=== PATIENT | female | born 1985 | race Caucasian/White ===

== ENCOUNTER 2020-05-16 12:15 | Inpatient (IN) | payer SELFPAY ==
[2020-05-16] MEDS ORDERED: KETOROLAC TROMETHAMINE INJ/PF 30 MG/1 ML SDV IV ONE (13:07)
[2020-05-16] MEDS ORDERED: ONDANSETRON HCL INJ/PF 4 MG/2 ML SDV IV ONE (13:07)
--- NOTE | 2020-05-16 13:09 | ER Document Report ---
ED Medical Screen (RME) - General Stated Complaint: FLANK PAIN Time Seen by Provider: 05/16/20 13:04 Notes: HPI: 34-year-old female with history of polycystic kidney disease presenting for bilateral flank pain with vomiting. Patient states that she began having dysuri a and frequency of urination with small amounts 2 weeks ago and has progressively worsened now with bilateral flank pain worse on the left. States she has had several episodes of nausea vomiting but does not know if she has had a fever PHYSICAL EXAMINATION: Cachectic appearing. Moderate tenderness to the left lower quadrant left abdomen and bilateral CVA tenderness on exam I have greeted and performed a rapid initial assessment of this patient. A comprehensive ED assessment and evaluation of the patient, analysis of test results and completion of medical decision making process will be conducted by an additional ED providers. TRAVEL OUTSIDE OF THE [place] IN LAST 30 DAYS: No - Related Data Allergies/Adverse Reactions: No Known Allergies Allergy (Verified 05/16/20 13:01) Past Medical History - Past Medical History Cardiac Medical History: Reports: Hx Hypertension Musculoskeltal Medical History: Reports Hx Fibromyalgia Psychiatric Medical History: Reports: Hx Anxiety Physical Exam - Vital signs Vitals: Temp Pulse Resp BP Pulse Ox 97.4 F 100 16 121/81 100 05/16/20 12:24 05/16/20 12:24 05/16/20 12:24 05/16/20 12:24 05/16/20 12:24 Course - Vital Signs Vital signs: Temp Pulse Resp BP Pulse Ox 97.4 F 100 16 121/81 100 05/16/20 12:24 05/16/20 12:24 05/16/20 12:24 05/16/20 12:24 05/16/20 12:24
[2020-05-16 13:57] LABS: APPEARANCE,URINE CLOUDY; BILIRUBIN,URINE NEGATIVE (NEGATIVE); COLOR,URINE YELLOW; GLUCOSE, URINE NEGATIVE (NEGATIVE); KETONES,URINE NEGATIVE (NEGATIVE); LEUKOCYTE ESTERASE,URINE LARGE (NEGATIVE); NITRITE,URINE NEGATIVE (NEGATIVE); PROTEIN,URINE 100 mg/dL (NEGATIVE); URINE SPECIFIC GRAVITY 1.012; UROBILINOGEN,URINE NEGATIVE mg/dL (<2.0)
[2020-05-16 14:46] LABS: ALBUMIN 2.9 g/dL (3.5-5.0); ALKALINE PHOSPHATASE 139 U/L (38-126); ANION GAP 13 (5-19); ASPARTATE AMINO TRANSFERASE 19 U/L (14-36); BILIRUBIN,DIRECT 0.2 mg/dL (0.0-0.4); BILIRUBIN,TOTAL 0.3 mg/dL (0.2-1.3); BLOOD UREA NITROGEN 80 mg/dL (7-20); CALCIUM 8.4 mg/dL (8.4-10.2); CHLORIDE 114 mmol/L (98-107); GLUCOSE 97 mg/dL (75-110); POTASSIUM 4.4 mmol/L (3.6-5.0); TOTAL PROTEIN 7.6 g/dL (6.3-8.2)
[2020-05-16 14:59] LABS: CARBON DIOXIDE 9 mmol/L (22-30)
[2020-05-16 15:18] LABS: HEMATOCRIT 15.5 % (36.0-47.0); MEAN CORPUSCULAR HEMOGLOBIN 24.9 pg (27.0-33.4); MEAN CORPUSCULAR HGB CONC 29.5 g/dL (32.0-36.0); MEAN CORPUSCULAR VOLUME 84 fl (80-97); PLATELET COUNT 667 10^3/uL (150-450); RED BLOOD COUNT 1.83 10^6/uL (3.72-5.28); WHITE BLOOD COUNT 28.6 10^3/uL (4.0-10.5)
[2020-05-16 15:22] LABS: HEMOGLOBIN 4.6 g/dL (12.0-15.5)
[2020-05-16 15:35] LABS: ABSOLUTE LYMPHOCYTES# (MANUAL) 3.4 10^3/uL (0.5-4.7); ABSOLUTE MONOCYTES # (MANUAL) 1.1 10^3/uL (0.1-1.4); BASOPHILS % (MANUAL) 0 % (0-2); EOSINOPHILS % (MANUAL) 0 % (0-6); LYMPHOCYTES % (MANUAL) 12 % (13-45); MONOCYTES % (MANUAL) 4 % (3-13); SEGMENTED NEUTROPHILS % (MAN) 84 % (42-78); TOTAL CELLS COUNTED 100
[2020-05-16 15:37] LABS: ANISOCYTOSIS 2+; HYPOCHROMASIA SLIGHT; PLATELET COMMENT ADEQUATE; TEAR DROP CELLS SLIGHT; TOXIC GRANULATION 1+
[2020-05-16] MEDS ORDERED: NORMAL SALINE IV PRN (16:01)
[2020-05-16] MEDS ORDERED: NORMAL SALINE 250 ML IV PRN ×2 (16:04)
[2020-05-16] MEDS ORDERED: PIPERACILLIN/TAZOBACTAM 3.375 GM VIAL IV ONE (16:04)
--- NOTE | 2020-05-16 16:10 | ER Document Report ---
ED GI/ - General Chief Complaint: Flank Pain Stated Complaint: FLANK PAIN Time Seen by Provider: 05/16/20 13:04 Notes: This 34-year-old woman presents to the emergency department with a two-week history of bilateral flank pain and dysuria with frequency. She also describes urgency of urination and small quantities when she goes to urinate. She has a history of polycystic kidney disease and her symptoms have been progressive over the past 2 weeks now with weakness and fatigue as well as vomiting episodes. She denies known fever however, over the past 2 days she has felt sicker. She also notes a past medical history of anemia. TRAVEL OUTSIDE OF THE [place] IN LAST 30 DAYS: No - Related Data Allergies/Adverse Reactions: No Known Allergies Allergy (Verified 05/16/20 13:01) Past Medical History - Social History Smoking Status: Former Smoker Chew tobacco use (# tins/day): No Frequency of alcohol use: None Drug Abuse: None Family History: Reviewed & Not Pertinent. denies: CAD Patient has homicidal ideation: No - Past Medical History Cardiac Medical History: Reports: Hx Hypertension Musculoskeletal Medical History: Reports Hx Fibromyalgia Psychiatric Medical History: Reports: Hx Anxiety Review of Systems - Review of Systems Notes: Constitutional: Generalized weakness and fatigue HENT: Negative for sore throat. Eyes: Negative for visual changes. Cardiovascular: Negative for chest pain. Respiratory: Negative for shortness of breath. Gastrointestinal: + Nausea and vomiting. Genitourinary: + Dysuria + urgency, + frequency, + flank pain. Musculoskeletal: Negative for back pain. Skin: Negative for rash. Neurological: Negative for headaches, weakness or numbness. 10 point ROS negative except as marked above and in HPI. Physical Exam - Vital signs Vitals: Temp Pulse Resp BP Pulse Ox 97.4 F 100 16 121/81 100 05/16/20 12:24 05/16/20 12:24 05/16/20 12:24 05/16/20 12:24 05/16/20 12:24 - Notes Notes: PHYSICAL EXAMINATION: Physical Exam: General: Chronically ill-appearing 34-year-old female in mild distress secondary to flank pain HEENT: NC/AT, pupils equal round and reactive to light, MM moist,nares clear, oropharynx clear, airway patent Neck: supple, no adenopathy, no masses. Good range of motion Lungs: clear, no wheezing, no rales no rhonchi CVS: Regular rate and rhythm no murmur gallop or rub Abdomen: Soft, slightly distended, active, nontender, no masses, no hepatosplenomegaly Ext: Bilateral upper and lower extremity muscle wasting Back: Bilateral CVA tenderness Neuro: Alert and responsive, moving all 4 extremities on command, cranial nerves intact, no focal findings Skin: Intact no open lesions, no rash PSYCH: Normal mood, normal affect. Course - Re-evaluation Re-evalutation: 05/16/20 17:32 I have discussed the findings of the CT scan and lab work with the patient. I explained that she is significantly anemic and has an infection in the urinary tract. She is requiring a transfusion. The patient states that she was transfused in December 2019, apparently had a hemoglobin of 4 at that time. She states that the blood was being lost in her urine, not GI related. 05/16/20 17:36 I have contacted the hospitalist, Dr. Trejo, he will admit the patient to the IMCU for further evaluation and treatment. 05/16/20 17:41 And a sepsis evaluation was also performed because of a marked leukocytosis and urinary tract infection. Blood cultures x2, lactic acid, 30 mL/kg fluid bolus and Zosyn 3.375 g IV. Patient was also noted to have acute kidney injury with a creatinine of greater than 4, potassium is normal, suggestive of a acute rather than chronic renal dysfunction. We will treat as prerenal and monitor closely. - Vital Signs Vital signs: Temp Pulse Resp BP Pulse Ox 98.6 F 86 14 115/84 100 05/16/20 17:15 05/16/20 17:15 05/16/20 17:15 05/16/20 17:15 05/16/20 17:15 - Laboratory Result Diagrams: 05/16/20 14:55 05/16/20 14:00 Laboratory results interpreted by me: 05/16/20 05/16/20 05/16/20 13:20 14:00 14:00 WBC RBC Hgb Hct MCH MCHC RDW Plt Count Seg Neuts % (Manual) Lymphocytes % (Manual) Abs Neuts (Manual) PT 16.4 H APTT 43.7 H Sodium 136.3 L Chloride 114 H Carbon Dioxide 9 L* BUN 80 H Creatinine 4.98 H Est GFR ( Amer) 12 L Est GFR (MDRD) Non-Af 10 L Lactic Acid Alkaline Phosphatase 139 H Albumin 2.9 L Lipase 459.9 H Urine Protein 100 H Urine Blood MODERATE H Ur Leukocyte Esterase LARGE H Crossmatch 05/16/20 05/16/20 05/16/20 14:55 15:30 16:25 WBC 28.6 H RBC 1.83 L Hgb 4.6 L* Hct 15.5 L MCH 24.9 L MCHC 29.5 L RDW 20.0 H Plt Count 667 H Seg Neuts % (Manual) 84 H Lymphocytes % (Manual) 12 L Abs Neuts (Manual) 24.0 H PT APTT Sodium Chloride Carbon Dioxide BUN Creatinine Est GFR ( Amer) Est GFR (MDRD) Non-Af Lactic Acid < 0.5 L Alkaline Phosphatase Albumin Lipase Urine Protein Urine Blood Ur Leukocyte Esterase Crossmatch See Detail - Diagnostic Test Radiology reviewed: Image reviewed, Reports reviewed Radiology results interpreted by me: 05/16/20 17:36 Chest x-ray: No acute cardiopulmonary findings CT abdomen and pelvis with IV contrast: Polycystic kidney and polycystic liver with ascites. Critical Care Note - Critical Care Note Total time excluding time spent on procedures (mins): 60 - Critical care time spent obtaining history from patient or surrogate, discussions with consultants, development of treatment plan with patient or surrogate, evaluation of patient's response to treatment, examination of patient, ordering and performing treatments and interventions, ordering and review of laboratory studies, re- evaluation of patient's condition, ordering and review of radiographic studies and review of old charts Discharge - Discharge Clinical Impression: Severe anemia, SURESH (acute kidney injury), Polycystic kidney, Polycystic liver disease, Generalized weakness Urinary tract infection Qualifiers: Urinary tract infection type: site unspecified Hematuria presence: with hematuria Qualified Code(s): N39.0 - Urinary tract infection, site not specified; R31.9 - Hematuria, unspecified Ascites Qualifiers: Ascites type: other type Qualified Code(s): R18.8 - Other ascites Leukocytosis (leucocytosis) Qualifiers: Leukocytosis type: unspecified Qualified Code(s): D72.829 - Elevated white blood cell count, unspecified Condition: Good Disposition: ADMITTED INPATIENT Admitting Provider: Maya (Hospitalist) Unit Admitted: [facility]
--- NOTE | 2020-05-16 16:33 | RADIOLOGY REPORT (SQ) ---
EXAM DESCRIPTION: CT ABD/PELVIS NO ORAL OR IV IMAGES COMPLETED DATE/TIME: 05/16/2020 3:59 pm REASON FOR STUDY: flank pain COMPARISON: None. TECHNIQUE: CT scan of the abdomen and pelvis performed without intravenous or oral contrast. Images reviewed with lung, soft tissue, and bone windows. Reconstructed coronal and sagittal MPR images revi ewed. All images stored on PACS. All CT scanners at this facility use dose modulation, iterative reconstruction, and/or weight based d osing when appropriate to reduce radiation dose to as low as reasonably achievable (ALARA). [facility]: Dose Right [facility]: CareDose [facility]: Dose Right [facility]: Teradose 4D [facility]: Smart [employer] RADIATION DOSE: CT Rad equipment meets quality standard of care and radiation dose reduction techniq ues were employed. CTDIvol: 4.8 mGy. DLP: 268 mGy-cm.mGy. LIMITATIONS: Noncontrast technique and minimal intra-abdominal fat limits evaluation of anatomy. FINDINGS: LOWER CHEST: No significant findings. No nodules or infiltrates. NON-CONTRASTED LIVER, SPLEEN, ADRENALS: Evaluation limited by lack of IV contrast. Hepatomegaly with numerous parenchymal cystic changes, largest measuring 6.3 cm. PANCREAS: Difficult to visualize. GALLBLADDER: Not visualized. RIGHT KIDNEY AND URETER: Significantly enlarged measuring 20 cm in length Numerous cysts identified. Few small calcified stones. . LEFT KIDNEY AND URETER: Enlarged measuring 16 cm length. Numerous cysts identified. Few small calci fied stones. . AORTA AND RETROPERITONEUM: No aneurysm. Scattered adenopathy. BOWEL AND PERITONEAL CAVITY: No obvious obstruction. APPENDIX: Not visualized. PELVIS, BLADDER, AND ABDOMINAL WALL:Moderate free fluid. Unremarkable bladder. BONES: No acute findings. OTHER: No other significant finding. IMPRESSION: Moderate ascites. Enlarged Polycystic kidneys and liver. Noncontrast technique and minimal intra-abdominal fat limits evaluation of anatomy. TECHNICAL DOCUMENTATION: JOB ID: [id number] [place]-72 Quality ID # [id number]: Final reports with documentation of one or more dose reduction techniques (e.g., Au tomated exposure control, adjustment of the mA and/or kV according to patient size, use of iterative reconstruction technique) 2010 [employer]- All Rights Reserved Reading location - IP/workstation name: [email or web address]
--- NOTE | 2020-05-16 16:42 | RADIOLOGY REPORT (SQ) ---
EXAM DESCRIPTION: CHEST SINGLE VIEW IMAGES COMPLETED DATE/TIME: 05/16/2020 4:22 pm REASON FOR STUDY: possible sepsis COMPARISON: 10/16/2014 TECHNIQUE: Single frontal radiographic view of the chest acquired. NUMBER OF VIEWS: One view. LIMITATIONS: None. FINDINGS: LUNGS AND PLEURA: No pneumothorax. No consolidation or pleural effusion. MEDIASTINUM AND HILAR STRUCTURES: Stable. HEART AND VASCULAR STRUCTURES: Stable. BONES: No acute findings. HARDWARE: None in the chest. OTHER: No other significant finding. IMPRESSION: NO ACUTE FINDINGS. TECHNICAL DOCUMENTATION: JOB ID: [id number] [place]-72 2010 [employer]- All Rights Reserved Reading location - IP/workstation name: [email or web address]
[2020-05-16] MEDS ORDERED: HYDROMORPHONE HCL INJ/PF 2 MG/ML AMPULE IV ONE (17:17)
[2020-05-16] MEDS ORDERED: ONDANSETRON HCL INJ/PF 4 MG/2 ML SDV IV PRN (17:30)
[2020-05-16] MEDS ORDERED: NORMAL SALINE 1000 ML 1,000 ML IV PRN (17:30)
[2020-05-16] MEDS ORDERED: ACETAMINOPHEN 325 MG TABLET PO PRN (17:30)
[2020-05-16 17:40] LABS: PROTHROMBIN TIME 16.4 SEC (11.4-15.4)
[2020-05-16 17:41] LABS: PARTIAL THROMBOPLASTIN TIME 43.7 SEC (23.5-35.8)
[2020-05-16] MEDS ORDERED: PIPERACILLIN/TAZOBACTAM 3.375 GM VIAL IV SCH (17:45)
[2020-05-16] MEDS ORDERED: PANTOPRAZOLE SODIUM 40 MG VIAL IV PRN (17:47)
[2020-05-16] MEDS: CITRIC ACID/SODIUM CITRATE ORAL SOLN 15 ML UDCUP PO SCH ×2 (18:10→23:51)
--- NOTE | 2020-05-16 18:45 | PDOC H&P ---
History of Present Illness Admission Date/PCP: 05/16/20 17:55 Patient complains of: Complaints of bilateral flank pain History of Present Illness: BILLIE HUTCHINS is a 34 year old female with history of polycystic kidney disease, recent history of dialysis in [place], treated for severe anemia [place] moved to [place] again 3 weeks ago and came to the emergency room with complaints of severe bilateral flank pain. Work-up done in the ER shows hemoglobin of 4.6, CT scan shows bilateral enlarged kidneys with polycystic lesions and liver lesions, bicarb in the chemistry is 9 with a creatinine of 5.0. 3 units of blood transfusion initiated in the ER started on IV fluids. Briefly discussed the case with Dr. Bolanos she is going to see the patient deysi rausch. Patient does not have a dialysis catheter at this time. As per the patient her mom at the age of 49 with renal failure. Past Medical History Cardiac Medical History: Reports: Hypertension Renal/ Medical History: Reports: Chronic Kidney Disease, End Stage Renal Disease Malignancy Medical History: Reports: None GI Medical History: Reports: Hiatal Hernia Musculoskeltal Medical History: Reports: Fibromyalgia Psychiatric Medical History: Reports: None Traumatic Medical History: Reports: None Hematology: Reports: None Infectious Medical History: Reports: None Past Surgical History Past Surgical History: Reports: Herniorrhaphy, Other Social History Smoking Status: Former Smoker Electronic Cigarette use?: No Hx Recreational Drug Use: No Hx Prescription Drug Abuse: No Family History Family History: Reviewed & Not Pertinent. denies: CAD Parental Family History Reviewed: Yes - Family history of renal failure Children Family History Reviewed: Yes Sibling(s) Family History Reviewed.: Yes Medication/Allergy Home Medications: No Home Medications 05/16/20 Allergies/Adverse Reactions: No Known Allergies Allergy (Verified 05/16/20 13:01) Review of Systems Constitutional: ABSENT: fever(s) Ears: ABSENT: hearing changes Nose, Mouth, and Throat: ABSENT: mouth pain, sore throat Respiratory: ABSENT: cough, hemoptysis Gastrointestinal: PRESENT: abdominal pain, other - Complaining of bilateral flank pain Genitourinary: ABSENT: dysuria, hematuria Integumentary: ABSENT: rash, wounds Neurological: ABSENT: abnormal gait, abnormal speech, confusion, dizziness, focal weakness, syncope Psychiatric: ABSENT: anxiety, depression, homidical ideation, suicidal ideation Physical Exam Vital Signs: Temp Pulse Resp BP Pulse Ox 98.6 F 86 14 115/84 100 05/16/20 17:15 05/16/20 17:15 05/16/20 17:15 05/16/20 17:15 05/16/20 17:15 Intake & Output 05/15/20 05/16/20 05/17/20 06:59 06:59 06:59 Intake Total 0 Balance 0 Weight 47.1 kg General appearance: PRESENT: no acute distress, disheveled Head exam: PRESENT: atraumatic Eye exam: PRESENT: PERRLA. ABSENT: conjunctiva pale Mouth exam: PRESENT: moist, tongue midline Teeth exam: PRESENT: poor dentation Neck exam: ABSENT: carotid bruit, JVD, lymphadenopathy, thyromegaly Respiratory exam: PRESENT: decreased breath sounds Cardiovascular exam: PRESENT: tachycardia GI/Abdominal exam: PRESENT: ascites, other - Fullness of the costovertebral angle Rectal exam: PRESENT: deferred Extremities exam: PRESENT: full ROM. ABSENT: calf tenderness, clubbing, pedal edema Neurological exam: PRESENT: alert, awake, oriented to person, oriented to place, oriented to time, oriented to situation, CN II-XII grossly intact. ABSENT: motor sensory deficit Psychiatric exam: PRESENT: appropriate affect, normal mood. ABSENT: homicidal ideation, suicidal ideation Results Laboratory Results: 05/16/20 14:55 05/16/20 14:00 05/16/20 05/16/20 05/16/20 13:20 14:00 14:00 WBC Cancelled RBC Cancelled Hgb Cancelled Hct Cancelled MCV Cancelled MCH Cancelled MCHC Cancelled RDW Cancelled Plt Count Cancelled Seg Neutrophils % Cancelled Sodium 136.3 L Potassium 4.4 Chloride 114 H Carbon Dioxide 9 L* Anion Gap 13 BUN 80 H Creatinine 4.98 H Est GFR ( Amer) 12 L Glucose 97 Lactic Acid Calcium 8.4 Total Bilirubin 0.3 AST 19 Alkaline Phosphatase 139 H Total Protein 7.6 Albumin 2.9 L Lipase 459.9 H Serum HCG, Qual Urine Color YELLOW Urine Appearance CLOUDY Urine pH 6.0 Ur Specific [place] 1.012 Urine Protein 100 H Urine Glucose (UA) NEGATIVE Urine Ketones NEGATIVE Urine Blood MODERATE H Urine Nitrite NEGATIVE Ur Leukocyte Esterase LARGE H Urine WBC (Auto) >182 Urine RBC (Auto) 13 Blood Type Antibody Screen 05/16/20 05/16/20 05/16/20 14:00 14:55 15:30 WBC 28.6 H RBC 1.83 L Hgb 4.6 L* Hct 15.5 L MCV 84 MCH 24.9 L MCHC 29.5 L RDW 20.0 H Plt Count 667 H Seg Neutrophils % Not Reportable Sodium Potassium Chloride Carbon Dioxide Anion Gap BUN Creatinine Est GFR ( Amer) Glucose Lactic Acid Calcium Total Bilirubin AST Alkaline Phosphatase Total Protein Albumin Lipase Serum HCG, Qual NEGATIVE Urine Color Urine Appearance Urine pH Ur Specific [place] Urine Protein Urine Glucose (UA) Urine Ketones Urine Blood Urine Nitrite Ur Leukocyte Esterase Urine WBC (Auto) Urine RBC (Auto) Blood Type O POSITIVE Antibody Screen NEGATIVE 05/16/20 16:25 WBC RBC Hgb Hct MCV MCH MCHC RDW Plt Count Seg Neutrophils % Sodium Potassium Chloride Carbon Dioxide Anion Gap BUN Creatinine Est GFR ( Amer) Glucose Lactic Acid < 0.5 L Calcium Total Bilirubin AST Alkaline Phosphatase Total Protein Albumin Lipase Serum HCG, Qual Urine Color Urine Appearance Urine pH Ur Specific [place] Urine Protein Urine Glucose (UA) Urine Ketones Urine Blood Urine Nitrite Ur Leukocyte Esterase Urine WBC (Auto) Urine RBC (Auto) Blood Type Antibody Screen Impressions: Abdomen/Pelvis CT 05/16/20 13:07 IMPRESSION: Moderate ascites. Enlarged Polycystic kidneys and liver. Noncontrast technique and minimal intra-abdominal fat limits evaluation of anatomy. Chest X-Ray 05/16/20 16:02 IMPRESSION: NO ACUTE FINDINGS. Assessment and Plan - Diagnosis (1) SURESH (acute kidney injury) Is this a current diagnosis for this admission?: Yes Plan: 05/16/2020-patient is going to be admitted to [facility] as an inpatient. Patient baseline creatinine is 0.9 in 2014 today it is 5. Bicarb is 9. As per the patient she has a temporary dialysis in [place] in December. Started on IV fluids 100 cc/h. Nephrology consult was requested. Muhammad's catheter was requested renal ultrasound was requested. (2) Polycystic kidney Is this a current diagnosis for this admission?: No Plan: 05/16/2020-patient has history of polycystic kidney disease confirmed by the CT scan of the abdomen. It may be the cause for the end-stage renal disease. Nephrology consult is requested. (3) Leukocytosis (leucocytosis) Qualifiers: Leukocytosis type: unspecified Qualified Code(s): D72.829 - Elevated white blood cell count, unspecified Is this a current diagnosis for this admission?: Yes Plan: 05/16/2020-WBC count is 28,000. Urinalysis abnormal. Started on IV Zosyn. Plan is to continue IV Zosyn blood cultures urine cultures are pending. (4) Severe anemia Is this a current diagnosis for this admission?: Yes Plan: 05/16/2020-patient's hemoglobin is 4.6 to transfuse 3 units of blood transfusion. Protonix drip is initiated. Stool guaiac was requested. Patient is going to receive 3 units of blood transfusion LDH was requested iron studies were requested. Consolidation with Dr. Bolanos is requested. (5) Urinary tract infection Qualifiers: Urinary tract infection type: site unspecified Hematuria presence: with hematuria Qualified Code(s): N39.0 - Urinary tract infection, site not s pecified; R31.9 - Hematuria, unspecified Is this a current diagnosis for this admission?: Yes Plan: 05/16/2020-patient came in with abdominal urine started on IV Zosyn. Blood cultures urine cultures are pending. (6) Polycystic liver disease Is this a current diagnosis for this admission?: No Plan: 05/16/2020-patient has history of polycystic kidney disease with liver involve ment. Consultation with nephrology on consultation with oncology is requested. (7) Metabolic acidosis Is this a current diagnosis for this admission?: Yes Plan: 05/16/2020-serum bicarb is 9 most likely secondary to end-stage renal disease. Started on Bicitra 15 mL 4 times a day. (8) Protein-energy malnutrition Is this a current diagnosis for this admission?: Yes Plan: 05/16/2020-patient's BMI is less than 19. Sting of the temporal muscles, deltoid muscle, quadriceps muscle seen. Dietary consult will be requested. - Time Anticipated Discharge Disposition: Home, Self Care Anticipated Discharge Timeframe: within 72 hours
[2020-05-16 19:58] LABS: ABSOLUTE RETICS # 0.049 10^6/uL (0.028-0.122); RETICULOCYTE COUNT (AUTO) 2.65 % (0.66-2.85)
--- NOTE | 2020-05-16 20:55 | RADIOLOGY REPORT (SQ) ---
US RETROPERITONEUM HISTORY: Acute renal failure. COMPARISON: CT scan from earlier the same day. TECHNIQUE: Grayscale and color Doppler ultrasound images of the kidneys were obtained. FINDINGS: The right kidney measures 22.1 cm in length. The cortex has normal thickness and echogenicity. There is no right-sided kidney stone, mass or hydronephrosis. There are numerous cystic structures throughout the right kidney. The left kidney measures 16.3 cm in length. The cortex has normal thickness and echogenicity. There is no left-sided kidney stone, mass or hydronephrosis. There are numerous cystic structures throughout the left kidney. There is a Muhammad catheter in the urinary bladder. IMPRESSION: 1. Bilateral polycystic kidney disease. 2. No hydronephrosis or urinary stones are seen.
[2020-05-16 21:43] LABS: HEMATOCRIT 20.8 % (36.0-47.0); MEAN CORPUSCULAR HEMOGLOBIN 25.2 pg (27.0-33.4); MEAN CORPUSCULAR HGB CONC 29.8 g/dL (32.0-36.0); MEAN CORPUSCULAR VOLUME 84 fl (80-97); PLATELET COUNT 709 10^3/uL (150-450); RED BLOOD COUNT 2.46 10^6/uL (3.72-5.28); RED CELL DISTRIBUTION WIDTH 19.5 % (11.5-14.0); WHITE BLOOD COUNT 29.8 10^3/uL (4.0-10.5)
[2020-05-16 21:50] LABS: IRON(TIBC) < 10.1 ug/dL (37-170)
[2020-05-16] MEDS ORDERED: PIPERACILLIN/TAZOBACTAM 2.25 GM VIAL IV PRN (21:53)
[2020-05-16] MEDS ORDERED: PIPERACILLIN SODIUM/TAZOBACTAM 2.25 GM in NORMAL SALINE 50 ML IV SCH (22:00)
[2020-05-16 22:03] LABS: HEMOGLOBIN 6.2 g/dL (12.0-15.5)
[2020-05-16 22:06] LABS: ABSOLUTE LYMPHOCYTES# (MANUAL) 4.2 10^3/uL (0.5-4.7); BASOPHILS % (MANUAL) 0 % (0-2); LYMPHOCYTES % (MANUAL) 14 % (13-45)
[2020-05-16 22:07] LABS: ABSOLUTE MONOCYTES # (MANUAL) 0.6 10^3/uL (0.1-1.4); EOSINOPHILS % (MANUAL) 1 % (0-6); METAMYELOCYTES % (MANUAL) 1 % (0-1); MONOCYTES % (MANUAL) 2 % (3-13); SEGMENTED NEUTROPHILS % (MAN) 82 % (42-78); TOTAL CELLS COUNTED 100
[2020-05-16 22:08] LABS: ANISOCYTOSIS 1+; OVALOCYTES 1+; PLATELET COMMENT ADEQUATE; POIKILOCYTOSIS 1+; SCHISTOCYTES SLIGHT; TEAR DROP CELLS SLIGHT; TOXIC GRANULATION 1+
[2020-05-16] MEDS ORDERED: CITRIC ACID/SODIUM CITRATE ORAL SOLN 15 ML UDCUP ONE (22:44)
[2020-05-16] MEDS ORDERED: PIPERACILLIN/TAZOBACTAM 2.25 GM VIAL IV ONE (22:44)
[2020-05-17] MEDS: MORPHINE SULFATE 10 MG/ML INJ IV PRN ×5 (02:34→23:58)
[2020-05-17 04:07] LABS: ALBUMIN 2.7 g/dL (3.5-5.0); ALKALINE PHOSPHATASE 119 U/L (38-126); ANION GAP 14 (5-19); ASPARTATE AMINO TRANSFERASE 21 U/L (14-36); BILIRUBIN,DIRECT 0.1 mg/dL (0.0-0.4); BILIRUBIN,TOTAL 0.2 mg/dL (0.2-1.3); BLOOD UREA NITROGEN 81 mg/dL (7-20); CALCIUM 7.7 mg/dL (8.4-10.2); CHLORIDE 113 mmol/L (98-107); GLUCOSE 81 mg/dL (75-110); POTASSIUM 4.5 mmol/L (3.6-5.0); TOTAL PROTEIN 7.1 g/dL (6.3-8.2)
[2020-05-17 04:21] LABS: CARBON DIOXIDE 8 mmol/L (22-30)
[2020-05-17 04:43] LABS: HEMATOCRIT 27.9 % (36.0-47.0); MEAN CORPUSCULAR VOLUME 85 fl (80-97); WHITE BLOOD COUNT 28.9 10^3/uL (4.0-10.5)
[2020-05-17 04:44] LABS: MEAN CORPUSCULAR HEMOGLOBIN 26.7 pg (27.0-33.4); MEAN CORPUSCULAR HGB CONC 31.5 g/dL (32.0-36.0); PLATELET COUNT 667 10^3/uL (150-450); RED CELL DISTRIBUTION WIDTH 17.8 % (11.5-14.0)
[2020-05-17 04:45] LABS: HEMOGLOBIN 8.8 g/dL (12.0-15.5)
[2020-05-17 04:46] LABS: ABSOLUTE LYMPHOCYTES# (MANUAL) 4.3 10^3/uL (0.5-4.7); ABSOLUTE MONOCYTES # (MANUAL) 0.6 10^3/uL (0.1-1.4); BASOPHILS % (MANUAL) 0 % (0-2); EOSINOPHILS % (MANUAL) 1 % (0-6); LYMPHOCYTES % (MANUAL) 15 % (13-45); MONOCYTES % (MANUAL) 2 % (3-13); SEGMENTED NEUTROPHILS % (MAN) 82 % (42-78); TOTAL CELLS COUNTED 100
[2020-05-17 04:47] LABS: ANISOCYTOSIS 1+; BURR CELLS SLIGHT; OVALOCYTES 1+; PLATELET COMMENT ADEQUATE; POIKILOCYTOSIS 1+; TEAR DROP CELLS SLIGHT; TOXIC GRANULATION 1+
[2020-05-17 05:14] LABS: ARTERIAL BLOOD BASE EXCESS -18.6 mmol/L; ARTERIAL BLOOD H2CO3 0.66 mmol/L (1.05-1.35); ARTERIAL BLOOD O2 SATURATION 97.6 % (94-98); ARTERIAL BLOOD PCO2 21.9 mmHg (35-45); ARTERIAL BLOOD PO2 120.3 mmHg (80-100); ARTERIAL BLOOD TOTAL CO2 8.7 mmol/L (21-25)
[2020-05-17 05:21] LABS: ARTERIAL BLOOD FIO2 ROOM AIR
[2020-05-17 05:23] LABS: ARTERIAL BLOOD PH 7.18 (7.35-7.45)
--- NOTE | 2020-05-17 08:30 | PDOC CONSULTATION ---
Consultation Consult Date: 05/17/20 Provider Consulted: EDITH PRINGLE Consult reason:: Hematology/Oncology consultation was requested for patient with acute anemia as well as chronic kidney disease. History of Present Illness Admission Date/PCP: 05/16/20 17:55 History of Present Illness: BILLIE HUTCHINS is a 34 year old female who states that she had a few days of abdominal pain without nausea or constipation. She presented to the ED and was found to have Cr of >4 and HGB 4.6. She was on dialysis briefly a few months ago. She states that she has frequent kidney infections and also required blood transfusion during her last admission with UTI and dialysis. She has chronic polycytsic kidney disease, but otherwise, does not know why she is currently sick. She had blood through her urine in the past and was told this was the reason for her anemia. She denies having been on EPO injections in the past. Today, she is asking to eat and is very hungry. However, she is NPO for possible dialysis catheter placement. 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 Family History Family History: denies: CAD Parental Family History Reviewed: Yes - Father with kidney disease. Children Family History Reviewed: No Sibling(s) Family History Reviewed.: Yes Medication/Allergy Home Medications: No Home Medications 05/16/20 Allergies/Adverse Reactions: No Known Allergies Allergy (Verified 05/16/20 13:01) Review of Systems Constitutional: ABSENT: fever(s), headache(s) Eyes: ABSENT: visual disturbances Ears: ABSENT: hearing changes Nose, Mouth, and Throat: ABSENT: sore throat Cardiovascular: ABSENT: chest pain Respiratory: ABSENT: dyspnea Gastrointestinal: PRESENT: abdominal pain. ABSENT: constipation, nausea Genitourinary: ABSENT: dysuria Musculoskeletal: ABSENT: back pain Integumentary: ABSENT: rash Neurological: ABSENT: confusion, weakness Hematologic/Lymphatic: ABSENT: easy bleeding Physical Exam Vital Signs: Temp Pulse Resp BP Pulse Ox 97.5 F 93 18 102/75 98 05/17/20 03:49 05/17/20 07:00 05/17/20 03:49 05/17/20 03:49 05/17/20 03:49 Intake & Output 05/16/20 05/17/20 05/18/20 06:59 06:59 06:59 Intake Total 600 Output Total 200 Balance 400 Weight 47.7 kg General appearance: PRESENT: thin Head exam: PRESENT: normocephalic, other - scar over forehead. Eye exam: PRESENT: EOMI Mouth exam: PRESENT: moist, tongue midline Neck exam: ABSENT: lymphadenopathy, tenderness Respiratory exam: PRESENT: clear to auscultation lan, unlabored Cardiovascular exam: PRESENT: RRR GI/Abdominal exam: PRESENT: normal bowel sounds, soft. ABSENT: tenderness Extremities exam: ABSENT: pedal edema Musculoskeletal exam: PRESENT: normal inspection Neurological exam: PRESENT: alert, awake Psychiatric exam: PRESENT: appropriate affect Skin exam: PRESENT: normal color Results Laboratory Results: 05/17/20 03:34 05/17/20 03:34 05/16/20 05/16/20 05/16/20 13:20 14:00 14:00 WBC Cancelled RBC Cancelled Hgb Cancelled Hct Cancelled MCV Cancelled MCH Cancelled MCHC Cancelled RDW Cancelled Plt Count Cancelled Seg Neutrophils % Cancelled Retic Count (auto) Carbonic Acid HCO3/H2CO3 Ratio ABG pH ABG pCO2 ABG pO2 ABG HCO3 ABG O2 Saturation ABG Base Excess FiO2 Sodium 136.3 L Potassium 4.4 Chloride 114 H Carbon Dioxide 9 L* Anion Gap 13 BUN 80 H Creatinine 4.98 H Est GFR ( Amer) 12 L Glucose 97 Lactic Acid Calcium 8.4 Magnesium Iron TIBC Ferritin Total Bilirubin 0.3 AST 19 Alkaline Phosphatase 139 H Ammonia Total Protein 7.6 Albumin 2.9 L Lipase 459.9 H Vitamin B12 Folate TSH Serum HCG, Qual PTH Intact Urine Color YELLOW Urine Appearance CLOUDY Urine pH 6.0 Ur Specific [place] 1.012 Urine Protein 100 H Urine Glucose (UA) NEGATIVE Urine Ketones NEGATIVE Urine Blood MODERATE H Urine Nitrite NEGATIVE Ur Leukocyte Esterase LARGE H Urine WBC (Auto) >182 Urine RBC (Auto) 13 Blood Type Antibody Screen 05/16/20 05/16/20 05/16/20 14:00 14:00 14:00 WBC RBC Hgb Hct MCV MCH MCHC RDW Plt Count Seg Neutrophils % Retic Count (auto) 2.65 Carbonic Acid HCO3/H2CO3 Ratio ABG pH ABG pCO2 ABG pO2 ABG HCO3 ABG O2 Saturation ABG Base Excess FiO2 Sodium Potassium Chloride Carbon Dioxide Anion Gap BUN Creatinine Est GFR ( Amer) Glucose Lactic Acid Calcium Magnesium Iron < 10.1 L TIBC 211 L Ferritin 326.00 H Total Bilirubin AST Alkaline Phosphatase Ammonia Total Protein Albumin Lipase Vitamin B12 958.0 H Folate 10.20 TSH Serum HCG, Qual NEGATIVE PTH Intact Urine Color Urine Appearance Urine pH Ur Specific [place] Urine Protein Urine Glucose (UA) Urine Ketones Urine Blood Urine Nitrite Ur Leukocyte Esterase Urine WBC (Auto) Urine RBC (Auto) Blood Type Antibody Screen 05/16/20 05/16/20 05/16/20 14:55 15:30 16:25 WBC 28.6 H RBC 1.83 L Hgb 4.6 L* Hct 15.5 L MCV 84 MCH 24.9 L MCHC 29.5 L RDW 20.0 H Plt Count 667 H Seg Neutrophils % Not Reportable Retic Count (auto) Carbonic Acid HCO3/H2CO3 Ratio ABG pH ABG pCO2 ABG pO2 ABG HCO3 ABG O2 Saturation ABG Base Excess FiO2 Sodium Potassium Chloride Carbon Dioxide Anion Gap BUN Creatinine Est GFR ( Amer) Glucose Lactic Acid < 0.5 L Calcium Magnesium Iron TIBC Ferritin Total Bilirubin AST Alkaline Phosphatase Ammonia Total Protein Albumin Lipase Vitamin B12 Folate TSH Serum HCG, Qual PTH Intact Urine Color Urine Appearance Urine pH Ur Specific [place] Urine Protein Urine Glucose (UA) Urine Ketones Urine Blood Urine Nitrite Ur Leukocyte Esterase Urine WBC (Auto) Urine RBC (Auto) Blood Type O POSITIVE Antibody Screen NEGATIVE 05/16/20 05/16/20 05/16/20 19:05 21:20 21:20 WBC RBC Hgb Hct MCV MCH MCHC RDW Plt Count Seg Neutrophils % Retic Count (auto) Carbonic Acid Cancelled HCO3/H2CO3 Ratio Cancelled ABG pH Cancelled ABG pCO2 Cancelled ABG pO2 Cancelled ABG HCO3 Cancelled ABG O2 Saturation Cancelled ABG Base Excess Cancelled FiO2 Cancelled Sodium Potassium Chloride Carbon Dioxide Anion Gap BUN Creatinine Est GFR ( Amer) Glucose Lactic Acid 0.7 Calcium Magnesium Iron TIBC Ferritin Total Bilirubin AST Alkaline Phosphatase Ammonia Total Protein Albumin Lipase Vitamin B12 Folate TSH Serum HCG, Qual PTH Intact 61.8 Urine Color Urine Appearance Urine pH Ur Specific [place] Urine Protein Urine Glucose (UA) Urine Ketones Urine Blood Urine Nitrite Ur Leukocyte Esterase Urine WBC (Auto) Urine RBC (Auto) Blood Type Antibody Screen 05/16/20 05/17/20 05/17/20 21:20 01:38 03:34 WBC 29.8 H RBC 2.46 L Hgb 6.2 L Hct 20.8 L MCV 84 MCH 25.2 L MCHC 29.8 L RDW 19.5 H Plt Count 709 H Seg Neutrophils % Not Reportable Retic Count (auto) Carbonic Acid HCO3/H2CO3 Ratio ABG pH ABG pCO2 ABG pO2 ABG HCO3 ABG O2 Saturation ABG Base Excess FiO2 Sodium 135.2 L Potassium 4.5 Chloride 113 H Carbon Dioxide 8 L* Anion Gap 14 BUN 81 H Creatinine 4.79 H Est GFR ( Amer) 12 L Glucose 81 Lactic Acid 0.8 Calcium 7.7 L Magnesium 1.8 Iron TIBC Ferritin Total Bilirubin 0.2 AST 21 Alkaline Phosphatase 119 Ammonia Total Protein 7.1 Albumin 2.7 L Lipase Vitamin B12 Folate TSH Serum HCG, Qual PTH Intact Urine Color Urine Appearance Urine pH Ur Specific [place] Urine Protein Urine Glucose (UA) Urine Ketones Urine Blood Urine Nitrite Ur Leukocyte Esterase Urine WBC (Auto) Urine RBC (Auto) Blood Type Antibody Screen 05/17/20 05/17/20 05/17/20 03:34 03:34 04:48 WBC 28.9 H RBC 3.30 L Hgb 8.8 L D Hct 27.9 L MCV 85 MCH 26.7 L MCHC 31.5 L RDW 17.8 H Plt Count 667 H Seg Neutrophils % Not Reportable Retic Count (auto) Carbonic Acid 0.66 L HCO3/H2CO3 Ratio 12:1 ABG pH 7.18 L* ABG pCO2 21.9 L ABG pO2 120.3 H ABG HCO3 8.0 L ABG O2 Saturation 97.6 ABG Base Excess -18.6 FiO2 ROOM AIR Sodium Potassium Chloride Carbon Dioxide Anion Gap BUN Creatinine Est GFR ( Amer) Glucose Lactic Acid Calcium Magnesium Iron TIBC Ferritin Total Bilirubin AST Alkaline Phosphatase Ammonia Total Protein Albumin Lipase Vitamin B12 Folate TSH 3.55 Serum HCG, Qual PTH Intact Urine Color Urine Appearance Urine pH Ur Specific [place] Urine Protein Urine Glucose (UA) Urine Ketones Urine Blood Urine Nitrite Ur Leukocyte Esterase Urine WBC (Auto) Urine RBC (Auto) Blood Type Antibody Screen 05/17/20 05:38 WBC RBC Hgb Hct MCV MCH MCHC RDW Plt Count Seg Neutrophils % Retic Count (auto) Carbonic Acid HCO3/H2CO3 Ratio ABG pH ABG pCO2 ABG pO2 ABG HCO3 ABG O2 Saturation ABG Base Excess FiO2 Sodium Potassium Chloride Carbon Dioxide Anion Gap BUN Creatinine Est GFR ( Amer) Glucose Lactic Acid Calcium Magnesium Iron TIBC Ferritin Total Bilirubin AST Alkaline Phosphatase Ammonia < 8.7 L Total Protein Albumin Lipase Vitamin B12 Folate TSH Serum HCG, Qual PTH Intact Urine Color Urine Appearance Urine pH Ur Specific [place] Urine Protein Urine Glucose (UA) Urine Ketones Urine Blood Urine Nitrite Ur Leukocyte Esterase Urine WBC (Auto) Urine RBC (Auto) Blood Type Antibody Screen Impressions: Renal Ultrasound 05/16/20 00:00 IMPRESSION: 1. Bilateral polycystic kidney disease. 2. No hydronephrosis or urinary stones are seen. Abdomen/Pelvis CT 05/16/20 13:07 IMPRESSION: Moderate ascites. Enlarged Polycystic kidneys and liver. Noncontrast technique and minimal intra-abdominal fat limits evaluation of anatomy. Chest X-Ray 05/16/20 16:02 IMPRESSION: NO ACUTE FINDINGS. Assessment & Plan - Diagnosis (1) Polycystic kidney Is this a current diagnosis for this admission?: No (2) Severe anemia Is this a current diagnosis for this admission?: Yes Plan: LDH is normal, as is retic count. This appears to be anemia of chronic renal disease. Her ferritin is normal, but her serum iron and sat are very low. She may benefit from some iron as well as EPO. This should be followed as outpatient. She has responded well to blood transfusions. (3) Urinary tract infection Qualifiers: Urinary tract infection type: site unspecified Hematuria presence: with hematuria Qualified Code(s): N39.0 - Urinary tract infection, site not specified; R31.9 - Hematuria, unspecified Is this a current diagnosis for this admission?: Yes Plan: On appropriate antibiotics. Renal has been consulted for possible dialysis. - Plan Summary Plan Summary: Thank you for this consultation. I will be happy to follow her with you. Please call with any concerns.
[2020-05-17] MEDS ORDERED: EPOETIN ALFA-EPBX 20,000 UNIT in SYRINGE, DISPOSABLE, 1 EACH IV PRN (09:16)
[2020-05-17] MEDS ORDERED: TUBERCULIN,PURIF.PROT.DERIV. 5 TU/0.1 ML TEST 1 ML VIAL ID ONE ×2 (09:16→11:00)
[2020-05-17] MEDS ORDERED: HEPARIN SOD (PORCINE) 1,000 UNIT/ML 10 ML VIAL IV PRN (09:16)
[2020-05-17] MEDS ORDERED: IRON SUCROSE COMPLEX INJ/PF 100 MG/5 ML SDV IV PRN (09:16)
[2020-05-17] MEDS ORDERED: NORMAL SALINE 1000 ML 1,000 ML IV PRN (09:16)
--- NOTE | 2020-05-17 09:27 | Operative Report ---
Operative Report DATE OF SURGERY: 05/17/20 PREOPERATIVE DIAGNOSIS: 1. Sepsis. 2. End-stage renal failure. 3. Anticoag ulated POSTOPERATIVE DIAGNOSIS: Same OPERATION: Ultrasound directed insertion of tri-lumen dialysis access catheter in the right groin SURGEON: TARA WARREN ANESTHESIA: Local TISSUE REMOVED OR ALTERED: None COMPLICATIONS: None ESTIMATED BLOOD LOSS: 20 cc INTRAOPERATIVE FINDINGS: See below PROCEDURE: The patient was evaluated for for [facility]. Right groin was exposed, hair clipped. The right groin was prepped and draped sterile fashion with chlorhexidine Surgical plan and surgical timeout were conducted. Using ultrasound real-time as a guide, the right common femoral vein was visualized, found be suitable for cannulation based on compression in diameter. The skin was anesthetized with 1% plain lidocaine. 18-gauge needle and conventional 0.030 inch guidewire threaded into the right common femoral vein. The tract was dilated up with a small and medium sized dilators. The tri-Alysis catheter was then threaded over the wire the wire removed. There was excellent aspiration and flow through all 3 lm. Lumens were flushed with saline then heparinized saline. Catheter secured to the skin at 2 sites with 3-0 Ethilon suture. Biopatch and sterile dressing applied. Patient tolerated procedure well. There was no evidence of hematoma. Plan: 1. Patient's care will be turned over to the medicine service, and drug enforcement administration agent for further intervention. 2. Surgery will sign off at this point; please reconsult if clinically indicated.
[2020-05-17] MEDS: DEXTROSE 5%-WATER 1000 ML 1,000 ML with SODIUM BICARBONATE 150 MEQ IV PRN ×4 (09:54→23:57)
[2020-05-17] MEDS: CITRIC ACID/SODIUM CITRATE ORAL SOLN 15 ML UDCUP PO SCH ×4 (11:52→21:24)
--- NOTE | 2020-05-17 11:52 | CDI QUERY ---
CDI Query CDI Review: Dear Provider, Please further specify level of malnutrition noted in progress notes: SEVERE MALNUTRITION MODERATE MILD Clinical data: muscle wasting / dietary consult / labs / BMI 19 Thanks, Randa Leach [phone]
--- NOTE | 2020-05-17 12:08 | PDOC PROGRESS REPORT ---
Subjective Progress Note for:: 05/15/20 Subjective:: 34 year old female with history of polycystic kidney disease, recent history of dialysis in [place], treated for severe anemia [place] moved to [place] again 3 weeks ago and came to the emergency room with complaints of severe bilateral flank pain. Work-up done in the ER shows hemoglobin of 4.6, CT scan shows bilateral enlarged kidneys with polycystic lesions and liver lesions, bicarb in the chemistry is 9 with a creatinine of 5.0. 3 units of blood trans fusion initiated in the ER started on IV fluids. Briefly discussed the case with Dr. Bolanos she is going to see the patient tomorrow. Patient does not have a dialysis catheter at this time. As per the patient her mom at the age of 49 with renal failure. 05/17/2020-patient is in the dialysis unit at the time of examination. Received a temporary dialysis catheter. Hemoglobin came up to 8.6 with treatments of blood transfusion. Creatinine improved to 4.1. Consultation with nephrology, onc ology was done. WBC count is still elevated receiving IV antibiotic therapy. Reason For Visit: SURESH,SEVERE ANEMIA Physical Exam Vital Signs: Temp Pulse Resp BP Pulse Ox 97.5 F 93 18 102/75 98 05/17/20 03:49 05/17/20 07:00 05/17/20 03:49 05/17/20 03:49 05/17/20 03:49 Intake & Output 05/16/20 05/17/20 05/18/20 06:59 06:59 06:59 Intake Total 600 Output Total 200 Balance 400 Weight 47.7 kg General appearance: PRESENT: no acute distress, cooperative, disheveled, thin Head exam: PRESENT: atraumatic Eye exam: PRESENT: PERRLA Mouth exam: PRESENT: moist, tongue midline Teeth exam: PRESENT: poor dentation Neck exam: ABSENT: carotid bruit, JVD, lymphadenopathy, thyromegaly Respiratory exam: PRESENT: decreased breath sounds Cardiovascular exam: PRESENT: RRR. ABSENT: diastolic murmur, rubs, systolic murmur GI/Abdominal exam: PRESENT: ascites, normal bowel sounds, other - Fullness of the costovertebral angles present. Rectal exam: PRESENT: deferred Extremities exam: PRESENT: full ROM. ABSENT: calf tenderness, clubbing, pedal edema Neurological exam: PRESENT: alert, awake, oriented to person, oriented to place, oriented to time, oriented to situation, CN II-XII grossly intact. ABSENT: motor sensory deficit Psychiatric exam: PRESENT: appropriate affect, normal mood. ABSENT: homicidal ideation, suicidal ideation Results Laboratory Results: 05/17/20 03:34 05/17/20 03:34 05/16/20 05/16/20 05/16/20 13:20 14:00 14:00 WBC Cancelled RBC Cancelled Hgb Cancelled Hct Cancelled MCV Cancelled MCH Cancelled MCHC Cancelled RDW Cancelled Plt Count Cancelled Seg Neutrophils % Cancelled Retic Count (auto) Carbonic Acid HCO3/H2CO3 Ratio ABG pH ABG pCO2 ABG pO2 ABG HCO3 ABG O2 Saturation ABG Base Excess FiO2 Sodium 136.3 L Potassium 4.4 Chloride 114 H Carbon Dioxide 9 L* Anion Gap 13 BUN 80 H Creatinine 4.98 H Est GFR ( Amer) 12 L Glucose 97 Lactic Acid Calcium 8.4 Magnesium Iron TIBC Ferritin Total Bilirubin 0.3 AST 19 Alkaline Phosphatase 139 H Ammonia Total Protein 7.6 Albumin 2.9 L Lipase 459.9 H Vitamin B12 Folate TSH Serum HCG, Qual PTH Intact Urine Color YELLOW Urine Appearance CLOUDY Urine pH 6.0 Ur Specific [place] 1.012 Urine Protein 100 H Urine Glucose (UA) NEGATIVE Urine Ketones NEGATIVE Urine Blood MODERATE H Urine Nitrite NEGATIVE Ur Leukocyte Esterase LARGE H Urine WBC (Auto) >182 Urine RBC (Auto) 13 Blood Type Antibody Screen 05/16/20 05/16/20 05/16/20 14:00 14:00 14:00 WBC RBC Hgb Hct MCV MCH MCHC RDW Plt Count Seg Neutrophils % Retic Count (auto) 2.65 Carbonic Acid HCO3/H2CO3 Ratio ABG pH ABG pCO2 ABG pO2 ABG HCO3 ABG O2 Saturation ABG Base Excess FiO2 Sodium Potassium Chloride Carbon Dioxide Anion Gap BUN Creatinine Est GFR ( Amer) Glucose Lactic Acid Calcium Magnesium Iron < 10.1 L TIBC 211 L Ferritin 326.00 H Total Bilirubin AST Alkaline Phosphatase Ammonia Total Protein Albumin Lipase Vitamin B12 958.0 H Folate 10.20 TSH Serum HCG, Qual NEGATIVE PTH Intact Urine Color Urine Appearance Urine pH Ur Specific [place] Urine Protein Urine Glucose (UA) Urine Ketones Urine Blood Urine Nitrite Ur Leukocyte Esterase Urine WBC (Auto) Urine RBC (Auto) Blood Type Antibody Screen 05/16/20 05/16/20 05/16/20 14:55 15:30 16:25 WBC 28.6 H RBC 1.83 L Hgb 4.6 L* Hct 15.5 L MCV 84 MCH 24.9 L MCHC 29.5 L RDW 20.0 H Plt Count 667 H Seg Neutrophils % Not Reportable Retic Count (auto) Carbonic Acid HCO3/H2CO3 Ratio ABG pH ABG pCO2 ABG pO2 ABG HCO3 ABG O2 Saturation ABG Base Excess FiO2 Sodium Potassium Chloride Carbon Dioxide Anion Gap BUN Creatinine Est GFR ( Amer) Glucose Lactic Acid < 0.5 L Calcium Magnesium Iron TIBC Ferritin Total Bilirubin AST Alkaline Phosphatase Ammonia Total Protein Albumin Lipase Vitamin B12 Folate TSH Serum HCG, Qual PTH Intact Urine Color Urine Appearance Urine pH Ur Specific [place] Urine Protein Urine Glucose (UA) Urine Ketones Urine Blood Urine Nitrite Ur Leukocyte Esterase Urine WBC (Auto) Urine RBC (Auto) Blood Type O POSITIVE Antibody Screen NEGATIVE 05/16/20 05/16/20 05/16/20 19:05 21:20 21:20 WBC RBC Hgb Hct MCV MCH MCHC RDW Plt Count Seg Neutrophils % Retic Count (auto) Carbonic Acid Cancelled HCO3/H2CO3 Ratio Cancelled ABG pH Cancelled ABG pCO2 Cancelled ABG pO2 Cancelled ABG HCO3 Cancelled ABG O2 Saturation Cancelled ABG Base Excess Cancelled FiO2 Cancelled Sodium Potassium Chloride Carbon Dioxide Anion Gap BUN Creatinine Est GFR ( Amer) Glucose Lactic Acid 0.7 Calcium Magnesium Iron TIBC Ferritin Total Bilirubin AST Alkaline Phosphatase Ammonia Total Protein Albumin Lipase Vitamin B12 Folate TSH Serum HCG, Qual PTH Intact 61.8 Urine Color Urine Appearance Urine pH Ur Specific [place] Urine Protein Urine Glucose (UA) Urine Ketones Urine Blood Urine Nitrite Ur Leukocyte Esterase Urine WBC (Auto) Urine RBC (Auto) Blood Type Antibody Screen 05/16/20 05/17/20 05/17/20 21:20 01:38 03:34 WBC 29.8 H RBC 2.46 L Hgb 6.2 L Hct 20.8 L MCV 84 MCH 25.2 L MCHC 29.8 L RDW 19.5 H Plt Count 709 H Seg Neutrophils % Not Reportable Retic Count (auto) Carbonic Acid HCO3/H2CO3 Ratio ABG pH ABG pCO2 ABG pO2 ABG HCO3 ABG O2 Saturation ABG Base Excess FiO2 Sodium 135.2 L Potassium 4.5 Chloride 113 H Carbon Dioxide 8 L* Anion Gap 14 BUN 81 H Creatinine 4.79 H Est GFR ( Amer) 12 L Glucose 81 Lactic Acid 0.8 Calcium 7.7 L Magnesium 1.8 Iron TIBC Ferritin Total Bilirubin 0.2 AST 21 Alkaline Phosphatase 119 Ammonia Total Protein 7.1 Albumin 2.7 L Lipase Vitamin B12 Folate TSH Serum HCG, Qual PTH Intact Urine Color Urine Appearance Urine pH Ur Specific [place] Urine Protein Urine Glucose (UA) Urine Ketones Urine Blood Urine Nitrite Ur Leukocyte Esterase Urine WBC (Auto) Urine RBC (Auto) Blood Type Antibody Screen 05/17/20 05/17/20 05/17/20 03:34 03:34 04:48 WBC 28.9 H RBC 3.30 L Hgb 8.8 L D Hct 27.9 L MCV 85 MCH 26.7 L MCHC 31.5 L RDW 17.8 H Plt Count 667 H Seg Neutrophils % Not Reportable Retic Count (auto) Carbonic Acid 0.66 L HCO3/H2CO3 Ratio 12:1 ABG pH 7.18 L* ABG pCO2 21.9 L ABG pO2 120.3 H ABG HCO3 8.0 L ABG O2 Saturation 97.6 ABG Base Excess -18.6 FiO2 ROOM AIR Sodium Potassium Chloride Carbon Dioxide Anion Gap BUN Creatinine Est GFR ( Amer) Glucose Lactic Acid Calcium Magnesium Iron TIBC Ferritin Total Bilirubin AST Alkaline Phosphatase Ammonia Total Protein Albumin Lipase Vitamin B12 Folate TSH 3.55 Serum HCG, Qual PTH Intact Urine Color Urine Appearance Urine pH Ur Specific [place] Urine Protein Urine Glucose (UA) Urine Ketones Urine Blood Urine Nitrite Ur Leukocyte Esterase Urine WBC (Auto) Urine RBC (Auto) Blood Type Antibody Screen 05/17/20 05:38 WBC RBC Hgb Hct MCV MCH MCHC RDW Plt Count Seg Neutrophils % Retic Count (auto) Carbonic Acid HCO3/H2CO3 Ratio ABG pH ABG pCO2 ABG pO2 ABG HCO3 ABG O2 Saturation ABG Base Excess FiO2 Sodium Potassium Chloride Carbon Dioxide Anion Gap BUN Creatinine Est GFR ( Amer) Glucose Lactic Acid Calcium Magnesium Iron TIBC Ferritin Total Bilirubin AST Alkaline Phosphatase Ammonia < 8.7 L Total Protein Albumin Lipase Vitamin B12 Folate TSH Serum HCG, Qual PTH Intact Urine Color Urine Appearance Urine pH Ur Specific [place] Urine Protein Urine Glucose (UA) Urine Ketones Urine Blood Urine Nitrite Ur Leukocyte Esterase Urine WBC (Auto) Urine RBC (Auto) Blood Type Antibody Screen 05/16/20 16:25 Blood Blood Culture (PCR) - Final Escherichia Coli Impressions: Renal Ultrasound 05/16/20 00:00 IMPRESSION: 1. Bilateral polycystic kidney disease. 2. No hydronephrosis or urinary stones are seen. Abdomen/Pelvis CT 05/16/20 13:07 IMPRESSION: Moderate ascites. Enlarged Polycystic kidneys and liver. Noncontrast technique and minimal intra-abdominal fat limits evaluation of anatomy. Chest X-Ray 05/16/20 16:02 IMPRESSION: NO ACUTE FINDINGS. Assessment and Plan - Diagnosis (1) SURESH (acute kidney injury) Is this a current diagnosis for this admission?: Yes Plan: 05/16/2020-patient is going to be admitted to [facility] as an inpatient. Patient baseline creatinine is 0.9 in 2014 today it is 5. Bicarb is 9. As per the patient she has a temporary dialysis in [place] in December. Started on IV fluids 100 cc/h. Nephrology consult was requested. Muhammad's catheter was requested renal ultrasound was requested. 05/17/2020-patient has end-stage renal disease on dialysis at this time. Nephrology consult was requested. (2) Polycystic kidney Is this a current diagnosis for this admission?: No Plan: 05/16/2020-patient has history of polycystic kidney disease confirmed by the CT scan of the abdomen. It may be the cause for the end-stage renal disease. Nephrology consult is requested. (3) Leukocytosis (leucocytosis) Qualifiers: Qualified Code(s): D72.829 - Elevated white blood cell count, unspecified Is this a current diagnosis for this admission?: Yes Plan: 05/16/2020-WBC count is 28,000. Urinalysis abnormal. Started on IV Zosyn. Plan is to continue IV Zosyn blood cultures urine cultures are pending. 05/17/2020-WBC count is 28,900. May be secondary to UTI. Patient is receiving IV Zosyn at this time. pLan is to repeat the labs tomorrow. (4) Severe anemia Is this a current diagnosis for this admission?: Yes Plan: 05/16/2020-patient's hemoglobin is 4.6 to transfuse 3 units of blood transfusion. Protonix drip is initiated. Stool guaiac was requested. Patient is going to receive 3 units of blood transfusion LDH was requested iron studies were requested. Consolidation with Dr. Bolanos is requested. 05/17/2020-looks like patient has anemia of chronic disease with 3 units of blood transfusion hemoglobin is 8.6. Anemia of chronic disease most likely secondary to end-stage renal disease. Patient may need EPO as an outpatient. (5) Urinary tract infection Qualifiers: Qualified Code(s): N39.0 - Urinary tract infection, site not specified; R31.9 - Hematuria, unspecified Is this a current diagnosis for this admission?: Yes Plan: 05/16/2020-patient came in with abdominal urine started on IV Zosyn. Blood cul tures urine cultures are pending. 05/17/2020-patient came in with abdominal urine and elevated WBC count presently on IV Zosyn. Afebrile. Blood cultures are positive for E. coli urine culture's are positive for gram-negative rods. (6) Polycystic liver disease Is this a current diagnosis for this admission?: No Plan: 05/16/2020-patient has history of polycystic kidney disease with liver involvement. Consultation with nephrology on consultation with oncology is requested. (7) Metabolic acidosis Is this a current diagnosis for this admission?: Yes Plan: 05/16/2020-serum bicarb is 9 most likely secondary to end-stage renal disease. Started on Bicitra 15 mL 4 times a day. 05/17/2020-bicarb dropped to 8 today patient was started on a bicarb drip this morning. Metabolic acidosis most likely secondary to end-stage renal disease. (8) Protein-energy malnutrition Is this a current diagnosis for this admission?: Yes Plan: 05/16/2020-patient's BMI is less than 19. Sting of the temporal muscles, deltoid muscle, quadriceps muscle seen. Dietary consult will be requested. 05/17/2020-in my opinion patient has a moderate protein energy malnutrition. On examination wasting of the temporal muscles, biceps muscles, quadriceps muscles seen. - Time Anticipated Discharge Disposition: Home, Self Care Anticipated Discharge Timeframe: within 72 hours
--- NOTE | 2020-05-17 12:13 | PDOC CONSULTATION ---
Consultation Consult Date: 05/17/20 Provider Consulted: JORGE A BRODY Consult reason:: SURESH, Severe acidosis History of Present Illness Admission Date/PCP: 05/16/20 17:55 History of Present Illness: BILLIE HUTCHINS is a 34 year old female with history of chronic kidney disease, hypertension, polycystic kidneys, fibromyalgia and osteoarthritis who presented to the emergency room yesterday because of bilateral flank pains. Patient is not a very good historian. Patient just moved here from [facility] about 3 weeks ago to stay with her father. She presented with complaint of bilateral severe flank pain. Initial work-up in the emergency room showed hemoglobin low at 4.6, BUN of 80, creatinine of 4.98, and bicarbonate of 9. CT scan of the abdomen showed bilateral enlarged kidneys with polycystic kidney and liver lesions. She was transfused 3 units of packed RBC and IV fluids was given. Hematology consult was called in and Dr. Smith saw the patient this morning with assessment that her anemia is most likely secondary to chronic disease. Patient also has elevated white count of 28.6 and a urinalysis consistent with UTI. Patient was started on bicarbonate drip and IV Zosyn. Patient states that in December she was hospitalized in [facility] in [place] after sustaining a head injury after a fall. In her own words she says she cracked her head but unsure what the nature of that injury was and she could not tell me either. She said she spent about 2 months in the hospital and was discharged to rehabitation. She also stated that she had what it looks like an acute kidney injury requiring dialysis about 3-4 times and then she was told that her kidneys were recovered. Patient is not aware of what her kidney function was before hospitalization and even upon discharge. He said she has not seen a music cataloguer except in the hospital. Prior to hospitalization she was following up with her primary care provider who told her that there is some problems with her kidneys and she knows that she has cysts in her kidneys. She said she has had UTIs in the past but other than that she could not tell me anything more. She does know that her mother at age 49 and has history of end-stage renal disease and was on peritoneal dialysis. Lately she knows that her mother also has cysts in her kidneys. Patient states that she is eating good but she has lost 40 pounds since her hospitalization in December. Patient admits having some nocturia, and worsening fatigue. She said she vomited twice last week. She states that she does drink fluids. She otherwise denies any other problems with urination including gross hematuria, dysuria and she also denies leg swelling, chest pains, shortness of breath, nausea nor confusion episodes. She states that she always has been anemic in the past. Due to acute kidney injury presumably with unknown baseline kidney function and severe acidosis I was called in consultation by Maya Lloyd. Patient needs an urgent hemodialysis so we asked our surgeon to place a dialysis catheter which she was done successfully. I did arrange for her first hemodialysis treatment here. 10:59 AM. I am not seeing the patient in dialysis for her first treatment during this admission. So far she is tolerating procedure and sleeping through it. She is being monitored toward continuously throughout dialysis treatment. Dialysis prescription discussed with our dialysis nurse. Past Medical History Cardiac Medical History: Reports: Hypertension-primary Renal/ Medical History: Reports: Chronic Kidney Disease Stage V GI Medical History: Reports: Hiatal Hernia Musculoskeltal Medical History: Reports: Arthritis, Fibromyalgia Hematology Medical History: Reports Anemia of Chronic Kidney Disease Past Surgical History Past Surgical History: Reports: Section, Herniorrhaphy - For umbilical hernia Social History Information Source: Patient Lives with: Family Smoking Status: Former Smoker Electronic Cigarette use?: No Cigars Per Day: 10 Number of Years Smokin Last Time Smoked: 1 month ago Frequency of Alcohol Use: None Hx Recreational Drug Use: No Hx Prescription Drug Abuse: No Family History Family History: End Stage Renal Disease - Mother was on peritoneal dialysis and also has polycystic kidneys Parental Family History Reviewed: Yes Children Family History Reviewed: Yes Sibling(s) Family History Reviewed.: Yes Medication/Allergy Home Medications: No Home Medications 05/16/20 Allergies/Adverse Reactions: No Known Allergies Allergy (Verified 05/16/20 13:01) Review of Systems All systems: reviewed and no additional remarkable complaints except as stated Review of Systems: Constitutional: ABSENT: chills, fever(s), headache(s), weight gain; admits weight loss and fatigue Eyes: ABSENT: visual disturbances Ears: ABSENT: hearing changes Cardiovascular: ABSENT: chest pain, dyspnea on exertion, edema, orthropnea, palpitations Respiratory: ABSENT: cough, dyspnea, hemoptysis Gastrointestinal: ABSENT: abdominal pain, constipation, diarrhea, hematemesis, hematochezia, nausea; admits vomiting Genitourinary: ABSENT: dysuria, hematuria; admits nocturia and bilateral flank pains Musculoskeletal: ABSENT: joint swelling Integumentary: ABSENT: rash, wounds Neurological: ABSENT: abnormal gait, abnormal speech, confusion, dizziness, focal weakness, numbness, syncope Psychiatric: ABSENT: anxiety, depression Endocrine: ABSENT: cold intolerance, heat intolerance, polydipsia, polyuria Hematologic/Lymphatic: ABSENT: easy bleeding, easy bruising, lymphadenopathy Physical Exam Vital Signs: Temp Pulse Resp BP Pulse Ox 97.5 F 93 18 102/75 98 05/17/20 03:49 05/17/20 07:00 05/17/20 03:49 05/17/20 03:49 05/17/20 03:49 Intake & Output 05/16/20 05/17/20 05/18/20 06:59 06:59 06:59 Intake Total 600 Output Total 200 Balance 400 Weight 47.7 kg Vitals during dialysis: Blood pressure 114/74, heart rate of 94, blood flow rate of 250 mL/min and dialysate flow rate of 600 mL/min. Urine in her Muhammad catheter bag was cloudy. Exam: General appearance: No acute distress, cooperative, appears to be under nourished Head exam: PRESENT: atraumatic, normocephalic Eye exam: PRESENT: Conjunctiva pale, EOMI, PERRLA. ABSENT: conjunctival injection, scleral icterus Mouth exam: PRESENT: moist, neck supple, tongue midline Neck exam: PRESENT: full ROM. ABSENT: carotid bruit, JVD, lymphadenopathy, thyromegaly Respiratory exam: PRESENT: clear to auscultation bilaterally. ABSENT: rales, rhonchi, stridor, wheezes Cardiovascular exam: PRESENT: RRR, +S1, +S2. ABSENT: systolic murmur Pulses: PRESENT: normal radial pulses, normal dorsalis pedis pulses GI/Abdominal exam: PRESENT: normal bowel sounds, soft. Abdomen distended and firm to touch with some tenderness on the left side of the abdomen and the right flank ABSENT: guarding, mass, tenderness Rectal exam: Deferred Extremities exam: PRESENT: full ROM. ABSENT: calf tenderness, pedal edema Musculoskeletal: PRESENT: full ROM. ABSENT: deformity Neurological exam: PRESENT: alert, Awake, Oriented to person, Oriented to place, Oriented to time, reflexes normal, CN II-XII grossly intact. ABSENT: motor sens ory deficit Psychiatric exam: PRESENT: appropriate affect, normal mood. ABSENT: homicidal ideation, suicidal ideation Skin exam: PRESENT: intact, dry, warm. Pallor ABSENT: rash Results Laboratory Results: 05/17/20 03:34 05/17/20 03:34 05/16/20 05/16/20 05/16/20 13:20 14:00 14:00 WBC Cancelled RBC Cancelled Hgb Cancelled Hct Cancelled MCV Cancelled MCH Cancelled MCHC Cancelled RDW Cancelled Plt Count Cancelled Seg Neutrophils % Cancelled Retic Count (auto) Carbonic Acid HCO3/H2CO3 Ratio ABG pH ABG pCO2 ABG pO2 ABG HCO3 ABG O2 Saturation ABG Base Excess FiO2 Sodium 136.3 L Potassium 4.4 Chloride 114 H Carbon Dioxide 9 L* Anion Gap 13 BUN 80 H Creatinine 4.98 H Est GFR ( Amer) 12 L Glucose 97 Lactic Acid Calcium 8.4 Magnesium Iron TIBC Ferritin Total Bilirubin 0.3 AST 19 Alkaline Phosphatase 139 H Ammonia Total Protein 7.6 Albumin 2.9 L Lipase 459.9 H Vitamin B12 Folate TSH Serum HCG, Qual PTH Intact Urine Color YELLOW Urine Appearance CLOUDY Urine pH 6.0 Ur Specific [place] 1.012 Urine Protein 100 H Urine Glucose (UA) NEGATIVE Urine Ketones NEGATIVE Urine Blood MODERATE H Urine Nitrite NEGATIVE Ur Leukocyte Esterase LARGE H Urine WBC (Auto) >182 Urine RBC (Auto) 13 Blood Type Antibody Screen 05/16/20 05/16/20 05/16/20 14:00 14:00 14:00 WBC RBC Hgb Hct MCV MCH MCHC RDW Plt Count Seg Neutrophils % Retic Count (auto) 2.65 Carbonic Acid HCO3/H2CO3 Ratio ABG pH ABG pCO2 ABG pO2 ABG HCO3 ABG O2 Saturation ABG Base Excess FiO2 Sodium Potassium Chloride Carbon Dioxide Anion Gap BUN Creatinine Est GFR ( Amer) Glucose Lactic Acid Calcium Magnesium Iron < 10.1 L TIBC 211 L Ferritin 326.00 H Total Bilirubin AST Alkaline Phosphatase Ammonia Total Protein Albumin Lipase Vitamin B12 958.0 H Folate 10.20 TSH Serum HCG, Qual NEGATIVE PTH Intact Urine Color Urine Appearance Urine pH Ur Specific [place] Urine Protein Urine Glucose (UA) Urine Ketones Urine Blood Urine Nitrite Ur Leukocyte Esterase Urine WBC (Auto) Urine RBC (Auto) Blood Type Antibody Screen 05/16/20 05/16/20 05/16/20 14:55 15:30 16:25 WBC 28.6 H RBC 1.83 L Hgb 4.6 L* Hct 15.5 L MCV 84 MCH 24.9 L MCHC 29.5 L RDW 20.0 H Plt Count 667 H Seg Neutrophils % Not Reportable Retic Count (auto) Carbonic Acid HCO3/H2CO3 Ratio ABG pH ABG pCO2 ABG pO2 ABG HCO3 ABG O2 Saturation ABG Base Excess FiO2 Sodium Potassium Chloride Carbon Dioxide Anion Gap BUN Creatinine Est GFR ( Amer) Glucose Lactic Acid < 0.5 L Calcium Magnesium Iron TIBC Ferritin Total Bilirubin AST Alkaline Phosphatase Ammonia Total Protein Albumin Lipase Vitamin B12 Folate TSH Serum HCG, Qual PTH Intact Urine Color Urine Appearance Urine pH Ur Specific [place] Urine Protein Urine Glucose (UA) Urine Ketones Urine Blood Urine Nitrite Ur Leukocyte Esterase Urine WBC (Auto) Urine RBC (Auto) Blood Type O POSITIVE Antibody Screen NEGATIVE 05/16/20 05/16/20 05/16/20 19:05 21:20 21:20 WBC RBC Hgb Hct MCV MCH MCHC RDW Plt Count Seg Neutrophils % Retic Count (auto) Carbonic Acid Cancelled HCO3/H2CO3 Ratio Cancelled ABG pH Cancelled ABG pCO2 Cancelled ABG pO2 Cancelled ABG HCO3 Cancelled ABG O2 Saturation Cancelled ABG Base Excess Cancelled FiO2 Cancelled Sodium Potassium Chloride Carbon Dioxide Anion Gap BUN Creatinine Est GFR ( Amer) Glucose Lactic Acid 0.7 Calcium Magnesium Iron TIBC Ferritin Total Bilirubin AST Alkaline Phosphatase Ammonia Total Protein Albumin Lipase Vitamin B12 Folate TSH Serum HCG, Qual PTH Intact 61.8 Urine Color Urine Appearance Urine pH Ur Specific [place] Urine Protein Urine Glucose (UA) Urine Ketones Urine Blood Urine Nitrite Ur Leukocyte Esterase Urine WBC (Auto) Urine RBC (Auto) Blood Type Antibody Screen 05/16/20 05/17/20 05/17/20 21:20 01:38 03:34 WBC 29.8 H RBC 2.46 L Hgb 6.2 L Hct 20.8 L MCV 84 MCH 25.2 L MCHC 29.8 L RDW 19.5 H Plt Count 709 H Seg Neutrophils % Not Reportable Retic Count (auto) Carbonic Acid HCO3/H2CO3 Ratio ABG pH ABG pCO2 ABG pO2 ABG HCO3 ABG O2 Saturation ABG Base Excess FiO2 Sodium 135.2 L Potassium 4.5 Chloride 113 H Carbon Dioxide 8 L* Anion Gap 14 BUN 81 H Creatinine 4.79 H Est GFR ( Amer) 12 L Glucose 81 Lactic Acid 0.8 Calcium 7.7 L Magnesium 1.8 Iron TIBC Ferritin Total Bilirubin 0.2 AST 21 Alkaline Phosphatase 119 Ammonia Total Protein 7.1 Albumin 2.7 L Lipase Vitamin B12 Folate TSH Serum HCG, Qual PTH Intact Urine Color Urine Appearance Urine pH Ur Specific [place] Urine Protein Urine Glucose (UA) Urine Ketones Urine Blood Urine Nitrite Ur Leukocyte Esterase Urine WBC (Auto) Urine RBC (Auto) Blood Type Antibody Screen 05/17/20 05/17/20 05/17/20 03:34 03:34 04:48 WBC 28.9 H RBC 3.30 L Hgb 8.8 L D Hct 27.9 L MCV 85 MCH 26.7 L MCHC 31.5 L RDW 17.8 H Plt Count 667 H Seg Neutrophils % Not Reportable Retic Count (auto) Carbonic Acid 0.66 L HCO3/H2CO3 Ratio 12:1 ABG pH 7.18 L* ABG pCO2 21.9 L ABG pO2 120.3 H ABG HCO3 8.0 L ABG O2 Saturation 97.6 ABG Base Excess -18.6 FiO2 ROOM AIR Sodium Potassium Chloride Carbon Dioxide Anion Gap BUN Creatinine Est GFR ( Amer) Glucose Lactic Acid Calcium Magnesium Iron TIBC Ferritin Total Bilirubin AST Alkaline Phosphatase Ammonia Total Protein Albumin Lipase Vitamin B12 Folate TSH 3.55 Serum HCG, Qual PTH Intact Urine Color Urine Appearance Urine pH Ur Specific [place] Urine Protein Urine Glucose (UA) Urine Ketones Urine Blood Urine Nitrite Ur Leukocyte Esterase Urine WBC (Auto) Urine RBC (Auto) Blood Type Antibody Screen 05/17/20 05:38 WBC RBC Hgb Hct MCV MCH MCHC RDW Plt Count Seg Neutrophils % Retic Count (auto) Carbonic Acid HCO3/H2CO3 Ratio ABG pH ABG pCO2 ABG pO2 ABG HCO3 ABG O2 Saturation ABG Base Excess FiO2 Sodium Potassium Chloride Carbon Dioxide Anion Gap BUN Creatinine Est GFR ( Amer) Glucose Lactic Acid Calcium Magnesium Iron TIBC Ferritin Total Bilirubin AST Alkaline Phosphatase Ammonia < 8.7 L Total Protein Albumin Lipase Vitamin B12 Folate TSH Serum HCG, Qual PTH Intact Urine Color Urine Appearance Urine pH Ur Specific [place] Urine Protein Urine Glucose (UA) Urine Ketones Urine Blood Urine Nitrite Ur Leukocyte Esterase Urine WBC (Auto) Urine RBC (Auto) Blood Type Antibody Screen 05/16/20 16:25 Blood Blood Culture (PCR) - Final Escherichia Coli Impressions: Renal Ultrasound 05/16/20 00:00 IMPRESSION: 1. Bilateral polycystic kidney disease. 2. No hydronephrosis or urinary stones are seen. Abdomen/Pelvis CT 05/16/20 13:07 IMPRESSION: Moderate ascites. Enlarged Polycystic kidneys and liver. Noncontrast technique and minimal intra-abdominal fat limits evaluation of anatomy. Chest X-Ray 05/16/20 16:02 IMPRESSION: NO ACUTE FINDINGS. Assessment & Plan - Diagnosis (1) SURESH (acute kidney injury) Is this a current diagnosis for this admission?: Yes Plan: Patient's kidney function requires acute urgent hemodialysis treatment. Her baseline is unknown so this is either an acute on chronic kidney disease or just a mere worsening of her underlying chronic kidney disease and has now reached end-stage renal disease. Will monitor kidney function in determining the next few days where she is at in terms of her kidney function. However considering everything, the patient does look to have a very advanced chronic kidney disease and I am not going to be surprised if she is now ESRD. Monitor kidney function, electrolytes and urine output while here in the hospital. Check phosphorus. Avoid nephrotoxic medications and adjust medications according to kidney function. I will get records from [place] if possible. I went ahead and discussed with the patient the need for dialysis treatment and how the procedure is done. Patient is familiar with it since she had already in [place]. Discussed benefits and risk including infection, bleeding, arrhythm ia, hemodynamic instability and during dialysis treatment. Patient consented to proceed. We will do dialysis today for [2.5] hours, using the patient's temporary trialysis catheter, with 2 potassium bath, blood flow rate of 250 mL per minute, dialysate flow rate of 600 mL per minute, ultrafiltration 1 L only as tolerated, no heparin and Procrit with 20,000 units during dialysis intravenous ly. I will also give IV Venofer 100 mg IV during dialysis. Patient will be monitored throughout dialysis treatment. If the patient is deemed to be ESRD then regular have to arrange a more permanent vascular access in the next few days. (2) Polycystic kidney Is this a current diagnosis for this admission?: Yes Plan: Patient has enlarged kidney on both CT scan and kidney ultrasound measuring the right kidney at 22.11 cm x 11.41 cm and the left kidney at 16.29 cm x 8.47 cm. She has multiple bilateral cysts in the kidneys and liver. Her mother has history of polycystic kidney disease, was on peritoneal dialysis and at age 49 consistent with an autosomal dominant polycystic kidney disease. This is causing the patient's underlying chronic kidney disease. (3) Polycystic liver disease Is this a current diagnosis for this admission?: Yes Plan: Associated with polycystic kidney disease. (4) Metabolic acidosis Is this a current diagnosis for this admission?: Yes Plan: Secondary to SURESH and advanced chronic kidney disease. Bicarb drip was initiated initially. We will do dialysis. (5) E coli bacteremia Is this a current diagnosis for this admission?: Yes Plan: Due to UTI. On IV Zosyn. (6) Leukocytosis (leucocytosis) Qualifiers: Leukocytosis type: unspecified Qualified Code(s): D72.829 - Elevated white blood cell count, unspecified Is this a current diagnosis for this admission?: Yes Plan: Due to E. coli bacteremia from urinary tract infection. (7) Severe anemia Is this a current diagnosis for this admission?: Yes Plan: Agree with Dr. Smith that this is most likely secondary to anemia of chronic kidney disease with iron deficiency. LDH and reticulocyte count are normal. Check stool for occult blood. I will give the patient Retacrit and IV Venofer on dialysis today. (8) Urinary tract infection Qualifiers: Urinary tract infection type: site unspecified Hematuria presence: with hematuria Qualified Code(s): N39.0 - Urinary tract infection, site not specified; R31.9 - Hematuria, unspecified Is this a current diagnosis for this admission?: Yes Plan: Blood culture is positive for E. coli and urine culture positive for gram- negative rods. Started on IV Zosyn. (9) Protein-energy malnutrition Is this a current diagnosis for this admission?: Yes Plan: Encourage increase nutritional intake. - Notes Notes: Thank you very much for this consultation. Discussed with Maya Lloyd. - Time Time Spent: Greater than 70 Minutes
[2020-05-17] MEDS: PIPERACILLIN SODIUM/TAZOBACTAM 2.25 GM in NORMAL SALINE 50 ML IV SCH ×2 (13:29→17:28)
[2020-05-17 13:55] LABS: PATH REVIEW PATHOLOGIST REVIEWED
[2020-05-17] MEDS ORDERED: METOPROLOL TARTRATE PF/INJ 5 MG/5 ML SDV IV PRN (15:28)
[2020-05-17 16:19] LABS: ALBUMIN 2.6 g/dL (3.5-5.0); ALKALINE PHOSPHATASE 150 U/L (38-126); ANION GAP 14 (5-19); ASPARTATE AMINO TRANSFERASE 23 U/L (14-36); BILIRUBIN,TOTAL 0.3 mg/dL (0.2-1.3); CALCIUM 7.5 mg/dL (8.4-10.2); CHLORIDE 104 mmol/L (98-107); GLUCOSE 139 mg/dL (75-110); TOTAL PROTEIN 6.7 g/dL (6.3-8.2)
[2020-05-17 16:41] LABS: BLOOD UREA NITROGEN 46 mg/dL (7-20); CARBON DIOXIDE 18 mmol/L (22-30); POTASSIUM 3.2 mmol/L (3.6-5.0)
--- NOTE | 2020-05-17 17:15 | EKG REPORT ---
SEVERITY:- OTHERWISE NORMAL ECG - SINUS TACHYCARDIA MINIMAL ST DEPRESSION, LATERAL LEADS : Confirmed by: Rusty Camargo MD 17-May-2020 17:14:27
[2020-05-17] MEDS: NORMAL SALINE 100 ML with PANTOPRAZOLE SODIUM 80 MG IV PRN ×2 (21:26)
[2020-05-18] MEDS: PIPERACILLIN SODIUM/TAZOBACTAM 2.25 GM in NORMAL SALINE 50 ML IV SCH ×3 (02:10→18:00)
[2020-05-18] MEDS: MORPHINE SULFATE 10 MG/ML INJ IV PRN ×5 (05:03→22:12)
[2020-05-18 05:09] LABS: ALBUMIN 2.9 g/dL (3.5-5.0); ALKALINE PHOSPHATASE 151 U/L (38-126); ANION GAP 10 (5-19); ASPARTATE AMINO TRANSFERASE 19 U/L (14-36); BILIRUBIN,DIRECT 0.2 mg/dL (0.0-0.4); BILIRUBIN,TOTAL 0.3 mg/dL (0.2-1.3); BLOOD UREA NITROGEN 49 mg/dL (7-20); CARBON DIOXIDE 25 mmol/L (22-30); CHLORIDE 99 mmol/L (98-107); GLUCOSE 104 mg/dL (75-110); POTASSIUM 3.6 mmol/L (3.6-5.0); TOTAL PROTEIN 7.2 g/dL (6.3-8.2)
[2020-05-18 05:22] LABS: CALCIUM 6.9 mg/dL (8.4-10.2)
[2020-05-18] MEDS: NORMAL SALINE 100 ML with PANTOPRAZOLE SODIUM 80 MG IV PRN ×4 (07:59→17:58)
[2020-05-18 08:42] LABS: HEMATOCRIT 17.1 % (36.0-47.0); MEAN CORPUSCULAR HEMOGLOBIN 26.2 pg (27.0-33.4); MEAN CORPUSCULAR HGB CONC 32.7 g/dL (32.0-36.0); PLATELET COUNT 457 10^3/uL (150-450); RED BLOOD COUNT 2.14 10^6/uL (3.72-5.28); RED CELL DISTRIBUTION WIDTH 17.7 % (11.5-14.0); WHITE BLOOD COUNT 21.3 10^3/uL (4.0-10.5)
[2020-05-18] MEDS: CITRIC ACID/SODIUM CITRATE ORAL SOLN 15 ML UDCUP PO SCH ×4 (09:14→21:04)
[2020-05-18 09:32] LABS: ABSOLUTE LYMPHOCYTES# (MANUAL) 1.3 10^3/uL (0.5-4.7); ABSOLUTE MONOCYTES # (MANUAL) 0.4 10^3/uL (0.1-1.4); BAND NEUTROPHILS % (MANUAL) 2 % (3-5); BASOPHILS % (MANUAL) 0 % (0-2); EOSINOPHILS % (MANUAL) 0 % (0-6); LYMPHOCYTES % (MANUAL) 5 % (13-45); MONOCYTES % (MANUAL) 2 % (3-13); SEGMENTED NEUTROPHILS % (MAN) 90 % (42-78); TOTAL CELLS COUNTED 100
[2020-05-18 09:36] LABS: ANISOCYTOSIS 1+; PLATELET COMMENT INCREASED; POIKILOCYTOSIS 2+; POLYCHROMASIA 1+; SPHEROCYTES 2+; TEAR DROP CELLS 2+
[2020-05-18 09:40] LABS: HEMOGLOBIN 5.6 g/dL (12.0-15.5)
[2020-05-18] MEDS ORDERED: BISACODYL 10 MG SUPP.RECT PR PRN (09:50)
[2020-05-18] MEDS ORDERED: NORMAL SALINE 250 ML IV PRN ×2 (09:53)
[2020-05-18 10:02] LABS: MEAN CORPUSCULAR VOLUME 80 fl (80-97)
[2020-05-18] MEDS ORDERED: DIPHENHYDRAMINE HCL 25 MG CAPSULE ONE (11:44)
[2020-05-18] MEDS: DEXTROSE 5%-WATER 1000 ML 1,000 ML with SODIUM BICARBONATE 150 MEQ IV PRN ×2 (12:57)
--- NOTE | 2020-05-18 13:05 | PDOC PROGRESS REPORT ---
Subjective Progress Note for:: 05/18/20 Subjective:: Patient said she is feeling okay. She states that she is eating good. She denies any nausea, vomiting or diarrhea. She has not had a bowel movement and does not know if she has any blood in the stool. Surprisingly her hemoglobin has gone down to 5.6 and she is a scheduled to receive 2 units of packed RBC today. She tolerated dialysis yesterday and it was uneventful. Ultrafiltration was about 500 mL. She did pass a urine output of 675 mL. Reason For Visit: SURESH,SEVERE ANEMIA Physical Exam Vital Signs: Temp Pulse Resp BP Pulse Ox 98.9 F 117 H 16 103/63 96 05/18/20 07:40 05/18/20 07:40 05/18/20 07:40 05/18/20 07:40 05/18/20 07:40 Intake & Output 05/17/20 05/18/20 05/19/20 06:59 06:59 06:59 Intake Total 600 2670 100 Output Total 200 1175 Balance 400 1495 100 Weight 47.7 kg 54.5 kg Exam: General appearance: PRESENT: no acute distress, cooperative, well-developed, well-nourished Head exam: PRESENT: atraumatic, normocephalic Eye exam: PRESENT: conjunctiva pale, PERRLA. ABSENT: scleral icterus Neck exam: ABSENT: JVD Respiratory exam: PRESENT: Normal breath sounds. ABSENT: crackles, rales, rhonchi, unlabored, wheezes Cardiovascular exam: PRESENT: Regular rate rhythm -+S1, +S2. ABSENT: diastolic murmur, systolic murmur GI/Abdominal exam: PRESENT: normal bowel sounds, soft. Distended abdomen and firm to touch with diffuse mild anterior tenderness to touch ABSENT: guarding, mass Extremities exam: ABSENT: No edema Neurological exam: PRESENT: alert, awake, oriented to person, place and time. Skin exam: PRESENT: dry, warm, Results Laboratory Results: 05/18/20 07:48 05/18/20 04:38 05/16/20 05/16/20 05/17/20 14:55 15:30 03:34 WBC RBC Hgb 4.6 L* Hct 15.5 L MCV MCH MCHC RDW Plt Count Seg Neutrophils % Sodium Potassium Chloride Carbon Dioxide Anion Gap BUN Creatinine Est GFR ( Amer) Glucose Calcium Phosphorus 8.2 H Total Bilirubin AST Alkaline Phosphatase Total Protein Albumin Blood Type O POSITIVE Antibody Screen NEGATIVE 05/17/20 05/18/20 05/18/20 15:45 04:38 04:38 WBC Cancelled RBC Cancelled Hgb Cancelled Hct Cancelled MCV Cancelled MCH Cancelled MCHC Cancelled RDW Cancelled Plt Count Cancelled Seg Neutrophils % Cancelled Sodium 135.5 L 134.3 L Potassium 3.2 L D 3.6 Chloride 104 99 Carbon Dioxide 18 L D 25 Anion Gap 14 10 BUN 46 H D 49 H Creatinine 2.88 H 3.65 H Est GFR ( Amer) 22 L 17 L Glucose 139 H 104 Calcium 7.5 L 6.9 L* Phosphorus Total Bilirubin 0.3 0.3 AST 23 19 Alkaline Phosphatase 150 H 151 H Total Protein 6.7 7.2 Albumin 2.6 L 2.9 L Blood Type Antibody Screen 05/18/20 07:48 WBC 21.3 H RBC 2.14 L Hgb 5.6 L D Hct 17.1 L MCV 80 D MCH 26.2 L MCHC 32.7 RDW 17.7 H Plt Count 457 H Seg Neutrophils % Not Reportable Sodium Potassium Chloride Carbon Dioxide Anion Gap BUN Creatinine Est GFR ( Amer) Glucose Calcium Phosphorus Total Bilirubin AST Alkaline Phosphatase Total Protein Albumin Blood Type Antibody Screen 05/16/20 16:25 Blood Blood Culture (PCR) - Final Escherichia Coli Impressions: Renal Ultrasound 05/16/20 00:00 IMPRESSION: 1. Bilateral polycystic kidney disease. 2. No hydronephrosis or urinary stones are seen. Abdomen/Pelvis CT 05/16/20 13:07 IMPRESSION: Moderate ascites. Enlarged Polycystic kidneys and liver. Noncontrast technique and minimal intra-abdominal fat limits evaluation of anatomy. Chest X-Ray 05/16/20 16:02 IMPRESSION: NO ACUTE FINDINGS. Assessment & Plan - Diagnosis (1) SURESH (acute kidney injury) Is this a current diagnosis for this admission?: Yes Plan: Baseline kidney function unknown. This is possibly acute on chronic kidney disease versus advanced progressive kidney disease that has reach ESRD. Patient still making some urine less than 1 L in 24 hours. We will continue to monitor kidney function. Anticipate need for dialysis treatment tomorrow. (2) Polycystic kidney Is this a current diagnosis for this admission?: Yes Plan: This is the underlying cause of the patient's chronic kidney disease with bilateral enlarged kidneys indicating progressive advanced kidney disease. Family history in her mother who had polycystic kidney disease, was on peritoneal dialysis who at age 49. (3) Polycystic liver disease Is this a current diagnosis for this admission?: Yes (4) Metabolic acidosis Is this a current diagnosis for this admission?: Yes Plan: Resolved with dialysis. (5) E coli bacteremia Is this a current diagnosis for this admission?: Yes Plan: On IV Zosyn. (6) Leukocytosis (leucocytosis) Qualifiers: Leukocytosis type: unspecified Qualified Code(s): D72.829 - Elevated white blood cell count, unspecified Is this a current diagnosis for this admission?: Yes (7) Severe anemia Is this a current diagnosis for this admission?: Yes Plan: Check for occult blood. Blood transfusion with 2 units packed RBC ordered. We will continue to give Retacrit and Venofer on dialysis. (8) Urinary tract infection Qualifiers: Urinary tract infection type: site unspecified Hematuria presence: with hematuria Qualified Code(s): N39.0 - Urinary tract infection, site not specified; R31.9 - Hematuria, unspecified Is this a current diagnosis for this admission?: Yes Plan: Due to E. coli. IV Zosyn. (9) Protein-energy malnutrition Is this a current diagnosis for this admission?: Yes - Time Time with patient: 15-25 minutes
--- NOTE | 2020-05-18 14:07 | PDOC PROGRESS REPORT ---
Subjective Progress Note for:: 05/18/20 Subjective:: Patient without complaints today. Receiving pRBC transfusion. States that she does not know how she is loosing blood. Reason For Visit: SURESH,SEVERE ANEMIA Physical Exam Vital Signs: Temp Pulse Resp BP Pulse Ox 97.3 F 92 20 96/59 L 100 05/18/20 12:45 05/18/20 12:45 05/18/20 12:45 05/18/20 12:45 05/18/20 12:45 Intake & Output 05/17/20 05/18/20 05/19/20 06:59 06:59 06:59 Intake Total 600 2670 1300 Output Total 200 1175 Balance 400 1495 1300 Weight 47.7 kg 54.5 kg General appearance: PRESENT: no acute distress, thin Head exam: PRESENT: normocephalic Eye exam: PRESENT: EOMI Respiratory exam: PRESENT: unlabored GI/Abdominal exam: PRESENT: distended Musculoskeletal exam: PRESENT: normal inspection Neurological exam: PRESENT: alert, awake Psychiatric exam: PRESENT: appropriate affect Skin exam: PRESENT: normal color Results Laboratory Results: 05/18/20 07:48 05/18/20 04:38 05/16/20 05/17/20 05/18/20 15:30 15:45 04:38 WBC Cancelled RBC Cancelled Hgb Cancelled Hct Cancelled MCV Cancelled MCH Cancelled MCHC Cancelled RDW Cancelled Plt Count Cancelled Seg Neutrophils % Cancelled Sodium 135.5 L Potassium 3.2 L D Chloride 104 Carbon Dioxide 18 L D Anion Gap 14 BUN 46 H D Creatinine 2.88 H Est GFR ( Amer) 22 L Glucose 139 H Calcium 7.5 L Total Bilirubin 0.3 AST 23 Alkaline Phosphatase 150 H Total Protein 6.7 Albumin 2.6 L Blood Type O POSITIVE Antibody Screen NEGATIVE 05/18/20 05/18/20 04:38 07:48 WBC 21.3 H RBC 2.14 L Hgb 5.6 L D Hct 17.1 L MCV 80 D MCH 26.2 L MCHC 32.7 RDW 17.7 H Plt Count 457 H Seg Neutrophils % Not Reportable Sodium 134.3 L Potassium 3.6 Chloride 99 Carbon Dioxide 25 Anion Gap 10 BUN 49 H Creatinine 3.65 H Est GFR ( Amer) 17 L Glucose 104 Calcium 6.9 L* Total Bilirubin 0.3 AST 19 Alkaline Phosphatase 151 H Total Protein 7.2 Albumin 2.9 L Blood Type Antibody Screen 05/16/20 16:25 Blood Blood Culture (PCR) - Final Escherichia Coli Impressions: Renal Ultrasound 05/16/20 00:00 IMPRESSION: 1. Bilateral polycystic kidney disease. 2. No hydronephrosis or urinary stones are seen. Abdomen/Pelvis CT 05/16/20 13:07 IMPRESSION: Moderate ascites. Enlarged Polycystic kidneys and liver. Noncontrast technique and minimal intra-abdominal fat limits evaluation of anatomy. Chest X-Ray 05/16/20 16:02 IMPRESSION: NO ACUTE FINDINGS. Assessment & Plan - Diagnosis (1) Polycystic kidney Is this a current diagnosis for this admission?: Yes (2) Severe anemia Is this a current diagnosis for this admission?: Yes Plan: Blood transfusions and EPO have been given. No evidence of hemolysis. Iron, B12, Folate all normal. No clinical evidence of myeloma. I believe once EPO levels increase, her anemia should improve. (3) Urinary tract infection Qualifiers: Urinary tract infection type: site unspecified Hematuria presence: with hematuria Qualified Code(s): N39.0 - Urinary tract infection, site not specified; R31.9 - Hematuria, unspecified Is this a current diagnosis for this admission?: Yes Plan: Now receiving dialysis as well for chronic renal failure. - Time Time Spent with patient: 15-24 minutes
[2020-05-18] MEDS: CALCIUM ACETATE 667 MG CAPSULE PO SCH (17:59)
[2020-05-18] MEDS: BISACODYL 5 MG TABEC PO PRN (17:59)
--- NOTE | 2020-05-18 18:12 | PDOC PROGRESS REPORT ---
Subjective Progress Note for:: 05/18/20 Subjective:: 34 year old female with history of polycystic kidney disease, recent history of dialysis in [place], treated for severe anemia [place] moved to [place] again 3 weeks ago and came to the emergency room with complaints of severe bilateral flank pain. Work-up done in the ER shows hemoglobin of 4.6, CT scan shows bilateral enlarged kidneys with polycystic lesions and liver lesions, bicarb in the chemistry is 9 with a creatinine of 5.0. 3 units of blood trans fusion initiated in the ER started on IV fluids. Briefly discussed the case with Dr. Bolanos she is going to see the patient tomorrow. Patient does not have a dialysis catheter at this time. As per the patient her mom at the age of 49 with renal failure. 05/17/2020-patient is in the dialysis unit at the time of examination. Received a temporary dialysis catheter. Hemoglobin came up to 8.6 with treatments of blood transfusion. Creatinine improved to 4.1. Consultation with nephrology, onc ology was done. WBC count is still elevated receiving IV antibiotic therapy. 05/18/2020 Patient making over 500 cc of urine but still notably less than 1 L. Creatinine remains elevated. Nephrology following and planning to dialyze patient tomorrow. Patient may need to be evaluated for kidney transplant in the near future. I discussed this with her and she will discuss it with nephrology. WBC lower, hemoglobin down to 5.6 and I have ordered another unit of blood to be transfused. Calcium low we will need to replete this. Hepatitis panel is pending. Oncology following and has ordered EPO given iron/folate/B12 levels are normal. Patient has some abdominal distention with nausea and vomiting otherwise she has no new complaints today. Antiemetics have been ordered. Ordered Benadryl for itching likely due to bilirubin. Reason For Visit: SURESH,SEVERE ANEMIA Physical Exam Vital Signs: Temp Pulse Resp BP Pulse Ox 97.8 F 97 17 101/66 96 05/18/20 16:26 05/18/20 16:26 05/18/20 16:26 05/18/20 16:26 05/18/20 16:26 Intake & Output 05/17/20 05/18/20 05/19/20 06:59 06:59 06:59 Intake Total 600 2670 1740 Output Total 200 1175 200 Balance 400 1495 1540 Weight 47.7 kg 54.5 kg General appearance: PRESENT: no acute distress, well-developed, well-nourished Head exam: PRESENT: atraumatic, normocephalic Eye exam: PRESENT: conjunctiva pink Mouth exam: PRESENT: moist Respiratory exam: PRESENT: clear to auscultation lan. ABSENT: rales, rhonchi, wheezes Cardiovascular exam: PRESENT: RRR. ABSENT: diastolic murmur, rubs, systolic murmur GI/Abdominal exam: PRESENT: distended, normal bowel sounds, soft. ABSENT: guarding, mass, organolmegaly, rebound, tenderness Rectal exam: PRESENT: deferred Neurological exam: PRESENT: alert, awake, oriented to person, oriented to place, oriented to time, oriented to situation Psychiatric exam: PRESENT: appropriate affect, normal mood Skin exam: PRESENT: dry, intact, warm Results Laboratory Results: 05/18/20 07:48 05/18/20 04:38 05/16/20 05/18/20 05/18/20 15:30 04:38 04:38 WBC Cancelled RBC Cancelled Hgb Cancelled Hct Cancelled MCV Cancelled MCH Cancelled MCHC Cancelled RDW Cancelled Plt Count Cancelled Seg Neutrophils % Cancelled Sodium 134.3 L Potassium 3.6 Chloride 99 Carbon Dioxide 25 Anion Gap 10 BUN 49 H Creatinine 3.65 H Est GFR ( Amer) 17 L Glucose 104 Calcium 6.9 L* Total Bilirubin 0.3 AST 19 Alkaline Phosphatase 151 H Total Protein 7.2 Albumin 2.9 L Blood Type O POSITIVE Antibody Screen NEGATIVE 05/18/20 07:48 WBC 21.3 H RBC 2.14 L Hgb 5.6 L D Hct 17.1 L MCV 80 D MCH 26.2 L MCHC 32.7 RDW 17.7 H Plt Count 457 H Seg Neutrophils % Not Reportable Sodium Potassium Chloride Carbon Dioxide Anion Gap BUN Creatinine Est GFR ( Amer) Glucose Calcium Total Bilirubin AST Alkaline Phosphatase Total Protein Albumin Blood Type Antibody Screen 05/16/20 16:25 Blood Blood Culture (PCR) - Final Escherichia Coli Impressions: Renal Ultrasound 05/16/20 00:00 IMPRESSION: 1. Bilateral polycystic kidney disease. 2. No hydronephrosis or urinary stones are seen. Abdomen/Pelvis CT 05/16/20 13:07 IMPRESSION: Moderate ascites. Enlarged Polycystic kidneys and liver. Noncontrast technique and minimal intra-abdominal fat limits evaluation of anatomy. Chest X-Ray 05/16/20 16:02 IMPRESSION: NO ACUTE FINDINGS. Assessment and Plan - Diagnosis (1) SURESH (acute kidney injury) Is this a current diagnosis for this admission?: Yes Plan: 05/16/2020-patient is going to be admitted to [facility] as an inpatient. Patient baseline creatinine is 0.9 in 2015 today it is 5. Bicarb is 9. As per the stella nj she has a temporary dialysis in [place] in December. Started on IV fluids 100 cc/h. Nephrology consult was requested. Muhammad's catheter was requested renal ultrasound was requested. 05/17/2020-patient has end-stage renal disease on dialysis at this time. Nephrology consult was requested. 05/18/2020 ESRD on dialysis due to progression of PCKD, nephrology following Next dialysis to be 05/19 May need evaluation for renal transplant in the near future (2) Polycystic kidney Is this a current diagnosis for this admission?: Yes Plan: 05/16/2020-patient has history of polycystic kidney disease confirmed by the CT scan of the abdomen. It may be the cause for the end-stage renal disease. Nephrology consult is requested. 05/18/2020 Nephrology following Consider renal transplant in the near future (3) E coli bacteremia Is this a current diagnosis for this admission?: Yes (4) Ascites Qualifiers: Ascites type: other type Qualified Code(s): R18.8 - Other ascites Is this a current diagnosis for this admission?: Yes Plan: May need paracentesis (5) Generalized weakness Is this a current diagnosis for this admission?: Yes (6) Leukocytosis (leucocytosis) Qualifiers: Leukocytosis type: unspecified Qualified Code(s): D72.829 - Elevated white blood cell count, unspecified Is this a current diagnosis for this admission?: Yes Plan: 05/16/2020-WBC count is 28,000. Urinalysis abnormal. Started on IV Zosyn. Plan is to continue IV Zosyn blood cultures urine cultures are pending. 05/17/2020-WBC count is 28,900. May be secondary to UTI. Patient is receiving IV Zosyn at this time. pLan is to repeat the labs tomorrow. 05/18/2020 WBC downtrending IV Zosyn continues Urine culture growing E. coli Blood culture growing E. coli (7) Metabolic acidosis Is this a current diagnosis for this admission?: Yes (8) Polycystic liver disease Is this a current diagnosis for this admission?: Yes (9) Protein-energy malnutrition Is this a current diagnosis for this admission?: Yes (10) Severe anemia Is this a current diagnosis for this admission?: Yes (11) Urinary tract infection Qualifiers: Urinary tract infection type: site unspecified Hematuria presence: with hematuria Qualified Code(s): N39.0 - Urinary tract infection, site not specified; R31.9 - Hematuria, unspecified Is this a current diagnosis for this admission?: Yes (12) Sepsis Is this a current diagnosis for this admission?: Yes Plan: Source is UTI Urine culture and blood culture both growing E. coli IV Zosyn - Time Time Spent with patient: 15-24 minutes Anticipated Discharge Disposition: Home, Self Care Anticipated Discharge Timeframe: within 72 hours - Inpatient Certification Based on my medical assessment, after consideration of the patient's comorbidities, presenting symptoms, or acuity I expect that the services needed warrant INPATIENT care.: Yes I certify that my determination is in accordance with my understanding of Medicare's requirements for reasonable and necessary INPATIENT services [42 CFR 412.3e].: Yes Medical Necessity: Significant Comorbidiites Make Outpatient Treatment Too Risky, Need Close Monitoring Due to Risk of Patient Decompensation, Risk of Complication if Not Cared For in Hospital, Risk of Diagnosis Which Will Require Inpatient Eval/Care/Monitoring
[2020-05-18 19:59] LABS: HEMATOCRIT 21.2 % (36.0-47.0); MEAN CORPUSCULAR HEMOGLOBIN 28.3 pg (27.0-33.4); MEAN CORPUSCULAR HGB CONC 34.6 g/dL (32.0-36.0); MEAN CORPUSCULAR VOLUME 82 fl (80-97); PLATELET COUNT 421 10^3/uL (150-450); RED BLOOD COUNT 2.58 10^6/uL (3.72-5.28); RED CELL DISTRIBUTION WIDTH 16.8 % (11.5-14.0); WHITE BLOOD COUNT 22.8 10^3/uL (4.0-10.5)
[2020-05-18 20:14] LABS: ABSOLUTE LYMPHOCYTES# (MANUAL) 4.3 10^3/uL (0.5-4.7); ABSOLUTE MONOCYTES # (MANUAL) 1.1 10^3/uL (0.1-1.4); BASOPHILS % (MANUAL) 0 % (0-2); EOSINOPHILS % (MANUAL) 0 % (0-6); LYMPHOCYTES % (MANUAL) 19 % (13-45); MONOCYTES % (MANUAL) 5 % (3-13); SEGMENTED NEUTROPHILS % (MAN) 76 % (42-78); TOTAL CELLS COUNTED 100
[2020-05-18 20:15] LABS: ANISOCYTOSIS 1+; PLATELET COMMENT ADEQUATE; POIKILOCYTOSIS SLIGHT
[2020-05-18 20:17] LABS: OVALOCYTES SLIGHT
[2020-05-18 20:18] LABS: HEMOGLOBIN 7.3 g/dL (12.0-15.5)
[2020-05-19] MEDS: PIPERACILLIN SODIUM/TAZOBACTAM 2.25 GM in NORMAL SALINE 50 ML IV SCH ×3 (02:23→17:25)
[2020-05-19] MEDS: MORPHINE SULFATE 10 MG/ML INJ IV PRN ×5 (02:24→22:01)
[2020-05-19] MEDS ORDERED: IRON SUCROSE COMPLEX INJ/PF 100 MG/5 ML SDV IV PRN (05:00)
[2020-05-19] MEDS ORDERED: EPOETIN ALFA-EPBX 30,000 UNIT in SYRINGE, DISPOSABLE, 1 EACH IV PRN (05:00)
[2020-05-19] MEDS ORDERED: HEPARIN SOD (PORCINE) 1,000 UNIT/ML 10 ML VIAL IV PRN (05:00)
[2020-05-19] MEDS ORDERED: NORMAL SALINE 1000 ML 1,000 ML IV PRN (05:00)
[2020-05-19] MEDS: DEXTROSE 5%-WATER 1000 ML 1,000 ML with SODIUM BICARBONATE 150 MEQ IV PRN ×2 (05:12)
[2020-05-19] MEDS: NORMAL SALINE 100 ML with PANTOPRAZOLE SODIUM 80 MG IV PRN ×4 (05:13→18:32)
[2020-05-19] MEDS: DIPHENHYDRAMINE HCL 25 MG CAPSULE PO PRN ×2 (05:20→23:56)
[2020-05-19 05:38] LABS: HEPATITS B SURFACE ANTIGEN Negative (Negative)
[2020-05-19 06:04] LABS: HEMATOCRIT 20.8 % (36.0-47.0); MEAN CORPUSCULAR HGB CONC 32.9 g/dL (32.0-36.0); MEAN CORPUSCULAR VOLUME 82 fl (80-97); PLATELET COUNT 405 10^3/uL (150-450); RED BLOOD COUNT 2.53 10^6/uL (3.72-5.28); WHITE BLOOD COUNT 23.5 10^3/uL (4.0-10.5)
[2020-05-19 06:37] LABS: HEPATITS B SURFACE ANTIGEN Negative (Negative)
[2020-05-19 06:48] LABS: ANION GAP 13 (5-19); BLOOD UREA NITROGEN 54 mg/dL (7-20); CARBON DIOXIDE 25 mmol/L (22-30); CHLORIDE 94 mmol/L (98-107); GLUCOSE 112 mg/dL (75-110); PHOSPHORUS 4.7 mg/dL (2.5-4.5)
[2020-05-19 06:56] LABS: ABSOLUTE LYMPHOCYTES# (MANUAL) 2.1 10^3/uL (0.5-4.7); ABSOLUTE MONOCYTES # (MANUAL) 0.2 10^3/uL (0.1-1.4); BASOPHILS % (MANUAL) 0 % (0-2); EOSINOPHILS % (MANUAL) 1 % (0-6); LYMPHOCYTES % (MANUAL) 9 % (13-45); MONOCYTES % (MANUAL) 1 % (3-13); SEGMENTED NEUTROPHILS % (MAN) 89 % (42-78); TOTAL CELLS COUNTED 100
[2020-05-19 06:58] LABS: ANISOCYTOSIS 1+; HYPOCHROMASIA SLIGHT; PLATELET COMMENT ADEQUATE; POLYCHROMASIA SLIGHT; SCHISTOCYTES SLIGHT; TEAR DROP CELLS SLIGHT; TOXIC GRANULATION SLIGHT
[2020-05-19 06:59] LABS: CALCIUM 6.6 mg/dL (8.4-10.2); HEMOGLOBIN 6.8 g/dL (12.0-15.5)
[2020-05-19 07:07] LABS: HEPATITIS C VIRUS ANTIBODY >11.0 s/co ratio (0.0-0.9)
[2020-05-19 07:08] LABS: HEPATITIS B CORE AB TOT Negative (Negative)
[2020-05-19 08:21] LABS: ARTERIAL BLOOD BASE EXCESS 3.1 mmol/L; ARTERIAL BLOOD H2CO3 1.55 mmol/L (1.05-1.35); ARTERIAL BLOOD HCO3 28.8 mmol/L (20-24); ARTERIAL BLOOD O2 SATURATION 95.4 % (94-98); ARTERIAL BLOOD PCO2 51.5 mmHg (35-45); ARTERIAL BLOOD PH 7.37 (7.35-7.45); ARTERIAL BLOOD TOTAL CO2 30.4 mmol/L (21-25)
[2020-05-19 08:24] LABS: ARTERIAL BLOOD FIO2 15L
--- NOTE | 2020-05-19 09:15 | PDOC PROGRESS REPORT ---
Subjective Progress Note for:: 05/19/20 Subjective:: Patient getting dialyzed this morning, no acute events overnight Reason For Visit: SURESH,SEVERE ANEMIA Physical Exam Vital Signs: Temp Pulse Resp BP Pulse Ox 99.0 F 97 16 103/61 91 L 05/19/20 03:23 05/19/20 07:00 05/19/20 03:23 05/19/20 08:22 05/19/20 03:23 Intake & Output 05/18/20 05/19/20 05/20/20 06:59 06:59 06:59 Intake Total 2670 4040 0 Output Total 1175 1050 Balance 1495 2990 0 Weight 54.5 kg 51.3 kg General appearance: PRESENT: no acute distress, well-developed, well-nourished Head exam: PRESENT: atraumatic, normocephalic Eye exam: PRESENT: conjunctiva pink, EOMI, PERRLA. ABSENT: scleral icterus Ear exam: PRESENT: normal external ear exam Mouth exam: PRESENT: moist, tongue midline Neck exam: ABSENT: carotid bruit, JVD, lymphadenopathy, thyromegaly Respiratory exam: PRESENT: clear to auscultation lan. ABSENT: rales, rhonchi, wheezes Cardiovascular exam: PRESENT: RRR. ABSENT: diastolic murmur, rubs, systolic m urmur Pulses: PRESENT: normal dorsalis pedis pul Vascular exam: PRESENT: normal capillary refill GI/Abdominal exam: PRESENT: normal bowel sounds, soft. ABSENT: distended, guarding, mass, organolmegaly, rebound, tenderness Rectal exam: PRESENT: deferred Extremities exam: PRESENT: full ROM. ABSENT: calf tenderness, clubbing, pedal edema Neurological exam: PRESENT: alert, awake, oriented to person, oriented to place, oriented to time, oriented to situation, CN II-XII grossly intact. ABSENT: motor sensory deficit Psychiatric exam: PRESENT: appropriate affect, normal mood. ABSENT: homicidal ideation, suicidal ideation Skin exam: PRESENT: dry, intact, warm. ABSENT: cyanosis, rash Results Laboratory Results: 05/19/20 05:10 05/19/20 05:10 05/16/20 05/18/20 05/18/20 15:30 07:48 19:22 WBC 21.3 H 22.8 H RBC 2.14 L 2.58 L Hgb 5.6 L D 7.3 L Hct 17.1 L 21.2 L MCV 80 D 82 MCH 26.2 L 28.3 MCHC 32.7 34.6 RDW 17.7 H 16.8 H Plt Count 457 H 421 Seg Neutrophils % Not Reportable Not Reportable Carbonic Acid HCO3/H2CO3 Ratio ABG pH ABG pCO2 ABG pO2 ABG HCO3 ABG O2 Saturation ABG Base Excess FiO2 Sodium Potassium Chloride Carbon Dioxide Anion Gap BUN Creatinine Est GFR ( Amer) Glucose Calcium Phosphorus Magnesium Stool Occult Blood Blood Type O POSITIVE Antibody Screen NEGATIVE 05/19/20 05/19/20 05/19/20 05:10 05:10 06:25 WBC 23.5 H RBC 2.53 L Hgb 6.8 L Hct 20.8 L MCV 82 MCH 27.0 MCHC 32.9 RDW 17.0 H Plt Count 405 Seg Neutrophils % Not Reportable Carbonic Acid HCO3/H2CO3 Ratio ABG pH ABG pCO2 ABG pO2 ABG HCO3 ABG O2 Saturation ABG Base Excess FiO2 Sodium 132.0 L Potassium 4.0 Chloride 94 L Carbon Dioxide 25 Anion Gap 13 BUN 54 H Creatinine 3.61 H Est GFR ( Amer) 17 L Glucose 112 H Calcium 6.6 L* Phosphorus 4.7 H Magnesium 1.5 L Stool Occult Blood NEGATIVE Blood Type Antibody Screen 05/19/20 08:00 WBC RBC Hgb Hct MCV MCH MCHC RDW Plt Count Seg Neutrophils % Carbonic Acid 1.55 H HCO3/H2CO3 Ratio 18:1 ABG pH 7.37 ABG pCO2 51.5 H ABG pO2 81.0 ABG HCO3 28.8 H ABG O2 Saturation 95.4 ABG Base Excess 3.1 FiO2 15L Sodium Potassium Chloride Carbon Dioxide Anion Gap BUN Creatinine Est GFR ( Amer) Glucose Calcium Phosphorus Magnesium Stool Occult Blood Blood Type Antibody Screen 05/16/20 16:25 Blood Blood Culture (PCR) - Final Escherichia Coli Impressions: Renal Ultrasound 05/16/20 00:00 IMPRESSION: 1. Bilateral polycystic kidney disease. 2. No hydronephrosis or urinary stones are seen. Abdomen/Pelvis CT 05/16/20 13:07 IMPRESSION: Moderate ascites. Enlarged Polycystic kidneys and liver. Noncontrast technique and minimal intra-abdominal fat limits evaluation of anatomy. Assessment & Plan - Diagnosis (1) Severe anemia Is this a current diagnosis for this admission?: Yes Plan: Anemia of chronic kidney disease, patient is now dialysis dependent so she will get iron or Procrit/MELVINA as needed through dialysis. If her hemoglobin drops to a level that she is very weak, she can consider transfusion further. From hemat ologic standpoint, no further follow-up in hematology really needed as nephrology can give necessary treatments for the anemia. We will sign off, thank you for the opportunity to assist in this patient's care. - Time Time Spent with patient: 35 or more minutes
--- NOTE | 2020-05-19 09:39 | RADIOLOGY REPORT (SQ) ---
EXAM DESCRIPTION: CHEST SINGLE VIEW IMAGES COMPLETED DATE/TIME: 05/19/2020 9:27 am REASON FOR STUDY: respiratory distress COMPARISON: 05/16/2020 EXAM PARAMETERS: NUMBER OF VIEWS: One view. TECHNIQUE: Single frontal radiographic view of the chest acquired. RADIATION DOSE: NA LIMITATIONS: None. FINDINGS: LUNGS AND PLEURA: Low lung volumes without focal consolidation, pleural effusion, or pneum othorax. MEDIASTINUM AND HILAR STRUCTURES: No masses. Contour normal. HEART AND VASCULAR STRUCTURES: Heart normal in size. Normal vasculature. BONES: No acute findings. HARDWARE: None in the chest. OTHER: No other significant finding. IMPRESSION: NO ACUTE RADIOGRAPHIC FINDING IN THE CHEST. TECHNICAL DOCUMENTATION: JOB ID: [id number] 2010 [employer]- All Rights Reserved Reading location - IP/workstation name: [email or web address]
[2020-05-19] MEDS ORDERED: MAGNESIUM SULFATE INJ 8 MEQ/2 ML IV ONE (09:46)
[2020-05-19] MEDS ORDERED: MAGNESIUM SULFATE/D5W 1 GM/100 ML RTUPB IV ONE (10:00)
[2020-05-19] MEDS: CALCIUM ACETATE 667 MG CAPSULE PO SCH ×3 (10:51→17:26)
[2020-05-19] MEDS: CITRIC ACID/SODIUM CITRATE ORAL SOLN 15 ML UDCUP PO SCH ×4 (10:51→22:01)
[2020-05-19 12:44] LABS: HEMATOCRIT 23.4 % (36.0-47.0); MEAN CORPUSCULAR HEMOGLOBIN 27.4 pg (27.0-33.4); MEAN CORPUSCULAR HGB CONC 32.9 g/dL (32.0-36.0); MEAN CORPUSCULAR VOLUME 84 fl (80-97); RED BLOOD COUNT 2.81 10^6/uL (3.72-5.28); WHITE BLOOD COUNT 23.4 10^3/uL (4.0-10.5)
--- NOTE | 2020-05-19 13:42 | PDOC PROGRESS REPORT ---
Subjective Progress Note for:: 05/19/20 Subjective:: I am seeing the patient during dialysis this morning. Earlier the patient had an acute onset of shortness of breath requiring non-rebreather mass when she was observed to be short of breath, and respiratory distress and cyanotic. Currently she is feeling okay and she is even had the nonrebreather mask off for face and sleeping comfortably. She states that she feels all right now. She has received 1 unit of packed RBC yesterday and and is currently receiving a nother unit. She is being monitored closely. She has no other complaints. Reason For Visit: SURESH,SEVERE ANEMIA Physical Exam Vital Signs: Temp Pulse Resp BP Pulse Ox 99.0 F 97 16 103/61 91 L 05/19/20 03:23 05/19/20 07:00 05/19/20 03:23 05/19/20 08:22 05/19/20 03:23 Intake & Output 05/18/20 05/19/20 05/20/20 06:59 06:59 06:59 Intake Total 2670 4040 0 Output Total 1175 1050 Balance 1495 2990 0 Weight 54.5 kg 51.3 kg Vitals during dialysis: Blood pressure 119/70 heart rate of 83, blood flow of 250 mL/min and dialysate flow of 600 mL/min using her trialysis catheter. Exam: General appearance: PRESENT: no acute distress, cooperative, well-developed, well-nourished Head exam: PRESENT: atraumatic, normocephalic Eye exam: PRESENT: conjunctiva pale, PERRLA. ABSENT: scleral icterus Neck exam: ABSENT: JVD Respiratory exam: PRESENT: Diminished breath sounds. ABSENT: crackles, rales, rhonchi, unlabored, wheezes Cardiovascular exam: PRESENT: Regular rate rhythm -+S1, +S2. ABSENT: diastolic murmur, systolic murmur GI/Abdominal exam: PRESENT: normal bowel sounds, soft. Distended with diffuse mild tenderness ABSENT: guarding, mass, tenderness Extremities exam: ABSENT: No edema Neurological exam: PRESENT: alert, awake, oriented to person, place and time. Skin exam: PRESENT: dry, warm, Results Laboratory Results: 05/19/20 05:10 05/19/20 05:10 05/16/20 05/18/20 05/18/20 15:30 07:48 19:22 WBC 21.3 H 22.8 H RBC 2.14 L 2.58 L Hgb 5.6 L D 7.3 L Hct 17.1 L 21.2 L MCV 80 D 82 MCH 26.2 L 28.3 MCHC 32.7 34.6 RDW 17.7 H 16.8 H Plt Count 457 H 421 Seg Neutrophils % Not Reportable Not Reportable Carbonic Acid HCO3/H2CO3 Ratio ABG pH ABG pCO2 ABG pO2 ABG HCO3 ABG O2 Saturation ABG Base Excess FiO2 Sodium Potassium Chloride Carbon Dioxide Anion Gap BUN Creatinine Est GFR ( Amer) Glucose Calcium Phosphorus Magnesium Stool Occult Blood Blood Type O POSITIVE Antibody Screen NEGATIVE 05/19/20 05/19/20 05/19/20 05:10 05:10 06:25 WBC 23.5 H RBC 2.53 L Hgb 6.8 L Hct 20.8 L MCV 82 MCH 27.0 MCHC 32.9 RDW 17.0 H Plt Count 405 Seg Neutrophils % Not Reportable Carbonic Acid HCO3/H2CO3 Ratio ABG pH ABG pCO2 ABG pO2 ABG HCO3 ABG O2 Saturation ABG Base Excess FiO2 Sodium 132.0 L Potassium 4.0 Chloride 94 L Carbon Dioxide 25 Anion Gap 13 BUN 54 H Creatinine 3.61 H Est GFR ( Amer) 17 L Glucose 112 H Calcium 6.6 L* Phosphorus 4.7 H Magnesium 1.5 L Stool Occult Blood NEGATIVE Blood Type Antibody Screen 05/19/20 08:00 WBC RBC Hgb Hct MCV MCH MCHC RDW Plt Count Seg Neutrophils % Carbonic Acid 1.55 H HCO3/H2CO3 Ratio 18:1 ABG pH 7.37 ABG pCO2 51.5 H ABG pO2 81.0 ABG HCO3 28.8 H ABG O2 Saturation 95.4 ABG Base Excess 3.1 FiO2 15L Sodium Potassium Chloride Carbon Dioxide Anion Gap BUN Creatinine Est GFR ( Amer) Glucose Calcium Phosphorus Magnesium Stool Occult Blood Blood Type Antibody Screen 05/16/20 16:25 Blood Blood Culture (PCR) - Final Escherichia Coli Impressions: Renal Ultrasound 05/16/20 00:00 IMPRESSION: 1. Bilateral polycystic kidney disease. 2. No hydronephrosis or urinary stones are seen. Abdomen/Pelvis CT 05/16/20 13:07 IMPRESSION: Moderate ascites. Enlarged Polycystic kidneys and liver. Noncontrast technique and minimal intra-abdominal fat limits evaluation of anatomy. Assessment & Plan - Diagnosis (1) SURESH (acute kidney injury) Is this a current diagnosis for this admission?: Yes Plan: Baseline kidney function unknown. This is possibly acute on chronic kidney disease versus advanced progressive kidney disease that has reached ESRD. Urine output for the past 24 hours was 1050 mL. However her BUN and creatinine remains to be elevated. There is no sign of renal function recovery, we will arrange chronic outpatient dialysis. We will do dialysis today for 2.5 hours, using the patient's trialysis catheter, with 3 potassium with 3 calcium bath, blood flow rate of 250 mL per minute, dialysate flow rate of 600 mL per minute, ultrafiltration 300 to 500 mL only as tolerated, no heparin and Procrit with 30,000 units during dialysis intra venously. Monitor closely during dialysis especially with her breathing. (2) Polycystic kidney Is this a current diagnosis for this admission?: Yes Plan: This is the underlying cause of the patient's chronic kidney disease with bi lateral enlarged kidneys indicating progressive advanced kidney disease. Family history in her mother who had polycystic kidney disease, was on peritoneal dialysis who at age 49. (3) Polycystic liver disease Is this a current diagnosis for this admission?: Yes (4) Metabolic acidosis Is this a current diagnosis for this admission?: Yes Plan: Resolved with dialysis. (5) E coli bacteremia Is this a current diagnosis for this admission?: Yes Plan: On IV Zosyn. (6) Leukocytosis (leucocytosis) Qualifiers: Leukocytosis type: unspecified Qualified Code(s): D72.829 - Elevated white blood cell count, unspecified Is this a current diagnosis for this admission?: Yes Plan: WBC coming down. (7) Severe anemia Is this a current diagnosis for this admission?: Yes Plan: Negative occult blood. Blood transfusion of 1 unit given yesterday and is currently receiving another unit. We will continue to give Retacrit and Venofer on dialysis. No further work-up per hematology. (8) Urinary tract infection Qualifiers: Urinary tract infection type: site unspecified Hematuria presence: with hematuria Qualified Code(s): N39.0 - Urinary tract infection, site not specified; R31.9 - Hematuria, unspecified Is this a current diagnosis for this admission?: Yes Plan: Due to E. coli. IV Zosyn. (9) Shortness of breath Is this a current diagnosis for this admission?: Yes Plan: Chest x-ray is negative. Agree with with ruling out acute PE. Severe anemia can also cause shortness of breath. (10) Protein-energy malnutrition Is this a current diagnosis for this admission?: Yes - Time Time with patient: 15-25 minutes
[2020-05-19 13:47] LABS: HEMOGLOBIN 7.7 g/dL (12.0-15.5)
[2020-05-19 13:50] LABS: PLATELET COUNT 408 10^3/uL (150-450)
[2020-05-19 13:54] LABS: ABSOLUTE MONOCYTES # (MANUAL) 1.2 10^3/uL (0.1-1.4); BASOPHILS % (MANUAL) 0 % (0-2); EOSINOPHILS % (MANUAL) 2 % (0-6); LYMPHOCYTES % (MANUAL) 17 % (13-45); MONOCYTES % (MANUAL) 5 % (3-13); SEGMENTED NEUTROPHILS % (MAN) 76 % (42-78); TOTAL CELLS COUNTED 100
[2020-05-19 13:55] LABS: ANISOCYTOSIS 1+; POLYCHROMASIA SLIGHT; TOXIC GRANULATION 1+
[2020-05-19 13:56] LABS: PLATELET CLUMPS PRESENT; PLATELET COMMENT ADEQUATE; TARGET CELLS SLIGHT; TEAR DROP CELLS SLIGHT
[2020-05-19 14:02] LABS: PATH REVIEW PATHOLOGIST REVIEWED
--- NOTE | 2020-05-19 15:26 | PDOC PROGRESS REPORT ---
Subjective Progress Note for:: 05/19/20 Subjective:: 34 year old female with history of polycystic kidney disease, recent history of dialysis in [place], treated for severe anemia [place] moved to [place] again 3 weeks ago and came to the emergency room with complaints of severe bilateral flank pain. Work-up done in the ER shows hemoglobin of 4.6, CT scan shows bilateral enlarged kidneys with polycystic lesions and liver lesions, bicarb in the chemistry is 9 with a creatinine of 5.0. 3 units of blood trans fusion initiated in the ER started on IV fluids. Briefly discussed the case with Dr. Bolanos she is going to see the patient tomorrow. Patient does not have a dialysis catheter at this time. As per the patient her mom at the age of 49 with renal failure. 05/17/2020-patient is in the dialysis unit at the time of examination. Received a temporary dialysis catheter. Hemoglobin came up to 8.6 with treatments of blood transfusion. Creatinine improved to 4.1. Consultation with nephrology, onc ology was done. WBC count is still elevated receiving IV antibiotic therapy. 05/18/2020 Patient making over 500 cc of urine but still notably less than 1 L. Creatinine remains elevated. Nephrology following and planning to dialyze patient tomorrow. Patient may need to be evaluated for kidney transplant in the near future. I discussed this with her and she will discuss it with nephrology. WBC lower, hemoglobin down to 5.6 and I have ordered another unit of blood to be transfused. Calcium low we will need to replete this. Hepatitis panel is pending. Oncology following and has ordered EPO given iron/folate/B12 levels are normal. Patient has some abdominal distention with nausea and vomiting otherwise she has no new complaints today. Antiemetics have been ordered. Ordered Benadryl for itching likely due to bilirubin. 05/19/2020 Patient having increasing oxygen requirements and intermittent shortness of breath. Her abdomen does seem to be smaller today since getting dialysis. She was given 1 unit PRBC this morning during dialysis as well. Her labs also showed hypocalcemia and this was repleted during dialysis. Upon more detailed questioning with patient today, she revealed that she was positive for COVID 2 months ago in [place] prior to moving here. She was hospitalized and eventually discharged, later getting a negative test result from an ER in [place] prior to moving. I checked her d-dimer today and it is markedly elevated. It is unclear if her inflammatory markers are simply still elevated due to prior cytokine storm from COVID or if she could have been infected a second time which is possible given she is immune compromised may not be able to generate effective immunity to COVID. Rapid COVID testing is pending. Patient may need to be transferred to the COVID unit if this is positive. She does seem to already be improving since having fluid removed during dialysis though it is worth ruling out COVID infection given her travel history. Otherwise, her only complaints are shortness of breath and generalized fatigue and weakness. Reason For Visit: SURESH,SEVERE ANEMIA Physical Exam Vital Signs: Temp Pulse Resp BP Pulse Ox 97.7 F 93 18 100/60 97 05/19/20 09:29 05/19/20 09:29 05/19/20 09:29 05/19/20 09:29 05/19/20 09:29 Intake & Output 05/18/20 05/19/20 05/20/20 06:59 06:59 06:59 Intake Total 2670 4040 2450 Output Total 1175 1050 Balance 1495 2990 2450 Weight 54.5 kg 51.3 kg General appearance: PRESENT: no acute distress, thin Head exam: PRESENT: atraumatic, normocephalic Eye exam: PRESENT: conjunctiva pink Respiratory exam: PRESENT: clear to auscultation lan. ABSENT: rales, rhonchi, wheezes GI/Abdominal exam: PRESENT: distended - Very minimally distended, much improved, normal bowel sounds, soft. ABSENT: guarding, mass, organolmegaly, rebound, tenderness Neurological exam: PRESENT: alert, awake, oriented to person, oriented to place, oriented to time, oriented to situation Psychiatric exam: PRESENT: appropriate affect, normal mood Skin exam: PRESENT: dry, intact, warm Results Laboratory Results: 05/19/20 12:08 05/19/20 05:10 05/16/20 05/18/20 05/19/20 15:30 19:22 05:10 WBC 22.8 H 23.5 H RBC 2.58 L 2.53 L Hgb 7.3 L 6.8 L Hct 21.2 L 20.8 L MCV 82 82 MCH 28.3 27.0 MCHC 34.6 32.9 RDW 16.8 H 17.0 H Plt Count 421 405 Seg Neutrophils % Not Reportable Not Reportable Carbonic Acid HCO3/H2CO3 Ratio ABG pH ABG pCO2 ABG pO2 ABG HCO3 ABG O2 Saturation ABG Base Excess FiO2 Sodium Potassium Chloride Carbon Dioxide Anion Gap BUN Creatinine Est GFR ( Amer) Glucose Calcium Phosphorus Magnesium Stool Occult Blood Blood Type O POSITIVE Antibody Screen NEGATIVE 05/19/20 05/19/20 05/19/20 05:10 06:25 08:00 WBC RBC Hgb Hct MCV MCH MCHC RDW Plt Count Seg Neutrophils % Carbonic Acid 1.55 H HCO3/H2CO3 Ratio 18:1 ABG pH 7.37 ABG pCO2 51.5 H ABG pO2 81.0 ABG HCO3 28.8 H ABG O2 Saturation 95.4 ABG Base Excess 3.1 FiO2 15L Sodium 132.0 L Potassium 4.0 Chloride 94 L Carbon Dioxide 25 Anion Gap 13 BUN 54 H Creatinine 3.61 H Est GFR ( Amer) 17 L Glucose 112 H Calcium 6.6 L* Phosphorus 4.7 H Magnesium 1.5 L Stool Occult Blood NEGATIVE Blood Type Antibody Screen 05/19/20 12:08 WBC 23.4 H RBC 2.81 L Hgb 7.7 L Hct 23.4 L MCV 84 MCH 27.4 MCHC 32.9 RDW 16.0 H Plt Count 408 Seg Neutrophils % Not Reportable Carbonic Acid HCO3/H2CO3 Ratio ABG pH ABG pCO2 ABG pO2 ABG HCO3 ABG O2 Saturation ABG Base Excess FiO2 Sodium Potassium Chloride Carbon Dioxide Anion Gap BUN Creatinine Est GFR ( Amer) Glucose Calcium Phosphorus Magnesium Stool Occult Blood Blood Type Antibody Screen Impressions: Renal Ultrasound 05/16/20 00:00 IMPRESSION: 1. Bilateral polycystic kidney disease. 2. No hydronephrosis or urinary stones are seen. Abdomen/Pelvis CT 05/16/20 13:07 IMPRESSION: Moderate ascites. Enlarged Polycystic kidneys and liver. Noncontrast technique and minimal intra-abdominal fat limits evaluation of anatomy. Chest X-Ray 05/19/20 00:00 IMPRESSION: NO ACUTE RADIOGRAPHIC FINDING IN THE CHEST. Assessment and Plan - Diagnosis (1) SURESH (acute kidney injury) Is this a current diagnosis for this admission?: Yes Plan: 05/16/2020-patient is going to be admitted to [facility] as an inpatient. Patient baseline creatinine is 0.9 in 2015 today it is 5. Bicarb is 9. As per the patient she has a temporary dialysis in [place] in December. Started on IV fluids 100 cc/h. Nephrology consult was requested. Muhammad's catheter was requested renal ultrasound was requested. 05/17/2020-patient has end-stage renal disease on dialysis at this time. Nephrology consult was requested. 05/18/2020 ESRD on dialysis due to progression of PCKD, nephrology following Next dialysis to be 05/19 May need evaluation for renal transplant in the near future 05/19/2020 Dialysis continues per nephrology Getting Epogen with dialysis as ordered by nephrology Trending BMP, monitoring urine output (2) Polycystic kidney Is this a current diagnosis for this admission?: Yes (3) E coli bacteremia Is this a current diagnosis for this admission?: Yes (4) Ascites Qualifiers: Ascites type: other type Qualified Code(s): R18.8 - Other ascites Is this a current diagnosis for this admission?: Yes (5) Generalized weakness Is this a current diagnosis for this admission?: Yes (6) Leukocytosis (leucocytosis) Qualifiers: Leukocytosis type: unspecified Qualified Code(s): D72.829 - Elevated white blood cell count, unspecified Is this a current diagnosis for this admission?: Yes (7) Metabolic acidosis Is this a current diagnosis for this admission?: Yes (8) Polycystic liver disease Is this a current diagnosis for this admission?: Yes (9) Protein-energy malnutrition Is this a current diagnosis for this admission?: Yes (10) Severe anemia Is this a current diagnosis for this admission?: Yes Plan: 05/16/2020-patient's hemoglobin is 4.6 to transfuse 3 units of blood transfusion. Protonix drip is initiated. Stool guaiac was requested. Patient is going to receive 3 units of blood transfusion LDH was requested iron studies were requested. Consolidation with Dr. Bolanos is requested. 05/17/2020-looks like patient has anemia of chronic disease with 3 units of blood transfusion hemoglobin is 8.6. Anemia of chronic disease most likely secondary to end-stage renal disease. Patient may need EPO as an outpatient. 05/19/2020 Due to ESRD Epogen Transfuse another unit PRBC during dialysis (11) Urinary tract infection Qualifiers: Urinary tract infection type: site unspecified Hematuria presence: with hematuria Qualified Code(s): N39.0 - Urinary tract infection, site not specified; R31.9 - Hematuria, unspecified Is this a current diagnosis for this admission?: Yes (12) Sepsis Is this a current diagnosis for this admission?: Yes - Time Time Spent with patient: 25-34 minutes Medications reviewed and adjusted accordingly: Yes Anticipated Discharge Disposition: Home, Self Care Anticipated Discharge Timeframe: within 72 hours - Inpatient Certification Based on my medical assessment, after consideration of the patient's comorbidities, presenting symptoms, or acuity I expect that the services needed warrant INPATIENT care.: Yes I certify that my determination is in accordance with my understanding of Medicare's requirements for reasonable and necessary INPATIENT services [42 CFR 412.3e].: Yes Medical Necessity: Significant Comorbidiites Make Outpatient Treatment Too Risky, Need Close Monitoring Due to Risk of Patient Decompensation, Risk of Complication if Not Cared For in Hospital, Risk of Diagnosis Which Will Require Inpatient Eval/Care/Monitoring
[2020-05-19] MEDS: BISACODYL 5 MG TABEC PO PRN (17:28)
[2020-05-19 22:36] LABS: HEPATITIS C QUANTITATION HCV Not Detected IU/mL (.)
[2020-05-20] MEDS: PIPERACILLIN SODIUM/TAZOBACTAM 2.25 GM in NORMAL SALINE 50 ML IV SCH ×2 (02:17→10:55)
[2020-05-20] MEDS: MORPHINE SULFATE 10 MG/ML INJ IV PRN ×4 (03:07→20:06)
[2020-05-20] MEDS: NORMAL SALINE 100 ML with PANTOPRAZOLE SODIUM 80 MG IV PRN ×4 (04:46→16:47)
[2020-05-20] MEDS ORDERED: METOPROLOL TARTRATE PF/INJ 5 MG/5 ML SDV IV PRN (07:30)
[2020-05-20] MEDS ORDERED: ONDANSETRON HCL INJ/PF 4 MG/2 ML SDV IV PRN (08:00)
[2020-05-20] MEDS: CALCIUM ACETATE 667 MG CAPSULE PO SCH ×3 (08:22→16:47)
[2020-05-20] MEDS ORDERED: ENOXAPARIN SODIUM INJ 60 MG/0.6 ML DISP.SYRIN SUBCUT SCH ×2 (10:00)
[2020-05-20] MEDS: ZINC SULFATE 220 MG CAPSULE PO SCH ×2 (10:54→18:07)
[2020-05-20] MEDS: CHOLECALCIFEROL (D3) 1,000 UNIT (25 MCG) TABLET PO SCH ×2 (10:54→18:08)
[2020-05-20] MEDS: CITRIC ACID/SODIUM CITRATE ORAL SOLN 15 ML UDCUP PO SCH ×4 (10:54→23:15)
[2020-05-20] MEDS: ASCORBIC ACID 500 MG TABLET PO SCH ×2 (10:54→18:06)
[2020-05-20] MEDS: DEXAMETHASONE 4 MG TABLET PO SCH ×3 (10:56→23:15)
[2020-05-20 11:26] LABS: ANION GAP 9 (5-19); BLOOD UREA NITROGEN 37 mg/dL (7-20); CALCIUM 7.5 mg/dL (8.4-10.2); CARBON DIOXIDE 29 mmol/L (22-30); CHLORIDE 95 mmol/L (98-107); GLUCOSE 88 mg/dL (75-110); POTASSIUM 4.2 mmol/L (3.6-5.0)
[2020-05-20 11:43] LABS: C-REACTIVE PROTEIN 161.1 mg/L (<10.0)
[2020-05-20] MEDS ORDERED: VANCOMYCIN HCL INJ 1000 MG VIAL IV SCH (12:00)
--- NOTE | 2020-05-20 15:40 | PDOC PROGRESS REPORT ---
Subjective Progress Note for:: 05/20/20 Subjective:: 34 year old female with history of polycystic kidney disease, recent history of dialysis in [place], treated for severe anemia [place] moved to [place] again 3 weeks ago and came to the emergency room with complaints of severe bilateral flank pain. Work-up done in the ER shows hemoglobin of 4.6, CT scan shows bilateral enlarged kidneys with polycystic lesions and liver lesions, bicarb in the chemistry is 9 with a creatinine of 5.0. 3 units of blood trans fusion initiated in the ER started on IV fluids. Briefly discussed the case with Dr. Bolanos she is going to see the patient tomorrow. Patient does not have a dialysis catheter at this time. As per the patient her mom at the age of 49 with renal failure. 05/17/2020-patient is in the dialysis unit at the time of examination. Received a temporary dialysis catheter. Hemoglobin came up to 8.6 with treatments of blood transfusion. Creatinine improved to 4.1. Consultation with nephrology, onc ology was done. WBC count is still elevated receiving IV antibiotic therapy. 05/18/2020 Patient making over 500 cc of urine but still notably less than 1 L. Creatinine remains elevated. Nephrology following and planning to dialyze patient tomorrow. Patient may need to be evaluated for kidney transplant in the near future. I discussed this with her and she will discuss it with nephrology. WBC lower, hemoglobin down to 5.6 and I have ordered another unit of blood to be transfused. Calcium low we will need to replete this. Hepatitis panel is pending. Oncology following and has ordered EPO given iron/folate/B12 levels are normal. Patient has some abdominal distention with nausea and vomiting otherwise she has no new complaints today. Antiemetics have been ordered. Ordered Benadryl for itching likely due to bilirubin. 05/19/2020 Patient having increasing oxygen requirements and intermittent shortness of breath. Her abdomen does seem to be smaller today since getting dialysis. She was given 1 unit PRBC this morning during dialysis as well. Her labs also showed hypocalcemia and this was repleted during dialysis. Upon more detailed questioning with patient today, she revealed that she was positive for COVID 2 months ago in [place] prior to moving here. She was hospitalized and eventually discharged, later getting a negative test result from an ER in [place] prior to moving. I checked her d-dimer today and it is markedly elevated. It is unclear if her inflammatory markers are simply still elevated due to prior cytokine storm from COVID or if she could have been infected a second time which is possible given she is immune compromised may not be able to generate effective immunity to COVID. Rapid COVID testing is pending. Patient may need to be transferred to the COVID unit if this is positive. She does seem to already be improving since having fluid removed during dialysis though it is worth ruling out COVID infection given her travel history. Otherwise, her only complaints are shortness of breath and generalized fatigue and weakness. 05/20/2020 Patient now resides in the coronavirus unit. I spoke at great length with the senior instructor today and was informed that the patient very well may have passed this infection along to 3 or more dialysis nurses who are now symptomatic and being quarantined. Have consulted infectious disease given the patient is now positive and blood cultures for MRSA and ESBL E. coli. I have started IV vancomycin renally dosed. Per ID, we will switch Zosyn to ertapenem. I discussed all of this with the patient and she is in agreement with the plan. She states she is not short of breath today and her only complaint other than generalized fatigue and weakness is some mild abdominal distention. I have started the patient on treatment dose Lovenox, appropriate vitamins, Decadron. Will check d-dimer and ferritin every 2 days and obtain CRP. We will consider ordering from does appear and or convalescent plasma if the patient develops moderate to severe respiratory failure. Currently she is breathing comfortably on room air with saturation of 94%. Due to patient being COVID-19 Suspected/Positive, encounter was conducted using telephone and/or videochat and does not include a detailed in-person physical exam in order to preserve PPE and limit staff exposure to a dangerous pathogen. Reason For Visit: SURESH,SEVERE ANEMIA Physical Exam Vital Signs: Temp Pulse Resp BP Pulse Ox 98.5 F 100 20 104/63 91 L 05/20/20 11:39 05/20/20 14:00 05/20/20 11:39 05/20/20 11:39 05/20/20 08:00 Intake & Output 05/19/20 05/20/20 05/21/20 06:59 06:59 06:59 Intake Total 4040 2800 50 Output Total 1050 500 Balance 2990 2300 50 Weight 51.3 kg 51.3 kg 51.3 kg General appearance: PRESENT: no acute distress, thin, other - Due to patient being COVID-19 Suspected/Positive, encounter was conducted using telephone and/or videochat and does not include a detailed in-person physical exam in order to preserve PPE and limit staff exposure to a dangerous pathogen. Head exam: PRESENT: atraumatic, normocephalic Respiratory exam: ABSENT: accessory muscle use Neurological exam: PRESENT: alert, awake Psychiatric exam: PRESENT: appropriate affect, normal mood Skin exam: PRESENT: dry, intact, warm Results Laboratory Results: 05/19/20 12:08 05/20/20 10:40 05/20/20 05/20/20 10:40 10:40 Sodium 132.9 L Potassium 4.2 Chloride 95 L Carbon Dioxide 29 Anion Gap 9 BUN 37 H Creatinine 3.12 H Est GFR ( Amer) 20 L Glucose 88 Calcium 7.5 L Ferritin 506.00 H C-Reactive Protein 161.1 H 05/16/20 16:25 Blood Blood Culture (PCR) - Final Escherichia Coli 05/16/20 16:25 Blood Blood Culture - Final Escherichia Coli Esbl Mrsa (Meth Resis Staph Aureus) 05/16/20 13:20 Clean Catch Midstream Urine Culture - Final Escherichia Coli Impressions: Renal Ultrasound 05/16/20 00:00 IMPRESSION: 1. Bilateral polycystic kidney disease. 2. No hydronephrosis or urinary stones are seen. Abdomen/Pelvis CT 05/16/20 13:07 IMPRESSION: Moderate ascites. Enlarged Polycystic kidneys and liver. Noncontrast technique and minimal intra-abdominal fat limits evaluation of anatomy. Chest X-Ray 05/19/20 00:00 IMPRESSION: NO ACUTE RADIOGRAPHIC FINDING IN THE CHEST. Assessment and Plan - Diagnosis (1) Sepsis Qualifiers: Sepsis type: methicillin resistant Staphylococcus aureus Sepsis acute organ dysfunction status: with acute organ dysfunction Severe sepsis acute organ dysfunction type: acute renal failure Acute renal failure type: unspecified Severe sepsis shock status: without septic shock Qualified Code(s): A41.02 - Sepsis due to Methicillin resistant Staphylococcus aureus; R65.20 - Severe sepsis without septic shock; N17.9 - Acute kidney failure, unspecified Is this a current diagnosis for this admission?: Yes Plan: Source is UTI Urine culture and blood culture both growing E. coli IV Zosyn 05/20/2020 Blood cultures are growing MRSA and ESBL E. coli Urine culture growing non-ESBL E. coli Antibiotics changed to vancomycin and ertapenem per ID recommendations Infectious disease consulted (2) SURESH (acute kidney injury) Is this a current diagnosis for this admission?: Yes Plan: 05/16/2020-patient is going to be admitted to [facility] as an inpatient. Patient baseline creatinine is 0.9 in 2015 today it is 5. Bicarb is 9. As per the patient she has a temporary dialysis in [place] in December. Started on IV fluids 100 cc/h. Nephrology consult was requested. Muhammad's catheter was requested renal ultrasound was requested. 05/17/2020-patient has end-stage renal disease on dialysis at this time. Nephrology consult was requested. 05/18/2020 ESRD on dialysis due to progression of PCKD, nephrology following Next dialysis to be 05/19 May need evaluation for renal transplant in the near future 05/19/2020 Dialysis continues per nephrology Getting Epogen with dialysis as ordered by nephrology Trending [facility], monitoring urine output 05/20/2020 Dialysis continues Sunday Nephrology following (3) Lab test positive for detection of COVID-19 virus Is this a current diagnosis for this admission?: Yes Plan: Rapid COVID test positive on 05/19, moved to coronavirus isolation unit Ferritin high, CRP high, d-dimer extremely high Trend labs every 2 days (4) Polycystic kidney Is this a current diagnosis for this admission?: Yes (5) E coli bacteremia Is this a current diagnosis for this admission?: Yes (6) Ascites Qualifiers: Ascites type: other type Qualified Code(s): R18.8 - Other ascites Is this a current diagnosis for this admission?: Yes (7) Generalized weakness Is this a current diagnosis for this admission?: Yes (8) Leukocytosis (leucocytosis) Qualifiers: Leukocytosis type: unspecified Qualified Code(s): D72.829 - Elevated white blood cell count, unspecified Is this a current diagnosis for this admission?: Yes (9) Metabolic acidosis Is this a current diagnosis for this admission?: Yes (10) Polycystic liver disease Is this a current diagnosis for this admission?: Yes (11) Protein-energy malnutrition Is this a current diagnosis for this admission?: Yes (12) Severe anemia Is this a current diagnosis for this admission?: Yes (13) Urinary tract infection Qualifiers: Urinary tract infection type: site unspecified Hematuria presence: with hematuria Qualified Code(s): N39.0 - Urinary tract infection, site not specified; R31.9 - Hematuria, unspecified Is this a current diagnosis for this admission?: Yes - Time Time Spent with patient: 15-24 minutes Medications reviewed and adjusted accordingly: Yes Anticipated Discharge Disposition: Nursing Home Facility Anticipated Discharge Timeframe: When patient improves - Inpatient Certification Based on my medical assessment, after consideration of the patient's comorbidities, presenting symptoms, or acuity I expect that the services needed warrant INPATIENT care.: Yes I certify that my determination is in accordance with my understanding of Medicare's requirements for reasonable and necessary INPATIENT services [42 CFR 412.3e].: Yes Medical Necessity: Significant Comorbidiites Make Outpatient Treatment Too Risky, Need Close Monitoring Due to Risk of Patient Decompensation, Need for IV Antibiotics, Risk of Complication if Not Cared For in Hospital, Risk of Diagnosis Which Will Require Inpatient Eval/Care/Monitoring
[2020-05-20] MEDS ORDERED: VANCOMYCIN HCL 1,000 MG in DEXTROSE 5%-WATER 250 ML IV ONE (16:00)
[2020-05-20] MEDS ORDERED: ERTAPENEM SODIUM 0.5 GM in NORMAL SALINE 50 ML IV ONE (18:00)
[2020-05-20] MEDS: HEPARIN SOD (PORCINE) 5,000 UNIT/ML 1 ML VIAL SUBCUT SCH (23:19)
[2020-05-21] MEDS: MORPHINE SULFATE 10 MG/ML INJ IV PRN ×5 (04:51→23:35)
[2020-05-21] MEDS ORDERED: HEPARIN SOD (PORCINE) 1,000 UNIT/ML 10 ML VIAL IV PRN (05:00)
[2020-05-21] MEDS ORDERED: NORMAL SALINE 1000 ML 1,000 ML IV PRN (05:00)
[2020-05-21] MEDS ORDERED: IRON SUCROSE COMPLEX INJ/PF 100 MG/5 ML SDV IV PRN (05:00)
[2020-05-21] MEDS ORDERED: EPOETIN ALFA-EPBX 30,000 UNIT in SYRINGE, DISPOSABLE, 1 EACH IV PRN (05:00)
[2020-05-21 05:17] LABS: HEMATOCRIT 32.3 % (36.0-47.0); MEAN CORPUSCULAR HEMOGLOBIN 26.9 pg (27.0-33.4); MEAN CORPUSCULAR HGB CONC 31.8 g/dL (32.0-36.0); MEAN CORPUSCULAR VOLUME 85 fl (80-97); PLATELET COUNT 426 10^3/uL (150-450); RED BLOOD COUNT 3.81 10^6/uL (3.72-5.28); RED CELL DISTRIBUTION WIDTH 16.6 % (11.5-14.0); WHITE BLOOD COUNT 25.8 10^3/uL (4.0-10.5)
[2020-05-21 05:18] LABS: HEMOGLOBIN 10.3 g/dL (12.0-15.5)
[2020-05-21 05:28] LABS: ANION GAP 11 (5-19); BLOOD UREA NITROGEN 45 mg/dL (7-20); CALCIUM 8.1 mg/dL (8.4-10.2); CARBON DIOXIDE 28 mmol/L (22-30); CHLORIDE 93 mmol/L (98-107); GLUCOSE 141 mg/dL (75-110); PHOSPHORUS 5.4 mg/dL (2.5-4.5); POTASSIUM 4.5 mmol/L (3.6-5.0)
[2020-05-21] MEDS: DEXAMETHASONE 4 MG TABLET PO SCH ×3 (06:04→21:31)
--- NOTE | 2020-05-21 08:18 | Progress Note ---
Provider Note Provider Note: [facility] Telephone Advice Consultation Chart reviewed. This is a 34-year-old woman with PCKD who recently moved from [place] (3 weeks ago). In December 2019, while living in [place], she has COVID and had SURESH requiring intermitted hemodialysis. After being discharged from the hospital, she has not had any follow up with nephrology. She was admitted on 05/16 due to bilateral flank pain, dysuria and hematuria (denied on some notes). She was admitted and was found with WBC 28k, metabolic acidosis, creatinine close to 5. She was evaluated by nephrology. Surgery placed a femoral HD catheter. She was started on zosyn awaiting for blood and urine cultures. She has anemia and was evaluated by hematology/oncology as well. Blood cultures positive for E coli ESBL and MRSA in 1/2 sets. Urine culture was positive for E coli but surprisingly, a morphotype with different resistance pattern. Her WBC has not significantly changed. She complained of worsening shortness of breath and was tested for COVID which PCR was positive even though CXR remains clear. She was exposed to HCV as antibody is positive, but she cleared the infection as viral load was undetectable. She continues HD, ID consulted for MRSA and E coli ESBL bacteremia. PMH: PCKD CKD Anemia Allergies: No Known Allergies Allergy (Verified 05/16/20 13:01) Medications: No Home Medications 05/16/20 Vital Signs: Temp Pulse Resp BP Pulse Ox 97.4 F 66 16 103/66 94 05/21/20 04:21 05/21/20 07:00 05/21/20 04:21 05/21/20 04:21 05/21/20 04:21 Intake & Output 05/20/20 05/21/20 05/22/20 06:59 06:59 06:59 Intake Total 2800 686 Output Total 500 765 Balance 2300 -79 Weight 51.3 kg 57.7 kg Weight/Height Weight 57.7 kg Height 5 ft 2 in Laboratories: 05/21/20 04:41 05/21/20 04:41 MCV 85 fl (80-97) 05/21/20 04:41 MCH 26.9 pg (27.0-33.4) L 05/21/20 04:41 MCHC 31.8 g/dL (32.0-36.0) L 05/21/20 04:41 RDW 16.6 % (11.5-14.0) H 05/21/20 04:41 Seg Neutrophils % Not Reportable 05/19/20 12:08 Retic Count (auto) 2.65 % (0.66-2.85) 05/16/20 14:00 Carbonic Acid 1.55 mmol/L (1.05-1.35) H 05/19/20 08:00 HCO3/H2CO3 Ratio 18:1 05/19/20 08:00 ABG pH 7.37 (7.35-7.45) 05/19/20 08:00 ABG pCO2 51.5 mmHg (35-45) H 05/19/20 08:00 ABG pO2 81.0 mmHg (80-100) 05/19/20 08:00 ABG HCO3 28.8 mmol/L (20-24) H 05/19/20 08:00 ABG O2 Saturation 95.4 % (94-98) 05/19/20 08:00 ABG Base Excess 3.1 mmol/L 05/19/20 08:00 FiO2 15L 05/19/20 08:00 Chloride 93 mmol/L (98-107) L 05/21/20 04:41 Carbon Dioxide 28 mmol/L (22-30) 05/21/20 04:41 Anion Gap 11 (5-19) 05/21/20 04:41 Est GFR ( Amer) 18 (>60) L 05/21/20 04:41 Glucose 141 mg/dL (75-110) H 05/21/20 04:41 Lactic Acid 1.5 mmol/L (0.7-2.1) 05/21/20 04:41 Calcium 8.1 mg/dL (8.4-10.2) L 05/21/20 04:41 Phosphorus 5.4 mg/dL (2.5-4.5) H 05/21/20 04:41 Magnesium 2.0 mg/dL (1.6-2.3) 05/21/20 04:41 Iron < 10.1 ug/dL (37-170) L 05/16/20 14:00 TIBC 211 ug/dL (250-450) L 05/16/20 14:00 Ferritin 506.00 ng/mL (6.2-137.0) H 05/20/20 10:40 Total Bilirubin 0.3 mg/dL (0.2-1.3) 05/18/20 04:38 AST 19 U/L (14-36) 05/18/20 04:38 Alkaline Phosphatase 151 U/L (38-126) H 05/18/20 04:38 Ammonia < 8.7 umol/L (9-33) L 05/17/20 05:38 C-Reactive Protein 161.1 mg/L (<10.0) H 05/20/20 10:40 Total Protein 7.2 g/dL (6.3-8.2) 05/18/20 04:38 Albumin 2.9 g/dL (3.5-5.0) L 05/18/20 04:38 Lipase 459.9 U/L (23-300) H 05/16/20 14:00 Vitamin B12 958.0 pg/mL (239-931) H 05/16/20 14:00 Folate 10.20 ng/mL (>2.76) 05/16/20 14:00 TSH 3.55 uIU/mL (0.47-4.68) 05/17/20 03:34 Serum HCG, Qual NEGATIVE (NEGATIVE) 05/16/20 14:00 PTH Intact 61.8 pg/mL (10.0-65.0) 05/16/20 21:20 Urine Color YELLOW 05/16/20 13:20 Urine Appearance CLOUDY 05/16/20 13:20 Urine pH 6.0 (5.0-9.0) 05/16/20 13:20 Ur Specific [place] 1.012 05/16/20 13:20 Urine Protein 100 mg/dL (NEGATIVE) H 05/16/20 13:20 Urine Glucose (UA) NEGATIVE mg/dL (NEGATIVE) 05/16/20 13:20 Urine Ketones NEGATIVE mg/dL (NEGATIVE) 05/16/20 13:20 Urine Blood MODERATE (NEGATIVE) H 05/16/20 13:20 Urine Nitrite NEGATIVE (NEGATIVE) 05/16/20 13:20 Ur Leukocyte Esterase LARGE (NEGATIVE) H 05/16/20 13:20 Urine WBC (Auto) >182 /HPF 05/16/20 13:20 Urine RBC (Auto) 13 /HPF 05/16/20 13:20 Stool Occult Blood NEGATIVE (NEGATIVE) 05/19/20 06:25 Blood Type O POSITIVE 05/16/20 15:30 Antibody Screen NEGATIVE 05/16/20 15:30 05/16/20 16:25 Blood Blood Culture (PCR) - Final Escherichia Coli 05/16/20 16:25 Blood Blood Culture - Final Escherichia Coli Esbl Mrsa (Meth Resis Staph Aureus) 05/16/20 13:20 Clean Catch Midstream Urine Culture - Final Escherichia Coli Radiology: Renal Ultrasound 05/16/20 00:00 IMPRESSION: 1. Bilateral polycystic kidney disease. 2. No hydronephrosis or urinary stones are seen. Abdomen/Pelvis CT 05/16/20 13:07 IMPRESSION: Moderate ascites. Enlarged Polycystic kidneys and liver. Noncontrast technique and minimal intra-abdominal fat limits evaluation of anatomy. Chest X-Ray 05/19/20 00:00 IMPRESSION: NO ACUTE RADIOGRAPHIC FINDING IN THE CHEST. Assessment and Recommendations: Patient evaluated for MRSA and E coli ESBL bacteremia and E coli UTI although the E coli morphotype from the urine is different from the E coli in the blood. She has been started on HD, there is a possibility that she was still bacteremic when the HD catheter was placed, this is something to consider if she doesn't clear the bacteremia. A TTE is recommended to rule out endocarditis, although low suspicion. Also look for any sites of metastatic infection as discitis, VOM, epidural abscess, psoas abscess, septic arthritis, osteomyelitis, etc that could explain the persistent leukocytosis. Can repeat blood cultures now that she has been on antibiotics to document clearance of bacteremia. Continue vancomycin with HD for MRSA and ertapenem 500 mg AD for E coli ESBL. Source still unclear as she didn't have a HD catheter and urine morphotype was different, unless there was heterogeneous/mixed infection. Duration of therapy for MRSA likely 4 weeks from negative cultures if TTE negative. For E coli ESBL bacteremia, 2 weeks from negative cultures. Please call if questions. Juliet Doe MD [facility] [phone]
[2020-05-21] MEDS: CITRIC ACID/SODIUM CITRATE ORAL SOLN 15 ML UDCUP PO SCH ×5 (09:11→21:31)
[2020-05-21] MEDS: HEPARIN SOD (PORCINE) 5,000 UNIT/ML 1 ML VIAL SUBCUT SCH ×2 (09:11→21:31)
[2020-05-21] MEDS: CALCIUM ACETATE 667 MG CAPSULE PO SCH ×4 (09:12→19:03)
[2020-05-21] MEDS: CHOLECALCIFEROL (D3) 1,000 UNIT (25 MCG) TABLET PO SCH ×3 (09:12→19:04)
[2020-05-21] MEDS: ASCORBIC ACID 500 MG TABLET PO SCH ×2 (09:12→19:04)
[2020-05-21] MEDS: ZINC SULFATE 220 MG CAPSULE PO SCH ×2 (09:12→17:43)
[2020-05-21] MEDS: NORMAL SALINE 100 ML with PANTOPRAZOLE SODIUM 80 MG IV PRN ×4 (09:21→21:35)
[2020-05-21 10:34] LABS: APPEARANCE,URINE TURBID; BILIRUBIN,URINE NEGATIVE (NEGATIVE); COLOR,URINE AMBER; GLUCOSE, URINE NEGATIVE (NEGATIVE); KETONES,URINE NEGATIVE (NEGATIVE); LEUKOCYTE ESTERASE,URINE LARGE (NEGATIVE); NITRITE,URINE NEGATIVE (NEGATIVE); PROTEIN,URINE 100 mg/dL (NEGATIVE); URINE SPECIFIC GRAVITY 1.013; UROBILINOGEN,URINE NEGATIVE mg/dL (<2.0)
--- NOTE | 2020-05-21 11:17 | RADIOLOGY REPORT (SQ) ---
EXAM DESCRIPTION: CT CHEST WITH IMAGES COMPLETED DATE/TIME: 05/21/2020 10:30 am REASON FOR STUDY: sepsis unknown source COMPARISON: CT abdomen pelvis dated 05/16/2020 CONTRAST TYPE AND DOSE: 66 mL Omnipaque 350 RENAL FUNCTION: None required. The patient is less than 50 years old. TECHNIQUE: CT scan of the chest performed using helical scanning technique with dynamic intravenous contrast injection. Images reviewed with lung, soft tissue and bone windows. Reconstructed coronal a nd sagittal MPR images reviewed. All images stored on PACS. CT scan of the abdomen and pelvis performed with intravenous and without oral contrastusing helical s viviana technique with dynamic intravenous contrast injection. Images reviewed with lung, soft tissu e and bone windows. Reconstructed coronal and sagittal MPR images reviewed. Delayed images for eval uation of the urinary system also acquired and evaluated. All images stored on PACS. All CT scanners at this facility use dose modulation, iterative reconstruction, and/or weight based d osing when appropriate to reduce radiation dose to as low as reasonably achievable (ALARA). [facility]: Dose Right [facility]: CareDose [facility]: Dose Right [facility]: Teradose 4D [facility]: [employer] Technologies RADIATION DOSE: . LIMITATIONS: None. FINDINGS: CHEST: LUNGS AND PLEURA: There are new small bilateral pleural effusions. There is basilar opacification ei ther atelectasis or pneumonia. Right greater than left. HILAR AND MEDIASTINAL STRUCTURES: No identified masses or abnormal nodes. HEART AND VASCULAR STRUCTURES: No aneurysm or dissection. No central pulmonary emboli. No pericardi al effusion. HARDWARE: None. THYROID AND OTHER SOFT TISSUES: No masses. No adenopathy. BONES: No significant finding. OTHER: No other significant finding. ABDOMEN AND PELVIS: LIVER: Numerous hepatic cysts. hepatomegaly. The liver measures 24 cm in cranial caudal dimensions. SPLEEN: Mild splenic enlargement. No focal lesions. PANCREAS: No masses. No significant calcifications. No adjacent inflammation or peripancreatic fluid collections. Pancreatic duct not dilated. GALLBLADDER: No identified stones by CT criteria. No inflammatory changes to suggest cholecystitis. ADRENAL GLANDS: No significant masses or asymmetry. KIDNEYS: Polycystic kidneys. No hydronephrosis. AORTA AND VESSELS: No aneurysm. No dissection. Renal arteries, SMA, celiac without stenosis. RETROPERITONEUM: No retroperitoneal adenopathy, hemorrhage or masses. BOWEL AND PERITONEAL CAVITY: Moderate volume ascites. APPENDIX: Not visualized. ABDOMINAL WALL: No masses. No hernias. PELVIS: The bladder is decompressed by Muhammad catheter. There is free fluid in the pelvis. BONES: No significant or acute findings. OTHER: No other significant finding. IMPRESSION: 1. Bilateral pleural effusions and basilar airspace disease either atelectasis or pneumo adilson right greater than left. 2. Polycystic kidneys and liver. 3. Moderate volume ascites. TECHNICAL DOCUMENTATION: JOB ID: [id number] Quality ID # [id number]: Final reports with documentation of one or more dose reduction techniques (e.g., Au tomated exposure control, adjustment of the mA and/or kV according to patient size, use of iterative reconstruction technique) 2010 [employer]- All Rights Reserved Reading location - IP/workstation name: [email or web address]
--- NOTE | 2020-05-21 11:17 | RADIOLOGY REPORT (SQ) ---
EXAM DESCRIPTION: CT ABD/PELVIS WITH IV ONLY COMPLETE DATE/TIME: 05/21/2020 10:30 am REASON FOR STUDY: sepsis unknown source FINDINGS: Please see combined report for performance of procedure and radiologic supervision and int erpretation. IMPRESSION: Please see combined report for performance of procedure and radiologic supervision and i nterpretation. Reading location - IP/workstation name: [email or web address]
--- NOTE | 2020-05-21 15:23 | PDOC PROGRESS REPORT ---
Subjective Progress Note for:: 05/21/20 Subjective:: 34 year old female with history of polycystic kidney disease, recent history of dialysis in [place], treated for severe anemia [place] moved to [place] again 3 weeks ago and came to the emergency room with complaints of severe bilateral flank pain. Work-up done in the ER shows hemoglobin of 4.6, CT scan shows bilateral enlarged kidneys with polycystic lesions and liver lesions, bicarb in the chemistry is 9 with a creatinine of 5.0. 3 units of blood trans fusion initiated in the ER started on IV fluids. Briefly discussed the case with Dr. Bolanos she is going to see the patient tomorrow. Patient does not have a dialysis catheter at this time. As per the patient her mom at the age of 49 with renal failure. 05/17/2020-patient is in the dialysis unit at the time of examination. Received a temporary dialysis catheter. Hemoglobin came up to 8.6 with treatments of blood transfusion. Creatinine improved to 4.1. Consultation with nephrology, onc ology was done. WBC count is still elevated receiving IV antibiotic therapy. 05/18/2020 Patient making over 500 cc of urine but still notably less than 1 L. Creatinine remains elevated. Nephrology following and planning to dialyze patient tomorrow. Patient may need to be evaluated for kidney transplant in the near future. I discussed this with her and she will discuss it with nephrology. WBC lower, hemoglobin down to 5.6 and I have ordered another unit of blood to be transfused. Calcium low we will need to replete this. Hepatitis panel is pending. Oncology following and has ordered EPO given iron/folate/B12 levels are normal. Patient has some abdominal distention with nausea and vomiting otherwise she has no new complaints today. Antiemetics have been ordered. Ordered Benadryl for itching likely due to bilirubin. 05/19/2020 Patient having increasing oxygen requirements and intermittent shortness of breath. Her abdomen does seem to be smaller today since getting dialysis. She was given 1 unit PRBC this morning during dialysis as well. Her labs also showed hypocalcemia and this was repleted during dialysis. Upon more detailed questioning with patient today, she revealed that she was positive for COVID 2 months ago in [place] prior to moving here. She was hospitalized and eventually discharged, later getting a negative test result from an ER in [place] prior to moving. I checked her d-dimer today and it is markedly elevated. It is unclear if her inflammatory markers are simply still elevated due to prior cytokine storm from COVID or if she could have been infected a second time which is possible given she is immune compromised may not be able to generate effective immunity to COVID. Rapid COVID testing is pending. Patient may need to be transferred to the COVID unit if this is positive. She does seem to already be improving since having fluid removed during dialysis though it is worth ruling out COVID infection given her travel history. Otherwise, her only complaints are shortness of breath and generalized fatigue and weakness. 05/20/2020 Patient now resides in the coronavirus unit. I spoke at great length with the straight cutter machine today and was informed that the patient very well may have passed this infection along to 3 or more dialysis nurses who are now symptomatic and being quarantined. Have consulted infectious disease given the patient is now positive and blood cultures for MRSA and ESBL E. coli. I have started IV vancomycin renally dosed. Per ID, we will switch Zosyn to ertapenem. I discussed all of this with the patient and she is in agreement with the plan. She states she is not short of breath today and her only complaint other than generalized fatigue and weakness is some mild abdominal distention. I have started the patient on treatment dose Lovenox, appropriate vitamins, Decadron. Will check d-dimer and ferritin every 2 days and obtain CRP. We will consider ordering from does appear and or convalescent plasma if the patient develops moderate to severe respiratory failure. Currently she is breathing comfortably on room air with saturation of 94%. Due to patient being COVID-19 Suspected/Positive, encounter was conducted using telephone and/or videochat and does not include a detailed in-person physical exam in order to preserve PPE and limit staff exposure to a dangerous pathogen. 05/21/2020 Patient respiratory status seems to be stabilized for now. She is breathing fine on room air. Unfortunately, her d-dimer and inflammatory markers are still quite high. I have her on prophylactic dose heparin but we may need to consider putting her on treatment dose heparin drip. She is not a good candidate for Lovenox due to her renal failure. Infectious disease is consulting as we do not have a clear source of the patient's MRSA and multiple E. coli organisms found in her blood and urine. CT chest/abdomen/pelvis today was unrevealing for source as well. She does have moderate volume ascites and it may be beneficial to get a paracentesis and culture this fluid. Although CT did not show this, we may need to consider possibility of colonic diverticula perforation or duodenal diverticular disease as a source for her E. coli infections. We may also need to consider tagged WBC scan to help find a clear source of infection. Hemoglobin is significantly higher that this is probably a lab error. Patient has no new complaints other than generalized fatigue and weakness. Reason For Visit: SURESH,SEVERE ANEMIA Physical Exam Vital Signs: Temp Pulse Resp BP Pulse Ox 98.2 F 93 18 126/72 H 98 05/21/20 12:00 05/21/20 12:00 05/21/20 12:00 05/21/20 12:00 05/21/20 12:00 Intake & Output 05/20/20 05/21/20 05/22/20 06:59 06:59 06:59 Intake Total 2800 786 Output Total 500 765 Balance 2300 21 Weight 51.3 kg 57.7 kg General appearance: PRESENT: no acute distress, well-developed, well-nourished Head exam: PRESENT: atraumatic, normocephalic Eye exam: PRESENT: conjunctiva pink Mouth exam: PRESENT: moist Respiratory exam: PRESENT: clear to auscultation lan. ABSENT: rales, rhonchi, wheezes Cardiovascular exam: PRESENT: RRR. ABSENT: diastolic murmur, rubs, systolic murmur GI/Abdominal exam: PRESENT: ascites, distended, normal bowel sounds, soft. ABSENT: guarding, mass, organolmegaly, rebound, tenderness Neurological exam: PRESENT: alert, awake Psychiatric exam: PRESENT: appropriate affect, normal mood Skin exam: PRESENT: dry, intact, warm Results Laboratory Results: 05/21/20 04:41 05/21/20 04:41 05/21/20 05/21/20 05/21/20 04:41 04:41 04:41 WBC 25.8 H RBC 3.81 Hgb 10.3 L D Hct 32.3 L MCV 85 MCH 26.9 L MCHC 31.8 L RDW 16.6 H Plt Count 426 Sodium 132.4 L Potassium 4.5 Chloride 93 L Carbon Dioxide 28 Anion Gap 11 BUN 45 H Creatinine 3.50 H Est GFR ( Amer) 18 L Glucose 141 H Lactic Acid 1.5 Calcium 8.1 L Phosphorus 5.4 H Magnesium 2.0 Urine Color Urine Appearance Urine pH Ur Specific [place] Urine Protein Urine Glucose (UA) Urine Ketones Urine Blood Urine Nitrite Ur Leukocyte Esterase Urine WBC (Auto) Urine RBC (Auto) 05/21/20 09:40 WBC RBC Hgb Hct MCV MCH MCHC RDW Plt Count Sodium Potassium Chloride Carbon Dioxide Anion Gap BUN Creatinine Est GFR ( Amer) Glucose Lactic Acid Calcium Phosphorus Magnesium Urine Color JOVANNI Urine Appearance TURBID Urine pH 7.0 Ur Specific [place] 1.013 Urine Protein 100 H Urine Glucose (UA) NEGATIVE Urine Ketones NEGATIVE Urine Blood MODERATE H Urine Nitrite NEGATIVE Ur Leukocyte Esterase LARGE H Urine WBC (Auto) >182 Urine RBC (Auto) 21 Impressions: Renal Ultrasound 05/16/20 00:00 IMPRESSION: 1. Bilateral polycystic kidney disease. 2. No hydronephrosis or urinary stones are seen. Chest X-Ray 05/19/20 00:00 IMPRESSION: NO ACUTE RADIOGRAPHIC FINDING IN THE CHEST. Abdomen/Pelvis CT 05/21/20 00:00 IMPRESSION: Please see combined report for performance of procedure and radiologic supervision and interpretation. Chest CT 05/21/20 00:00 IMPRESSION: 1. Bilateral pleural effusions and basilar airspace disease either atelectasis or pneumonia right greater than left. 2. Polycystic kidneys and liver. 3. Moderate volume ascites. Assessment and Plan - Diagnosis (1) Sepsis Qualifiers: Sepsis type: methicillin resistant Staphylococcus aureus Sepsis acute organ dysfunction status: with acute organ dysfunction Severe sepsis acute organ dysfunction type: acute renal failure Acute renal failure type: unspecified Severe sepsis shock status: without septic shock Qualified Code(s): A41.02 - Sepsis due to Methicillin resistant Staphylococcus aureus; R65.20 - Severe sepsis without septic shock; N17.9 - Acute kidney failure, unspecified Is this a current diagnosis for this admission?: Yes Plan: Source is UTI Urine culture and blood culture both growing E. coli IV Zosyn 05/20/2020 Blood cultures are growing MRSA and ESBL E. coli Urine culture growing non-ESBL E. coli Antibiotics changed to vancomycin and ertapenem per ID recommendations Infectious disease consulted 05/21/2020 We still do not have a clear source despite advanced imaging with contrast CT chest/abdomen/pelvis did not show a clear source of infection but did show moderate volume ascites and small pleural effusions Follow-up finalized blood culture results Considered tagged WBC scan Consider oral contrast CT to look for colonic or duodenal diverticula, possible microperforations (2) SURESH (acute kidney injury) Is this a current diagnosis for this admission?: Yes Plan: 05/16/2020-patient is going to be admitted to [facility] as an inpatient. Patient baseline creatinine is 0.9 in 2015 today it is 5. Bicarb is 9. As per the patient she has a temporary dialysis in [place] in December. Started on IV fluids 100 cc/h. Nephrology consult was requested. Muhammad's catheter was requested renal ultrasound was requested. 05/17/2020-patient has end-stage renal disease on dialysis at this time. Nephrology consult was requested. 05/18/2020 ESRD on dialysis due to progression of PCKD, nephrology following Next dialysis to be 05/19 May need evaluation for renal transplant in the near future 05/19/2020 Dialysis continues per nephrology Getting Epogen with dialysis as ordered by nephrology Trending [facility], monitoring urine output 05/20/2020 Dialysis continues Sunday Nephrology following 05/21/2020 Persistent elevation of creatinine requiring HD Nephrology still following (3) Lab test positive for detection of COVID-19 virus Is this a current diagnosis for this admission?: Yes (4) Polycystic kidney Is this a current diagnosis for this admission?: Yes (5) E coli bacteremia Is this a current diagnosis for this admission?: Yes (6) Ascites Qualifiers: Ascites type: other type Qualified Code(s): R18.8 - Other ascites Is this a current diagnosis for this admission?: Yes (7) Generalized weakness Is this a current diagnosis for this admission?: Yes (8) Leukocytosis (leucocytosis) Qualifiers: Leukocytosis type: unspecified Qualified Code(s): D72.829 - Elevated white blood cell count, unspecified Is this a current diagnosis for this admission?: Yes (9) Metabolic acidosis Is this a current diagnosis for this admission?: Yes (10) Polycystic liver disease Is this a current diagnosis for this admission?: Yes (11) Protein-energy malnutrition Is this a current diagnosis for this admission?: Yes (12) Severe anemia Is this a current diagnosis for this admission?: Yes (13) Urinary tract infection Qualifiers: Urinary tract infection type: site unspecified Hematuria presence: with hematuria Qualified Code(s): N39.0 - Urinary tract infection, site not specified; R31.9 - Hematuria, unspecified Is this a current diagnosis for this admission?: Yes - Time Time Spent with patient: 35 or more minutes Medications reviewed and adjusted accordingly: Yes Anticipated Discharge Disposition: Long Term Facility Anticipated Discharge Timeframe: within 72 hours - Inpatient Certification Based on my medical assessment, after consideration of the patient's comorbidities, presenting symptoms, or acuity I expect that the services needed warrant INPATIENT care.: Yes I certify that my determination is in accordance with my understanding of Medicare's requirements for reasonable and necessary INPATIENT services [42 CFR 412.3e].: Yes Medical Necessity: Significant Comorbidiites Make Outpatient Treatment Too Risky, Need Close Monitoring Due to Risk of Patient Decompensation, Need for IV Antibiotics, Risk of Complication if Not Cared For in Hospital, Risk of Diagnosis Which Will Require Inpatient Eval/Care/Monitoring
[2020-05-21] MEDS ORDERED: VANCOMYCIN HCL 750 MG in DEXTROSE 5%-WATER 250 ML IV SCH (18:00)
--- NOTE | 2020-05-21 18:12 | XCELERA REPORT ---
[address] [address] Transthoracic Echocardiogram Report Name: BILLIE HUTCHINS Age: 34 yrs Gender: Female : 1985 Patient Status: Inpatient Patient Location: [facility]^A Study Date: 05/21/2020 11:11 AM Height: 62 in Weight: 127 lb BSA: 1.6 m2 Procedure: A two-dimensional transthoracic echocardiogram with color flow and Doppler was performed. Study Quality: Good. Reason For Study: RNDOCARDITIS History: RNDOCARDITIS. Ordering Physician: VIPUL COLES Performed By: Yanet Washburn Interpretation Summary The left ventricle is normal in size. There is normal left ventricular wall thickness. LV EF is Grater than 60% Left ventricular systolic function is normal. Doppler measurements suggest normal left ventricular diastolic function The left ventricular wall motion is normal. There is no thrombus. No ASD,VSD,or PFO seen. The right ventricle is normal in size and function. The right atrium is normal. The left atrial size is normal. There is no evidence of mitral valve prolapse. There is a mobile very small structure on the mitral valve leaflets.Cannot entirely exclude a vegetation .Although I think this is not a vegetation Recommend ERICH if clinicccal suspicion is high. There is no mitral valve stenosis. There is a mild amount of mitral regurgitation There is no aortic valvular vegetation. There is no aortic valve stenosis There is no LVOT obstruction. No aortic regurgitation is present. There is no tricuspid stenosis. There is a mild amount of tricuspid regurgitation Upper normal to miild pulmonary hypertension.RVSP is 29 to 34 mm of Hg , with RA mean of 5 to 10. There is no pulmonic valvular stenosis. There is a trace amount of pulmonic regurgitation The aortic root is normal size. The inferior vena cava appeared normal and decreased > 50% with respiration (RAP 5-10 mmHg) There is no pericardial effusion. MMode/2D Measurements & Calculations RVDd: 2.3 cm LVIDd: 5.2 cm FS: 34.2 % Ao root diam: 3.4 cm IVSd: 0.91 cm LVIDs: 3.4 cm EDV(Teich): Ao root area: LVPWd: 0.89 cm 129.0 ml 8.9 cm2 ESV(Teich): 48.0 mlLA dimension: 3.7 cm EF(Teich): 62.8 % LVLd ap4: 8.3 cm SV(MOD-sp4): EDV(MOD-sp4): 39.0 ml 77.0 ml LVLs ap4: 6.4 cm ESV(MOD-sp4): 38.0 ml EF(MOD-sp4): 50.6 % Doppler Measurements & Calculations MV E max arminda: MV P1/2t max arminda: Ao V2 max: LV V1 max P.2 cm/sec 56.9 cm/sec 103.2 cm/sec 2.9 mmHg MV A max arminda: MV P1/2t: 79.3 msec Ao max PG: LV V1 max: 51.8 cm/sec MVA(P1/2t): 2.8 cm2 4.3 mmHg 84.7 cm/sec MV E/A: 1.1 MV dec slope: 210.1 cm/sec2 MV dec time: 0.27 sec PA V2 max: PI end-d arminda: TR max arminda: MV P1/2t-pr_phl: 77.5 cm/sec 165.1 cm/sec 245.4 cm/sec 79.3 msec PA max PG: TR max P.4 mmHg 24.1 mmHg Left Ventricle The left ventricle is normal in size. There is normal left ventricular wall thickness. LV EF is Grater than 60%. Left ventricular systolic function is normal. Doppler measurements suggest normal left ventricular diastolic function. The left ventricular wall motion is normal. There is no thrombus. No ASD,VSD,or PFO seen. Right Ventricle The right ventricle is normal in size and function. Atria The right atrium is normal. The left atrial size is normal. Mitral Valve There is no evidence of mitral valve prolapse. There is a mobile very small structure on the mitral valve leaflets.Cannot entirely exclude a vegetation .Although I think this is not a vegetation Recommend ERICH if clinicccal suspicion is high. There is no mitral valve stenosis. There is a mild amount of mitral regurgitation. Aortic Valve There is no aortic valvular vegetation. There is no aortic valve stenosis. There is no LVOT obstruction. No aortic regurgitation is present. Tricuspid Valve There is no tricuspid stenosis. There is a mild amount of tricuspid regurgitation. Upper normal to miild pulmonary hypertension.RVSP is 29 to 34 mm of Hg , with RA mean of 5 to 10. Pulmonic Valve There is no pulmonic valvular stenosis. There is a trace amount of pulmonic regurgitation. Great Vessels The aortic root is normal size. The inferior vena cava appeared normal and decreased > 50% with respiration (RAP 5-10 mmHg). Effusions There is no pericardial effusion. : VIPUL COLES Lakshmi
[2020-05-21] MEDS: ERTAPENEM SODIUM 0.5 GM in NORMAL SALINE 50 ML IV SCH (19:03)
--- NOTE | 2020-05-21 23:01 | PDOC PROGRESS REPORT ---
Subjective Progress Note for:: 05/21/20 Subjective:: I am seeing the patient during dialysis treatment at the goal with the unit. She really does not have any new complaints and tells me that she is feeling fine. She denies any cough or shortness of breath. She is tolerating dialysis with relatively low blood pressure. 2 days ago after dialysis and an episode of shortness of breath, Dr. Cain found out from her that she was actually diagnosed with COVID in [place] couple months ago. 2 weeks prior to moving here in [place] said she went to the emergency room and was tested COVID again which turned out to be negative. Unfortunately another test done 2 days ago came out to be positive again. Patient's blood cultures also growing E. coli ESBL and MRSA with urine culture positive also for E. coli. Dr. Cain consulted infectious disease. Reason For Visit: SURESH,SEVERE ANEMIA Physical Exam Vital Signs: Temp Pulse Resp BP Pulse Ox 98.2 F 93 18 132/64 H 96 05/21/20 16:00 05/21/20 16:00 05/21/20 16:00 05/21/20 16:00 05/21/20 16:00 Intake & Output 05/20/20 05/21/20 05/22/20 06:59 06:59 06:59 Intake Total 2800 786 Output Total 500 765 Balance 2300 21 Weight 51.3 kg 57.7 kg Vitals during dialysis: Blood pressure 107/65, heart rate of 67, blood flow rate of 250 mL/min and dialysate flow rate of 60 mL/min. Exam: General appearance: PRESENT: no acute distress, cooperative, well-developed, well-nourished Head exam: PRESENT: atraumatic, normocephalic Eye exam: PRESENT: conjunctiva pale, PERRLA. ABSENT: scleral icterus Neck exam: ABSENT: JVD Respiratory exam: PRESENT: Clear breath sounds. ABSENT: crackles, rales, rhonchi, unlabored, wheezes Cardiovascular exam: PRESENT: Regular rate rhythm -+S1, +S2. ABSENT: diastolic murmur, systolic murmur GI/Abdominal exam: PRESENT: normal bowel sounds, soft. Distended ABSENT: guarding, mass, tenderness Extremities exam: Trace bilateral lower extremity pitting edema Neurological exam: PRESENT: alert, awake, oriented to person, place and time. Skin exam: PRESENT: dry, warm, Results Laboratory Results: 05/21/20 04:41 05/21/20 04:41 05/21/20 05/21/20 05/21/20 04:41 04:41 04:41 WBC 25.8 H RBC 3.81 Hgb 10.3 L D Hct 32.3 L MCV 85 MCH 26.9 L MCHC 31.8 L RDW 16.6 H Plt Count 426 Sodium 132.4 L Potassium 4.5 Chloride 93 L Carbon Dioxide 28 Anion Gap 11 BUN 45 H Creatinine 3.50 H Est GFR ( Amer) 18 L Glucose 141 H Lactic Acid 1.5 Calcium 8.1 L Phosphorus 5.4 H Magnesium 2.0 Urine Color Urine Appearance Urine pH Ur Specific Placida Urine Protein Urine Glucose (UA) Urine Ketones Urine Blood Urine Nitrite Ur Leukocyte Esterase Urine WBC (Auto) Urine RBC (Auto) 05/21/20 09:40 WBC RBC Hgb Hct MCV MCH MCHC RDW Plt Count Sodium Potassium Chloride Carbon Dioxide Anion Gap BUN Creatinine Est GFR ( Amer) Glucose Lactic Acid Calcium Phosphorus Magnesium Urine Color JOVANNI Urine Appearance TURBID Urine pH 7.0 Ur Specific Placida 1.013 Urine Protein 100 H Urine Glucose (UA) NEGATIVE Urine Ketones NEGATIVE Urine Blood MODERATE H Urine Nitrite NEGATIVE Ur Leukocyte Esterase LARGE H Urine WBC (Auto) >182 Urine RBC (Auto) 21 Impressions: Renal Ultrasound 05/16/20 00:00 IMPRESSION: 1. Bilateral polycystic kidney disease. 2. No hydronephrosis or urinary stones are seen. Chest X-Ray 05/19/20 00:00 IMPRESSION: NO ACUTE RADIOGRAPHIC FINDING IN THE CHEST. Abdomen/Pelvis CT 05/21/20 00:00 IMPRESSION: Please see combined report for performance of procedure and radiologic supervision and interpretation. Chest CT 05/21/20 00:00 IMPRESSION: 1. Bilateral pleural effusions and basilar airspace disease either atelectasis or pneumonia right greater than left. 2. Polycystic kidneys and liver. 3. Moderate volume ascites. Assessment & Plan - Diagnosis (1) SURESH (acute kidney injury) Is this a current diagnosis for this admission?: Yes Plan: Baseline kidney function unknown. This is possibly acute on chronic kidney disease versus advanced progressive kidney disease that has reached ESRD. Urine output for the past 24 hours was 765 mL. However her BUN and creatinine remains to be elevated. There is no sign of renal function recovery, we will arrange chronic outpatient dialysis. We will do dialysis today for 2.5 hours, using the patient's trialysis catheter, with 2 potassium bath, blood flow rate of 250 mL per minute, dialysate flow rate of 600 mL per minute, ultrafiltration 1 to 2 L only as tolerated, no heparin and Procrit with 30,000 units during dialysis intravenously. Monitor closely during dialysis especially with her breathing. (2) COVID-19 virus infection Is this a current diagnosis for this admission?: Yes Plan: Management per hospitalist service. Currently on Decadron, vitamin C, zinc and vitamin D. (3) Polycystic kidney Is this a current diagnosis for this admission?: Yes Plan: This is the underlying cause of the patient's chronic kidney disease with bilateral enlarged kidneys indicating progressive advanced kidney disease. Family history in her mother who had polycystic kidney disease, was on peritoneal dialysis who at age 49. (4) E coli bacteremia Is this a current diagnosis for this admission?: Yes Plan: Due to ESBL E. coli. Now on IV ertapenem. (5) MRSA bacteremia Is this a current diagnosis for this admission?: Yes Plan: Started on vancomycin. Transthoracic echocardiogram did not reveal obvious vegetations (6) Polycystic liver disease Is this a current diagnosis for this admission?: Yes (7) Metabolic acidosis Is this a current diagnosis for this admission?: Yes Plan: Resolved with dialysis. (8) Leukocytosis (leucocytosis) Qualifiers: Leukocytosis type: unspecified Qualified Code(s): D72.829 - Elevated white blood cell count, unspecified Is this a current diagnosis for this admission?: Yes Plan: Likely secondary to COVID infection. (9) Urinary tract infection Qualifiers: Urinary tract infection type: site unspecified Hematuria presence: with hematuria Qualified Code(s): N39.0 - Urinary tract infection, site not specified; R31.9 - Hematuria, unspecified Is this a current diagnosis for this admission?: Yes Plan: Due to E. coli. (10) Severe anemia Is this a current diagnosis for this admission?: Yes Plan: Negative occult blood. Blood transfusion given yesterday . We will continue to give Retacrit and Venofer on dialysis. No further work-up per hematology. (11) Shortness of breath Is this a current diagnosis for this admission?: Yes Plan: Chest x-ray is negative. Likely related to COVID-19 infection. (12) Protein-energy malnutrition Is this a current diagnosis for this admission?: Yes (13) Ascites Qualifiers: Ascites type: other type Qualified Code(s): R18.8 - Other ascites Is this a current diagnosis for this admission?: Yes - Time Time with patient: 15-25 minutes
[2020-05-22] MEDS: DEXAMETHASONE 4 MG TABLET PO SCH ×3 (05:52→22:41)
[2020-05-22] MEDS: NORMAL SALINE 100 ML with PANTOPRAZOLE SODIUM 80 MG IV PRN ×4 (08:21→17:07)
[2020-05-22] MEDS: CALCIUM ACETATE 667 MG CAPSULE PO SCH ×3 (08:22→17:01)
[2020-05-22] MEDS: MORPHINE SULFATE 10 MG/ML INJ IV PRN ×3 (08:22→19:54)
[2020-05-22 09:37] LABS: ANION GAP 8 (5-19); BLOOD UREA NITROGEN 38 mg/dL (7-20); C-REACTIVE PROTEIN 56.4 mg/L (<10.0); CALCIUM 8.3 mg/dL (8.4-10.2); CARBON DIOXIDE 30 mmol/L (22-30); CHLORIDE 96 mmol/L (98-107); GLUCOSE 96 mg/dL (75-110)
[2020-05-22] MEDS: CITRIC ACID/SODIUM CITRATE ORAL SOLN 15 ML UDCUP PO SCH ×4 (09:37→22:41)
[2020-05-22] MEDS: ASCORBIC ACID 500 MG TABLET PO SCH ×2 (09:37→17:02)
[2020-05-22] MEDS: ZINC SULFATE 220 MG CAPSULE PO SCH ×2 (09:37→17:02)
[2020-05-22] MEDS: CHOLECALCIFEROL (D3) 1,000 UNIT (25 MCG) TABLET PO SCH ×2 (09:37→17:02)
[2020-05-22] MEDS: HEPARIN SOD (PORCINE) 5,000 UNIT/ML 1 ML VIAL SUBCUT SCH ×2 (09:38→22:42)
--- NOTE | 2020-05-22 13:32 | PDOC PROGRESS REPORT ---
Subjective Progress Note for:: 05/22/20 Subjective:: 34 year old female with history of polycystic kidney disease, recent history of dialysis in [place], treated for severe anemia [place] moved to [place] again 3 weeks ago and came to the emergency room with complaints of severe bilateral flank pain. Work-up done in the ER shows hemoglobin of 4.6, CT scan shows bilateral enlarged kidneys with polycystic lesions and liver lesions, bicarb in the chemistry is 9 with a creatinine of 5.0. 3 units of blood trans fusion initiated in the ER started on IV fluids. Briefly discussed the case with Dr. Bolanos she is going to see the patient tomorrow. Patient does not have a dialysis catheter at this time. As per the patient her mom at the age of 49 with renal failure. 05/17/2020-patient is in the dialysis unit at the time of examination. Received a temporary dialysis catheter. Hemoglobin came up to 8.6 with treatments of blood transfusion. Creatinine improved to 4.1. Consultation with nephrology, onc ology was done. WBC count is still elevated receiving IV antibiotic therapy. 05/18/2020 Patient making over 500 cc of urine but still notably less than 1 L. Creatinine remains elevated. Nephrology following and planning to dialyze patient tomorrow. Patient may need to be evaluated for kidney transplant in the near future. I discussed this with her and she will discuss it with nephrology. WBC lower, hemoglobin down to 5.6 and I have ordered another unit of blood to be transfused. Calcium low we will need to replete this. Hepatitis panel is pending. Oncology following and has ordered EPO given iron/folate/B12 levels are normal. Patient has some abdominal distention with nausea and vomiting otherwise she has no new complaints today. Antiemetics have been ordered. Ordered Benadryl for itching likely due to bilirubin. 05/19/2020 Patient having increasing oxygen requirements and intermittent shortness of breath. Her abdomen does seem to be smaller today since getting dialysis. She was given 1 unit PRBC this morning during dialysis as well. Her labs also showed hypocalcemia and this was repleted during dialysis. Upon more detailed questioning with patient today, she revealed that she was positive for COVID 2 months ago in [place] prior to moving here. She was hospitalized and eventually discharged, later getting a negative test result from an ER in [place] prior to moving. I checked her d-dimer today and it is markedly elevated. It is unclear if her inflammatory markers are simply still elevated due to prior cytokine storm from COVID or if she could have been infected a second time which is possible given she is immune compromised may not be able to generate effective immunity to COVID. Rapid COVID testing is pending. Patient may need to be transferred to the COVID unit if this is positive. She does seem to already be improving since having fluid removed during dialysis though it is worth ruling out COVID infection given her travel history. Otherwise, her only complaints are shortness of breath and generalized fatigue and weakness. 05/20/2020 Patient now resides in the coronavirus unit. I spoke at great length with the child care teacher today and was informed that the patient very well may have passed this infection along to 3 or more dialysis nurses who are now symptomatic and being quarantined. Have consulted infectious disease given the patient is now positive and blood cultures for MRSA and ESBL E. coli. I have started IV vancomycin renally dosed. Per ID, we will switch Zosyn to ertapenem. I discussed all of this with the patient and she is in agreement with the plan. She states she is not short of breath today and her only complaint other than generalized fatigue and weakness is some mild abdominal distention. I have started the patient on treatment dose Lovenox, appropriate vitamins, Decadron. Will check d-dimer and ferritin every 2 days and obtain CRP. We will consider ordering from does appear and or convalescent plasma if the patient develops moderate to severe respiratory failure. Currently she is breathing comfortably on room air with saturation of 94%. Due to patient being COVID-19 Suspected/Positive, encounter was conducted using telephone and/or videochat and does not include a detailed in-person physical exam in order to preserve PPE and limit staff exposure to a dangerous pathogen. 05/21/2020 Patient respiratory status seems to be stabilized for now. She is breathing fine on room air. Unfortunately, her d-dimer and inflammatory markers are still quite high. I have her on prophylactic dose heparin but we may need to consider putting her on treatment dose heparin drip. She is not a good candidate for Lovenox due to her renal failure. Infectious disease is consulting as we do not have a clear source of the patient's MRSA and multiple E. coli organisms found in her blood and urine. CT chest/abdomen/pelvis today was unrevealing for source as well. She does have moderate volume ascites and it may be beneficial to get a paracentesis and culture this fluid. Although CT did not show this, we may need to consider possibility of colonic diverticula perforation or duodenal diverticular disease as a source for her E. coli infections. We may also need to consider tagged WBC scan to help find a clear source of infection. Hemoglobin is significantly higher that this is probably a lab error. Patient has no new complaints other than generalized fatigue and weakness. 05/22/2020 Patient seems to be unchanged today from yesterday. Spoke with the surgeon that placed her dialysis catheter and he was unaware that she was COVID positive. Does not seem that he was informed of this. He was very grateful that I informed him. Echocardiogram showed a mobile mitral valve structure possibly i nfective endocarditis. ERICH ordered but this will likely be delayed for some time until the patient is negative for COVID, likely in a few weeks but the order will stay in place at least as a reminder for now. Patient is now breathing on room air. Other than generalized fatigue and weakness she has no new complaints. Of note, nursing had a discussion with the patient's sister who states the patient has a recent history of drug abuse including heroin however the patient is adamant that she has never injected drugs only snorted heroin. Reason For Visit: SURESH,SEVERE ANEMIA Physical Exam Vital Signs: Temp Pulse Resp BP Pulse Ox 98.1 F 65 15 103/69 92 05/22/20 11:35 05/22/20 11:35 05/22/20 11:35 05/22/20 11:35 05/22/20 11:35 Intake & Output 05/21/20 05/22/20 05/23/20 06:59 06:59 06:59 Intake Total 786 800 220 Output Total 765 2430 225 Balance 21 -1630 -5 Weight 57.7 kg 58.3 kg General appearance: PRESENT: no acute distress, thin, other - Due to patient being COVID-19 Suspected/Positive, encounter was conducted using telephone and/or videochat and does not include a detailed in-person physical exam in order to preserve PPE and limit staff exposure to a dangerous pathogen. Head exam: PRESENT: atraumatic, normocephalic Mouth exam: PRESENT: moist Respiratory exam: PRESENT: unlabored. ABSENT: accessory muscle use GI/Abdominal exam: PRESENT: distended Neurological exam: PRESENT: alert, awake, oriented to person, oriented to place, oriented to time, oriented to situation Psychiatric exam: PRESENT: appropriate affect, normal mood Results Laboratory Results: 05/21/20 04:41 05/22/20 08:34 05/22/20 08:34 Sodium 134.0 L Potassium 5.0 Chloride 96 L Carbon Dioxide 30 Anion Gap 8 BUN 38 H Creatinine 2.81 H Est GFR ( Amer) 23 L Glucose 96 Calcium 8.3 L Ferritin 534.00 H C-Reactive Protein 56.4 H 05/16/20 21:20 Blood Blood Culture - Final NO GROWTH IN 5 DAYS Impressions: Renal Ultrasound 05/16/20 00:00 IMPRESSION: 1. Bilateral polycystic kidney disease. 2. No hydronephrosis or urinary stones are seen. Chest X-Ray 05/19/20 00:00 IMPRESSION: NO ACUTE RADIOGRAPHIC FINDING IN THE CHEST. Abdomen/Pelvis CT 05/21/20 00:00 IMPRESSION: Please see combined report for performance of procedure and radiologic supervision and interpretation. Chest CT 05/21/20 00:00 IMPRESSION: 1. Bilateral pleural effusions and basilar airspace disease either atelectasis or pneumonia right greater than left. 2. Polycystic kidneys and liver. 3. Moderate volume ascites. Assessment and Plan - Diagnosis (1) Sepsis Qualifiers: Sepsis type: methicillin resistant Staphylococcus aureus Sepsis acute organ dysfunction status: with acute organ dysfunction Severe sepsis acute organ dysfunction type: acute renal failure Acute renal failure type: unspecified Severe sepsis shock status: without septic shock Qualified Code(s): A41.02 - Sepsis due to Methicillin resistant Staphylococcus aureus; R65.20 - Severe sepsis without septic shock; N17.9 - Acute kidney failure, unspecified Is this a current diagnosis for this admission?: Yes Plan: Source is UTI Urine culture and blood culture both growing E. coli IV Zosyn 05/20/2020 Blood cultures are growing MRSA and ESBL E. coli Urine culture growing non-ESBL E. coli Antibiotics changed to vancomycin and ertapenem per ID recommendations Infectious disease consulted 05/21/2020 We still do not have a clear source despite advanced imaging with contrast CT chest/abdomen/pelvis did not show a clear source of infection but did show moderate volume ascites and small pleural effusions Follow-up finalized blood culture results Considered tagged WBC scan Consider oral contrast CT to look for colonic or duodenal diverticula, possible microperforations 05/22/2020 Afebrile, WBC higher, d-dimer going down Continue current antibiotics ID following TTE showed possible mobile mitral valve vegetation, need ERICH but will need to wait until COVID negative probably in approximately 2 weeks (2) SURESH (acute kidney injury) Is this a current diagnosis for this admission?: Yes Plan: 05/16/2020-patient is going to be admitted to [facility] as an inpatient. Patient baseline creatinine is 0.9 in 2014 today it is 5. Bicarb is 9. As per the patient she has a temporary dialysis in [place] in December. Started on IV fluids 100 cc/h. Nephrology consult was requested. Muhammad's catheter was requested renal ultrasound was requested. 05/17/2020-patient has end-stage renal disease on dialysis at this time. Nephrology consult was requested. 05/18/2020 ESRD on dialysis due to progression of PCKD, nephrology following Next dialysis to be 05/19 May need evaluation for renal transplant in the near future 05/19/2020 Dialysis continues per nephrology Getting Epogen with dialysis as ordered by nephrology Trending [facility], monitoring urine output 05/20/2020 Dialysis continues Sunday Nephrology following 05/21/2020 Persistent elevation of creatinine requiring HD Nephrology still following 05/22/2020 Creatinine dropping Trend [facility] Nephrology managing dialysis (3) Lab test positive for detection of COVID-19 virus Is this a current diagnosis for this admission?: Yes (4) Polycystic kidney Is this a current diagnosis for this admission?: Yes (5) E coli bacteremia Is this a current diagnosis for this admission?: Yes (6) Ascites Qualifiers: Ascites type: other type Qualified Code(s): R18.8 - Other ascites Is this a current diagnosis for this admission?: Yes (7) Generalized weakness Is this a current diagnosis for this admission?: Yes (8) Leukocytosis (leucocytosis) Qualifiers: Leukocytosis type: unspecified Qualified Code(s): D72.829 - Elevated white blood cell count, unspecified Is this a current diagnosis for this admission?: Yes (9) Metabolic acidosis Is this a current diagnosis for this admission?: Yes (10) Polycystic liver disease Is this a current diagnosis for this admission?: Yes (11) Protein-energy malnutrition Is this a current diagnosis for this admission?: Yes (12) Severe anemia Is this a current diagnosis for this admission?: Yes (13) Urinary tract infection Qualifiers: Urinary tract infection type: site unspecified Hematuria presence: with hematuria Qualified Code(s): N39.0 - Urinary tract infection, site not specified; R31.9 - Hematuria, unspecified Is this a current diagnosis for this admission?: Yes (14) Polysubstance abuse Is this a current diagnosis for this admission?: Yes Plan: Per patient and family, patient has heroin abuse history and marijuana however patient is adamant that she only snorts heroin and does not inject drugs If patient has injected drugs she is at higher risk for infective endocarditis - Time Time Spent with patient: 35 or more minutes Medications reviewed and adjusted accordingly: Yes Anticipated Discharge Disposition: [facility] Facility Anticipated Discharge Timeframe: within 72 hours - Inpatient Certification Based on my medical assessment, after consideration of the patient's comorbidities, presenting symptoms, or acuity I expect that the services needed warrant INPATIENT care.: Yes I certify that my determination is in accordance with my understanding of Medicare's requirements for reasonable and necessary INPATIENT services [42 CFR 412.3e].: Yes Medical Necessity: Significant Comorbidiites Make Outpatient Treatment Too Risky, Need Close Monitoring Due to Risk of Patient Decompensation, Need for IV Antibiotics, Risk of Complication if Not Cared For in Hospital, Risk of Diagnosis Which Will Require Inpatient Eval/Care/Monitoring
[2020-05-23] MEDS: NORMAL SALINE 100 ML with PANTOPRAZOLE SODIUM 80 MG IV PRN ×2 (03:33)
[2020-05-23] MEDS: MORPHINE SULFATE 10 MG/ML INJ IV PRN ×3 (05:01→20:10)
[2020-05-23] MEDS: DEXAMETHASONE 4 MG TABLET PO SCH ×3 (05:03→22:23)
[2020-05-23] MEDS: CALCIUM ACETATE 667 MG CAPSULE PO SCH ×3 (10:44→18:19)
[2020-05-23] MEDS: HEPARIN SOD (PORCINE) 5,000 UNIT/ML 1 ML VIAL SUBCUT SCH ×2 (10:48→22:24)
[2020-05-23] MEDS: CHOLECALCIFEROL (D3) 1,000 UNIT (25 MCG) TABLET PO SCH ×2 (10:48→18:19)
[2020-05-23] MEDS: ASCORBIC ACID 500 MG TABLET PO SCH ×2 (10:48→18:19)
[2020-05-23] MEDS: ZINC SULFATE 220 MG CAPSULE PO SCH ×2 (10:48→18:19)
[2020-05-23] MEDS: CITRIC ACID/SODIUM CITRATE ORAL SOLN 15 ML UDCUP PO SCH ×4 (10:48→22:23)
--- NOTE | 2020-05-23 16:33 | PDOC PROGRESS REPORT ---
Subjective Progress Note for:: 05/23/20 Subjective:: 34 year old female with history of polycystic kidney disease, recent history of dialysis in [place], treated for severe anemia [place] moved to [place] again 3 weeks ago and came to the emergency room with complaints of severe bilateral flank pain. Work-up done in the ER shows hemoglobin of 4.6, CT scan shows bilateral enlarged kidneys with polycystic lesions and liver lesions, bicarb in the chemistry is 9 with a creatinine of 5.0. 3 units of blood trans fusion initiated in the ER started on IV fluids. Briefly discussed the case with Dr. Bolanos she is going to see the patient tomorrow. Patient does not have a dialysis catheter at this time. As per the patient her mom at the age of 49 with renal failure. 05/17/2020-patient is in the dialysis unit at the time of examination. Received a temporary dialysis catheter. Hemoglobin came up to 8.6 with treatments of blood transfusion. Creatinine improved to 4.1. Consultation with nephrology, onc ology was done. WBC count is still elevated receiving IV antibiotic therapy. 05/18/2020 Patient making over 500 cc of urine but still notably less than 1 L. Creatinine remains elevated. Nephrology following and planning to dialyze patient tomorrow. Patient may need to be evaluated for kidney transplant in the near future. I discussed this with her and she will discuss it with nephrology. WBC lower, hemoglobin down to 5.6 and I have ordered another unit of blood to be transfused. Calcium low we will need to replete this. Hepatitis panel is pending. Oncology following and has ordered EPO given iron/folate/B12 levels are normal. Patient has some abdominal distention with nausea and vomiting otherwise she has no new complaints today. Antiemetics have been ordered. Ordered Benadryl for itching likely due to bilirubin. 05/19/2020 Patient having increasing oxygen requirements and intermittent shortness of breath. Her abdomen does seem to be smaller today since getting dialysis. She was given 1 unit PRBC this morning during dialysis as well. Her labs also showed hypocalcemia and this was repleted during dialysis. Upon more detailed questioning with patient today, she revealed that she was positive for COVID 2 months ago in [place] prior to moving here. She was hospitalized and eventually discharged, later getting a negative test result from an ER in [place] prior to moving. I checked her d-dimer today and it is markedly elevated. It is unclear if her inflammatory markers are simply still elevated due to prior cytokine storm from COVID or if she could have been infected a second time which is possible given she is immune compromised may not be able to generate effective immunity to COVID. Rapid COVID testing is pending. Patient may need to be transferred to the COVID unit if this is positive. She does seem to already be improving since having fluid removed during dialysis though it is worth ruling out COVID infection given her travel history. Otherwise, her only complaints are shortness of breath and generalized fatigue and weakness. 05/20/2020 Patient now resides in the coronavirus unit. I spoke at great length with the string laster today and was informed that the patient very well may have passed this infection along to 3 or more dialysis nurses who are now symptomatic and being quarantined. Have consulted infectious disease given the patient is now positive and blood cultures for MRSA and ESBL E. coli. I have started IV vancomycin renally dosed. Per ID, we will switch Zosyn to ertapenem. I discussed all of this with the patient and she is in agreement with the plan. She states she is not short of breath today and her only complaint other than generalized fatigue and weakness is some mild abdominal distention. I have started the patient on treatment dose Lovenox, appropriate vitamins, Decadron. Will check d-dimer and ferritin every 2 days and obtain CRP. We will consider ordering from does appear and or convalescent plasma if the patient develops moderate to severe respiratory failure. Currently she is breathing comfortably on room air with saturation of 94%. Due to patient being COVID-19 Suspected/Positive, encounter was conducted using telephone and/or videochat and does not include a detailed in-person physical exam in order to preserve PPE and limit staff exposure to a dangerous pathogen. 05/21/2020 Patient respiratory status seems to be stabilized for now. She is breathing fine on room air. Unfortunately, her d-dimer and inflammatory markers are still quite high. I have her on prophylactic dose heparin but we may need to consider putting her on treatment dose heparin drip. She is not a good candidate for Lovenox due to her renal failure. Infectious disease is consulting as we do not have a clear source of the patient's MRSA and multiple E. coli organisms found in her blood and urine. CT chest/abdomen/pelvis today was unrevealing for source as well. She does have moderate volume ascites and it may be beneficial to get a paracentesis and culture this fluid. Although CT did not show this, we may need to consider possibility of colonic diverticula perforation or duodenal diverticular disease as a source for her E. coli infections. We may also need to consider tagged WBC scan to help find a clear source of infection. Hemoglobin is significantly higher that this is probably a lab error. Patient has no new complaints other than generalized fatigue and weakness. 05/22/2020 Patient seems to be unchanged today from yesterday. Spoke with the surgeon that placed her dialysis catheter and he was unaware that she was COVID positive. Does not seem that he was informed of this. He was very grateful that I informed him. Echocardiogram showed a mobile mitral valve structure possibly i nfective endocarditis. ERICH ordered but this will likely be delayed for some time until the patient is negative for COVID, likely in a few weeks but the order will stay in place at least as a reminder for now. Patient is now breathing on room air. Other than generalized fatigue and weakness she has no new complaints. Of note, nursing had a discussion with the patient's sister who states the patient has a recent history of drug abuse including heroin however the patient is adamant that she has never injected drugs only snorted heroin. 05/23/2020 Patient seems to be doing all right today but she is asking for narcotics as often as she can get them and sometimes more often. She does have a history of narcotics abuse will need to be judicious with her use of narcotics with her. We still do not have a clear source for the patient's bloodstream infection. Infectious diseases following I will need them to comment further on what I think the source is. I have ordered a paracentesis with appropriate fluid studies as I believe patient very well might have SBP. She is being treated with appropriate antibiotics and this is probably why she is clinically stable thus far. COVID-19 infection could progress in the near future as we have seen this infection rapidly worsen respiratory status particularly in patients with significant complicated comorbidities such as this patient. Patient's d-dimer is lower today and her ferritin is higher. CRP is trending down. Urine output seems to be a bit more today. CT chest abdomen pelvis primarily just showed moderate volume ascites and bilateral pneumonia. Patient has no specific complaints other than mild exertional dyspnea and abdominal distention. Reason For Visit: SURESH,SEVERE ANEMIA Physical Exam Vital Signs: Temp Pulse Resp BP Pulse Ox 98.0 F 64 16 109/76 96 05/23/20 15:26 05/23/20 15:26 05/23/20 15:26 05/23/20 15:26 05/23/20 15:26 Intake & Output 05/22/20 05/23/20 05/24/20 06:59 06:59 06:59 Intake Total 800 648 340 Output Total 2430 1100 350 Balance -1630 -452 -10 Weight 58.3 kg 58 kg General appearance: PRESENT: no acute distress, well-developed, well-nourished Head exam: PRESENT: atraumatic, normocephalic Eye exam: PRESENT: conjunctiva pink Mouth exam: PRESENT: moist Respiratory exam: PRESENT: rales - Very scant. ABSENT: accessory muscle use, crackles, rhonchi, tachypnea, unlabored, wheezes Cardiovascular exam: PRESENT: RRR. ABSENT: diastolic murmur, rubs, systolic murmur GI/Abdominal exam: PRESENT: ascites, distended, normal bowel sounds, soft. ABSENT: guarding, mass, organolmegaly, rebound, tenderness Neurological exam: PRESENT: alert, awake, oriented to person, oriented to place, oriented to time, oriented to situation Psychiatric exam: PRESENT: appropriate affect, normal mood Skin exam: PRESENT: dry, intact, warm Results Laboratory Results: 05/21/20 04:41 05/22/20 08:34 Impressions: Renal Ultrasound 05/16/20 00:00 IMPRESSION: 1. Bilateral polycystic kidney disease. 2. No hydronephrosis or urinary stones are seen. Chest X-Ray 05/19/20 00:00 IMPRESSION: NO ACUTE RADIOGRAPHIC FINDING IN THE CHEST. Abdomen/Pelvis CT 05/21/20 00:00 IMPRESSION: Please see combined report for performance of procedure and radiologic supervision and interpretation. Chest CT 05/21/20 00:00 IMPRESSION: 1. Bilateral pleural effusions and basilar airspace disease either atelectasis or pneumonia right greater than left. 2. Polycystic kidneys and liver. 3. Moderate volume ascites. Assessment and Plan - Diagnosis (1) Sepsis Qualifiers: Sepsis type: methicillin resistant Staphylococcus aureus Sepsis acute organ dysfunction status: with acute organ dysfunction Severe sepsis acute organ dysfunction type: acute renal failure Acute renal failure type: unspecified Severe sepsis shock status: without septic shock Qualified Code(s): A41.02 - Sepsis due to Methicillin resistant Staphylococcus aureus; R65.20 - Severe sepsis without septic shock; N17.9 - Acute kidney failure, unspecified Is this a current diagnosis for this admission?: Yes Plan: Source is UTI Urine culture and blood culture both growing E. coli IV Zosyn 05/20/2020 Blood cultures are growing MRSA and ESBL E. coli Urine culture growing non-ESBL E. coli Antibiotics changed to vancomycin and ertapenem per ID recommendations Infectious disease consulted 05/21/2020 We still do not have a clear source despite advanced imaging with contrast CT chest/abdomen/pelvis did not show a clear source of infection but did show moderate volume ascites and small pleural effusions Follow-up finalized blood culture results Considered tagged WBC scan Consider oral contrast CT to look for colonic or duodenal diverticula, possible microperforations 05/22/2020 Afebrile, WBC higher, d-dimer going down Continue current antibiotics ID following TTE showed possible mobile mitral valve vegetation, need ERICH but will need to wait until COVID negative probably in approximately 2 weeks 05/23/2020 Potential sources: SBP, infective endocarditis, pneumonia Treatment continues as above with broad-spectrum antibiotics Paracentesis ordered with appropriate fluid studies (2) SURESH (acute kidney injury) Is this a current diagnosis for this admission?: Yes Plan: 05/16/2020-patient is going to be admitted to [facility] as an inpatient. Patient baseline creatinine is 0.9 in 2014 today it is 5. Bicarb is 9. As per the patient she has a temporary dialysis in [place] in December. Started on IV fluids 100 cc/h. Nephrology consult was requested. Muhammad's catheter was requested renal ultrasound was requested. 05/17/2020-patient has end-stage renal disease on dialysis at this time. Nephrology consult was requested. 05/18/2020 ESRD on dialysis due to progression of PCKD, nephrology following Next dialysis to be 05/19 May need evaluation for renal transplant in the near future 05/19/2020 Dialysis continues per nephrology Getting Epogen with dialysis as ordered by nephrology Trending BMP, monitoring urine output 05/20/2020 Dialysis continues Sunday Nephrology following 05/21/2020 Persistent elevation of creatinine requiring HD Nephrology still following 05/22/2020 Creatinine dropping Trend BMP Nephrology managing dialysis 05/23/2020 Urine output a bit improved nephrology following (3) Lab test positive for detection of COVID-19 virus Is this a current diagnosis for this admission?: Yes (4) Polycystic kidney Is this a current diagnosis for this admission?: Yes (5) E coli bacteremia Is this a current diagnosis for this admission?: Yes (6) Ascites Qualifiers: Ascites type: other type Qualified Code(s): R18.8 - Other ascites Is this a current diagnosis for this admission?: Yes (7) Generalized weakness Is this a current diagnosis for this admission?: Yes (8) Leukocytosis (leucocytosis) Qualifiers: Leukocytosis type: unspecified Qualified Code(s): D72.829 - Elevated white blood cell count, unspecified Is this a current diagnosis for this admission?: Yes (9) Metabolic acidosis Is this a current diagnosis for this admission?: Yes (10) Polycystic liver disease Is this a current diagnosis for this admission?: Yes (11) Protein-energy malnutrition Is this a current diagnosis for this admission?: Yes (12) Severe anemia Is this a current diagnosis for this admission?: Yes (13) Urinary tract infection Qualifiers: Urinary tract infection type: site unspecified Hematuria presence: with hematuria Qualified Code(s): N39.0 - Urinary tract infection, site not specified; R31.9 - Hematuria, unspecified Is this a current diagnosis for this admission?: Yes (14) Polysubstance abuse Is this a current diagnosis for this admission?: Yes - Time Time Spent with patient: 25-34 minutes Medications reviewed and adjusted accordingly: Yes Anticipated Discharge Disposition: [facility] Anticipated Discharge Timeframe: within 72 hours - Inpatient Certification Based on my medical assessment, after consideration of the patient's comorbidities, presenting symptoms, or acuity I expect that the services needed warrant INPATIENT care.: Yes I certify that my determination is in accordance with my understanding of Medicare's requirements for reasonable and necessary INPATIENT services [42 CFR 412.3e].: Yes Medical Necessity: Significant Comorbidiites Make Outpatient Treatment Too Risky, Need Close Monitoring Due to Risk of Patient Decompensation, Need for IV Antibiotics, Risk of Complication if Not Cared For in Hospital, Risk of Diagnosis Which Will Require Inpatient Eval/Care/Monitoring
[2020-05-23] MEDS: PANTOPRAZOLE SODIUM 40 MG VIAL IV SCH (22:23)
[2020-05-24] MEDS ORDERED: NORMAL SALINE 1000 ML 1,000 ML IV PRN (05:00)
[2020-05-24] MEDS ORDERED: HEPARIN SOD (PORCINE) 1,000 UNIT/ML 10 ML VIAL IV PRN (05:00)
[2020-05-24] MEDS: DEXAMETHASONE 4 MG TABLET PO SCH ×3 (05:05→21:41)
[2020-05-24] MEDS ORDERED: MORPHINE SULFATE 10 MG/ML INJ IV PRN (05:44)
[2020-05-24 06:42] LABS: HEMATOCRIT 31.2 % (36.0-47.0); HEMOGLOBIN 9.9 g/dL (12.0-15.5); MEAN CORPUSCULAR HEMOGLOBIN 27.1 pg (27.0-33.4); MEAN CORPUSCULAR HGB CONC 31.7 g/dL (32.0-36.0); MEAN CORPUSCULAR VOLUME 86 fl (80-97); PLATELET COUNT 391 10^3/uL (150-450); RED BLOOD COUNT 3.64 10^6/uL (3.72-5.28); RED CELL DISTRIBUTION WIDTH 16.6 % (11.5-14.0); WHITE BLOOD COUNT 18.4 10^3/uL (4.0-10.5)
[2020-05-24 06:49] LABS: INTERNATIONAL RATION (INR) 1.03; PROTHROMBIN TIME 13.7 SEC (11.4-15.4)
[2020-05-24 06:50] LABS: PARTIAL THROMBOPLASTIN TIME 32.2 SEC (23.5-35.8)
[2020-05-24 07:03] LABS: ALBUMIN 2.4 g/dL (3.5-5.0); ANION GAP 8 (5-19); BLOOD UREA NITROGEN 62 mg/dL (7-20); CALCIUM 8.5 mg/dL (8.4-10.2); CARBON DIOXIDE 29 mmol/L (22-30); CHLORIDE 95 mmol/L (98-107); GLUCOSE 114 mg/dL (75-110); POTASSIUM 5.8 mmol/L (3.6-5.0); TOTAL PROTEIN 6.1 g/dL (6.3-8.2)
[2020-05-24 07:58] LABS: ABSOLUTE LYMPHOCYTES# (MANUAL) 2.6 10^3/uL (0.5-4.7); ABSOLUTE MONOCYTES # (MANUAL) 1.1 10^3/uL (0.1-1.4); BAND NEUTROPHILS % (MANUAL) 1 % (3-5); BASOPHILS % (MANUAL) 0 % (0-2); EOSINOPHILS % (MANUAL) 0 % (0-6); LYMPHOCYTES % (MANUAL) 14 % (13-45); MONOCYTES % (MANUAL) 6 % (3-13); SEGMENTED NEUTROPHILS % (MAN) 79 % (42-78); TOTAL CELLS COUNTED 100
[2020-05-24 07:59] LABS: ANISOCYTOSIS SLIGHT; PLATELET COMMENT ADEQUATE; PLATELET LARGE PRESENT; POLYCHROMASIA SLIGHT; TOXIC GRANULATION SLIGHT
--- NOTE | 2020-05-24 08:16 | PDOC PROGRESS REPORT ---
Subjective Progress Note for:: 05/24/20 Subjective:: Patient was discussed with Dr. Gaston. However, due to COVID-19 restriction, I did not examine patient. Her HGB is stable after blood transfusions. She continues dialysis. She is on ABX for the UTI and MRSA bacteremia. ID is following. Her WBC count is improved. I believe she is receiving EPO injections with dialysis. Reason For Visit: SURESH,SEVERE ANEMIA Physical Exam Vital Signs: Temp Pulse Resp BP Pulse Ox 98.0 F 57 L 16 119/84 92 05/24/20 08:00 05/24/20 08:00 05/24/20 08:00 05/24/20 08:00 05/24/20 08:00 Intake & Output 05/23/20 05/24/20 05/25/20 06:59 06:59 06:59 Intake Total 648 1080 Output Total 1100 1030 Balance -452 50 Weight 58 kg 58.2 kg Results Laboratory Results: 05/24/20 05:45 05/24/20 05:45 05/24/20 05/24/20 05:45 05:45 WBC 18.4 H RBC 3.64 L Hgb 9.9 L Hct 31.2 L MCV 86 MCH 27.1 MCHC 31.7 L RDW 16.6 H Plt Count 391 Seg Neutrophils % Not Reportable Sodium 132.3 L Potassium 5.8 H Chloride 95 L Carbon Dioxide 29 Anion Gap 8 BUN 62 H Creatinine 3.90 H Est GFR ( Amer) 16 L Glucose 114 H Calcium 8.5 Total Protein 6.1 L Albumin 2.4 L Impressions: Renal Ultrasound 05/16/20 00:00 IMPRESSION: 1. Bilateral polycystic kidney disease. 2. No hydronephrosis or urinary stones are seen. Chest X-Ray 05/19/20 00:00 IMPRESSION: NO ACUTE RADIOGRAPHIC FINDING IN THE CHEST. Abdomen/Pelvis CT 05/21/20 00:00 IMPRESSION: Please see combined report for performance of procedure and radiologic supervision and interpretation. Chest CT 05/21/20 00:00 IMPRESSION: 1. Bilateral pleural effusions and basilar airspace disease either atelectasis or pneumonia right greater than left. 2. Polycystic kidneys and liver. 3. Moderate volume ascites. Assessment & Plan - Diagnosis (1) Polycystic kidney Is this a current diagnosis for this admission?: Yes (2) Severe anemia Is this a current diagnosis for this admission?: Yes (3) Urinary tract infection Qualifiers: Urinary tract infection type: site unspecified Hematuria presence: with hematuria Qualified Code(s): N39.0 - Urinary tract infection, site not specified; R31.9 - Hematuria, unspecified Is this a current diagnosis for this admission?: Yes - Time Time Spent with patient: Less than 15 minutes - Plan Summary Plan Summary: I will continue to follow. No further recommendations at this time, although last U/A showed >100 WBCs. Further Urine culture may be of benefit. Continue EPO injections and blood transfusions for now. Please call me if needed.
[2020-05-24] MEDS: CALCIUM ACETATE 667 MG CAPSULE PO SCH ×3 (08:45→18:13)
[2020-05-24 09:17] LABS: APPEARANCE,URINE CLOUDY; BILIRUBIN,URINE NEGATIVE (NEGATIVE); COLOR,URINE YELLOW; GLUCOSE, URINE NEGATIVE (NEGATIVE); KETONES,URINE NEGATIVE (NEGATIVE); LEUKOCYTE ESTERASE,URINE LARGE (NEGATIVE); NITRITE,URINE NEGATIVE (NEGATIVE); PROTEIN,URINE 100 mg/dL (NEGATIVE); URINE SPECIFIC GRAVITY 1.013; UROBILINOGEN,URINE NEGATIVE mg/dL (<2.0)
[2020-05-24] MEDS: CHOLECALCIFEROL (D3) 1,000 UNIT (25 MCG) TABLET PO SCH ×2 (11:02→18:13)
[2020-05-24] MEDS: HEPARIN SOD (PORCINE) 5,000 UNIT/ML 1 ML VIAL SUBCUT SCH ×2 (11:02→21:42)
[2020-05-24] MEDS: ZINC SULFATE 220 MG CAPSULE PO SCH ×2 (11:02→18:13)
[2020-05-24] MEDS: ASCORBIC ACID 500 MG TABLET PO SCH ×2 (11:02→18:13)
[2020-05-24] MEDS: CITRIC ACID/SODIUM CITRATE ORAL SOLN 15 ML UDCUP PO SCH ×4 (11:02→21:41)
[2020-05-24 11:18] LABS: ANION GAP 8 (5-19); BLOOD UREA NITROGEN 62 mg/dL (7-20); CALCIUM 8.5 mg/dL (8.4-10.2); CARBON DIOXIDE 31 mmol/L (22-30); CHLORIDE 94 mmol/L (98-107); GLUCOSE 110 mg/dL (75-110); POTASSIUM 5.7 mmol/L (3.6-5.0)
[2020-05-24] MEDS: PANTOPRAZOLE SODIUM 40 MG VIAL IV SCH ×2 (14:36→21:42)
--- NOTE | 2020-05-24 17:00 | PDOC PROGRESS REPORT ---
Subjective Progress Note for:: 05/24/20 Subjective:: Patient denies any shortness of breath or cough. She still has significant fullness of her abdomen which sometimes make her feel a little short of breath if she is laying flat. Denies any fevers or chills. Have discussed and explained plan with her which she is agreeable with. Reason For Visit: SURESH,SEVERE ANEMIA Physical Exam Vital Signs: Temp Pulse Resp BP Pulse Ox 97.8 F 51 L 17 137/91 H 94 05/24/20 11:10 05/24/20 11:10 05/24/20 11:10 05/24/20 11:10 05/24/20 11:10 Intake & Output 05/23/20 05/24/20 05/25/20 06:59 06:59 06:59 Intake Total 648 1080 800 Output Total 1100 1030 2000 Balance -452 50 -1200 Weight 58 kg 58.2 kg 58.2 kg General appearance: PRESENT: no acute distress, cooperative Neck exam: ABSENT: JVD Respiratory exam: PRESENT: clear to auscultation lan, symmetrical, unlabored. ABSENT: tachypnea, wheezes Cardiovascular exam: PRESENT: RRR, +S1, +S2. ABSENT: diastolic murmur, systolic murmur, tachycardia GI/Abdominal exam: PRESENT: ascites, distended, hernia, soft, tenderness - Mi ldly diffuse. ABSENT: firm, guarding, rebound, rigid Neurological exam: PRESENT: alert, awake, oriented to person, oriented to place, oriented to time, oriented to situation Results Laboratory Results: 05/24/20 05:45 05/24/20 10:20 05/24/20 05/24/20 05/24/20 05:45 05:45 08:05 WBC 18.4 H RBC 3.64 L Hgb 9.9 L Hct 31.2 L MCV 86 MCH 27.1 MCHC 31.7 L RDW 16.6 H Plt Count 391 Seg Neutrophils % Not Reportable Sodium 132.3 L Potassium 5.8 H Chloride 95 L Carbon Dioxide 29 Anion Gap 8 BUN 62 H Creatinine 3.90 H Est GFR ( Amer) 16 L Glucose 114 H Calcium 8.5 Total Protein 6.1 L Albumin 2.4 L Urine Color YELLOW Urine Appearance CLOUDY Urine pH 7.0 Ur Specific [place] 1.013 Urine Protein 100 H Urine Glucose (UA) NEGATIVE Urine Ketones NEGATIVE Urine Blood MODERATE H Urine Nitrite NEGATIVE Ur Leukocyte Esterase LARGE H Urine WBC (Auto) >182 Urine RBC (Auto) 10 05/24/20 10:20 WBC RBC Hgb Hct MCV MCH MCHC RDW Plt Count Seg Neutrophils % Sodium 133.3 L Potassium 5.7 H Chloride 94 L Carbon Dioxide 31 H Anion Gap 8 BUN 62 H Creatinine 3.85 H Est GFR ( Amer) 16 L Glucose 110 Calcium 8.5 Total Protein Albumin Urine Color Urine Appearance Urine pH Ur Specific [place] Urine Protein Urine Glucose (UA) Urine Ketones Urine Blood Urine Nitrite Ur Leukocyte Esterase Urine WBC (Auto) Urine RBC (Auto) Impressions: Renal Ultrasound 05/16/20 00:00 IMPRESSION: 1. Bilateral polycystic kidney disease. 2. No hydronephrosis or urinary stones are seen. Chest X-Ray 05/19/20 00:00 IMPRESSION: NO ACUTE RADIOGRAPHIC FINDING IN THE CHEST. Abdomen/Pelvis CT 05/21/20 00:00 IMPRESSION: Please see combined report for performance of procedure and radiologic supervision and interpretation. Chest CT 05/21/20 00:00 IMPRESSION: 1. Bilateral pleural effusions and basilar airspace disease either atelectasis or pneumonia right greater than left. 2. Polycystic kidneys and liver. 3. Moderate volume ascites. Assessment and Plan - Diagnosis (1) Acute kidney injury superimposed on CKD Is this a current diagnosis for this admission?: Yes Plan: Patient's baseline renal function is unknown but it is suspected that patient's has progression of CKD from what seems to be adult polycystic kidney disease. Currently on dialysis and received a session of dialysis today. We will have to monitor labs tomorrow to see if electrolytes including hyperkalemia improved with dialysis session. Nephrology following If decision is made for continuation of intermittent HD, she will need a permacath placed once we have some negative blood cultures. (2) Ascites Qualifiers: Ascites type: other type Qualified Code(s): R18.8 - Other ascites Is this a current diagnosis for this admission?: Yes Plan: Plan for paracentesis today. Diagnostic labs ordered. (3) COVID-19 virus infection Is this a current diagnosis for this admission?: Yes Plan: Receiving vitamin and zinc supplements. Currently no respiratory failure and quite frankly not much in terms of respiratory symptoms. We will continue to monitor closely. Unable to determine when patient truly contracted this infection as it was found incidentally on preop screening. However, it very well could have been before admission. (4) E coli bacteremia Is this a current diagnosis for this admission?: Yes Plan: ESBL growing in blood and urine. Likely secondary to UTI. Patient will be treated with ertapenem for 2 weeks as per ID recommendation. (5) MRSA bacteremia Is this a current diagnosis for this admission?: Yes Plan: Recovered from 1 blood culture sets only. However given that it is MRSA, ID has recommended treating with vancomycin with assumption that is a true bacteremia. Discussed with frequency checker Dr Pearson today who informs me that they are unable to perform ERICH as patient has tested positive for COVID-19. As such, I will have to empirically treat patient with plan for 6 weeks of IV vancomycin with assumption of endocarditis. I have discussed with frequency checker who informs me that patient can be set up for outpatient ERICH in about 2 weeks if patient has tested negative for COVID-19 at that point in order to avoid empiric 6 weeks of IV antibiotics if endocarditis is absent. Repeat blood cultures today. (6) Polycystic kidney Is this a current diagnosis for this admission?: Yes Plan: Likely ADPKD associated with polycystic liver disease. This is likely the cause of her renal failure. Plan as above. (7) Severe anemia Is this a current diagnosis for this admission?: Yes Plan: Evaluated by oncologist who suggested that patient anemia is likely secondary to CKD. Recommends EPO which is being administered with HD. Did receive blood transfusions during this hospitalization. Will monitor H&H closely to ensure that it is stable. (8) Sepsis Qualifiers: Sepsis type: methicillin resistant Staphylococcus aureus Sepsis acute organ dysfunction status: with acute organ dysfunction Severe sepsis acute organ dysfunction type: acute renal failure Acute renal failure type: unspecified Severe sepsis shock status: without septic shock Qualified Code(s): A41.02 - Sepsis due to Methicillin resistant Staphylococcus aureus; R65.20 - Severe sepsis without septic shock; N17.9 - Acute kidney failure, unspecified Is this a current diagnosis for this admission?: Yes Plan: Resolved. - Time Time Spent with patient: 15-24 minutes Anticipated Discharge Disposition: Home, Self Care Anticipated Discharge Timeframe: within 72 hours
[2020-05-24] MEDS ORDERED: VANCOMYCIN HCL 1,000 MG in DEXTROSE 5%-WATER 250 ML IV SCH (18:00)
[2020-05-24] MEDS: TRAMADOL HCL 50 MG TABLET PO PRN (19:41)
--- NOTE | 2020-05-24 20:05 | PDOC PROGRESS REPORT ---
Subjective Progress Note for:: 05/24/20 Subjective:: I am seeing the patient during dialysis in her room being on isolation due to COVID-19 positive infection. She is still looks very comfortable and tolerating dialysis without any complaints at all. She denies any shortness of breath, cough and so far has not had any fever. The only thing that bothers her is her distended abdomen since she also has ascites. She is a scheduled to have a paracentesis sometime. I discussed with the patient the possibility that she is most likely going to need maintenance hemodialysis since she has not shown any renal recovery in terms of her kidney function although her urine output seems to have improved for the last couple of days. Reason For Visit: SURESH,SEVERE ANEMIA Physical Exam Vital Signs: Temp Pulse Resp BP Pulse Ox 98.0 F 57 L 16 119/84 92 05/24/20 08:00 05/24/20 08:00 05/24/20 08:00 05/24/20 08:00 05/24/20 08:00 Intake & Output 05/23/20 05/24/20 05/25/20 06:59 06:59 06:59 Intake Total 648 1080 Output Total 1100 1030 Balance -452 50 Weight 58 kg 58.2 kg Vitals during dialysis blood pressure 144/83, heart rate of 47, temperature of 97, blood flow rate of 350 mL/min and dialysate flow rate of 600 mL/min. Exam: Exam is limited to inspection only due to highly infectious COVID-19 infection. General appearance: PRESENT: no acute distress, cooperative, fairly developed and fairly nourished Head exam: PRESENT: atraumatic, normocephalic Eye exam: PRESENT: conjunctiva pale PERRLA. ABSENT: scleral icterus Neck exam: ABSENT: JVD Extremities exam: Trace edema Neurological exam: PRESENT: alert, awake, oriented to person, place and time. Skin exam: PRESENT: dry, warm, Results Laboratory Results: 05/24/20 05:45 05/24/20 10:20 05/24/20 05/24/20 05/24/20 05:45 05:45 08:05 WBC 18.4 H RBC 3.64 L Hgb 9.9 L Hct 31.2 L MCV 86 MCH 27.1 MCHC 31.7 L RDW 16.6 H Plt Count 391 Seg Neutrophils % Not Reportable Sodium 132.3 L Potassium 5.8 H Chloride 95 L Carbon Dioxide 29 Anion Gap 8 BUN 62 H Creatinine 3.90 H Est GFR ( Amer) 16 L Glucose 114 H Calcium 8.5 Total Protein 6.1 L Albumin 2.4 L Urine Color YELLOW Urine Appearance CLOUDY Urine pH 7.0 Ur Specific [place] 1.013 Urine Protein 100 H Urine Glucose (UA) NEGATIVE Urine Ketones NEGATIVE Urine Blood MODERATE H Urine Nitrite NEGATIVE Ur Leukocyte Esterase LARGE H Urine WBC (Auto) >182 Urine RBC (Auto) 10 05/24/20 10:20 WBC RBC Hgb Hct MCV MCH MCHC RDW Plt Count Seg Neutrophils % Sodium 133.3 L Potassium 5.7 H Chloride 94 L Carbon Dioxide 31 H Anion Gap 8 BUN 62 H Creatinine 3.85 H Est GFR ( Amer) 16 L Glucose 110 Calcium 8.5 Total Protein Albumin Urine Color Urine Appearance Urine pH Ur Specific [place] Urine Protein Urine Glucose (UA) Urine Ketones Urine Blood Urine Nitrite Ur Leukocyte Esterase Urine WBC (Auto) Urine RBC (Auto) Impressions: Renal Ultrasound 05/16/20 00:00 IMPRESSION: 1. Bilateral polycystic kidney disease. 2. No hydronephrosis or urinary stones are seen. Chest X-Ray 05/19/20 00:00 IMPRESSION: NO ACUTE RADIOGRAPHIC FINDING IN THE CHEST. Abdomen/Pelvis CT 05/21/20 00:00 IMPRESSION: Please see combined report for performance of procedure and radiologic supervision and interpretation. Chest CT 05/21/20 00:00 IMPRESSION: 1. Bilateral pleural effusions and basilar airspace disease either atelectasis or pneumonia right greater than left. 2. Polycystic kidneys and liver. 3. Moderate volume ascites. Assessment & Plan - Diagnosis (1) SURESH (acute kidney injury) Is this a current diagnosis for this admission?: Yes Plan: Baseline kidney function unknown. This is possibly acute on chronic kidney disease versus advanced progressive kidney disease that has reached ESRD. Urine output has improved about a liter for the last couple of days. However her BUN and creatinine remains to be elevated. There is no sign of renal function recovery, we will arrange chronic outpatient dialysis. She will need a PermCath placement once blood cultures are negative even while on antibiotics. We will do dialysis today for 2.5 hours, using the Trialysis catheter, with 2 potassium bath, blood flow rate of 250 mL per minute, dialysate flow rate of 600 mL per minute, ultrafiltration 1 to 2 L only as tolerated, no heparin and no Procrit today. Monitor closely during dialysis especially with her breathing. (2) COVID-19 virus infection Is this a current diagnosis for this admission?: Yes Plan: Management per hospitalist service. Currently on Decadron, vitamin C, zinc and vitamin D. (3) Polycystic kidney Is this a current diagnosis for this admission?: Yes Plan: This is the underlying cause of the patient's chronic kidney disease with bilateral enlarged kidneys indicating progressive advanced kidney disease. Family history in her mother who had polycystic kidney disease, was on peritoneal dialysis who at age 49. (4) E coli bacteremia Is this a current diagnosis for this admission?: Yes Plan: Due to ESBL E. coli. Now on IV ertapenem. ID recommended 2 weeks course. (5) MRSA bacteremia Is this a current diagnosis for this admission?: Yes Plan: Started on vancomycin. Transthoracic echocardiogram did not reveal obvious vegetations. Cardiology will not be able to do ERICH unless the patient becomes COVID negative. ID recommended 4 weeks of IV vancomycin but since we do not know status about endocarditis, hospitalist will be treating her for 6 weeks of IV vancomycin. (6) Polycystic liver disease Is this a current diagnosis for this admission?: Yes Plan: This is part of her autosomal dominant polycystic kidney disease. (7) Metabolic acidosis Is this a current diagnosis for this admission?: Yes Plan: Resolved with dialysis. (8) Leukocytosis (leucocytosis) Qualifiers: Leukocytosis type: unspecified Qualified Code(s): D72.829 - Elevated white blood cell count, unspecified Is this a current diagnosis for this admission?: Yes Plan: Likely secondary to COVID infection. WBC count has been decreasing with antibiotics. (9) Urinary tract infection Qualifiers: Urinary tract infection type: site unspecified Hematuria presence: with hematuria Qualified Code(s): N39.0 - Urinary tract infection, site not specified; R31.9 - Hematuria, unspecified Is this a current diagnosis for this admission?: Yes Plan: Due to E. coli. (10) Severe anemia Is this a current diagnosis for this admission?: Yes Plan: Negative occult blood. Blood transfusions given last week. We will continue to give Retacrit on dialysis. Hold Venofer since it will interfere with the ferritin given her COVID-19 infection. No further work-up per hematology. (11) Shortness of breath Is this a current diagnosis for this admission?: Yes Plan: Chest x-ray is negative. Likely related to COVID-19 infection. (12) Protein-energy malnutrition Is this a current diagnosis for this admission?: Yes (13) Ascites Qualifiers: Ascites type: other type Qualified Code(s): R18.8 - Other ascites Is this a current diagnosis for this admission?: Yes Plan: Will be scheduled for paracentesis. - Notes Notes: Discussed with Dr. Gaston. - Time Time with patient: 15-25 minutes
[2020-05-24] MEDS: ERTAPENEM SODIUM 0.5 GM in NORMAL SALINE 50 ML IV SCH (20:28)
[2020-05-25] MEDS: DEXAMETHASONE 4 MG TABLET PO SCH (05:28)
[2020-05-25 06:18] LABS: HEMATOCRIT 30.9 % (36.0-47.0); HEMOGLOBIN 9.7 g/dL (12.0-15.5); MEAN CORPUSCULAR HGB CONC 31.4 g/dL (32.0-36.0); MEAN CORPUSCULAR VOLUME 86 fl (80-97); PLATELET COUNT 402 10^3/uL (150-450); RED CELL DISTRIBUTION WIDTH 16.7 % (11.5-14.0); WHITE BLOOD COUNT 28.3 10^3/uL (4.0-10.5)
[2020-05-25 06:29] LABS: ALBUMIN 2.4 g/dL (3.5-5.0); ALKALINE PHOSPHATASE 100 U/L (38-126); ANION GAP 8 (5-19); ASPARTATE AMINO TRANSFERASE 13 U/L (14-36); BILIRUBIN,TOTAL 0.2 mg/dL (0.2-1.3); BLOOD UREA NITROGEN 57 mg/dL (7-20); CALCIUM 8.2 mg/dL (8.4-10.2); CARBON DIOXIDE 29 mmol/L (22-30); CHLORIDE 96 mmol/L (98-107); GLUCOSE 94 mg/dL (75-110); POTASSIUM 5.4 mmol/L (3.6-5.0)
[2020-05-25 06:59] LABS: ABSOLUTE LYMPHOCYTES# (MANUAL) 4.8 10^3/uL (0.5-4.7); ABSOLUTE MONOCYTES # (MANUAL) 2.3 10^3/uL (0.1-1.4); BASOPHILS % (MANUAL) 0 % (0-2); EOSINOPHILS % (MANUAL) 0 % (0-6); LYMPHOCYTES % (MANUAL) 17 % (13-45); MONOCYTES % (MANUAL) 8 % (3-13); SEGMENTED NEUTROPHILS % (MAN) 75 % (42-78); TOTAL CELLS COUNTED 100
[2020-05-25 07:01] LABS: HYPOCHROMASIA SLIGHT; POLYCHROMASIA SLIGHT; TOXIC GRANULATION SLIGHT
[2020-05-25 07:02] LABS: ANISOCYTOSIS 1+; OVALOCYTES SLIGHT; PLATELET COMMENT ADEQUATE; POIKILOCYTOSIS SLIGHT; SCHISTOCYTES SLIGHT; TEAR DROP CELLS SLIGHT
[2020-05-25] MEDS ORDERED: LACTULOSE SYRUP 20 GM/30 ML UDCUP PO ONE (10:00)
[2020-05-25] MEDS ORDERED: PATIROMER 8.4 GM SUSP PACKET PO ONE (10:00)
[2020-05-25] MEDS: HEPARIN SOD (PORCINE) 5,000 UNIT/ML 1 ML VIAL SUBCUT SCH ×2 (10:57→22:57)
[2020-05-25] MEDS: CALCIUM ACETATE 667 MG CAPSULE PO SCH ×3 (10:58→17:15)
[2020-05-25] MEDS: CITRIC ACID/SODIUM CITRATE ORAL SOLN 15 ML UDCUP PO SCH ×4 (10:59→22:57)
[2020-05-25] MEDS: PANTOPRAZOLE SODIUM 40 MG VIAL IV SCH ×2 (10:59→22:56)
[2020-05-25] MEDS: CHOLECALCIFEROL (D3) 1,000 UNIT (25 MCG) TABLET PO SCH ×2 (11:00→17:15)
[2020-05-25] MEDS: ASCORBIC ACID 500 MG TABLET PO SCH ×2 (11:00→17:14)
[2020-05-25] MEDS: ZINC SULFATE 220 MG CAPSULE PO SCH (11:01)
[2020-05-25] MEDS: TRAMADOL HCL 50 MG TABLET PO PRN (13:27)
--- NOTE | 2020-05-25 14:26 | PDOC PROGRESS REPORT ---
Subjective Progress Note for:: 05/25/20 Subjective:: Patient has no complaints today. She continues to have abdominal pain. Has not had a bowel movement in the past 2 to 3 days. She denies any fever or chills. She denies any shortness of breath except when she lays down flat. Reason For Visit: SURESH,SEVERE ANEMIA Physical Exam Vital Signs: Temp Pulse Resp BP Pulse Ox 98.5 F 65 14 109/72 93 05/25/20 11:27 05/25/20 14:00 05/25/20 11:27 05/25/20 11:27 05/25/20 11:27 Intake & Output 05/24/20 05/25/20 05/26/20 06:59 06:59 06:59 Intake Total 1080 1780 Output Total 1030 3025 Balance 50 -1245 Weight 58.2 kg 59.6 kg General appearance: PRESENT: no acute distress, cooperative Neck exam: ABSENT: JVD Respiratory exam: PRESENT: symmetrical, unlabored. ABSENT: accessory muscle use, retraction, tachypnea Cardiovascular exam: PRESENT: bradycardia. ABSENT: irregular rhythm, RRR, tachycardia GI/Abdominal exam: PRESENT: ascites, distended, soft, tenderness. ABSENT: firm, guarding, rebound, rigid Neurological exam: PRESENT: alert, awake, oriented to person, oriented to place, oriented to time Results Laboratory Results: 05/25/20 05:09 05/25/20 05:09 05/25/20 05/25/20 05:09 05:09 WBC 28.3 H RBC 3.60 L Hgb 9.7 L Hct 30.9 L MCV 86 MCH 27.0 MCHC 31.4 L RDW 16.7 H Plt Count 402 Seg Neutrophils % Not Reportable Sodium 133.1 L Potassium 5.4 H Chloride 96 L Carbon Dioxide 29 Anion Gap 8 BUN 57 H Creatinine 3.45 H Est GFR ( Amer) 18 L Glucose 94 Calcium 8.2 L Magnesium 2.0 Total Bilirubin 0.2 AST 13 L Alkaline Phosphatase 100 Total Protein 6.0 L Albumin 2.4 L Impressions: Renal Ultrasound 05/16/20 00:00 IMPRESSION: 1. Bilateral polycystic kidney disease. 2. No hydronephrosis or urinary stones are seen. Chest X-Ray 05/19/20 00:00 IMPRESSION: NO ACUTE RADIOGRAPHIC FINDING IN THE CHEST. Abdomen/Pelvis CT 05/21/20 00:00 IMPRESSION: Please see combined report for performance of procedure and radiologic supervision and interpretation. Chest CT 05/21/20 00:00 IMPRESSION: 1. Bilateral pleural effusions and basilar airspace disease either atelectasis or pneumonia right greater than left. 2. Polycystic kidneys and liver. 3. Moderate volume ascites. Assessment and Plan - Diagnosis (1) Acute kidney injury superimposed on CKD Is this a current diagnosis for this admission?: Yes Plan: Patient's baseline renal function is unknown but it is suspected that patient's has progression of CKD from what seems to be adult polycystic kidney disease. Started on dialysis during this admission. Nephrology is following. Continue Bicitra and PhosLo Monitor electrolytes (2) Ascites Qualifiers: Ascites type: other type Qualified Code(s): R18.8 - Other ascites Is this a current diagnosis for this admission?: Yes Plan: Plan for paracentesis today. Diagnostic labs ordered. (3) COVID-19 virus infection Is this a current diagnosis for this admission?: Yes Plan: Receiving vitamin and zinc supplements. Currently no respiratory failure and quite frankly not much in terms of respiratory symptoms. We will continue to monitor closely. Discontinue dexamethasone. (4) E coli bacteremia Is this a current diagnosis for this admission?: Yes Plan: ESBL growing in blood and urine. Likely secondary to UTI. Patient will be treated with ertapenem for 2 weeks as per ID recommendation. (5) MRSA bacteremia Is this a current diagnosis for this admission?: Yes Plan: Recovered from 1 blood culture sets only. However given that it is MRSA, ID has recommended treating with vancomycin with assumption that is a true bacteremia. Discussed with boiler riveter Dr Michel lu who informs me that they are unable to perform ERICH as patient has tested positive for COVID-19. As such, I will have to empirically treat patient with plan for 6 weeks of IV vancomycin with assumption of endocarditis. I have discussed with boiler riveter who informs me that patient can be set up for outpatient ERICH in about 2 weeks if patient has tested negative for COVID-19 at that point in order to avoid empiric 6 weeks of IV antibiotics if endocarditis is absent. Repeat blood cultures are negative at 24 hours. (6) Hyperkalemia, diminished renal excretion Is this a current diagnosis for this admission?: Yes Plan: Patient still hyperkalemic today despite dialysis yesterday. Also constipated. Give a dose of patiromer and lactulose today. Will check BMP later today. (7) Polycystic kidney Is this a current diagnosis for this admission?: Yes Plan: Likely ADPKD associated with polycystic liver disease. This is likely the cause of her renal failure. Plan as above. (8) Severe anemia Is this a current diagnosis for this admission?: Yes Plan: Evaluated by oncologist who suggested that patient anemia is likely secondary to CKD. Recommends EPO which is being administered with HD. Did receive blood transfusions during this hospitalization. Will monitor H&H closely to ensure that it is stable. (9) Sepsis Qualifiers: Sepsis type: methicillin resistant Staphylococcus aureus Sepsis acute organ dysfunction status: with acute organ dysfunction Severe sepsis acute organ dysfunction type: acute renal failure Acute renal failure type: unspecified Severe sepsis shock status: without septic shock Qualified Code(s): A41.02 - Sepsis due to Methicillin resistant Staphylococcus aureus; R65.20 - Severe sepsis without septic shock; N17.9 - Acute kidney failure, unspecified Is this a current diagnosis for this admission?: Yes Plan: Resolved. - Time Time Spent with patient: Less than 15 minutes Anticipated Discharge Disposition: Home, Self Care Anticipated Discharge Timeframe: Undetermined
--- NOTE | 2020-05-25 16:23 | RADIOLOGY REPORT (SQ) ---
EXAM DESCRIPTION: U/S ABD PARACENTESIS IMAGES COMPLETED DATE/TIME: 05/25/2020 4:11 pm REASON FOR STUDY: suspected SBP COMPARISON None. LIMITATIONS: None. PROCEDURE: After obtaining informed consent, the patient was brought to the ultrasound suite. The p rocedure was performed with the patient on a gurney. Ultrasound was used to identify a prominent poc ket of ascites in the right lower quadrant. An appropriate access site was selected. The patient wa s prepped and draped in usual sterile fashion. The access site was anesthetized with 10 mL 1% lidoc ernesto. A Pshc-M-Bmetrlli needle was advanced into the fluid. After aspiration of fluid the needle, t he catheter was advanced off the needle into the fluid. A total of 650 mL of straw-colored fluid was removed. The patient tolerated the procedure well left the department in satisfactory condition. IMPRESSION: Successful ultrasound-guided paracentesis COMMENT: Patient medication list reviewed: Yes- Quality ID# [id number]:Eligible professional attests to doc umenting in the medical record they obtained, updated, or reviewed the patient's current medications. TECHNICAL DOCUMENTATION: JOB ID: [id number] 2010 [employer]- All Rights Reserved Reading location - IP/workstation name: [email or web address]
[2020-05-25 16:48] LABS: ANION GAP 6 (5-19); BLOOD UREA NITROGEN 58 mg/dL (7-20); CALCIUM 8.3 mg/dL (8.4-10.2); CARBON DIOXIDE 31 mmol/L (22-30); CHLORIDE 95 mmol/L (98-107); GLUCOSE 80 mg/dL (75-110); POTASSIUM 5.3 mmol/L (3.6-5.0)
[2020-05-25 16:49] LABS: FLUID APPEARANCE CLEAR; FLUID COLOR LIGHT YELLOW; FLUID SOURCE ASCITES; FLUID TYPE PERITONEAL; FLUID VISCOSITY LIQUID
--- NOTE | 2020-05-25 19:38 | EKG REPORT ---
SEVERITY:- NORMAL ECG - SINUS BRADYCARDIA : Confirmed by: Landen Pearson MD 25-May-2020 19:37:02
[2020-05-26] MEDS ORDERED: NORMAL SALINE 1000 ML 1,000 ML IV PRN (05:00)
[2020-05-26] MEDS ORDERED: HEPARIN SOD (PORCINE) 1,000 UNIT/ML 10 ML VIAL IV PRN (05:00)
[2020-05-26] MEDS ORDERED: EPOETIN ALFA-EPBX 10,000 UNIT in SYRINGE, DISPOSABLE, 1 EACH IV PRN (05:00)
[2020-05-26 05:49] LABS: HEMATOCRIT 30.8 % (36.0-47.0); HEMOGLOBIN 9.5 g/dL (12.0-15.5); MEAN CORPUSCULAR HEMOGLOBIN 26.9 pg (27.0-33.4); MEAN CORPUSCULAR HGB CONC 30.9 g/dL (32.0-36.0); MEAN CORPUSCULAR VOLUME 87 fl (80-97); PLATELET COUNT 376 10^3/uL (150-450); RED BLOOD COUNT 3.54 10^6/uL (3.72-5.28); RED CELL DISTRIBUTION WIDTH 16.6 % (11.5-14.0); WHITE BLOOD COUNT 23.5 10^3/uL (4.0-10.5)
[2020-05-26 06:13] LABS: ALBUMIN 2.4 g/dL (3.5-5.0); ALKALINE PHOSPHATASE 85 U/L (38-126); ANION GAP 6 (5-19); ASPARTATE AMINO TRANSFERASE 14 U/L (14-36); BILIRUBIN,DIRECT 0.1 mg/dL (0.0-0.4); BILIRUBIN,TOTAL 0.2 mg/dL (0.2-1.3); BLOOD UREA NITROGEN 67 mg/dL (7-20); CALCIUM 8.2 mg/dL (8.4-10.2); CARBON DIOXIDE 30 mmol/L (22-30); CHLORIDE 98 mmol/L (98-107); GLUCOSE 80 mg/dL (75-110); POTASSIUM 5.7 mmol/L (3.6-5.0); TOTAL PROTEIN 5.8 g/dL (6.3-8.2)
[2020-05-26 06:15] LABS: VANCOMYCIN,TROUGH 19.3 ug/mL (5.0-20.0)
[2020-05-26 06:23] LABS: ABSOLUTE LYMPHOCYTES# (MANUAL) 7.1 10^3/uL (0.5-4.7); ABSOLUTE MONOCYTES # (MANUAL) 0.9 10^3/uL (0.1-1.4); BAND NEUTROPHILS % (MANUAL) 1 % (3-5); BASOPHILS % (MANUAL) 0 % (0-2); EOSINOPHILS % (MANUAL) 1 % (0-6); LYMPHOCYTES % (MANUAL) 30 % (13-45); MONOCYTES % (MANUAL) 4 % (3-13); SEGMENTED NEUTROPHILS % (MAN) 64 % (42-78); STOMATOCYTES 1+; TOTAL CELLS COUNTED 100; TOXIC GRANULATION 1+; TOXIC VACUOLATION PRESENT
[2020-05-26 06:24] LABS: ANISOCYTOSIS 1+; PLATELET COMMENT ADEQUATE; POIKILOCYTOSIS 1+; POLYCHROMASIA 1+
[2020-05-26 07:41] LABS: APPEARANCE,URINE TURBID; BILIRUBIN,URINE NEGATIVE (NEGATIVE); COLOR,URINE YELLOW; GLUCOSE, URINE NEGATIVE (NEGATIVE); KETONES,URINE NEGATIVE (NEGATIVE); LEUKOCYTE ESTERASE,URINE MODERATE (NEGATIVE); NITRITE,URINE NEGATIVE (NEGATIVE); PROTEIN,URINE 100 mg/dL (NEGATIVE); URINE SPECIFIC GRAVITY 1.011; UROBILINOGEN,URINE NEGATIVE mg/dL (<2.0)
[2020-05-26] MEDS: ACETAMINOPHEN 325 MG TABLET PO PRN ×2 (08:15→22:46)
[2020-05-26] MEDS: CALCIUM ACETATE 667 MG CAPSULE PO SCH ×3 (08:15→17:12)
[2020-05-26] MEDS: CITRIC ACID/SODIUM CITRATE ORAL SOLN 15 ML UDCUP PO SCH ×3 (09:55→17:11)
[2020-05-26] MEDS: CHOLECALCIFEROL (D3) 1,000 UNIT (25 MCG) TABLET PO SCH ×2 (09:55→17:11)
[2020-05-26] MEDS: ASCORBIC ACID 500 MG TABLET PO SCH ×2 (09:56→17:11)
[2020-05-26] MEDS: HEPARIN SOD (PORCINE) 5,000 UNIT/ML 1 ML VIAL SUBCUT SCH ×2 (09:56→21:50)
[2020-05-26] MEDS: ZINC SULFATE 220 MG CAPSULE PO SCH (09:56)
--- NOTE | 2020-05-26 11:51 | PDOC PROGRESS REPORT ---
Subjective Progress Note for:: 05/26/20 Subjective:: Still having abdominal pain. Reason For Visit: SURESH,SEVERE ANEMIA Physical Exam Vital Signs: Temp Pulse Resp BP Pulse Ox 99.4 F 90 16 111/83 94 05/26/20 09:10 05/26/20 07:58 05/26/20 07:58 05/26/20 07:58 05/26/20 07:58 Intake & Output 05/25/20 05/26/20 05/27/20 06:59 06:59 06:59 Intake Total 1780 570 Output Total 3025 1750 Balance -1245 -1180 Weight 59.6 kg 59.8 kg General appearance: PRESENT: no acute distress, cooperative Head exam: PRESENT: normocephalic Respiratory exam: PRESENT: unlabored. ABSENT: tachypnea Cardiovascular exam: ABSENT: tachycardia GI/Abdominal exam: PRESENT: distended Extremities exam: ABSENT: pedal edema Neurological exam: PRESENT: alert, awake Psychiatric exam: ABSENT: agitated, anxious Focused psych exam: ABSENT: pressured speech Skin exam: ABSENT: pallor Results Laboratory Results: 05/26/20 04:51 05/26/20 04:51 05/25/20 05/25/20 05/26/20 15:00 16:02 04:51 WBC 23.5 H RBC 3.54 L Hgb 9.5 L Hct 30.8 L MCV 87 MCH 26.9 L MCHC 30.9 L RDW 16.6 H Plt Count 376 Seg Neutrophils % Not Reportable Sodium 132.3 L Potassium 5.3 H Chloride 95 L Carbon Dioxide 31 H Anion Gap 6 BUN 58 H Creatinine 3.49 H Est GFR ( Amer) 18 L Glucose 80 Calcium 8.3 L Magnesium Total Bilirubin AST Alkaline Phosphatase Total Protein Albumin Urine Color Urine Appearance Urine pH Ur Specific [place] Urine Protein Urine Glucose (UA) Urine Ketones Urine Blood Urine Nitrite Ur Leukocyte Esterase Urine WBC (Auto) Urine RBC (Auto) Fluid Type PERITONEAL Fluid Source ASCITES Fluid Color LIGHT YELLOW Fluid Appearance CLEAR Fluid Viscosity LIQUID Fluid WBC 52 Fluid RBC 732 05/26/20 05/26/20 04:51 06:59 WBC RBC Hgb Hct MCV MCH MCHC RDW Plt Count Seg Neutrophils % Sodium 133.6 L Potassium 5.7 H Chloride 98 Carbon Dioxide 30 Anion Gap 6 BUN 67 H Creatinine 3.99 H Est GFR ( Amer) 15 L Glucose 80 Calcium 8.2 L Magnesium 2.0 Total Bilirubin 0.2 AST 14 Alkaline Phosphatase 85 Total Protein 5.8 L Albumin 2.4 L Urine Color YELLOW Urine Appearance TURBID Urine pH 8.0 Ur Specific [place] 1.011 Urine Protein 100 H Urine Glucose (UA) NEGATIVE Urine Ketones NEGATIVE Urine Blood SMALL H Urine Nitrite NEGATIVE Ur Leukocyte Esterase MODERATE H Urine WBC (Auto) >182 Urine RBC (Auto) 16 Fluid Type Fluid Source Fluid Color Fluid Appearance Fluid Viscosity Fluid WBC Fluid RBC Impressions: Renal Ultrasound 05/16/20 00:00 IMPRESSION: 1. Bilateral polycystic kidney disease. 2. No hydronephrosis or urinary stones are seen. Chest X-Ray 05/19/20 00:00 IMPRESSION: NO ACUTE RADIOGRAPHIC FINDING IN THE CHEST. Abdomen/Pelvis CT 05/21/20 00:00 IMPRESSION: Please see combined report for performance of procedure and radiologic supervision and interpretation. Chest CT 05/21/20 00:00 IMPRESSION: 1. Bilateral pleural effusions and basilar airspace disease either atelectasis or pneumonia right greater than left. 2. Polycystic kidneys and liver. 3. Moderate volume ascites. Paracentesis Ultrasound 05/25/20 00:00 IMPRESSION: Successful ultrasound-guided paracentesis Assessment and Plan - Diagnosis (1) ESBL (extended spectrum beta-lactamase) producing bacteria infection Is this a current diagnosis for this admission?: Yes Plan: ESBL bacteremia and E. coli UTI. Patient will be treated with ertapenem for 2 weeks as per ID recommendation starting from first negative blood culture which is on 05/24. As such, end of treatment will be 06/06 (2) MRSA bacteremia Is this a current diagnosis for this admission?: Yes Plan: Recovered from 1 blood culture set only. However given that it is MRSA, ID has recommended treating with vancomycin with assumption that is a true bacteremia. Discussed with dental office receptionist Dr Michel lu who informs me that they are unable to perform ERICH as patient has tested positive for COVID-19. Given the very small mobile mass noted on TTE which is questionable for vegetation, I will have to empirically treat patient for endocarditis with plan for 6 weeks of IV vancomycin. I have discussed with dental office receptionist who informs me that patient can be set up for ERICH in about 2 weeks if patient has tested negative for COVID-19 at that point in order to avoid empiric 6 weeks of IV antibiotics if endocarditis is absent. Blood cultures are currently negative at 48 hours. (3) Acute kidney injury superimposed on CKD Is this a current diagnosis for this admission?: Yes Plan: Patient's baseline renal function is unknown but it is suspected that patient's has progression of CKD from what seems to be adult polycystic kidney disease. Started on dialysis during this admission. Nephrology is following. Continue Bicitra and PhosLo Monitor electrolytes Will need to plan for permacath placement before next dialysis session if blood cultures remain negative at 72-hour tl. (4) Hyperkalemia, diminished renal excretion Is this a current diagnosis for this admission?: Yes Plan: Hyperkalemia persisting despite receiving patiromer and lactulose yesterday. Chem-7 shows potassium of 5.7 this morning. Patient is undergoing dialysis this morning. We will recheck BMP in the morning. (5) Ascites Qualifiers: Ascites type: other type Qualified Code(s): R18.8 - Other ascites Is this a current diagnosis for this admission?: Yes Plan: 650 cc of ascitic fluid removed 05/25/2020. Cell count shows no evidence of SBP even though patient has been on antibiotics for several days already. Awaiting fluid chemistry. (6) Leukocytosis (leucocytosis) Qualifiers: Leukocytosis type: unspecified Qualified Code(s): D72.829 - Elevated white blood cell count, unspecified Is this a current diagnosis for this admission?: Yes Plan: Leukocytosis likely secondary to bacteremia possibly with endocarditis. Some component may have also been due to dexamethasone which has been discontinued. We will continue to monitor WBC which seems to be trending down at this moment. (7) COVID-19 virus infection Is this a current diagnosis for this admission?: Yes Plan: Receiving vitamin and zinc supplements. Currently no respiratory failure and quite frankly not much in terms of respiratory symptoms. We will continue to monitor closely. (8) Severe anemia Is this a current diagnosis for this admission?: Yes Plan: Evaluated by oncologist who suggested that patient anemia is likely secondary to CKD. Recommends EPO which is being administered with HD. Did receive blood transfusions during this hospitalization. H&H seems stable for now. Patient will continue to receive EPO during HD (9) Polycystic kidney Is this a current diagnosis for this admission?: Yes - Time Time Spent with patient: Less than 15 minutes Anticipated Discharge Disposition: Home, Self Care Anticipated Discharge Timeframe: undetermined
[2020-05-26 12:33] LABS: APPEARANCE,URINE CLOUDY; BILIRUBIN,URINE NEGATIVE (NEGATIVE); COLOR,URINE YELLOW; GLUCOSE, URINE NEGATIVE (NEGATIVE); KETONES,URINE NEGATIVE (NEGATIVE); LEUKOCYTE ESTERASE,URINE LARGE (NEGATIVE); NITRITE,URINE NEGATIVE (NEGATIVE); PROTEIN,URINE 100 mg/dL (NEGATIVE); URINE SPECIFIC GRAVITY 1.013; UROBILINOGEN,URINE NEGATIVE mg/dL (<2.0)
[2020-05-26] MEDS: ERTAPENEM SODIUM 0.5 GM in NORMAL SALINE 50 ML IV SCH (17:11)
--- NOTE | 2020-05-26 21:47 | PDOC PROGRESS REPORT ---
Subjective Progress Note for:: 05/26/20 Subjective:: I am seeing the patient during dialysis this morning. She actually remains to be stable and afebrile. She had a paracentesis 2 days ago and 650 mL of peritoneal fluid was obtained. She said she feels a little bit better and the abdominal pressure is not as bad. She did make about 1750 mL of urine for the last 24 hours which is an improvement from previous days. Her blood pressure is on the low side but is currently tolerating dialysis without any ultrafiltration at this time. Her dialysis catheter is not working as good. Reason For Visit: SURESH,SEVERE ANEMIA Physical Exam Vital Signs: Temp Pulse Resp BP Pulse Ox 99.4 F 90 16 111/83 94 05/26/20 09:10 05/26/20 07:58 05/26/20 07:58 05/26/20 07:58 05/26/20 07:58 Intake & Output 05/25/20 05/26/20 05/27/20 06:59 06:59 06:59 Intake Total 1780 570 Output Total 3025 1750 Balance -1245 -1180 Weight 59.6 kg 59.8 kg Vitals during dialysis: Blood pressure 104/66, heart rate of 77, blood flow rate of 250 mL/min and dialysate flow rate of 600 mL/min. Exam: General appearance: PRESENT: no acute distress, cooperative, frail looking and thin Head exam: PRESENT: atraumatic, normocephalic Eye exam: PRESENT: conjunctiva pale, PERRLA. ABSENT: scleral icterus Neck exam: ABSENT: JVD Respiratory exam: PRESENT: Diminished breath sounds. ABSENT: crackles, rales, rhonchi, unlabored, wheezes Cardiovascular exam: PRESENT: Regular rate rhythm -+S1, +S2. ABSENT: diastolic murmur, systolic murmur GI/Abdominal exam: PRESENT: normal bowel sounds, soft. ABSENT: guarding, mass, tenderness Extremities exam: ABSENT: No edema Neurological exam: PRESENT: alert, awake, oriented to person, place and time. Skin exam: PRESENT: dry, warm, Results Laboratory Results: 05/26/20 04:51 05/26/20 04:51 05/25/20 05/25/20 05/26/20 15:00 16:02 04:51 WBC 23.5 H RBC 3.54 L Hgb 9.5 L Hct 30.8 L MCV 87 MCH 26.9 L MCHC 30.9 L RDW 16.6 H Plt Count 376 Seg Neutrophils % Not Reportable Sodium 132.3 L Potassium 5.3 H Chloride 95 L Carbon Dioxide 31 H Anion Gap 6 BUN 58 H Creatinine 3.49 H Est GFR ( Amer) 18 L Glucose 80 Calcium 8.3 L Magnesium Total Bilirubin AST Alkaline Phosphatase Total Protein Albumin Urine Color Urine Appearance Urine pH Ur Specific [place] Urine Protein Urine Glucose (UA) Urine Ketones Urine Blood Urine Nitrite Ur Leukocyte Esterase Urine WBC (Auto) Urine RBC (Auto) Fluid Type PERITONEAL Fluid Source ASCITES Fluid Color LIGHT YELLOW Fluid Appearance CLEAR Fluid Viscosity LIQUID Fluid WBC 52 Fluid RBC 732 05/26/20 05/26/20 04:51 06:59 WBC RBC Hgb Hct MCV MCH MCHC RDW Plt Count Seg Neutrophils % Sodium 133.6 L Potassium 5.7 H Chloride 98 Carbon Dioxide 30 Anion Gap 6 BUN 67 H Creatinine 3.99 H Est GFR ( Amer) 15 L Glucose 80 Calcium 8.2 L Magnesium 2.0 Total Bilirubin 0.2 AST 14 Alkaline Phosphatase 85 Total Protein 5.8 L Albumin 2.4 L Urine Color YELLOW Urine Appearance TURBID Urine pH 8.0 Ur Specific [place] 1.011 Urine Protein 100 H Urine Glucose (UA) NEGATIVE Urine Ketones NEGATIVE Urine Blood SMALL H Urine Nitrite NEGATIVE Ur Leukocyte Esterase MODERATE H Urine WBC (Auto) >182 Urine RBC (Auto) 16 Fluid Type Fluid Source Fluid Color Fluid Appearance Fluid Viscosity Fluid WBC Fluid RBC Impressions: Renal Ultrasound 05/16/20 00:00 IMPRESSION: 1. Bilateral polycystic kidney disease. 2. No hydronephrosis or urinary stones are seen. Chest X-Ray 05/19/20 00:00 IMPRESSION: NO ACUTE RADIOGRAPHIC FINDING IN THE CHEST. Abdomen/Pelvis CT 05/21/20 00:00 IMPRESSION: Please see combined report for performance of procedure and radiologic supervision and interpretation. Chest CT 05/21/20 00:00 IMPRESSION: 1. Bilateral pleural effusions and basilar airspace disease either atelectasis or pneumonia right greater than left. 2. Polycystic kidneys and liver. 3. Moderate volume ascites. Paracentesis Ultrasound 05/25/20 00:00 IMPRESSION: Successful ultrasound-guided paracentesis Assessment & Plan - Diagnosis (1) SURESH (acute kidney injury) Is this a current diagnosis for this admission?: Yes Plan: Baseline kidney function unknown. This is possibly acute on chronic kidney disease versus advanced progressive kidney disease that has reached ESRD. Urine output has improved about a liter for the last couple of days. However her BUN and creatinine remains to be elevated. There is no sign of renal function recovery, we will arrange chronic outpatient dialysis. She will need a PermCath placement once blood cultures are negative even while on antibiotics. Possible need of PermCath placement before Fridays dialysis insert dialysis catheter is not working properly as long as blood cultures are negative after 72 hours. We will do dialysis today for 2.5 hours, using the Trialysis catheter, with 2 potassium bath, blood flow rate of 250 mL per minute, dialysate flow rate of 600 mL per minute, ultrafiltration none today, no heparin and Retacrit of 10,000 units intravenously during dialysis. Patient will be closely monitored throughout dialysis treatment. (2) COVID-19 virus infection Is this a current diagnosis for this admission?: Yes (3) Polycystic kidney Is this a current diagnosis for this admission?: Yes (4) E coli bacteremia Is this a current diagnosis for this admission?: Yes (5) MRSA bacteremia Is this a current diagnosis for this admission?: Yes (6) Polycystic liver disease Is this a current diagnosis for this admission?: Yes Plan: This is part of her autosomal dominant polycystic kidney disease. (7) Metabolic acidosis Is this a current diagnosis for this admission?: Yes Plan: Resolved with dialysis. (8) Leukocytosis (leucocytosis) Qualifiers: Leukocytosis type: unspecified Qualified Code(s): D72.829 - Elevated white blood cell count, unspecified Is this a current diagnosis for this admission?: Yes Plan: Likely secondary to COVID infection. WBC count started to increase again. (9) Urinary tract infection Qualifiers: Urinary tract infection type: site unspecified Hematuria presence: with hematuria Qualified Code(s): N39.0 - Urinary tract infection, site not specified; R31.9 - Hematuria, unspecified Is this a current diagnosis for this admission?: Yes Plan: Due to E. coli. (10) Severe anemia Is this a current diagnosis for this admission?: Yes Plan: Negative occult blood. Blood transfusions given last week. We will continue to give Retacrit on dialysis. Hold Venofer since it will interfere with the ferritin given her COVID-19 infection. No further work-up per hematology. (11) Shortness of breath Is this a current diagnosis for this admission?: Yes Plan: Chest x-ray is negative. Likely related to COVID-19 infection. (12) Protein-energy malnutrition Is this a current diagnosis for this admission?: Yes (13) Ascites Qualifiers: Ascites type: other type Qualified Code(s): R18.8 - Other ascites Is this a current diagnosis for this admission?: Yes Plan: Paracentesis done on 05/24/2020. - Notes Notes: Dr. Proctor to follow-up patient beginning tomorrow. - Time Time with patient: 15-25 minutes
[2020-05-26] MEDS ORDERED: VANCOMYCIN HCL 1,000 MG in DEXTROSE 5%-WATER 250 ML IV SCH (22:00)
[2020-05-27 05:36] LABS: HEMATOCRIT 27.4 % (36.0-47.0); HEMOGLOBIN 8.5 g/dL (12.0-15.5); MEAN CORPUSCULAR HEMOGLOBIN 27.2 pg (27.0-33.4); MEAN CORPUSCULAR HGB CONC 31.2 g/dL (32.0-36.0); MEAN CORPUSCULAR VOLUME 87 fl (80-97); PLATELET COUNT 323 10^3/uL (150-450); RED BLOOD COUNT 3.14 10^6/uL (3.72-5.28); RED CELL DISTRIBUTION WIDTH 17.4 % (11.5-14.0); WHITE BLOOD COUNT 20.9 10^3/uL (4.0-10.5)
[2020-05-27 05:47] LABS: ANION GAP 8 (5-19); BLOOD UREA NITROGEN 57 mg/dL (7-20); CARBON DIOXIDE 28 mmol/L (22-30); CHLORIDE 98 mmol/L (98-107); GLUCOSE 78 mg/dL (75-110); POTASSIUM 5.5 mmol/L (3.6-5.0)
[2020-05-27] MEDS: CALCIUM ACETATE 667 MG CAPSULE PO SCH ×3 (08:50→16:58)
[2020-05-27] MEDS: CHOLECALCIFEROL (D3) 1,000 UNIT (25 MCG) TABLET PO SCH ×2 (09:42→17:04)
[2020-05-27] MEDS: ZINC SULFATE 220 MG CAPSULE PO SCH (09:42)
[2020-05-27] MEDS: ASCORBIC ACID 500 MG TABLET PO SCH ×2 (09:42→17:04)
[2020-05-27] MEDS: HEPARIN SOD (PORCINE) 5,000 UNIT/ML 1 ML VIAL SUBCUT SCH ×2 (09:42→21:40)
--- NOTE | 2020-05-27 11:55 | PDOC PROGRESS REPORT ---
Subjective Progress Note for:: 05/27/20 Subjective:: Patient is doing well today. She has some abdominal pain still but tolerable. Having her bowel movements regularly. Denies any shortness of breath. Reason For Visit: SURESH,SEVERE ANEMIA Physical Exam Vital Signs: Temp Pulse Resp BP Pulse Ox 99.5 F 85 16 114/77 99 05/27/20 08:25 05/27/20 08:25 05/27/20 08:25 05/27/20 08:25 05/27/20 08:25 Intake & Output 05/26/20 05/27/20 05/28/20 06:59 06:59 06:59 Intake Total 570 2140 Output Total 1750 2625 Balance -1180 -485 Weight 59.8 kg 58 kg General appearance: PRESENT: no acute distress, cooperative Neck exam: ABSENT: JVD Respiratory exam: PRESENT: symmetrical, unlabored. ABSENT: accessory muscle use, retraction, tachypnea GI/Abdominal exam: PRESENT: distended Neurological exam: PRESENT: alert, awake Skin exam: ABSENT: jaundice Results Laboratory Results: 05/27/20 04:28 05/27/20 04:28 05/25/20 05/26/20 05/27/20 15:00 12:00 04:28 WBC 20.9 H RBC 3.14 L Hgb 8.5 L Hct 27.4 L MCV 87 MCH 27.2 MCHC 31.2 L RDW 17.4 H Plt Count 323 Sodium Potassium Chloride Carbon Dioxide Anion Gap BUN Creatinine Est GFR ( Amer) Glucose Calcium Urine Color YELLOW Urine Appearance CLOUDY Urine pH 8.0 Ur Specific [place] 1.013 Urine Protein 100 H Urine Glucose (UA) NEGATIVE Urine Ketones NEGATIVE Urine Blood MODERATE H Urine Nitrite NEGATIVE Ur Leukocyte Esterase LARGE H Urine WBC (Auto) >182 Urine RBC (Auto) 36 Fluid pH 8.1 05/27/20 04:28 WBC RBC Hgb Hct MCV MCH MCHC RDW Plt Count Sodium 133.7 L Potassium 5.5 H Chloride 98 Carbon Dioxide 28 Anion Gap 8 BUN 57 H Creatinine 3.73 H Est GFR ( Amer) 17 L Glucose 78 Calcium 8.0 L Urine Color Urine Appearance Urine pH Ur Specific [place] Urine Protein Urine Glucose (UA) Urine Ketones Urine Blood Urine Nitrite Ur Leukocyte Esterase Urine WBC (Auto) Urine RBC (Auto) Fluid pH 05/25/20 15:00 Peritoneal Gram Stain - Final Impressions: Renal Ultrasound 05/16/20 00:00 IMPRESSION: 1. Bilateral polycystic kidney disease. 2. No hydronephrosis or urinary stones are seen. Chest X-Ray 05/19/20 00:00 IMPRESSION: NO ACUTE RADIOGRAPHIC FINDING IN THE CHEST. Abdomen/Pelvis CT 05/21/20 00:00 IMPRESSION: Please see combined report for performance of procedure and radiologic supervision and interpretation. Chest CT 05/21/20 00:00 IMPRESSION: 1. Bilateral pleural effusions and basilar airspace disease either atelectasis or pneumonia right greater than left. 2. Polycystic kidneys and liver. 3. Moderate volume ascites. Paracentesis Ultrasound 05/25/20 00:00 IMPRESSION: Successful ultrasound-guided paracentesis Assessment and Plan - Diagnosis (1) ESBL (extended spectrum beta-lactamase) producing bacteria infection Is this a current diagnosis for this admission?: Yes Plan: ESBL bacteremia and E. coli UTI. Patient will be treated with ertapenem for 2 weeks as per ID recommendation starting from first negative blood culture which is on 05/24. As such, end of treatment will be 06/06 (2) MRSA bacteremia Is this a current diagnosis for this admission?: Yes Plan: Recovered from 1 blood culture set only. However given that it is MRSA, ID has recommended treating with vancomycin with assumption that is a true bacteremia. Discussed with [employer] Dr Michel lu who informs me that they are unable to perform ERICH as patient has tested positive for COVID-19. Given the very small mobile mass noted on TTE which is questionable for vegetation, I will have to empirically treat patient for endocarditis with plan for 6 weeks of IV vancomycin. I have discussed with [employer] who informs me that patient can be set up for ERICH in about 2 weeks if patient has tested negative for COVID-19 at that point in order to avoid empiric 6 weeks of IV antibiotics if endocarditis is absent. Blood cultures are currently negative at 72 hours. (3) Acute kidney injury superimposed on CKD Is this a current diagnosis for this admission?: Yes Plan: Patient's baseline renal function is unknown but it is suspected that patient has progression of CKD from what seems to be adult polycystic kidney disease and possibly could have progressed to CKD stage V/ESRD at this point. Started on dialysis during this admission and will need to continue dialysis as of now Nephrology is following. Continue Bicitra and PhosLo Monitor electrolytes I will discuss with surgery about placement of permacath today. (4) Hyperkalemia, diminished renal excretion Is this a current diagnosis for this admission?: Yes Plan: Hyperkalemia still persistent despite dialysis. Will start patient on daily Veltassa. Continue to monitor metabolic panel daily. (5) Ascites Qualifiers: Ascites type: other type Qualified Code(s): R18.8 - Other ascites Is this a current diagnosis for this admission?: Yes Plan: 650 cc of ascitic fluid removed 05/25/2020. Cell count shows no evidence of SBP even though patient has been on antibiotics for several days already. Awaiting fluid chemistry. (6) Leukocytosis (leucocytosis) Qualifiers: Leukocytosis type: unspecified Qualified Code(s): D72.829 - Elevated white blood cell count, unspecified Is this a current diagnosis for this admission?: Yes Plan: Leukocytosis likely secondary to bacteremia possibly with endocarditis. Some component may have also been due to dexamethasone which has been discontinued. We will continue to monitor WBC which seems to be trending down at this moment. (7) COVID-19 virus infection Is this a current diagnosis for this admission?: Yes Plan: It seems to be the patient has had COVID 19 Reinfection as she informs me that she tested positive in December at [place], [place], subsequently tested negative before moving to [place] and now tested positive again. Receiving vitamin and zinc supplements. Currently no respiratory failure and quite frankly not much in terms of respiratory symptoms. We will continue to monitor closely. (8) Severe anemia Is this a current diagnosis for this admission?: Yes Plan: Evaluated by oncologist who suggested that patient anemia is likely secondary to CKD. Recommends EPO which is being administered with HD. Did receive blood transfusions during this hospitalization. Patient will continue to receive EPO during HD (9) Polycystic kidney Is this a current diagnosis for this admission?: Yes Plan: Likely ADPKD associated with polycystic liver disease. This is likely the cause of her renal failure. Plan as above. - Time Time Spent with patient: Less than 15 minutes Anticipated Discharge Disposition: Home, Self Care Anticipated Discharge Timeframe: Undetermined
[2020-05-27] MEDS ORDERED: PATIROMER 8.4 GM SUSP PACKET PO SCH (12:00)
[2020-05-27] MEDS: ACETAMINOPHEN 325 MG TABLET PO PRN (14:02)
--- NOTE | 2020-05-27 22:42 | PDOC CONSULTATION ---
Consultation Consult Date: 05/27/20 Provider Consulted: SURGICAL SURGICALIST MD Consult reason:: Renal failure, need for long-term dialysis solution History of Present Illness Admission Date/PCP: 05/16/20 17:55 Patient complains of: Need for dialysis History of Present Illness: BILLIE HUTCHINS is a 34 year old female seen in consultation at the request of the hospitalist service. Patient has required dialysis in the hospital, and currently plans are to continue dialysis as an outpatient. She has a temporary dialysis catheter and now. She will require tunneled dialysis catheter in order to be discharged from the hospital. Currently the patient denies any chest pa in, shortness of breath, fevers, chills, nausea, vomiting, dizziness, blurry vision, orthostasis. Past Medical History Cardiac Medical History: Reports: Hypertension Renal/ Medical History: Reports: Chronic Kidney Disease, End Stage Renal Disease Malignancy Medical History: Reports: None GI Medical History: Reports: Hiatal Hernia Musculoskeltal Medical History: Reports: Arthritis, Fibromyalgia Psychiatric Medical History: Reports: None Denies: Depression Traumatic Medical History: Reports: None Hematology: Reports: None, Anemia Infectious Medical History: Reports: None Past Surgical History Past Surgical History: Reports: Section, Herniorrhaphy - For umbilical hernia, Other Social History Lives with: Family Smoking Status: Former Smoker Electronic Cigarette use?: No Cigars Per Day: 10 Number of Years Smokin Last Time Smoked: 1 month ago Frequency of Alcohol Use: None Hx Recreational Drug Use: No Hx Prescription Drug Abuse: No Family History Family History: denies: CAD Parental Family History Reviewed: Yes Children Family History Reviewed: Yes Sibling(s) Family History Reviewed.: Yes Medication/Allergy Home Medications: No Home Medications 05/16/20 Allergies/Adverse Reactions: No Known Allergies Allergy (Verified 05/16/20 13:01) Review of Systems Constitutional: ABSENT: anorexia, chills, fatigue Eyes: ABSENT: visual disturbances Ears: ABSENT: hearing changes Nose, Mouth, and Throat: ABSENT: sore throat Cardiovascular: ABSENT: chest pain Respiratory: ABSENT: cough Gastrointestinal: ABSENT: abdominal pain, bloating Genitourinary: ABSENT: difficulty urinating Musculoskeletal: ABSENT: back pain Integumentary: ABSENT: pruritus, rash Neurological: ABSENT: confusion, convulsions, dizziness Psychiatric: ABSENT: anxiety, depression Endocrine: ABSENT: cold intolerance Hematologic/Lymphatic: ABSENT: easy bleeding, easy bruising Physical Exam Vital Signs: Temp Pulse Resp BP Pulse Ox 98.2 F 82 17 108/74 96 05/27/20 20:10 05/27/20 20:10 05/27/20 20:10 05/27/20 20:10 05/27/20 20:10 Intake & Output 05/26/20 05/27/20 05/28/20 06:59 06:59 06:59 Intake Total 570 2140 598 Output Total 1750 2625 Balance -1180 -485 598 Weight 59.8 kg 58 kg General appearance: PRESENT: no acute distress, cooperative Head exam: PRESENT: atraumatic, normocephalic Eye exam: PRESENT: EOMI, PERRLA Mouth exam: PRESENT: moist, neck supple Neck exam: ABSENT: meningismus, tenderness, thyromegaly, tracheal deviation Respiratory exam: PRESENT: unlabored. ABSENT: tachypnea, wheezes Cardiovascular exam: ABSENT: tachycardia Vascular exam: PRESENT: normal capillary refill. ABSENT: pallor GI/Abdominal exam: PRESENT: soft. ABSENT: distended, firm, tenderness Rectal exam: PRESENT: deferred Extremities exam: ABSENT: clubbing Musculoskeletal exam: ABSENT: deformity Neurological exam: PRESENT: alert, awake, oriented to person, oriented to place, oriented to time, oriented to situation, CN II-XII grossly intact Psychiatric exam: ABSENT: agitated, anxious, depressed Focused psych exam: ABSENT: delusional Skin exam: ABSENT: cyanosis, erythema, jaundice Results Laboratory Results: 05/27/20 04:28 05/27/20 04:28 05/25/20 05/27/20 05/27/20 15:00 04:28 04:28 WBC 20.9 H RBC 3.14 L Hgb 8.5 L Hct 27.4 L MCV 87 MCH 27.2 MCHC 31.2 L RDW 17.4 H Plt Count 323 Sodium 133.7 L Potassium 5.5 H Chloride 98 Carbon Dioxide 28 Anion Gap 8 BUN 57 H Creatinine 3.73 H Est GFR ( Amer) 17 L Glucose 78 Calcium 8.0 L Fluid pH 8.1 05/25/20 15:00 Peritoneal Gram Stain - Final Impressions: Renal Ultrasound 05/16/20 00:00 IMPRESSION: 1. Bilateral polycystic kidney disease. 2. No hydronephrosis or urinary stones are seen. Chest X-Ray 05/19/20 00:00 IMPRESSION: NO ACUTE RADIOGRAPHIC FINDING IN THE CHEST. Abdomen/Pelvis CT 05/21/20 00:00 IMPRESSION: Please see combined report for performance of procedure and radiologic supervision and interpretation. Chest CT 05/21/20 00:00 IMPRESSION: 1. Bilateral pleural effusions and basilar airspace disease either atelectasis or pneumonia right greater than left. 2. Polycystic kidneys and liver. 3. Moderate volume ascites. Paracentesis Ultrasound 05/25/20 00:00 IMPRESSION: Successful ultrasound-guided paracentesis Assessment & Plan - Diagnosis (1) Acute kidney injury superimposed on CKD Is this a current diagnosis for this admission?: Yes - Plan Summary Plan Summary: 34-year-old female in need of longer term dialysis access for discharge planning. She is COVID 19+. Plan for OR insertion of permacath tomorrow in a negative pressure environment. The patient has agreed to this. Risks/benefits discussed, informed consent obtained, and all questions answered.
[2020-05-28 05:23] LABS: HEMATOCRIT 25.7 % (36.0-47.0); HEMOGLOBIN 8.1 g/dL (12.0-15.5); MEAN CORPUSCULAR HEMOGLOBIN 27.5 pg (27.0-33.4); MEAN CORPUSCULAR HGB CONC 31.7 g/dL (32.0-36.0); MEAN CORPUSCULAR VOLUME 87 fl (80-97); PLATELET COUNT 352 10^3/uL (150-450); RED BLOOD COUNT 2.95 10^6/uL (3.72-5.28); RED CELL DISTRIBUTION WIDTH 17.4 % (11.5-14.0); WHITE BLOOD COUNT 19.1 10^3/uL (4.0-10.5)
[2020-05-28 05:49] LABS: ALBUMIN 2.3 g/dL (3.5-5.0); ALKALINE PHOSPHATASE 71 U/L (38-126); ANION GAP 9 (5-19); ASPARTATE AMINO TRANSFERASE 11 U/L (14-36); BILIRUBIN,TOTAL 0.2 mg/dL (0.2-1.3); BLOOD UREA NITROGEN 63 mg/dL (7-20); CALCIUM 8.4 mg/dL (8.4-10.2); CARBON DIOXIDE 26 mmol/L (22-30); CHLORIDE 99 mmol/L (98-107); GLUCOSE 78 mg/dL (75-110); PHOSPHORUS 5.6 mg/dL (2.5-4.5); POTASSIUM 5.9 mmol/L (3.6-5.0); TOTAL PROTEIN 5.8 g/dL (6.3-8.2)
[2020-05-28 05:52] LABS: VANCOMYCIN,TROUGH 21.9 ug/mL (5.0-20.0)
[2020-05-28] MEDS: PANTOPRAZOLE SODIUM 40 MG TABLET.DR PO SCH (06:09)
[2020-05-28] MEDS ORDERED: KETAMINE HCL INJ 500 MG/10 ML VIAL ONE (06:22)
[2020-05-28] MEDS ORDERED: FENTANYL CITRATE INJ/PF 100 MCG/2 ML AMPUL ONE ×2 (06:22→10:31)
[2020-05-28] MEDS ORDERED: MIDAZOLAM 2 MG/2 ML INJ ONE (06:22)
[2020-05-28] MEDS ORDERED: PROPOFOL INJ 200 MG/20 ML VIAL IV ONE (06:23)
[2020-05-28] MEDS ORDERED: BUPIVACAINE HCL 0.25 % INJ/PF (2.5 MG/1 ML) 30 ML VIAL ONE (07:44)
[2020-05-28] MEDS ORDERED: LIDOCAINE 1% INJ-PF (10 MG/ML) 30 ML SDV ONE (07:44)
[2020-05-28] MEDS ORDERED: HEPARIN SOD (PORCINE) 1,000 UNIT/ML 10 ML VIAL IV PRN (07:53)
--- NOTE | 2020-05-28 10:22 | PDOC PROGRESS REPORT ---
Subjective Progress Note for:: 05/28/20 Subjective:: Patient getting permacath today. No issues overnight. Plan for dialysis today. We will need to address her hyperkalemia which has seemed to persist despite dialysis. Reason For Visit: SURESH,SEVERE ANEMIA Physical Exam Vital Signs: Temp Pulse Resp BP Pulse Ox 99.5 F 74 18 131/89 H 94 05/27/20 23:14 05/28/20 07:00 05/27/20 23:14 05/27/20 23:14 05/27/20 23:14 Intake & Output 05/27/20 05/28/20 05/29/20 06:59 06:59 06:59 Intake Total 2140 598 Output Total 2625 2000 Balance -485 -1402 Weight 58 kg 58 kg General appearance: PRESENT: no acute distress, cooperative Respiratory exam: PRESENT: unlabored. ABSENT: accessory muscle use, tachypnea Cardiovascular exam: ABSENT: tachycardia Neurological exam: PRESENT: alert, awake Results Laboratory Results: 05/28/20 04:21 05/28/20 04:21 05/25/20 05/25/20 05/25/20 15:00 15:00 15:00 WBC RBC Hgb Hct MCV MCH MCHC RDW Plt Count Sodium Potassium Chloride Carbon Dioxide Anion Gap BUN Creatinine Est GFR ( Amer) Glucose Calcium Phosphorus Magnesium Total Bilirubin AST Alkaline Phosphatase Total Protein Albumin Fluid pH Fluid Glucose 133 Fluid Total Protein Fluid Albumin 1.2 Fluid LDH Fluid Amylase 40 05/25/20 05/25/20 05/25/20 15:00 15:00 15:00 WBC RBC Hgb Hct MCV MCH MCHC RDW Plt Count Sodium Potassium Chloride Carbon Dioxide Anion Gap BUN Creatinine Est GFR ( Amer) Glucose Calcium Phosphorus Magnesium Total Bilirubin AST Alkaline Phosphatase Total Protein Albumin Fluid pH 8.1 Fluid Glucose Fluid Total Protein 2.9 Fluid Albumin Fluid LDH 58 Fluid Amylase 05/28/20 05/28/20 04:21 04:21 WBC 19.1 H RBC 2.95 L Hgb 8.1 L Hct 25.7 L MCV 87 MCH 27.5 MCHC 31.7 L RDW 17.4 H Plt Count 352 Sodium 133.5 L Potassium 5.9 H Chloride 99 Carbon Dioxide 26 Anion Gap 9 BUN 63 H Creatinine 4.12 H Est GFR ( Amer) 15 L Glucose 78 Calcium 8.4 Phosphorus 5.6 H Magnesium 2.0 Total Bilirubin 0.2 AST 11 L Alkaline Phosphatase 71 Total Protein 5.8 L Albumin 2.3 L Fluid pH Fluid Glucose Fluid Total Protein Fluid Albumin Fluid LDH Fluid Amylase 05/25/20 15:00 Peritoneal Gram Stain - Final Impressions: Renal Ultrasound 05/16/20 00:00 IMPRESSION: 1. Bilateral polycystic kidney disease. 2. No hydronephrosis or urinary stones are seen. Chest X-Ray 05/19/20 00:00 IMPRESSION: NO ACUTE RADIOGRAPHIC FINDING IN THE CHEST. Abdomen/Pelvis CT 05/21/20 00:00 IMPRESSION: Please see combined report for performance of procedure and radiologic supervision and interpretation. Chest CT 05/21/20 00:00 IMPRESSION: 1. Bilateral pleural effusions and basilar airspace disease either atelectasis or pneumonia right greater than left. 2. Polycystic kidneys and liver. 3. Moderate volume ascites. Paracentesis Ultrasound 05/25/20 00:00 IMPRESSION: Successful ultrasound-guided paracentesis Assessment and Plan - Diagnosis (1) ESBL (extended spectrum beta-lactamase) producing bacteria infection Is this a current diagnosis for this admission?: Yes Plan: ESBL bacteremia and E. coli UTI. Patient will be treated with ertapenem for 2 weeks as per ID recommendation starting from first negative blood culture which is on 05/24. As such, end of treatment will be 06/06 (2) MRSA bacteremia Is this a current diagnosis for this admission?: Yes Plan: Recovered from 1 blood culture set only. However given that it is MRSA, ID has recommended treating with vancomycin with assumption that is a true bacteremia. Dr Pearson informed that they are unable to perform ERICH as patient has tested positive for COVID-19. Given the very small mobile mass noted on TTE which is questionable for vegetation, patient has to be empirically treated for endocarditis with plan for 6 weeks of IV vancomycin EOT 07/04. I have discussed with county sheriff who informs me that patient can be set up for ERICH in about 2 weeks if patient has tested negative for COVID-19 at that point in order to avoid empiric 6 weeks of IV antibiotics if true vegetation is absent. (3) Acute kidney injury superimposed on CKD Is this a current diagnosis for this admission?: Yes Plan: Patient's baseline renal function is unknown but it is suspected that patient has progression of CKD from what seems to be adult polycystic kidney disease and possibly could have progressed to CKD stage V/ESRD at this point. Nephrology is following. Permacath placement today for senior care dialysis. Continue Bicitra and PhosLo (4) Hyperkalemia, diminished renal excretion Is this a current diagnosis for this admission?: Yes Plan: Hyperkalemia still persistent despite dialysis. Nephrology following. Will increase Veltassa to 16g daily. Monitor BMP. (5) Ascites Qualifiers: Ascites type: other type Qualified Code(s): R18.8 - Other ascites Is this a current diagnosis for this admission?: Yes Plan: 650 cc of ascitic fluid removed 05/25/2020. Cell count shows no evidence of SBP even though patient has been on antibiotics for several days already. SAAG 1.2, total protein 2.9-suggestive of chronic liver disease as etiology. (6) Polycystic liver disease Is this a current diagnosis for this admission?: Yes Plan: This condition has led to chronic liver disease which seems to be advanced at this point. Following treatment of patient's current bacteremia/possible endocarditis, patient will need to see a trouble clerk for evaluation of this and assessment for qualification for transplant. (7) Leukocytosis (leucocytosis) Qualifiers: Leukocytosis type: unspecified Qualified Code(s): D72.829 - Elevated white blood cell count, unspecified Is this a current diagnosis for this admission?: Yes (8) COVID-19 virus infection Is this a current diagnosis for this admission?: Yes Plan: It seems to be the patient has had COVID 19 Reinfection as she informs me that she tested positive in December at [place], [place], subsequently tested negative before moving to [place] and now tested positive again. Receiving vitamin and zinc supplements. Currently no respiratory failure and quite frankly not much in terms of respiratory symptoms. We will continue to monitor closely. (9) Severe anemia Is this a current diagnosis for this admission?: Yes Plan: Evaluated by oncologist who suggested that patient anemia is likely secondary to CKD. Recommends EPO which is being administered with HD. Did receive blood transfusions during this hospitalization. Patient will co ntinue to receive EPO during HD (10) Polycystic kidney Is this a current diagnosis for this admission?: Yes - Time Time Spent with patient: Less than 15 minutes Anticipated Discharge Disposition: Home, Self Care Anticipated Discharge Timeframe: undetermined
--- NOTE | 2020-05-28 10:39 | Operative Report ---
Nonrecallable Operative Report DATE OF SURGERY: 05/28/20 PREOPERATIVE DIAGNOSIS: Renal failure, need for dialysis POSTOPERATIVE DIAGNOSIS: Same as above OPERATION: 1. Ultrasound-guided left internal jugular central venous puncture. 2. Left IJ permacath insertion SURGEON: MAU SALCEDO ANESTHESIA: LMAC TISSUE REMOVED OR ALTERED: None COMPLICATIONS: The patient's small frame made it very difficult to tunnel the catheter in appropriate length. Secondary to this, the catheter was tunneled in curvilinear fashion, to exit more medially on the chest wall. ESTIMATED BLOOD LOSS: Minimal PROCEDURE: Drains/implants: Left IJ permacath. Procedure in detail: After informed consent was obtained, the patient was broug ht into the negative pressure holding room. The area of the neck and chest were prepped and draped in a normal sterile fashion. The ultrasound was used to identify the left internal jugular vein. 1% lidocaine with quarter percent Marcaine was then used to infiltrate the skin of the left neck and left chest. The internal jugular vein was then cannulated using the supplied access needle, under direct ultrasonic guidance. Dark venous, nonpulsatile blood was returned to the syringe. The wire was inserted into the vein easily. Picture documentation was obtained using the ultrasound device. Fluoroscopy was also used. The wire was found to lie within the vena cava. Attention was then turned to planning a tunnel for the permacath. A smaller permacath was chosen, however it was still too long for the patient. This would require tunneling of the permacath in a curvilinear fashion starting at the IJ insertion site, tunneling laterally, and then tunneling medially. This was done using 2 separate incisions. The catheter was tunneled in a curvilinear fashion, to exit at the IJ insertion site. Next, the dilator and breakaway sheath were inserted over the wire. This was done under direct fluoroscopic guidance. Once the breakaway sheath was inserted, the dilator and wire were removed, leaving the breakaway sheath within the patient. The catheter was then inserted into the breakaway sheath. The sheath was cracked and pulled away, leaving the catheter within the SVC. The catheter was pulled back to an appropriate level to reside within the SVC, superior to the atrium. Once this was confirmed with fluoroscopy, the catheter was aspirated and flushed with heparinized saline. It aspirated and flushed easily. The catheter was then sutured to the skin in multiple locations. The overlying skin was closed using 3-0 Vicryl suture in simple subcuticular fashion. Dressings were placed, and the procedure was concluded. All sponge, instrument, and needle counts were correct x2. Condition: Stable.
--- NOTE | 2020-05-28 10:41 | PDOC PROGRESS REPORT ---
Subjective Reason For Visit: SURESH,SEVERE ANEMIA Physical Exam Vital Signs: Temp Pulse Resp BP Pulse Ox 99.5 F 74 18 131/89 H 94 05/27/20 23:14 05/28/20 07:00 05/27/20 23:14 05/27/20 23:14 05/27/20 23:14 Intake & Output 05/27/20 05/28/20 05/29/20 06:59 06:59 06:59 Intake Total 2140 598 Output Total 2625 1999 Balance -485 -1402 Weight 58 kg 58 kg Results Laboratory Results: 05/28/20 04:21 05/28/20 04:21 05/25/20 05/25/20 05/25/20 15:00 15:00 15:00 WBC RBC Hgb Hct MCV MCH MCHC RDW Plt Count Sodium Potassium Chloride Carbon Dioxide Anion Gap BUN Creatinine Est GFR ( Amer) Glucose Calcium Phosphorus Magnesium Total Bilirubin AST Alkaline Phosphatase Total Protein Albumin Fluid pH Fluid Glucose 133 Fluid Total Protein Fluid Albumin 1.2 Fluid LDH Fluid Amylase 40 05/25/20 05/25/20 05/25/20 15:00 15:00 15:00 WBC RBC Hgb Hct MCV MCH MCHC RDW Plt Count Sodium Potassium Chloride Carbon Dioxide Anion Gap BUN Creatinine Est GFR ( Amer) Glucose Calcium Phosphorus Magnesium Total Bilirubin AST Alkaline Phosphatase Total Protein Albumin Fluid pH 8.1 Fluid Glucose Fluid Total Protein 2.9 Fluid Albumin Fluid LDH 58 Fluid Amylase 05/28/20 05/28/20 04:21 04:21 WBC 19.1 H RBC 2.95 L Hgb 8.1 L Hct 25.7 L MCV 87 MCH 27.5 MCHC 31.7 L RDW 17.4 H Plt Count 352 Sodium 133.5 L Potassium 5.9 H Chloride 99 Carbon Dioxide 26 Anion Gap 9 BUN 63 H Creatinine 4.12 H Est GFR ( Amer) 15 L Glucose 78 Calcium 8.4 Phosphorus 5.6 H Magnesium 2.0 Total Bilirubin 0.2 AST 11 L Alkaline Phosphatase 71 Total Protein 5.8 L Albumin 2.3 L Fluid pH Fluid Glucose Fluid Total Protein Fluid Albumin Fluid LDH Fluid Amylase 05/25/20 15:00 Peritoneal Gram Stain - Final Impressions: Renal Ultrasound 05/16/20 00:00 IMPRESSION: 1. Bilateral polycystic kidney disease. 2. No hydronephrosis or urinary stones are seen. Chest X-Ray 05/19/20 00:00 IMPRESSION: NO ACUTE RADIOGRAPHIC FINDING IN THE CHEST. Abdomen/Pelvis CT 05/21/20 00:00 IMPRESSION: Please see combined report for performance of procedure and radiologic supervision and interpretation. Chest CT 05/21/20 00:00 IMPRESSION: 1. Bilateral pleural effusions and basilar airspace disease either atelectasis or pneumonia right greater than left. 2. Polycystic kidneys and liver. 3. Moderate volume ascites. Paracentesis Ultrasound 05/25/20 00:00 IMPRESSION: Successful ultrasound-guided paracentesis Assessment & Plan - Diagnosis (1) Acute kidney injury superimposed on CKD Is this a current diagnosis for this admission?: Yes - Time Anticipated Discharge Disposition: unknown Anticipated Discharge Timeframe: unknown - Plan Summary Plan Summary: Patient with renal failure and a dysfunctional temporary dialysis catheter. Plan for permacath placement today for semipermanent dialysis as an outpatient. Risk/benefits discussed, informed consent obtained, all questions answered.
[2020-05-28] MEDS: CALCIUM ACETATE 667 MG CAPSULE PO SCH ×3 (12:13→16:50)
[2020-05-28] MEDS: PATIROMER 8.4 GM SUSP PACKET PO SCH (12:13)
--- NOTE | 2020-05-28 12:36 | RADIOLOGY REPORT (SQ) ---
EXAM DESCRIPTION: FLUORO/CV PLACEMENT IMAGES COMPLETED DATE/TIME: 05/28/2020 12:25 pm REASON FOR STUDY: PERMCATH PLCMT LEFT SIDE ASSISTED WITH FLUORO IN OR COMPARISON: None. FLUOROSCOPY TIME: 2.9 minutes Spot images saved to PACS. TECHNIQUE: Intra-operative images acquired during surgical procedure to evaluate progress. NUMBER OF IMAGES: 3 LIMITATIONS: None. FINDINGS: Fluoroscopy was provided for intraoperative procedure. Please refer to the operative repo rt further discussion. IMPRESSION: IMAGE(S) OBTAINED DURING PROCEDURE. COMMENT: Quality ID [id number]: Final reports for procedures using fluoroscopy that document radiation exp osure indices, or exposure time and number of fluorographic images (if radiation exposure indices are not available) Please consult full operative report of the attending physician for description of the procedure. TECHNICAL DOCUMENTATION: JOB ID: [id number] 2010 [employer]- All Rights Reserved Reading location - IP/workstation name: [email or web address]
[2020-05-28] MEDS: ASCORBIC ACID 500 MG TABLET PO SCH ×2 (14:32→18:58)
[2020-05-28] MEDS: HEPARIN SOD (PORCINE) 5,000 UNIT/ML 1 ML VIAL SUBCUT SCH ×2 (14:32→22:08)
[2020-05-28] MEDS: ZINC SULFATE 220 MG CAPSULE PO SCH (14:33)
[2020-05-28] MEDS: CHOLECALCIFEROL (D3) 1,000 UNIT (25 MCG) TABLET PO SCH ×2 (14:33→18:58)
--- NOTE | 2020-05-28 14:34 | PDOC PROGRESS REPORT ---
Subjective Progress Note for:: 05/28/20 Reason For Visit: Patient seen on dialysis today. Background history of COVID-19 infection in the background of ADPKD/polycystic liver disease just moved from [place] where she was apparently initially infected with COVID. Undergoing dialysis without any complications so far. Vital signs are stable. Plan to remove approximately a liter-1.5 as tolerated. Denies any specific complaints of chest pain or shortness of breath. She just had a permacath placement on the left IJ this morning which was uneventful. Labs and medications were reviewed. Eventhough the patient seems to be making good urine output her renal numbers are still bad that she needs to continue on dialysis in the background of ADPKD. Physical Exam Vital Signs: Temp Pulse Resp BP Pulse Ox 99.0 F 77 20 135/87 H 99 05/28/20 10:17 05/28/20 10:17 05/28/20 10:17 05/28/20 10:17 05/28/20 10:17 Intake & Output 05/27/20 05/28/20 05/29/20 06:59 06:59 06:59 Intake Total 2140 598 1250 Output Total 2625 2000 1810 Balance -723 -6173 -912 Weight 58 kg 58 kg General appearance: PRESENT: no acute distress Respiratory exam: ABSENT: accessory muscle use, rhonchi, stridor, tachypnea Neurological exam: PRESENT: alert, altered, oriented to person Skin exam: ABSENT: erythema, mottled Results Laboratory Results: 05/28/20 04:21 05/28/20 04:21 05/25/20 05/25/20 05/25/20 15:00 15:00 15:00 WBC RBC Hgb Hct MCV MCH MCHC RDW Plt Count Sodium Potassium Chloride Carbon Dioxide Anion Gap BUN Creatinine Est GFR ( Amer) Glucose Calcium Phosphorus Magnesium Total Bilirubin AST Alkaline Phosphatase Total Protein Albumin Fluid Glucose 133 Fluid Total Protein Fluid Albumin 1.2 Fluid LDH Fluid Amylase 40 05/25/20 05/25/20 05/28/20 15:00 15:00 04:21 WBC RBC Hgb Hct MCV MCH MCHC RDW Plt Count Sodium 133.5 L Potassium 5.9 H Chloride 99 Carbon Dioxide 26 Anion Gap 9 BUN 63 H Creatinine 4.12 H Est GFR ( Amer) 15 L Glucose 78 Calcium 8.4 Phosphorus 5.6 H Magnesium 2.0 Total Bilirubin 0.2 AST 11 L Alkaline Phosphatase 71 Total Protein 5.8 L Albumin 2.3 L Fluid Glucose Fluid Total Protein 2.9 Fluid Albumin Fluid LDH 58 Fluid Amylase 05/28/20 04:21 WBC 19.1 H RBC 2.95 L Hgb 8.1 L Hct 25.7 L MCV 87 MCH 27.5 MCHC 31.7 L RDW 17.4 H Plt Count 352 Sodium Potassium Chloride Carbon Dioxide Anion Gap BUN Creatinine Est GFR ( Amer) Glucose Calcium Phosphorus Magnesium Total Bilirubin AST Alkaline Phosphatase Total Protein Albumin Fluid Glucose Fluid Total Protein Fluid Albumin Fluid LDH Fluid Amylase 05/25/20 15:00 Peritoneal Gram Stain - Final Impressions: Renal Ultrasound 05/16/20 00:00 IMPRESSION: 1. Bilateral polycystic kidney disease. 2. No hydronephrosis or urinary stones are seen. Chest X-Ray 05/19/20 00:00 IMPRESSION: NO ACUTE RADIOGRAPHIC FINDING IN THE CHEST. Abdomen/Pelvis CT 05/21/20 00:00 IMPRESSION: Please see combined report for performance of procedure and radiologic supervision and interpretation. Chest CT 05/21/20 00:00 IMPRESSION: 1. Bilateral pleural effusions and basilar airspace disease either atelectasis or pneumonia right greater than left. 2. Polycystic kidneys and liver. 3. Moderate volume ascites. Paracentesis Ultrasound 05/25/20 00:00 IMPRESSION: Successful ultrasound-guided paracentesis Guidance Fluoroscopy 05/28/20 00:00 IMPRESSION: IMAGE(S) OBTAINED DURING PROCEDURE. Assessment & Plan - Diagnosis (1) Acute kidney injury superimposed on CKD Is this a current diagnosis for this admission?: Yes Plan: Acute on chronic kidney disease in the background of ADPKD/polycystic liver disease. Presently admitted with COVID pneumonia which seems to have pushed her over to possibly ESRD status. Patient has had an IJ PermCath placed earlier today through which dialysis is being entertained. Plan to remove approximately a liter of fluid. Even though she is making decent amount of urine output her renal numbers are still pretty high that she warrants to continue on dialysis and she may have attained ESRD. Dialysis orders reviewed with the treating dialysis nurse. (2) COVID-19 virus infection Is this a current diagnosis for this admission?: Yes Plan: Being managed by hospitalist. (3) ESBL (extended spectrum beta-lactamase) producing bacteria infection Is this a current diagnosis for this admission?: Yes Plan: ESBL E. coli UTI with bacteremia as well on appropriate antibiotics. (4) Hyperkalemia, diminished renal excretion Is this a current diagnosis for this admission?: Yes Plan: Likely heparin-induced. Continue on Veltassa and monitor. (5) MRSA bacteremia Is this a current diagnosis for this admission?: Yes Plan: On IV vancomycin postdialysis. (6) Polycystic liver disease Is this a current diagnosis for this admission?: Yes Plan: Status quo. (7) Urinary tract infection Qualifiers: Urinary tract infection type: site unspecified Hematuria presence: with hematuria Qualified Code(s): N39.0 - Urinary tract infection, site not specified; R31.9 - Hematuria, unspecified Is this a current diagnosis for this admission?: Yes Plan: With ESBL E. coli UTI. (8) Severe anemia Is this a current diagnosis for this admission?: Yes Plan: Currently on erythropoietin.
[2020-05-28] MEDS: TRAMADOL HCL 50 MG TABLET PO PRN (16:50)
[2020-05-28] MEDS: VANCOMYCIN HCL 750 MG in DEXTROSE 5%-WATER 250 ML IV SCH (18:57)
[2020-05-28 23:19] LABS: APPEARANCE,URINE SLIGHTLY-CLOUDY; BILIRUBIN,URINE NEGATIVE (NEGATIVE); COLOR,URINE YELLOW; GLUCOSE, URINE NEGATIVE (NEGATIVE); KETONES,URINE NEGATIVE (NEGATIVE); LEUKOCYTE ESTERASE,URINE LARGE (NEGATIVE); NITRITE,URINE NEGATIVE (NEGATIVE); PROTEIN,URINE 100 mg/dL (NEGATIVE); URINE SPECIFIC GRAVITY 1.011; UROBILINOGEN,URINE NEGATIVE mg/dL (<2.0)
[2020-05-29] MEDS: PANTOPRAZOLE SODIUM 40 MG TABLET.DR PO SCH (05:36)
[2020-05-29 09:18] LABS: ANION GAP 6 (5-19); BLOOD UREA NITROGEN 45 mg/dL (7-20); CALCIUM 8.4 mg/dL (8.4-10.2); CARBON DIOXIDE 28 mmol/L (22-30); CHLORIDE 101 mmol/L (98-107); GLUCOSE 85 mg/dL (75-110); POTASSIUM 5.5 mmol/L (3.6-5.0)
[2020-05-29] MEDS: CALCIUM ACETATE 667 MG CAPSULE PO SCH ×3 (09:34→17:10)
[2020-05-29] MEDS: CHOLECALCIFEROL (D3) 1,000 UNIT (25 MCG) TABLET PO SCH ×2 (09:34→17:10)
[2020-05-29] MEDS: HEPARIN SOD (PORCINE) 5,000 UNIT/ML 1 ML VIAL SUBCUT SCH (09:34)
[2020-05-29] MEDS: ASCORBIC ACID 500 MG TABLET PO SCH ×2 (09:34→17:10)
[2020-05-29] MEDS: ZINC SULFATE 220 MG CAPSULE PO SCH (09:34)
[2020-05-29] MEDS: TRAMADOL HCL 50 MG TABLET PO PRN (10:02)
[2020-05-29] MEDS: PATIROMER 8.4 GM SUSP PACKET PO SCH ×2 (10:08→11:58)
[2020-05-29] MEDS ORDERED: FUROSEMIDE 40 MG TABLET PO ONE (14:38)
--- NOTE | 2020-05-29 14:44 | PDOC PROGRESS REPORT ---
Subjective Progress Note for:: 05/29/20 Subjective:: Patient has no complaints today she states she feels fine. She denies any shortness of breath. Abdominal pain is the same and unchanged. Reason For Visit: SURESH,SEVERE ANEMIA Physical Exam Vital Signs: Temp Pulse Resp BP Pulse Ox 98.5 F 87 18 117/85 94 05/29/20 11:18 05/29/20 11:18 05/29/20 11:18 05/29/20 11:18 05/29/20 11:18 Intake & Output 05/28/20 05/29/20 05/30/20 06:59 06:59 06:59 Intake Total 598 1350 260 Output Total 1999 3460 Balance -1402 -2110 260 Weight 58 kg 58.5 kg General appearance: PRESENT: no acute distress, cooperative Neck exam: ABSENT: JVD Respiratory exam: PRESENT: symmetrical, unlabored. ABSENT: tachypnea GI/Abdominal exam: PRESENT: distended Neurological exam: PRESENT: alert, awake, oriented to person, oriented to place, oriented to time, oriented to situation Results Laboratory Results: 05/28/20 04:21 05/29/20 08:33 05/28/20 05/29/20 22:25 08:33 Sodium 134.8 L Potassium 5.5 H Chloride 101 Carbon Dioxide 28 Anion Gap 6 BUN 45 H Creatinine 3.34 H Est GFR ( Amer) 19 L Glucose 85 Calcium 8.4 Urine Color YELLOW Urine Appearance SLIGHTLY-CLOUDY Urine pH 8.0 Ur Specific [place] 1.011 Urine Protein 100 H Urine Glucose (UA) NEGATIVE Urine Ketones NEGATIVE Urine Blood SMALL H Urine Nitrite NEGATIVE Ur Leukocyte Esterase LARGE H Urine WBC (Auto) 101 Urine RBC (Auto) 8 05/24/20 10:20 Blood Blood Culture - Final NO GROWTH IN 5 DAYS 05/24/20 10:32 Blood Blood Culture - Final NO GROWTH IN 5 DAYS 05/25/20 15:00 Peritoneal Gram Stain - Final 05/25/20 15:00 Peritoneal Body Fluid Culture - Final NO AEROBIC OR ANAEROBIC ORGANISMS RECOVERED Impressions: Renal Ultrasound 05/16/20 00:00 IMPRESSION: 1. Bilateral polycystic kidney disease. 2. No hydronephrosis or urinary stones are seen. Chest X-Ray 05/19/20 00:00 IMPRESSION: NO ACUTE RADIOGRAPHIC FINDING IN THE CHEST. Abdomen/Pelvis CT 05/21/20 00:00 IMPRESSION: Please see combined report for performance of procedure and radiologic supervision and interpretation. Chest CT 05/21/20 00:00 IMPRESSION: 1. Bilateral pleural effusions and basilar airspace disease either atelectasis or pneumonia right greater than left. 2. Polycystic kidneys and liver. 3. Moderate volume ascites. Paracentesis Ultrasound 05/25/20 00:00 IMPRESSION: Successful ultrasound-guided paracentesis Guidance Fluoroscopy 05/28/20 00:00 IMPRESSION: IMAGE(S) OBTAINED DURING PROCEDURE. Assessment and Plan - Diagnosis (1) ESBL (extended spectrum beta-lactamase) producing bacteria infection Is this a current diagnosis for this admission?: Yes Plan: ESBL bacteremia and E. coli UTI. Patient will be treated with ertapenem for 2 weeks as per ID recommendation starting from first negative blood culture which is on 05/24. As such, end of treatment will be 06/06 (2) MRSA bacteremia Is this a current diagnosis for this admission?: Yes Plan: Recovered from 1 blood culture set only. However given that it is MRSA, ID has recommended treating with vancomycin with assumption that is a true bacteremia. Dr Pearson informed that they are unable to perform ERICH as patient has tested positive for COVID-19. Given the very small mobile mass noted on TTE which is questionable for vegetation, patient has to be empirically treated for endocarditis with plan for 6 weeks of IV vancomycin EOT 07/04. I have discussed with social and political studies professor who informs me that patient can be set up for ERICH in about 2 weeks if patient has tested negative for COVID-19 at that point in order to avoid empiric 6 weeks of IV antibiotics if true vegetation is absent. Vancomycin administration with dialysis. (3) Acute kidney injury superimposed on CKD Is this a current diagnosis for this admission?: Yes (4) Hyperkalemia, diminished renal excretion Is this a current diagnosis for this admission?: Yes Plan: Hyperkalemia still persistent despite dialysis. Nephrology following. Will increase Veltassa to 16g daily. Monitor BMP. Hold heparin. Give IV Lasix. (5) Ascites Qualifiers: Ascites type: other type Qualified Code(s): R18.8 - Other ascites Is this a current diagnosis for this admission?: Yes (6) Polycystic liver disease Is this a current diagnosis for this admission?: Yes (7) Leukocytosis (leucocytosis) Qualifiers: Leukocytosis type: unspecified Qualified Code(s): D72.829 - Elevated white blood cell count, unspecified Is this a current diagnosis for this admission?: Yes (8) COVID-19 virus infection Is this a current diagnosis for this admission?: Yes (9) Severe anemia Is this a current diagnosis for this admission?: Yes (10) Polycystic kidney Is this a current diagnosis for this admission?: Yes - Time Time Spent with patient: Less than 15 minutes Anticipated Discharge Disposition: Home, Self Care Anticipated Discharge Timeframe: undetermined
[2020-05-30 05:39] LABS: ANION GAP 9 (5-19); BLOOD UREA NITROGEN 50 mg/dL (7-20); CALCIUM 8.6 mg/dL (8.4-10.2); CARBON DIOXIDE 24 mmol/L (22-30); CHLORIDE 101 mmol/L (98-107); GLUCOSE 75 mg/dL (75-110); POTASSIUM 5.8 mmol/L (3.6-5.0)
[2020-05-30] MEDS: PANTOPRAZOLE SODIUM 40 MG TABLET.DR PO SCH (06:02)
[2020-05-30] MEDS ORDERED: FUROSEMIDE INJ/PF 40 MG/4 ML SDV IV ONE (07:16)
[2020-05-30] MEDS ORDERED: ACETAMINOPHEN 325 MG TABLET PO PRN (07:20)
[2020-05-30] MEDS: CALCIUM ACETATE 667 MG CAPSULE PO SCH ×3 (08:16→17:36)
[2020-05-30] MEDS: TRAMADOL HCL 50 MG TABLET PO PRN ×2 (09:19→17:36)
[2020-05-30] MEDS: ZINC SULFATE 220 MG CAPSULE PO SCH (09:20)
[2020-05-30] MEDS: ASCORBIC ACID 500 MG TABLET PO SCH ×2 (09:20→17:36)
[2020-05-30] MEDS: CHOLECALCIFEROL (D3) 1,000 UNIT (25 MCG) TABLET PO SCH ×2 (09:20→17:37)
--- NOTE | 2020-05-30 10:00 | PDOC PROGRESS REPORT ---
Subjective Progress Note for:: 05/30/20 Subjective:: Patient feels well today. She has no complaints. She has been having regular bowel movements yesterday and the day before. Her potassium still remains high despite being on Veltassa and Lasix dose yesterday. Right now, the main barrier to discharge remains patient's need for continued IV antibiotics and inability to set up outpatient infusions given she has no insurance. Reason For Visit: SURESH,SEVERE ANEMIA Physical Exam Vital Signs: Temp Pulse Resp BP Pulse Ox 98.9 F 82 16 123/93 H 95 05/30/20 07:24 05/30/20 07:24 05/30/20 07:24 05/30/20 07:24 05/30/20 07:24 Intake & Output 05/29/20 05/30/20 05/31/20 06:59 06:59 06:59 Intake Total 1350 1250 Output Total 3460 1850 Balance -2110 -600 Weight 58.5 kg 55.1 kg General appearance: PRESENT: no acute distress, cooperative Eye exam: PRESENT: EOMI Neck exam: ABSENT: JVD Respiratory exam: PRESENT: symmetrical, unlabored. ABSENT: accessory muscle use, retraction, tachypnea Cardiovascular exam: PRESENT: RRR. ABSENT: tachycardia GI/Abdominal exam: PRESENT: distended Neurological exam: PRESENT: alert, awake, oriented to person, oriented to place, oriented to time Psychiatric exam: ABSENT: agitated, anxious Focused psych exam: ABSENT: pressured speech Skin exam: ABSENT: jaundice, pallor Results Laboratory Results: 05/28/20 04:21 05/30/20 04:22 05/30/20 04:22 Sodium 134.3 L Potassium 5.8 H Chloride 101 Carbon Dioxide 24 Anion Gap 9 BUN 50 H Creatinine 3.55 H Est GFR ( Amer) 18 L Glucose 75 Calcium 8.6 05/24/20 10:20 Blood Blood Culture - Final NO GROWTH IN 5 DAYS 05/24/20 10:32 Blood Blood Culture - Final NO GROWTH IN 5 DAYS 05/25/20 15:00 Peritoneal Gram Stain - Final 05/25/20 15:00 Peritoneal Body Fluid Culture - Final NO AEROBIC OR ANAEROBIC ORGANISMS RECOVERED Impressions: Renal Ultrasound 05/16/20 00:00 IMPRESSION: 1. Bilateral polycystic kidney disease. 2. No hydronephrosis or urinary stones are seen. Chest X-Ray 05/19/20 00:00 IMPRESSION: NO ACUTE RADIOGRAPHIC FINDING IN THE CHEST. Abdomen/Pelvis CT 05/21/20 00:00 IMPRESSION: Please see combined report for performance of procedure and radi ologic supervision and interpretation. Chest CT 05/21/20 00:00 IMPRESSION: 1. Bilateral pleural effusions and basilar airspace disease either atelectasis or pneumonia right greater than left. 2. Polycystic kidneys and liver. 3. Moderate volume ascites. Paracentesis Ultrasound 05/25/20 00:00 IMPRESSION: Successful ultrasound-guided paracentesis Guidance Fluoroscopy 05/28/20 00:00 IMPRESSION: IMAGE(S) OBTAINED DURING PROCEDURE. Assessment and Plan - Diagnosis (1) ESBL (extended spectrum beta-lactamase) producing bacteria infection Is this a current diagnosis for this admission?: Yes Plan: ESBL bacteremia and E. coli UTI. Patient will be treated with ertapenem 500mg after HD for 2 weeks as per ID recommendation starting from first negative blood culture which is on 05/24. As such, end of treatment will be 06/06 (2) MRSA bacteremia Is this a current diagnosis for this admission?: Yes Plan: Recovered from 1 blood culture set only. However given that it is MRSA, ID has recommended treating with vancomycin with assumption that is a true bacteremia. Dr Pearson informed that they are unable to perform ERICH as patient has tested positive for COVID-19. Given the very small mobile mass noted on TTE which is questionable for vegetation, patient has to be empirically treated for endocarditis with plan for 6 weeks of IV vancomycin EOT 07/04. I have discussed with golf club maker who informs me that patient can be set up for ERICH in about 2 weeks if patient has tested negative for COVID-19 at that point in order to avoid empiric 6 weeks of IV antibiotics if true vegetation is absent. Vancomycin administration with dialysis. (3) Acute kidney injury superimposed on CKD Is this a current diagnosis for this admission?: Yes Plan: Patient's baseline renal function is unknown but it is suspected that patient has progression of CKD from what seems to be adult polycystic kidney disease and possibly could have progressed to CKD stage V/ESRD at this point. Nephrology is following. Permacath placement today for [facility] dialysis. Continue Bicitra and PhosLo (4) Hyperkalemia, diminished renal excretion Is this a current diagnosis for this admission?: Yes Plan: Hyperkalemia remains persistent despite several treatment with Veltassa, dialysis and discontinuation of subcu heparin. Nephrology following. Continue Veltassa to 16g daily. Having adequate bowel movements. Give 60 mg IV Lasix. Repeat BMP later today and if potassium is still elevated will check EKG and give some insulin. (5) Ascites Qualifiers: Ascites type: other type Qualified Code(s): R18.8 - Other ascites Is this a current diagnosis for this admission?: Yes (6) Polycystic liver disease Is this a current diagnosis for this admission?: Yes (7) Leukocytosis (leucocytosis) Qualifiers: Leukocytosis type: unspecified Qualified Code(s): D72.829 - Elevated white blood cell count, unspecified Is this a current diagnosis for this admission?: Yes (8) COVID-19 virus infection Is this a current diagnosis for this admission?: Yes Plan: It seems to be the patient has had COVID 19 Reinfection as she informs me that she tested positive in December at [place], [place], subsequently tested negative before moving to [place] and now tested positive again. Receiving vitamin and zinc supplements. Currently no respiratory failure and quite frankly not much in terms of respiratory symptoms. We will continue to monitor closely. We will need to be retested in a few days to see if resolved to allow us to perform ERICH. (9) Severe anemia Is this a current diagnosis for this admission?: Yes Plan: Evaluated by oncologist who suggested that patient anemia is likely secondary to CKD. Recommends EPO which is being administered with HD. Did receive blood transfusions during this hospitalization. Patient will continue to receive EPO during HD (10) Polycystic kidney Is this a current diagnosis for this admission?: Yes - Plan Summary Summary: Major barrier to patient's discharge is the fact that she needs prolonged IV antibiotics. I have discussed with discharge planning about setting patient up with outpatient IV antibiotics after dialysis sessions and have been informed that there are no options for patient given the fact that she has no insurance and as such patient will have to be in the hospital for her antibiotics. - Time Time Spent with patient: Less than 15 minutes Anticipated Discharge Disposition: Home, Self Care Anticipated Discharge Timeframe: undetermined
[2020-05-30] MEDS: PATIROMER 8.4 GM SUSP PACKET PO SCH (11:51)
[2020-05-30 16:37] LABS: ANION GAP 8 (5-19); BLOOD UREA NITROGEN 50 mg/dL (7-20); CALCIUM 8.5 mg/dL (8.4-10.2); CARBON DIOXIDE 26 mmol/L (22-30); CHLORIDE 102 mmol/L (98-107); GLUCOSE 92 mg/dL (75-110); POTASSIUM 4.9 mmol/L (3.6-5.0)
[2020-05-31] MEDS: TRAMADOL HCL 50 MG TABLET PO PRN (03:40)
[2020-05-31] MEDS ORDERED: HEPARIN SOD (PORCINE) 1,000 UNIT/ML 10 ML VIAL IV PRN (05:00)
[2020-05-31] MEDS ORDERED: EPOETIN ALFA-EPBX 20,000 UNIT in SYRINGE, DISPOSABLE, 1 EACH IV PRN (05:00)
[2020-05-31] MEDS: PANTOPRAZOLE SODIUM 40 MG TABLET.DR PO SCH (05:07)
[2020-05-31 06:55] LABS: HEMATOCRIT 26.5 % (36.0-47.0); HEMOGLOBIN 8.5 g/dL (12.0-15.5); MEAN CORPUSCULAR HEMOGLOBIN 27.3 pg (27.0-33.4); MEAN CORPUSCULAR HGB CONC 31.9 g/dL (32.0-36.0); MEAN CORPUSCULAR VOLUME 86 fl (80-97); PLATELET COUNT 438 10^3/uL (150-450); RED CELL DISTRIBUTION WIDTH 17.4 % (11.5-14.0); WHITE BLOOD COUNT 14.1 10^3/uL (4.0-10.5)
[2020-05-31 07:18] LABS: ANION GAP 9 (5-19); BLOOD UREA NITROGEN 55 mg/dL (7-20); CALCIUM 8.6 mg/dL (8.4-10.2); CARBON DIOXIDE 23 mmol/L (22-30); CHLORIDE 101 mmol/L (98-107); GLUCOSE 74 mg/dL (75-110); POTASSIUM 5.6 mmol/L (3.6-5.0)
[2020-05-31] MEDS: ZINC SULFATE 220 MG CAPSULE PO SCH (10:32)
[2020-05-31] MEDS: ASCORBIC ACID 500 MG TABLET PO SCH (10:32)
[2020-05-31] MEDS: CHOLECALCIFEROL (D3) 1,000 UNIT (25 MCG) TABLET PO SCH (10:32)
[2020-05-31] MEDS: CALCIUM ACETATE 667 MG CAPSULE PO SCH ×3 (10:32→17:12)
--- NOTE | 2020-05-31 11:12 | PDOC PROGRESS REPORT ---
Subjective Progress Note for:: 05/31/20 Reason For Visit: Patient seen today on dialysis. Undergoing dialysis without any issues other than the fact that we are unable to remove any fluid off as her blood pressure drops when going above a liter. Denies any specific complaints of chest pain shortness of breath. Labs and medications were reviewed. Dialysis orders were reviewed with the treating dialysis nurse. Physical Exam Vital Signs: Temp Pulse Resp BP Pulse Ox 97.6 F 76 12 147/90 H 98 05/31/20 03:36 05/31/20 07:00 05/31/20 03:36 05/31/20 03:36 05/31/20 03:36 Intake & Output 05/30/20 05/31/20 06/01/20 06:59 06:59 06:59 Intake Total 0592 266 6857 Output Total 1850 1950 1500 Balance -600 -1110 -500 Weight 55.1 kg 55.1 kg General appearance: PRESENT: no acute distress Extremities exam: PRESENT: pedal edema Neurological exam: PRESENT: alert, oriented to person Results Laboratory Results: 05/31/20 05:43 05/31/20 05:43 05/30/20 05/31/20 05/31/20 16:14 05:43 05:43 WBC 14.1 H RBC 3.10 L Hgb 8.5 L Hct 26.5 L MCV 86 MCH 27.3 MCHC 31.9 L RDW 17.4 H Plt Count 438 Sodium 136.1 L 132.9 L Potassium 4.9 5.6 H Chloride 102 101 Carbon Dioxide 26 23 Anion Gap 8 9 BUN 50 H 55 H Creatinine 4.02 H 3.86 H Est GFR ( Amer) 15 L 16 L Glucose 92 74 L Calcium 8.5 8.6 05/25/20 15:00 Peritoneal Fungal Smear - Final 05/25/20 15:00 Peritoneal Fungal Smear - Final 05/25/20 15:00 Peritoneal AFB Smear Concentration - Final 05/25/20 15:00 Peritoneal Acid Fast Bacilli Smear - Final Impressions: Renal Ultrasound 05/16/20 00:00 IMPRESSION: 1. Bilateral polycystic kidney disease. 2. No hydronephrosis or urinary stones are seen. Chest X-Ray 05/19/20 00:00 IMPRESSION: NO ACUTE RADIOGRAPHIC FINDING IN THE CHEST. Abdomen/Pelvis CT 05/21/20 00:00 IMPRESSION: Please see combined report for performance of procedure and radiologic supervision and interpretation. Chest CT 05/21/20 00:00 IMPRESSION: 1. Bilateral pleural effusions and basilar airspace disease either atelectasis or pneumonia right greater than left. 2. Polycystic kidneys and liver. 3. Moderate volume ascites. Paracentesis Ultrasound 05/25/20 00:00 IMPRESSION: Successful ultrasound-guided paracentesis Guidance Fluoroscopy 05/28/20 00:00 IMPRESSION: IMAGE(S) OBTAINED DURING PROCEDURE. Assessment & Plan - Diagnosis (1) Acute kidney injury superimposed on CKD Is this a current diagnosis for this admission?: Yes Plan: Acute on chronic kidney disease in the background of ADPKD/polycystic liver disease. Presently admitted with COVID pneumonia which seems to have pushed her over to possibly ESRD status. Patient has had an IJ PermCath placed through which dialysis is being entertained. Plan to remove approximately a liter of fluid. Even though initially vital signs are stable her blood pressure drops when you try to extract more than a liter of fluid and therefore fluid u ltrafiltration has to be limited. Discussed with Dr. Gaston/hospitalist about infusion of albumin over the next couple of days to see if there can be a shift of fluid from third space and then if she needs to be on dialysis on Sunday it might be easier to remove that. However it is heartening to see that her renal numbers are stabilizing and she is making good urine output which gives me hope that she might make a renal recovery but unfortunately we do not have any old renal labs other than from 2015 when she had a normal creatinine. Given her polycystic kidney disease she could very well have progressed/advanced CKD. Dialysis orders reviewed with the treating dialysis nurse. (2) COVID-19 virus infection Is this a current diagnosis for this admission?: Yes Plan: Being managed by hospitalist. (3) ESBL (extended spectrum beta-lactamase) producing bacteria infection Is this a current diagnosis for this admission?: Yes Plan: ESBL E. coli UTI with bacteremia as well on appropriate antibiotics. (4) Hyperkalemia, diminished renal excretion Is this a current diagnosis for this admission?: Yes Plan: Likely heparin-induced. Continue on Veltassa and monitor.Would also add Kayexal ate. (5) MRSA bacteremia Is this a current diagnosis for this admission?: Yes Plan: She has got a suspicious valve vegetation and therefore she needs 6-8 weeks of antibiotics. If she needs long-term antibiotics and she is not on dialysis she would need a tunneled IJ catheter or PICC line based on her renal recovery. If she is on dialysis then we can administer that while on dialysis and that should be no problem.On IV vancomycin postdialysis. (6) Polycystic liver disease Is this a current diagnosis for this admission?: Yes Plan: Status quo. (7) Urinary tract infection Qualifiers: Qualified Code(s): N39.0 - Urinary tract infection, site not specified; R31.9 - Hematuria, unspecified Is this a current diagnosis for this admission?: Yes Plan: With ESBL E. coli UTI. (8) Severe anemia Is this a current diagnosis for this admission?: Yes Plan: Currently on erythropoietin.
--- NOTE | 2020-05-31 11:34 | PDOC PROGRESS REPORT ---
Subjective Progress Note for:: 05/31/20 Subjective:: Patient feels well. States abd pain is tolerable. Breathing without any difficulties. Reason For Visit: SURESH,SEVERE ANEMIA Physical Exam Vital Signs: Temp Pulse Resp BP Pulse Ox 97.6 F 76 12 147/90 H 98 05/31/20 03:36 05/31/20 07:00 05/31/20 03:36 05/31/20 03:36 05/31/20 03:36 Intake & Output 05/30/20 05/31/20 06/01/20 06:59 06:59 06:59 Intake Total 4086 443 1580 Output Total 1850 1950 1500 Balance -600 -1110 -500 Weight 55.1 kg 55.1 kg General appearance: PRESENT: no acute distress, cooperative Head exam: PRESENT: normocephalic Neck exam: ABSENT: JVD Respiratory exam: PRESENT: unlabored. ABSENT: accessory muscle use, retraction, tachypnea GI/Abdominal exam: PRESENT: distended Neurological exam: PRESENT: alert, awake, oriented to person, oriented to place, oriented to time, oriented to situation Psychiatric exam: PRESENT: appropriate affect, normal mood. ABSENT: agitated, anxious Focused psych exam: ABSENT: pressured speech Skin exam: ABSENT: jaundice Results Laboratory Results: 05/31/20 05:43 05/31/20 05:43 05/30/20 05/31/20 05/31/20 16:14 05:43 05:43 WBC 14.1 H RBC 3.10 L Hgb 8.5 L Hct 26.5 L MCV 86 MCH 27.3 MCHC 31.9 L RDW 17.4 H Plt Count 438 Sodium 136.1 L 132.9 L Potassium 4.9 5.6 H Chloride 102 101 Carbon Dioxide 26 23 Anion Gap 8 9 BUN 50 H 55 H Creatinine 4.02 H 3.86 H Est GFR ( Amer) 15 L 16 L Glucose 92 74 L Calcium 8.5 8.6 05/25/20 15:00 Peritoneal Fungal Smear - Final 05/25/20 15:00 Peritoneal Fungal Smear - Final 05/25/20 15:00 Peritoneal AFB Smear Concentration - Final 05/25/20 15:00 Peritoneal Acid Fast Bacilli Smear - Final Impressions: Renal Ultrasound 05/16/20 00:00 IMPRESSION: 1. Bilateral polycystic kidney disease. 2. No hydronephrosis or urinary stones are seen. Chest X-Ray 05/19/20 00:00 IMPRESSION: NO ACUTE RADIOGRAPHIC FINDING IN THE CHEST. Abdomen/Pelvis CT 05/21/20 00:00 IMPRESSION: Please see combined report for performance of procedure and radiologic supervision and interpretation. Chest CT 05/21/20 00:00 IMPRESSION: 1. Bilateral pleural effusions and basilar airspace disease either atelectasis or pneumonia right greater than left. 2. Polycystic kidneys and liver. 3. Moderate volume ascites. Paracentesis Ultrasound 05/25/20 00:00 IMPRESSION: Successful ultrasound-guided paracentesis Guidance Fluoroscopy 05/28/20 00:00 IMPRESSION: IMAGE(S) OBTAINED DURING PROCEDURE. Assessment and Plan - Diagnosis (1) ESBL (extended spectrum beta-lactamase) producing bacteria infection Is this a current diagnosis for this admission?: Yes Plan: ESBL bacteremia and E. coli UTI. Patient will be treated with ertapenem 500mg after HD for 2 weeks as per ID recommendation starting from first negative blood culture which is on 05/24. As such, end of treatment will be 06/06. Leukocytosis improving. (2) MRSA bacteremia Is this a current diagnosis for this admission?: Yes Plan: Recovered from 1 blood culture set only. However given that it is MRSA, ID has recommended treating with vancomycin with assumption that is a true bacteremia. Dr Pearson informed me that they are unable to perform ERICH until patient tests negative for COVID-19. Given the very small mobile mass noted on TTE which is questionable for vegetation, patient has to be empirically treated for endocarditis with plan for 6 weeks of IV vancomycin EOT 07/04. Leukocytosis continues to improve. We will retest for COVID today. If negative, plan for ERICH. If ERICH is negative, can discontinue vancomycin as patient has already received > 2 weeks of IV vancomycin which should be more than adequate for simple MRSA bacteremia in absence of endocarditis. Vancomycin administration with dialysis. (3) Acute kidney injury superimposed on CKD Is this a current diagnosis for this admission?: Yes Plan: Patient presented to the hospital with renal failure primarily and was initiated on dialysis. Patient's baseline renal function is unknown but it is suspected that patient has progression of CKD from what seems to be Adult Polycystic Kidney Disease. Getting dialyzed via permacath. Dr. Proctor informs that he will determine in the next 3 to 4 days if patient will still need continued HD but states that he is optimistic that it can be discontinued. Continue Bicitra and PhosLo. Still hyperkalemic despite medical therapy. Discharge planning working on setting up [facility] [Patient has no insurance. Medicaid application in process but may take 45 to 90 days] in case patient is determined to still require long-term HD in the upcoming days. (4) Hyperkalemia, diminished renal excretion Is this a current diagnosis for this admission?: Yes Plan: Hyperkalemia remains persistent despite high dose of Veltassa, several dialysis sessions, 2 trials of IV lasix, and temporary discontinuation of subcu heparin for 2 days. Continue Veltassa to 16g daily. Having adequate bowel movements. Will refrain from continuing IV Lasix to avoid intravascular volume depletion. I have discussed with Dr. Proctor today who recommends continuing Veltassa and adding Kayexalate every other day on nondialysis days. (5) Ascites Qualifiers: Ascites type: other type Qualified Code(s): R18.8 - Other ascites Is this a current diagnosis for this admission?: Yes Plan: 650 cc of ascitic fluid removed 05/25/2020. Cell count shows no evidence of SBP even though patient has been on antibiotics for several days already. SAAG 1.2, total protein 2.9-suggestive of chronic liver disease as etiology. (6) Polycystic liver disease Is this a current diagnosis for this admission?: Yes Plan: This condition has led to chronic liver disease which seems to be advanced at this point. Following treatment of patient's current bacteremia/possible endocarditis, patient will need to see a roof truss detailer outpatient for evaluation of this and assessment for qualification for transplant. (7) COVID-19 virus infection Is this a current diagnosis for this admission?: Yes Plan: It seems to be COVID 19 Reinfection as she informs me that she tested positive in December at [place], [place], subsequently tested negative before moving to [place] and now tested positive again. Discontinue vitamin C/D/zinc at this point. Currently no respiratory failure and quite frankly no respiratory symptoms. (8) Severe anemia Is this a current diagnosis for this admission?: Yes Plan: Oncology recommends continuation of EPO during HD for anemia of chronic kidney d isease. - Plan Summary Summary: Major barrier to patient's discharge is the fact that she needs prolonged IV antibiotics, currently on dialysis and has no insurance. Medicaid application is already in the works but will take a while before you get an answer. Social work working on other potential possibilities. - Time Time Spent with patient: Less than 15 minutes Anticipated Discharge Disposition: Home, Self Care Anticipated Discharge Timeframe: Undetermined
[2020-05-31] MEDS: PATIROMER 8.4 GM SUSP PACKET PO SCH (12:22)
[2020-05-31] MEDS: ERTAPENEM SODIUM 0.5 GM in NORMAL SALINE 50 ML IV SCH (17:12)
[2020-05-31] MEDS ORDERED: ERTAPENEM SODIUM INJ 1 GM VIAL IV SCH (18:00)
[2020-05-31] MEDS: VANCOMYCIN HCL 750 MG in DEXTROSE 5%-WATER 250 ML IV SCH (18:10)
[2020-05-31] MEDS: HEPARIN SOD (PORCINE) 5,000 UNIT/ML 1 ML VIAL SUBCUT SCH (21:43)
[2020-06-01] MEDS: PANTOPRAZOLE SODIUM 40 MG TABLET.DR PO SCH (05:35)
[2020-06-01 06:33] LABS: ANION GAP 10 (5-19); BLOOD UREA NITROGEN 40 mg/dL (7-20); CALCIUM 8.7 mg/dL (8.4-10.2); CARBON DIOXIDE 24 mmol/L (22-30); CHLORIDE 102 mmol/L (98-107); GLUCOSE 75 mg/dL (75-110); POTASSIUM 5.4 mmol/L (3.6-5.0)
[2020-06-01] MEDS: CALCIUM ACETATE 667 MG CAPSULE PO SCH ×3 (08:24→16:36)
[2020-06-01] MEDS: HEPARIN SOD (PORCINE) 5,000 UNIT/ML 1 ML VIAL SUBCUT SCH ×2 (10:05→22:18)
[2020-06-01] MEDS: MULTIVITAMIN TABLET PO SCH (10:05)
[2020-06-01] MEDS: TRAMADOL HCL 50 MG TABLET PO PRN ×2 (12:15→20:31)
[2020-06-01] MEDS: PATIROMER 8.4 GM SUSP PACKET PO SCH (12:16)
--- NOTE | 2020-06-01 15:18 | PDOC PROGRESS REPORT ---
Subjective Subjective:: 34 year old female with history of polycystic kidney disease, recent history of dialysis in [place], treated for severe anemia [place] moved to [place] again 3 weeks ago and came to the emergency room with complaints of severe bilateral flank pain. Work-up done in the ER shows hemoglobin of 4.6, CT scan shows bilateral enlarged kidneys with polycystic lesions and liver lesions, bicarb in the chemistry is 9 with a creatinine of 5.0. 3 units of blood transfusion initiated in the ER started on IV fluids. Briefly discussed the case with Dr. Bolanos she is going to see the patient tomorrow. Patient does not have a dialysis catheter at this time. As per the patient her mom at the age of 49 with renal failure. 05/17/2020-patient is in the dialysis unit at the time of examination. Received a temporary dialysis catheter. Hemoglobin came up to 8.6 with treatments of blood transfusion. Creatinine improved to 4.1. Consultation with nephrology, oncology was done. WBC count is still elevated receiving IV antibiotic therapy. 05/18/2020 Patient making over 500 cc of urine but still notably less than 1 L. Creatinine remains elevated. Nephrology following and planning to dialyze patient tomorrow. Patient may need to be evaluated for kidney transplant in the near future. I discussed this with her and she will discuss it with nephrology. WBC lower, hemoglobin down to 5.6 and I have ordered another unit of blood to be transfused. Calcium low we will need to replete this. Hepatitis panel is pe nding. Oncology following and has ordered EPO given iron/folate/B12 levels are normal. Patient has some abdominal distention with nausea and vomiting otherwise she has no new complaints today. Antiemetics have been ordered. Ordered Benadryl for itching likely due to bilirubin. 05/19/2020 Patient having increasing oxygen requirements and intermittent shortness of breath. Her abdomen does seem to be smaller today since getting dialysis. She was given 1 unit PRBC this morning during dialysis as well. Her labs also showed hypocalcemia and this was repleted during dialysis. Upon more detailed questioning with patient today, she revealed that she was positive for COVID 2 months ago in [place] prior to moving here. She was hospitalized and eventually discharged, later getting a negative test result from an ER in [place] prior to moving. I checked her d-dimer today and it is markedly elevated. It is unclear if her inflammatory markers are simply still elevated due to prior cytokine storm from COVID or if she could have been infected a second time which is possible given she is immune compromised may not be able to generate effective immunity to COVID. Rapid COVID testing is pending. Patient may need to be transferred to the COVID unit if this is positive. She does seem to already be improving since having fluid removed during dialysis though it is worth ruling out COVID infection given her travel history. Otherwise, her only complaints are shortness of breath and generalized fatigue and weakness. 05/20/2020 Patient now resides in the coronavirus unit. I spoke at great length with the clam picker today and was informed that the patient very well may have passed this infection along to 3 or more dialysis nurses who are now symptomatic and being quarantined. Have consulted infectious disease given the patient is now positive and blood cultures for MRSA and ESBL E. coli. I have started IV vancomycin renally dosed. Per ID, we will switch Zosyn to ertapenem. I discussed all of this with the patient and she is in agreement with the plan. She states she is not short of breath today and her only complaint other than generalized fatigue and weakness is some mild abdominal distention. I have started the patient on treatment dose Lovenox, appropriate vitamins, Decadron. Will check d-dimer and ferritin every 2 days and obtain CRP. We will consider ordering from does appear and or convalescent plasma if the patient develops moderate to severe respiratory failure. Currently she is breathing comfortably on room air with saturation of 94%. Due to patient being COVID-19 Suspected/Positive, encounter was conducted using telephone and/or videochat and does not include a detailed in-person physical exam in order to preserve PPE and limit staff exposure to a dangerous pathogen. 05/21/2020 Patient respiratory status seems to be stabilized for now. She is breathing fine on room air. Unfortunately, her d-dimer and inflammatory markers are still quite high. I have her on prophylactic dose heparin but we may need to consider putting her on treatment dose heparin drip. She is not a good candidate for Lovenox due to her renal failure. Infectious disease is consulting as we do not have a clear source of the patient's MRSA and multiple E. coli organisms found in her blood and urine. CT chest/abdomen/pelvis today was unrevealing for source as well. She does have moderate volume ascites and it may be beneficial to get a paracentesis and culture this fluid. Although CT did not show this, we may need to consider possibility of colonic diverticula perforation or duodenal diverticular disease as a source for her E. coli infections. We may also need to consider tagged WBC scan to help find a clear source of infection. Hemoglobin is significantly higher that this is probably a lab error. Patient has no new complaints other than generalized fatigue and weakness. 05/22/2020 Patient seems to be unchanged today from yesterday. Spoke with the surgeon that placed her dialysis catheter and he was unaware that she was COVID positive. Does not seem that he was informed of this. He was very grateful that I informed him. 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 EIRCH ordered but this will likely be delayed for some time until the patient is negative for COVID, likely in a few weeks but the o rder will stay in place at least as a reminder for now. Patient is now breathing on room air. Other than generalized fatigue and weakness she has no new complaints. Of note, nursing had a discussion with the patient's sister who states the patient has a recent history of drug abuse including heroin however the patient is adamant that she has never injected drugs only snorted heroin. 05/23/2020 Patient seems to be doing all right today but she is asking for narcotics as often as she can get them and sometimes more often. She does have a history of narcotics abuse will need to be judicious with her use of narcotics with her. We still do not have a clear source for the patient's bloodstream infection. Infectious diseases following I will need them to comment further on what I think the source is. I have ordered a paracentesis with appropriate fluid studies as I believe patient very well might have SBP. She is being treated with appropriate antibiotics and this is probably why she is clinically stable thus far. COVID-19 infection could progress in the near future as we have seen this infection rapidly worsen respiratory status particularly in patients with significant complicated comorbidities such as this patient. Patient's d-dimer is lower today and her ferritin is higher. CRP is trending down. Urine output seems to be a bit more today. CT chest abdomen pelvis primarily just showed moderate volume ascites and bilateral pneumonia. Patient has no specific complaints other than mild exertional dyspnea and abdominal distention. 06/01/2020 Since my previous encounter, patient diagnosed with MRSA bacteremia, started on vancomycin and began with dialysis with planned end of treatment 07/04 per ID. ERICH ordered but cannot be done until patient is negative for COVID. Severe SURESH with ESRD showing some very mild gradual improvement in creatinine and urine output but patient still requiring dialysis with plans to continue outpatient. Paracentesis was completed with bacterial cultures negative, fungal culture and AFB pending. COVID testing still pending and ERICH is postponed until this is back assuming it is negative. Patient has no new complaints today. Reason For Visit: SURESH,SEVERE ANEMIA Physical Exam Vital Signs: Temp Pulse Resp BP Pulse Ox 97.6 F 84 14 113/87 H 93 06/01/20 12:21 06/01/20 12:21 06/01/20 12:21 06/01/20 12:21 06/01/20 12:21 Intake & Output 05/31/20 06/01/20 06/02/20 06:59 06:59 06:59 Intake Total 840 1920 480 Output Total 1950 3025 700 Balance -1110 -1105 -220 Weight 55.1 kg 52.9 kg General appearance: PRESENT: no acute distress, well-developed, well-nourished Head exam: PRESENT: atraumatic, normocephalic Eye exam: PRESENT: conjunctiva pink Mouth exam: PRESENT: moist Respiratory exam: PRESENT: clear to auscultation lan. ABSENT: rales, rhonchi, wheezes Cardiovascular exam: PRESENT: RRR. ABSENT: diastolic murmur, rubs, systolic murmur GI/Abdominal exam: PRESENT: distended - Mild, normal bowel sounds, soft. ABSENT : guarding, mass, organolmegaly, rebound, tenderness Neurological exam: PRESENT: alert, awake, oriented to person, oriented to place, oriented to time, oriented to situation Psychiatric exam: PRESENT: appropriate affect, normal mood Skin exam: PRESENT: dry, intact, warm Results Laboratory Results: 05/31/20 05:43 06/01/20 05:34 06/01/20 05:34 Sodium 135.6 L Potassium 5.4 H Chloride 102 Carbon Dioxide 24 Anion Gap 10 BUN 40 H Creatinine 3.19 H Est GFR ( Amer) 20 L Glucose 75 Calcium 8.7 Impressions: Renal Ultrasound 05/16/20 00:00 IMPRESSION: 1. Bilateral polycystic kidney disease. 2. No hydronephrosis or urinary stones are seen. Chest X-Ray 05/19/20 00:00 IMPRESSION: NO ACUTE RADIOGRAPHIC FINDING IN THE CHEST. Abdomen/Pelvis CT 05/21/20 00:00 IMPRESSION: Please see combined report for performance of procedure and radiologic supervision and interpretation. Chest CT 05/21/20 00:00 IMPRESSION: 1. Bilateral pleural effusions and basilar airspace disease either atelectasis or pneumonia right greater than left. 2. Polycystic kidneys and liver. 3. Moderate volume ascites. Paracentesis Ultrasound 05/25/20 00:00 IMPRESSION: Successful ultrasound-guided paracentesis Guidance Fluoroscopy 05/28/20 00:00 IMPRESSION: IMAGE(S) OBTAINED DURING PROCEDURE. Assessment and Plan - Diagnosis (1) ESBL (extended spectrum beta-lactamase) producing bacteria infection Is this a current diagnosis for this admission?: Yes Plan: -ESBL bacteremia and E. coli UTI. Patient will be treated with ertapenem 500mg after HD for 2 weeks as per ID recommendation starting from first negative blood culture which is on 05/24. End of treatment 06/06. Leukocytosis improving. (2) Sepsis Qualifiers: Sepsis type: methicillin resistant Staphylococcus aureus Sepsis acute organ dysfunction status: with acute organ dysfunction Severe sepsis acute organ dysfunction type: acute renal failure Acute renal failure type: unspecified Severe sepsis shock status: without septic shock Qualified Code(s): A41.02 - Sepsis due to Methicillin resistant Staphylococcus aureus; R65.20 - Severe sepsis without septic shock; N17.9 - Acute kidney failure, unspecified Is this a current diagnosis for this admission?: Yes Plan: Resolved. (3) SURESH (acute kidney injury) Is this a current diagnosis for this admission?: Yes (4) Lab test positive for detection of COVID-19 virus Is this a current diagnosis for this admission?: Yes Plan: Rapid COVID test positive on 05/19, moved to coronavirus isolation unit Ferritin high, CRP high, d-dimer extremely high Trend labs every 2 days Repeat COVID pending for ERICH (5) Polycystic kidney Is this a current diagnosis for this admission?: Yes (6) E coli bacteremia Is this a current diagnosis for this admission?: Yes (7) Ascites Qualifiers: Ascites type: other type Qualified Code(s): R18.8 - Other ascites Is this a current diagnosis for this admission?: Yes Plan: -650 cc of ascitic fluid removed 05/25/2020. Cell count shows no evidence of SBP even though patient has been on antibiotics for several days already. SAAG 1.2, total protein 2.9-suggestive of chronic liver disease as etiology. (8) Generalized weakness Is this a current diagnosis for this admission?: Yes (9) Leukocytosis (leucocytosis) Qualifiers: Leukocytosis type: unspecified Qualified Code(s): D72.829 - Elevated white blood cell count, unspecified Is this a current diagnosis for this admission?: Yes (10) Metabolic acidosis Is this a current diagnosis for this admission?: Yes (11) Polycystic liver disease Is this a current diagnosis for this admission?: Yes Plan: -chronic liver disease, advanced at this point. Following treatment of patient's current bacteremia/possible endocarditis, patient will need to see a h epatologist outpatient for evaluation of this and assessment for qualification for transplant. (12) Protein-energy malnutrition Is this a current diagnosis for this admission?: Yes (13) Severe anemia Is this a current diagnosis for this admission?: Yes (14) Urinary tract infection Qualifiers: Urinary tract infection type: site unspecified Hematuria presence: with hematuria Qualified Code(s): N39.0 - Urinary tract infection, site not specified; R31.9 - Hematuria, unspecified Is this a current diagnosis for this admission?: Yes (15) Polysubstance abuse Is this a current diagnosis for this admission?: Yes (16) Acute kidney injury superimposed on CKD Is this a current diagnosis for this admission?: Yes Plan: -Patient presented to the hospital with renal failure primarily and was initiated on dialysis. Patient's baseline renal function is unknown but it is suspected that patient has progression of CKD from what seems to be Adult Polycystic Kidney Disease. -dialyzed via permacath. -may need continued HD but states that he is optimistic that it can be discontinued. -Continue Bicitra and PhosLo. hyperkalemic despite medical therapy.- Discharge planning working on setting up [facility] [Patient has no insurance. Medicaid application in process but may take 45 to 90 days] in case patient is determined to still require long-term HD in the upcoming days. (17) COVID-19 virus infection Is this a current diagnosis for this admission?: Yes Plan: -Likely COVID 19 Reinfection as she informs me that she tested positive in December at [place], [place], subsequently tested negative before moving to [place] and now tested positive again. -Discontinued vitamin C/D/zinc at this point. Currently no respiratory failure and quite frankly no respiratory symptoms. (18) Hyperkalemia, diminished renal excretion Is this a current diagnosis for this admission?: Yes Plan: -Hyperkalemia refractory despite high dose of Veltassa, several dialysis sessions, 2 trials of IV lasix, and temporary discontinuation of SQ heparin for 2 days -Stop IV Lasix to avoid intravascular volume depletion. Per nephrology, Veltassa and add Kayexalate every other day on nondialysis days. (19) MRSA bacteremia Is this a current diagnosis for this admission?: Yes Plan: -Recovered from 1 blood culture set only. -ID recommended treating with vancomycin with assumption that is a true bacteremia. -unable to perform ERICH until patient tests negative for COVID-19. -very small mobile mass noted on TTE which is questionable for vegetation, patient has to be empirically treated for endocarditis with plan for 6 weeks of IV vancomycin EOT 07/04. -Repeat COVID pending. If negative, plan for ERICH. If ERICH is negative, can discontinue vancomycin as patient has already received > 2 weeks of IV vancomycin which should be more than adequate for simple MRSA bacteremia in absence of endocarditis. -Vancomycin administration with dialysis. - Plan Summary Summary: Major barrier to patient's discharge is the fact that she needs prolonged IV antibiotics, currently on dialysis and has no insurance. Medicaid application i s already in the works but will take a while before you get an answer. Social work working on other potential possibilities. - Time Time Spent with patient: 25-34 minutes Medications reviewed and adjusted accordingly: Yes Anticipated Discharge Disposition: Shelter Facility Anticipated Discharge Timeframe: within 72 hours - Inpatient Certification Based on my medical assessment, after consideration of the patient's comorbidities, presenting symptoms, or acuity I expect that the services needed warrant INPATIENT care.: Yes I certify that my determination is in accordance with my understanding of Medicare's requirements for reasonable and necessary INPATIENT services [42 CFR 412.3e].: Yes Medical Necessity: Significant Comorbidiites Make Outpatient Treatment Too Risky, Need Close Monitoring Due to Risk of Patient Decompensation, Need for IV Antibiotics, Risk of Complication if Not Cared For in Hospital, Risk of Diagnosis Which Will Require Inpatient Eval/Care/Monitoring
[2020-06-02] MEDS: PANTOPRAZOLE SODIUM 40 MG TABLET.DR PO SCH (05:28)
[2020-06-02 06:33] LABS: HEMATOCRIT 28.1 % (36.0-47.0); HEMOGLOBIN 8.7 g/dL (12.0-15.5); MEAN CORPUSCULAR HGB CONC 31.1 g/dL (32.0-36.0); MEAN CORPUSCULAR VOLUME 87 fl (80-97); PLATELET COUNT 464 10^3/uL (150-450); RED BLOOD COUNT 3.24 10^6/uL (3.72-5.28); RED CELL DISTRIBUTION WIDTH 18.2 % (11.5-14.0); WHITE BLOOD COUNT 13.8 10^3/uL (4.0-10.5)
[2020-06-02 07:02] LABS: ANION GAP 10 (5-19); BLOOD UREA NITROGEN 47 mg/dL (7-20); CALCIUM 8.7 mg/dL (8.4-10.2); CARBON DIOXIDE 24 mmol/L (22-30); CHLORIDE 102 mmol/L (98-107); GLUCOSE 92 mg/dL (75-110); POTASSIUM 5.4 mmol/L (3.6-5.0)
[2020-06-02 07:38] LABS: VANCOMYCIN,TROUGH 16.2 ug/mL (5.0-20.0)
[2020-06-02] MEDS ORDERED: HEPARIN SOD (PORCINE) 1,000 UNIT/ML 10 ML VIAL IV PRN (09:30)
[2020-06-02] MEDS: SODIUM POLYSTYRENE SULFONATE 15 GM/60 ML PO SCH (12:16)
[2020-06-02] MEDS: CALCIUM ACETATE 667 MG CAPSULE PO SCH ×3 (12:16→18:43)
[2020-06-02] MEDS: MULTIVITAMIN TABLET PO SCH (13:25)
[2020-06-02] MEDS: HEPARIN SOD (PORCINE) 5,000 UNIT/ML 1 ML VIAL SUBCUT SCH ×2 (13:25→21:33)
[2020-06-02] MEDS: PATIROMER 8.4 GM SUSP PACKET PO SCH (13:27)
--- NOTE | 2020-06-02 18:22 | PDOC PROGRESS REPORT ---
Subjective Progress Note for:: 06/02/20 Subjective:: 34 year old female with history of polycystic kidney disease, recent history of dialysis in [place], treated for severe anemia [place] moved to [place] again 3 weeks ago and came to the emergency room with complaints of severe bilateral flank pain. Work-up done in the ER shows hemoglobin of 4.6, CT scan shows bilateral enlarged kidneys with polycystic lesions and liver lesions, bicarb in the chemistry is 9 with a creatinine of 5.0. 3 units of blood trans fusion initiated in the ER started on IV fluids. Briefly discussed the case with Dr. Bolanos she is going to see the patient tomorrow. Patient does not have a dialysis catheter at this time. As per the patient her mom at the age of 49 with renal failure. 05/17/2020-patient is in the dialysis unit at the time of examination. Received a temporary dialysis catheter. Hemoglobin came up to 8.6 with treatments of blood transfusion. Creatinine improved to 4.1. Consultation with nephrology, onc ology was done. WBC count is still elevated receiving IV antibiotic therapy. 05/18/2020 Patient making over 500 cc of urine but still notably less than 1 L. Creatinine remains elevated. Nephrology following and planning to dialyze patient tomorrow. Patient may need to be evaluated for kidney transplant in the near future. I discussed this with her and she will discuss it with nephrology. WBC lower, hemoglobin down to 5.6 and I have ordered another unit of blood to be transfused. Calcium low we will need to replete this. Hepatitis panel is pending. Oncology following and has ordered EPO given iron/folate/B12 levels are normal. Patient has some abdominal distention with nausea and vomiting otherwise she has no new complaints today. Antiemetics have been ordered. Ordered Benadryl for itching likely due to bilirubin. 05/19/2020 Patient having increasing oxygen requirements and intermittent shortness of breath. Her abdomen does seem to be smaller today since getting dialysis. She was given 1 unit PRBC this morning during dialysis as well. Her labs also showed hypocalcemia and this was repleted during dialysis. Upon more detailed questioning with patient today, she revealed that she was positive for COVID 2 months ago in [place] prior to moving here. She was hospitalized and eventually discharged, later getting a negative test result from an ER in [place] prior to moving. I checked her d-dimer today and it is markedly elevated. It is unclear if her inflammatory markers are simply still elevated due to prior cytokine storm from COVID or if she could have been infected a second time which is possible given she is immune compromised may not be able to generate effective immunity to COVID. Rapid COVID testing is pending. Patient may need to be transferred to the COVID unit if this is positive. She does seem to already be improving since having fluid removed during dialysis though it is worth ruling out COVID infection given her travel history. Otherwise, her only complaints are shortness of breath and generalized fatigue and weakness. 05/20/2020 Patient now resides in the coronavirus unit. I spoke at great length with the fire captain today and was informed that the patient very well may have passed this infection along to 3 or more dialysis nurses who are now symptomatic and being quarantined. Have consulted infectious disease given the patient is now positive and blood cultures for MRSA and ESBL E. coli. I have started IV vancomycin renally dosed. Per ID, we will switch Zosyn to ertapenem. I discussed all of this with the patient and she is in agreement with the plan. She states she is not short of breath today and her only complaint other than generalized fatigue and weakness is some mild abdominal distention. I have started the patient on treatment dose Lovenox, appropriate vitamins, Decadron. Will check d-dimer and ferritin every 2 days and obtain CRP. We will consider ordering from does appear and or convalescent plasma if the patient develops moderate to severe respiratory failure. Currently she is breathing comfortably on room air with saturation of 94%. Due to patient being COVID-19 Suspected/Positive, encounter was conducted using telephone and/or videochat and does not include a detailed in-person physical exam in order to preserve PPE and limit staff exposure to a dangerous pathogen. 05/21/2020 Patient respiratory status seems to be stabilized for now. She is breathing fine on room air. Unfortunately, her d-dimer and inflammatory markers are still quite high. I have her on prophylactic dose heparin but we may need to consider putting her on treatment dose heparin drip. She is not a good candidate for Lovenox due to her renal failure. Infectious disease is consulting as we do not have a clear source of the patient's MRSA and multiple E. coli organisms found in her blood and urine. CT chest/abdomen/pelvis today was unrevealing for source as well. She does have moderate volume ascites and it may be beneficial to get a paracentesis and culture this fluid. Although CT did not show this, we may need to consider possibility of colonic diverticula perforation or duodenal diverticular disease as a source for her E. coli infections. We may also need to consider tagged WBC scan to help find a clear source of infection. Hemoglobin is significantly higher that this is probably a lab error. Patient has no new complaints other than generalized fatigue and weakness. 05/22/2020 Patient seems to be unchanged today from yesterday. Spoke with the surgeon that placed her dialysis catheter and he was unaware that she was COVID positive. Does not seem that he was informed of this. He was very grateful that I informed him. Echocardiogram showed a mobile mitral valve structure possibly i nfective endocarditis. ERICH ordered but this will likely be delayed for some time until the patient is negative for COVID, likely in a few weeks but the order will stay in place at least as a reminder for now. Patient is now breathing on room air. Other than generalized fatigue and weakness she has no new complaints. Of note, nursing had a discussion with the patient's sister who states the patient has a recent history of drug abuse including heroin however the patient is adamant that she has never injected drugs only snorted heroin. 05/23/2020 Patient seems to be doing all right today but she is asking for narcotics as often as she can get them and sometimes more often. She does have a history of narcotics abuse will need to be judicious with her use of narcotics with her. We still do not have a clear source for the patient's bloodstream infection. Infectious diseases following I will need them to comment further on what I think the source is. I have ordered a paracentesis with appropriate fluid studies as I believe patient very well might have SBP. She is being treated with appropriate antibiotics and this is probably why she is clinically stable thus far. COVID-19 infection could progress in the near future as we have seen this infection rapidly worsen respiratory status particularly in patients with significant complicated comorbidities such as this patient. Patient's d-dimer is lower today and her ferritin is higher. CRP is trending down. Urine output seems to be a bit more today. CT chest abdomen pelvis primarily just showed moderate volume ascites and bilateral pneumonia. Patient has no specific complaints other than mild exertional dyspnea and abdominal distention. 06/01/2020 Since my previous encounter, patient diagnosed with MRSA bacteremia, started on vancomycin and began with dialysis with planned end of treatment 07/04 per ID. ERICH ordered but cannot be done until patient is negative for COVID. Severe SURESH with ESRD showing some very mild gradual improvement in creatinine and urine output but patient still requiring dialysis with plans to continue outpatient. Paracentesis was completed with bacterial cultures negative, fungal culture and AFB pending. COVID testing still pending and ERICH is postponed until this is back assuming it is negative. Patient has no new complaints today. 06/02/2020 Creatinine is rising again the patient does have decent urine output. Nephrology is doing a 24-hour urine collection. WBC is lower and potassium is still elevated. Patient is still undergoing dialysis per nephrology recommendations. We are still planning on patient to have long-term outpatient dialysis and this is being arranged through charitable means as the patient does not have insurance. Patient has no new complaints today other than generalized fatigue and weakness. Reason For Visit: SURESH,SEVERE ANEMIA Physical Exam Vital Signs: Temp Pulse Resp BP Pulse Ox 98.9 F 82 16 107/78 95 06/02/20 12:00 06/02/20 14:00 06/02/20 12:00 06/02/20 12:00 06/02/20 08:40 Intake & Output 06/01/20 06/02/20 06/03/20 06:59 06:59 06:59 Intake Total 1920 1527 Output Total 3025 2100 0 Balance -1105 -573 0 Weight 52.9 kg 53 kg General appearance: PRESENT: no acute distress, well-developed, well-nourished Head exam: PRESENT: atraumatic, normocephalic Eye exam: PRESENT: conjunctiva pink Mouth exam: PRESENT: moist Respiratory exam: PRESENT: clear to auscultation lan. ABSENT: rales, rhonchi, wheezes Cardiovascular exam: PRESENT: RRR. ABSENT: diastolic murmur, rubs, systolic murmur GI/Abdominal exam: PRESENT: normal bowel sounds, soft. ABSENT: distended, guarding, mass, organolmegaly, rebound, tenderness Neurological exam: PRESENT: alert, awake, oriented to person, oriented to place, oriented to time, oriented to situation Psychiatric exam: PRESENT: appropriate affect, normal mood Skin exam: PRESENT: dry, intact, warm Results Laboratory Results: 06/02/20 05:34 06/02/20 05:34 06/02/20 06/02/20 05:34 05:34 WBC 13.8 H RBC 3.24 L Hgb 8.7 L Hct 28.1 L MCV 87 MCH 27.0 MCHC 31.1 L RDW 18.2 H Plt Count 464 H Sodium 136.0 L Potassium 5.4 H Chloride 102 Carbon Dioxide 24 Anion Gap 10 BUN 47 H Creatinine 3.90 H Est GFR ( Amer) 16 L Glucose 92 Calcium 8.7 Impressions: Renal Ultrasound 05/16/20 00:00 IMPRESSION: 1. Bilateral polycystic kidney disease. 2. No hydronephrosis or urinary stones are seen. Chest X-Ray 05/19/20 00:00 IMPRESSION: NO ACUTE RADIOGRAPHIC FINDING IN THE CHEST. Abdomen/Pelvis CT 05/21/20 00:00 IMPRESSION: Please see combined report for performance of procedure and radiologic supervision and interpretation. Chest CT 05/21/20 00:00 IMPRESSION: 1. Bilateral pleural effusions and basilar airspace disease either atelectasis or pneumonia right greater than left. 2. Polycystic kidneys and liver. 3. Moderate volume ascites. Paracentesis Ultrasound 05/25/20 00:00 IMPRESSION: Successful ultrasound-guided paracentesis Guidance Fluoroscopy 05/28/20 00:00 IMPRESSION: IMAGE(S) OBTAINED DURING PROCEDURE. Assessment and Plan - Diagnosis (1) SURESH (acute kidney injury) Is this a current diagnosis for this admission?: Yes Plan: 05/16/2020-patient is going to be admitted to [facility] as an inpatient. Patient baseline creatinine is 0.9 in 2014 today it is 5. Bicarb is 9. As per the patient she has a temporary dialysis in [place] in December. Started on IV fluids 100 cc/h. Nephrology consult was requested. Muhammad's catheter was requested renal ultrasound was requested. 05/17/2020-patient has end-stage renal disease on dialysis at this time. Nephrology consult was requested. 05/18/2020 ESRD on dialysis due to progression of PCKD, nephrology following Next dialysis to be 05/19 May need evaluation for renal transplant in the near future 05/19/2020 Dialysis continues per nephrology Getting Epogen with dialysis as ordered by nephrology Trending BMP, monitoring urine output 05/20/2020 Dialysis continues Sunday Nephrology following 05/21/2020 Persistent elevation of creatinine requiring HD Nephrology still following 05/22/2020 Creatinine dropping Trend BMP Nephrology managing dialysis 05/23/2020 Urine output a bit improved nephrology following 06/02/2020 Severe, unresolved, requiring continued dialysis Social work setting up long-term [facility] dialysis outpatient Trend BMP 24-hour urine collection per nephrology (2) ESBL (extended spectrum beta-lactamase) producing bacteria infection Is this a current diagnosis for this admission?: Yes (3) Sepsis Qualifiers: Sepsis type: methicillin resistant Staphylococcus aureus Sepsis acute organ dysfunction status: with acute organ dysfunction Severe sepsis acute organ dysfunction type: acute renal failure Acute renal failure type: unspecified Severe sepsis shock status: without septic shock Qualified Code(s): A41.02 - Sepsis due to Methicillin resistant Staphylococcus aureus; R65.20 - Severe sepsis without septic shock; N17.9 - Acute kidney failure, unspecified Is this a current diagnosis for this admission?: Yes (4) Lab test positive for detection of COVID-19 virus Is this a current diagnosis for this admission?: Yes Plan: Rapid COVID test positive on 05/19, moved to coronavirus isolation unit Ferritin high, CRP high, d-dimer extremely high Trend labs every 2 days Repeat COVID still pending for ERICH (5) Polycystic kidney Is this a current diagnosis for this admission?: Yes (6) E coli bacteremia Is this a current diagnosis for this admission?: Yes (7) Ascites Qualifiers: Ascites type: other type Qualified Code(s): R18.8 - Other ascites Is this a current diagnosis for this admission?: Yes (8) Generalized weakness Is this a current diagnosis for this admission?: Yes (9) Leukocytosis (leucocytosis) Qualifiers: Leukocytosis type: unspecified Qualified Code(s): D72.829 - Elevated white blood cell count, unspecified Is this a current diagnosis for this admission?: Yes (10) Metabolic acidosis Is this a current diagnosis for this admission?: Yes (11) Polycystic liver disease Is this a current diagnosis for this admission?: Yes (12) Protein-energy malnutrition Is this a current diagnosis for this admission?: Yes (13) Severe anemia Is this a current diagnosis for this admission?: Yes (14) Urinary tract infection Qualifiers: Urinary tract infection type: site unspecified Hematuria presence: with hematuria Qualified Code(s): N39.0 - Urinary tract infection, site not specified; R31.9 - Hematuria, unspecified Is this a current diagnosis for this admission?: Yes (15) Polysubstance abuse Is this a current diagnosis for this admission?: Yes (16) Acute kidney injury superimposed on CKD Is this a current diagnosis for this admission?: Yes (17) COVID-19 virus infection Is this a current diagnosis for this admission?: Yes (18) Hyperkalemia, diminished renal excretion Is this a current diagnosis for this admission?: Yes (19) MRSA bacteremia Is this a current diagnosis for this admission?: Yes - Plan Summary Summary: Major barrier to patient's discharge is the fact that she needs prolonged IV antibiotics, currently on dialysis and has no insurance. Medicaid application is already in the works but will take a while before you get an answer. Social work working on other potential possibilities. - Time Time Spent with patient: 25-34 minutes Medications reviewed and adjusted accordingly: Yes Anticipated Discharge Disposition: [facility] Facility Anticipated Discharge Timeframe: within 72 hours - Inpatient Certification Based on my medical assessment, after consideration of the patient's comorbidities, presenting symptoms, or acuity I expect that the services needed warrant INPATIENT care.: Yes I certify that my determination is in accordance with my understanding of Medicare's requirements for reasonable and necessary INPATIENT services [42 CFR 412.3e].: Yes Medical Necessity: Significant Comorbidiites Make Outpatient Treatment Too Risky, Need Close Monitoring Due to Risk of Patient Decompensation, Need for IV Antibiotics, Risk of Complication if Not Cared For in Hospital, Risk of Diagnosis Which Will Require Inpatient Eval/Care/Monitoring
[2020-06-02] MEDS: ERTAPENEM SODIUM 0.5 GM in NORMAL SALINE 50 ML IV SCH (18:42)
[2020-06-02] MEDS: VANCOMYCIN HCL 750 MG in DEXTROSE 5%-WATER 250 ML IV SCH (18:43)
[2020-06-02] MEDS: TRAMADOL HCL 50 MG TABLET PO PRN (18:55)
[2020-06-03] MEDS: PANTOPRAZOLE SODIUM 40 MG TABLET.DR PO SCH (05:43)
[2020-06-03] MEDS: TRAMADOL HCL 50 MG TABLET PO PRN ×2 (08:29→19:54)
[2020-06-03] MEDS: CALCIUM ACETATE 667 MG CAPSULE PO SCH ×3 (09:14→17:24)
[2020-06-03] MEDS: HEPARIN SOD (PORCINE) 5,000 UNIT/ML 1 ML VIAL SUBCUT SCH ×2 (09:14→21:38)
[2020-06-03] MEDS: MULTIVITAMIN TABLET PO SCH (09:14)
[2020-06-03] MEDS: SODIUM POLYSTYRENE SULFONATE 15 GM/60 ML PO SCH (09:15)
[2020-06-03 11:42] LABS: ANION GAP 9 (5-19); BLOOD UREA NITROGEN 34 mg/dL (7-20); CARBON DIOXIDE 26 mmol/L (22-30); CHLORIDE 100 mmol/L (98-107); GLUCOSE 94 mg/dL (75-110); POTASSIUM 5.2 mmol/L (3.6-5.0)
[2020-06-03] MEDS: PATIROMER 8.4 GM SUSP PACKET PO SCH (12:13)
--- NOTE | 2020-06-03 12:51 | PDOC PROGRESS REPORT ---
Subjective Subjective:: 34 year old female with history of polycystic kidney disease, recent history of dialysis in [place], treated for severe anemia [place] moved to [place] again 3 weeks ago and came to the emergency room with complaints of severe bilateral flank pain. Work-up done in the ER shows hemoglobin of 4.6, CT scan shows bilateral enlarged kidneys with polycystic lesions and liver lesions, bicarb in the chemistry is 9 with a creatinine of 5.0. 3 units of blood transfusion initiated in the ER started on IV fluids. Briefly discussed the case with Dr. Bolanos she is going to see the patient tomorrow. Patient does not have a dialysis catheter at this time. As per the patient her mom at the age of 49 with renal failure. 05/17/2020-patient is in the dialysis unit at the time of examination. Received a temporary dialysis catheter. Hemoglobin came up to 8.6 with treatments of blood transfusion. Creatinine improved to 4.1. Consultation with nephrology, oncology was done. WBC count is still elevated receiving IV antibiotic therapy. 05/18/2020 Patient making over 500 cc of urine but still notably less than 1 L. Creatinine remains elevated. Nephrology following and planning to dialyze patient tomorrow. Patient may need to be evaluated for kidney transplant in the near future. I discussed this with her and she will discuss it with nephrology. WBC lower, hemoglobin down to 5.6 and I have ordered another unit of blood to be transfused. Calcium low we will need to replete this. Hepatitis panel is pe nding. Oncology following and has ordered EPO given iron/folate/B12 levels are normal. Patient has some abdominal distention with nausea and vomiting otherwise she has no new complaints today. Antiemetics have been ordered. Ordered Benadryl for itching likely due to bilirubin. 05/19/2020 Patient having increasing oxygen requirements and intermittent shortness of breath. Her abdomen does seem to be smaller today since getting dialysis. She was given 1 unit PRBC this morning during dialysis as well. Her labs also showed hypocalcemia and this was repleted during dialysis. Upon more detailed questioning with patient today, she revealed that she was positive for COVID 2 months ago in [place] prior to moving here. She was hospitalized and eventually discharged, later getting a negative test result from an ER in [place] prior to moving. I checked her d-dimer today and it is markedly elevated. It is unclear if her inflammatory markers are simply still elevated due to prior cytokine storm from COVID or if she could have been infected a second time which is possible given she is immune compromised may not be able to generate effective immunity to COVID. Rapid COVID testing is pending. Patient may need to be transferred to the COVID unit if this is positive. She does seem to already be improving since having fluid removed during dialysis though it is worth ruling out COVID infection given her travel history. Otherwise, her only complaints are shortness of breath and generalized fatigue and weakness. 05/20/2020 Patient now resides in the coronavirus unit. I spoke at great length with the soap tender today and was informed that the patient very well may have passed this infection along to 3 or more dialysis nurses who are now symptomatic and being quarantined. Have consulted infectious disease given the patient is now positive and blood cultures for MRSA and ESBL E. coli. I have started IV vancomycin renally dosed. Per ID, we will switch Zosyn to ertapenem. I discussed all of this with the patient and she is in agreement with the plan. She states she is not short of breath today and her only complaint other than generalized fatigue and weakness is some mild abdominal distention. I have started the patient on treatment dose Lovenox, appropriate vitamins, Decadron. Will check d-dimer and ferritin every 2 days and obtain CRP. We will consider ordering from does appear and or convalescent plasma if the patient develops moderate to severe respiratory failure. Currently she is breathing comfortably on room air with saturation of 94%. Due to patient being COVID-19 Suspected/Positive, encounter was conducted using telephone and/or videochat and does not include a detailed in-person physical exam in order to preserve PPE and limit staff exposure to a dangerous pathogen. 05/21/2020 Patient respiratory status seems to be stabilized for now. She is breathing fine on room air. Unfortunately, her d-dimer and inflammatory markers are still quite high. I have her on prophylactic dose heparin but we may need to consider putting her on treatment dose heparin drip. She is not a good candidate for Lovenox due to her renal failure. Infectious disease is consulting as we do not have a clear source of the patient's MRSA and multiple E. coli organisms found in her blood and urine. CT chest/abdomen/pelvis today was unrevealing for source as well. She does have moderate volume ascites and it may be beneficial to get a paracentesis and culture this fluid. Although CT did not show this, we may need to consider possibility of colonic diverticula perforation or duodenal diverticular disease as a source for her E. coli infections. We may also need to consider tagged WBC scan to help find a clear source of infection. Hemoglobin is significantly higher that this is probably a lab error. Patient has no new complaints other than generalized fatigue and weakness. 05/22/2020 Patient seems to be unchanged today from yesterday. Spoke with the surgeon that placed her dialysis catheter and he was unaware that she was COVID positive. Does not seem that he was informed of this. He was very grateful that I informed him. 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 ERICH ordered but this will likely be delayed for some time until the patient is negative for COVID, likely in a few weeks but the o rder will stay in place at least as a reminder for now. Patient is now breathing on room air. Other than generalized fatigue and weakness she has no new complaints. Of note, nursing had a discussion with the patient's sister who states the patient has a recent history of drug abuse including heroin however the patient is adamant that she has never injected drugs only snorted heroin. 05/23/2020 Patient seems to be doing all right today but she is asking for narcotics as often as she can get them and sometimes more often. She does have a history of narcotics abuse will need to be judicious with her use of narcotics with her. We still do not have a clear source for the patient's bloodstream infection. Infectious diseases following I will need them to comment further on what I think the source is. I have ordered a paracentesis with appropriate fluid studies as I believe patient very well might have SBP. She is being treated with appropriate antibiotics and this is probably why she is clinically stable thus far. COVID-19 infection could progress in the near future as we have seen this infection rapidly worsen respiratory status particularly in patients with significant complicated comorbidities such as this patient. Patient's d-dimer is lower today and her ferritin is higher. CRP is trending down. Urine output seems to be a bit more today. CT chest abdomen pelvis primarily just showed moderate volume ascites and bilateral pneumonia. Patient has no specific complaints other than mild exertional dyspnea and abdominal distention. 06/01/2020 Since my previous encounter, patient diagnosed with MRSA bacteremia, started on vancomycin and began with dialysis with planned end of treatment 07/04 per ID. ERICH ordered but cannot be done until patient is negative for COVID. Severe SURESH with ESRD showing some very mild gradual improvement in creatinine and urine output but patient still requiring dialysis with plans to continue outpatient. Paracentesis was completed with bacterial cultures negative, fungal culture and AFB pending. COVID testing still pending and ERICH is postponed until this is back assuming it is negative. Patient has no new complaints today. 06/02/2020 Creatinine is rising again the patient does have decent urine output. Nephrology is doing a 24-hour urine collection. WBC is lower and potassium is still elevated. Patient is still undergoing dialysis per nephrology recommendations. We are still planning on patient to have long-term outpatient dialysis and this is being arranged through charitable means as the patient does not have insurance. Patient has no new complaints today other than generalized fatigue and weakness. 06/03/2020 No significant change from yesterday. Creatinine is lower again though this seems to be flip-flopping from 1 day to the next. I suspect she will maintain her current level of renal function for quite some time if not permanently. This would include continuing hemodialysis long-term and this is still being arranged by social work lecturer as patient needs hetal dialysis set up. Might be useful for patient to register for Medicaid as well. Repeat COVID test is pending and this was sent on 05/31. Patient denies any new complaints and still has some mild abdominal discomfort intermittently. Reason For Visit: SURESH,SEVERE ANEMIA Physical Exam Vital Signs: Temp Pulse Resp BP Pulse Ox 97.2 F 72 18 108/71 95 06/03/20 11:46 06/03/20 11:46 06/03/20 11:46 06/03/20 11:46 06/02/20 08:40 Intake & Output 06/02/20 06/03/20 06/04/20 06:59 06:59 06:59 Intake Total 1527 440 Output Total 2100 1800 Balance -573 -1360 Weight 53 kg 52.9 kg General appearance: PRESENT: no acute distress, well-developed, well-nourished Head exam: PRESENT: atraumatic, normocephalic Eye exam: PRESENT: conjunctiva pink Mouth exam: PRESENT: moist Respiratory exam: PRESENT: clear to auscultation lan. ABSENT: rales, rhonchi, wheezes Cardiovascular exam: PRESENT: RRR. ABSENT: diastolic murmur, rubs, systolic murmur GI/Abdominal exam: PRESENT: normal bowel sounds, soft. ABSENT: distended, guarding, mass, organolmegaly, rebound, tenderness Neurological exam: PRESENT: alert, awake, oriented to person, oriented to place, oriented to time, oriented to situation, CN II-XII grossly intact. ABSENT: motor sensory deficit Psychiatric exam: PRESENT: appropriate affect, normal mood Skin exam: PRESENT: dry, intact, warm Results Laboratory Results: 06/02/20 05:34 06/03/20 10:57 06/03/20 10:57 Sodium 135.4 L Potassium 5.2 H Chloride 100 Carbon Dioxide 26 Anion Gap 9 BUN 34 H Creatinine 3.28 H Est GFR ( Amer) 19 L Glucose 94 Calcium 9.0 Impressions: Renal Ultrasound 05/16/20 00:00 IMPRESSION: 1. Bilateral polycystic kidney disease. 2. No hydronephrosis or urinary stones are seen. Chest X-Ray 05/19/20 00:00 IMPRESSION: NO ACUTE RADIOGRAPHIC FINDING IN THE CHEST. Abdomen/Pelvis CT 05/21/20 00:00 IMPRESSION: Please see combined report for performance of procedure and radiologic supervision and interpretation. Chest CT 05/21/20 00:00 IMPRESSION: 1. Bilateral pleural effusions and basilar airspace disease either atelectasis or pneumonia right greater than left. 2. Polycystic kidneys and liver. 3. Moderate volume ascites. Paracentesis Ultrasound 05/25/20 00:00 IMPRESSION: Successful ultrasound-guided paracentesis Guidance Fluoroscopy 05/28/20 00:00 IMPRESSION: IMAGE(S) OBTAINED DURING PROCEDURE. Assessment and Plan - Diagnosis (1) SURESH (acute kidney injury) Is this a current diagnosis for this admission?: Yes Plan: 05/16/2020-patient is going to be admitted to [facility] as an inpatient. Patient baseline creatinine is 0.9 in 2015 today it is 5. Bicarb is 9. As per the patient she has a temporary dialysis in [place] in December. Started on IV fluids 100 cc/h. Nephrology consult was requested. Muhammad's catheter was requested renal ultrasound was requested. 05/17/2020-patient has end-stage renal disease on dialysis at this time. Nephrology consult was requested. 05/18/2020 ESRD on dialysis due to progression of PCKD, nephrology following Next dialysis to be 05/19 May need evaluation for renal transplant in the near future 05/19/2020 Dialysis continues per nephrology Getting Epogen with dialysis as ordered by nephrology Trending BMP, monitoring urine output 05/20/2020 Dialysis continues Sunday Nephrology following 05/21/2020 Persistent elevation of creatinine requiring HD Nephrology still following 05/22/2020 Creatinine dropping Trend BMP Nephrology managing dialysis 05/23/2020 Urine output a bit improved nephrology following 06/02/2020 Severe, unresolved, requiring continued dialysis Social work setting up long-term hetal dialysis outpatient Trend BMP 24-hour urine collection per nephrology 06/03/2020 Still trending BMP Creatinine flip-flopping up and down from 1 day to the next. Likely her renal function is permanently diminished now to this level of CKD requiring dialysis Hetal dialysis has not been set up yet reportedly (2) ESBL (extended spectrum beta-lactamase) producing bacteria infection Is this a current diagnosis for this admission?: Yes Plan: -ESBL bacteremia and E. coli UTI. Patient will be treated with ertapenem 500mg after HD for 2 weeks as per ID recommendation starting from first negative blood culture which is on 05/24. End of treatment 06/06. Leukocytosis improving. 06/03/2020 ERICH is required however we are still waiting on repeat COVID test to come back negative (3) Sepsis Qualifiers: Sepsis type: methicillin resistant Staphylococcus aureus Sepsis acute organ dysfunction status: with acute organ dysfunction Severe sepsis acute organ dysfunction type: acute renal failure Acute renal failure type: unspecified Severe sepsis shock status: without septic shock Qualified Code(s): A41.02 - Sepsis due to Methicillin resistant Staphylococcus aureus; R65.20 - Severe sepsis without septic shock; N17.9 - Acute kidney failure, unspecified Is this a current diagnosis for this admission?: Yes (4) Lab test positive for detection of COVID-19 virus Is this a current diagnosis for this admission?: Yes (5) Polycystic kidney Is this a current diagnosis for this admission?: Yes (6) E coli bacteremia Is this a current diagnosis for this admission?: Yes (7) Ascites Qualifiers: Ascites type: other type Qualified Code(s): R18.8 - Other ascites Is this a current diagnosis for this admission?: Yes (8) Generalized weakness Is this a current diagnosis for this admission?: Yes (9) Leukocytosis (leucocytosis) Qualifiers: Leukocytosis type: unspecified Qualified Code(s): D72.829 - Elevated white blood cell count, unspecified Is this a current diagnosis for this admission?: Yes (10) Metabolic acidosis Is this a current diagnosis for this admission?: Yes (11) Polycystic liver disease Is this a current diagnosis for this admission?: Yes (12) Protein-energy malnutrition Is this a current diagnosis for this admission?: Yes (13) Severe anemia Is this a current diagnosis for this admission?: Yes (14) Urinary tract infection Qualifiers: Urinary tract infection type: site unspecified Hematuria presence: with hematuria Qualified Code(s): N39.0 - Urinary tract infection, site not specified; R31.9 - Hematuria, unspecified Is this a current diagnosis for this admission?: Yes (15) Polysubstance abuse Is this a current diagnosis for this admission?: Yes (16) Acute kidney injury superimposed on CKD Is this a current diagnosis for this admission?: Yes (17) COVID-19 virus infection Is this a current diagnosis for this admission?: Yes (18) Hyperkalemia, diminished renal excretion Is this a current diagnosis for this admission?: Yes (19) MRSA bacteremia Is this a current diagnosis for this admission?: Yes Plan: -Recovered from 1 blood culture set only. -ID recommended treating with vancomycin with assumption that is a true bacteremia. -unable to perform ERICH until patient tests negative for COVID-19. -very small mobile mass noted on TTE which is questionable for vegetation, patient has to be empirically treated for endocarditis with plan for 6 weeks of IV vancomycin EOT 07/04. -Repeat COVID pending. If negative, plan for ERICH. If ERICH is negative, can discontinue vancomycin as patient has already received > 2 weeks of IV vancomycin which should be more than adequate for simple MRSA bacteremia in absence of endocarditis. -Vancomycin administration with dialysis. 06/03/2020 Await COVID test which was sent on 05/31, if negative patient can have ERICH and leave the COVID unit - Plan Summary Summary: Major barrier to patient's discharge is the fact that she needs prolonged IV antibiotics, currently on dialysis and has no insurance. Medicaid application is already in the works but will take a while before you get an answer. Social work working on other potential possibilities. - Time Time Spent with patient: 35 or more minutes Medications reviewed and adjusted accordingly: Yes Anticipated Discharge Disposition: Home, Self Care Anticipated Discharge Timeframe: within 72 hours - Inpatient Certification Based on my medical assessment, after consideration of the patient's comorbidities, presenting symptoms, or acuity I expect that the services needed warrant INPATIENT care.: Yes I certify that my determination is in accordance with my understanding of Medicare's requirements for reasonable and necessary INPATIENT services [42 CFR 412.3e].: Yes Medical Necessity: Significant Comorbidiites Make Outpatient Treatment Too Risky, Need Close Monitoring Due to Risk of Patient Decompensation, Need for IV Antibiotics, Risk of Complication if Not Cared For in Hospital, Risk of Diagnosis Which Will Require Inpatient Eval/Care/Monitoring
[2020-06-03 21:22] LABS: CREATININE 3.28 mg/dL (0.52-1.25); URINE CREATININE 20.4 mg/dL (16-327)
[2020-06-04] MEDS ORDERED: HEPARIN SOD (PORCINE) 1,000 UNIT/ML 10 ML VIAL IV PRN (05:00)
[2020-06-04 05:33] LABS: HEMATOCRIT 25.9 % (36.0-47.0); HEMOGLOBIN 8.1 g/dL (12.0-15.5); MEAN CORPUSCULAR HEMOGLOBIN 27.2 pg (27.0-33.4); MEAN CORPUSCULAR HGB CONC 31.2 g/dL (32.0-36.0); MEAN CORPUSCULAR VOLUME 87 fl (80-97); PLATELET COUNT 487 10^3/uL (150-450); RED BLOOD COUNT 2.97 10^6/uL (3.72-5.28); RED CELL DISTRIBUTION WIDTH 18.3 % (11.5-14.0)
[2020-06-04] MEDS: PANTOPRAZOLE SODIUM 40 MG TABLET.DR PO SCH (05:43)
[2020-06-04 05:50] LABS: ANION GAP 9 (5-19); BLOOD UREA NITROGEN 43 mg/dL (7-20); CALCIUM 8.9 mg/dL (8.4-10.2); CARBON DIOXIDE 24 mmol/L (22-30); CHLORIDE 103 mmol/L (98-107); GLUCOSE 76 mg/dL (75-110)
[2020-06-04] MEDS: CALCIUM ACETATE 667 MG CAPSULE PO SCH ×3 (09:53→18:15)
[2020-06-04] MEDS: HEPARIN SOD (PORCINE) 5,000 UNIT/ML 1 ML VIAL SUBCUT SCH ×2 (09:54→21:30)
[2020-06-04] MEDS: TRAMADOL HCL 50 MG TABLET PO PRN (09:54)
[2020-06-04] MEDS: MULTIVITAMIN TABLET PO SCH (09:54)
[2020-06-04] MEDS: PATIROMER 8.4 GM SUSP PACKET PO SCH (12:44)
--- NOTE | 2020-06-04 14:10 | PDOC PROGRESS REPORT ---
Subjective Progress Note for:: 06/04/20 Reason For Visit: Patient seen on dialysis today. Undergoing dialysis without any issues. Denies any specific complaints of chest pain shortness of breath. She is making good amounts of urine but a 24-hour urine for creatinine clearance came back at 8 cc/min. Unfortunately her potassium continues to stay high most likely from use of heparin. Labs and medications were reviewed. Dialysis orders were reviewed with the treating dialysis nurse with a minimal removal of fluid. Physical Exam Vital Signs: Temp Pulse Resp BP Pulse Ox 99.1 F 103 H 26 H 109/77 98 06/04/20 11:24 06/04/20 11:24 06/04/20 11:24 06/04/20 11:24 06/04/20 11:24 Intake & Output 06/03/20 06/04/20 06/05/20 06:59 06:59 06:59 Intake Total 440 1000 Output Total 1800 1875 1000 Balance -1360 -1875 0 Weight 52.9 kg 53.4 kg General appearance: PRESENT: no acute distress, disheveled Neurological exam: PRESENT: alert, awake, oriented to person Results Laboratory Results: 06/04/20 04:17 06/04/20 04:17 06/02/20 06/04/20 06/04/20 19:00 04:17 04:17 WBC 15.0 H RBC 2.97 L Hgb 8.1 L Hct 25.9 L MCV 87 MCH 27.2 MCHC 31.2 L RDW 18.3 H Plt Count 487 H Sodium 135.5 L Potassium 6.0 H* Chloride 103 Carbon Dioxide 24 Anion Gap 9 BUN 43 H Creatinine 3.67 H Est GFR ( Amer) 17 L Glucose 76 Calcium 8.9 Ur 24 Hour Volume 1750 Impressions: Renal Ultrasound 05/16/20 00:00 IMPRESSION: 1. Bilateral polycystic kidney disease. 2. No hydronephrosis or urinary stones are seen. Chest X-Ray 05/19/20 00:00 IMPRESSION: NO ACUTE RADIOGRAPHIC FINDING IN THE CHEST. Abdomen/Pelvis CT 05/21/20 00:00 IMPRESSION: Please see combined report for performance of procedure and radiologic supervision and interpretation. Chest CT 05/21/20 00:00 IMPRESSION: 1. Bilateral pleural effusions and basilar airspace disease either atelectasis or pneumonia right greater than left. 2. Polycystic kidneys and liver. 3. Moderate volume ascites. Paracentesis Ultrasound 05/25/20 00:00 IMPRESSION: Successful ultrasound-guided paracentesis Guidance Fluoroscopy 05/28/20 00:00 IMPRESSION: IMAGE(S) OBTAINED DURING PROCEDURE. Assessment & Plan - Diagnosis (1) ESRD (end stage renal disease) on dialysis Plan: Looks like this patient with underlying autosomal dominant polycystic kidney disease and liver disease has reached ESRD status with her recent acute insult of COVID infection on top of underlying CKD. She is now dialyzing through IJ PermCath and will carry that as an outpatient. She could be transferred to outpatient once she is cleared from her COVID STATUS pending a recent COVID test which should be negative. Unfortunately she does not have any insurance including Medicare and Medicaid which is going to take time before she can be entertained at [facility] but talks are still ongoing with that entity. Fortunately she is making good amounts of urine and will try to maintain that but her electrolytes are abnormal and will require ongoing dialysis. Prior to discharge please make sure that there is no other indwelling catheters anywhere.Current dialysis is going without any issues. Vital signs are stable. Dialysis orders reviewed with the treating dialysis nurse. (2) Acute kidney injury superimposed on CKD Is this a current diagnosis for this admission?: Yes Plan: Acute on chronic kidney disease in the background of ADPKD/polycystic liver dis ease. Presently admitted with COVID pneumonia which seems to have pushed her over to possibly ESRD status. Patient has had an IJ PermCath placed through which dialysis is being entertained. Plan to remove approximately 500- liter of fluid. Given her polycystic kidney disease she could very well have progressed/advanced CKD. (3) COVID-19 virus infection Is this a current diagnosis for this admission?: Yes Plan: Being managed by hospitalist.A more recent covid test result is pending. (4) ESBL (extended spectrum beta-lactamase) producing bacteria infection Is this a current diagnosis for this admission?: Yes Plan: ESBL E. coli UTI with bacteremia as well on appropriate antibiotics. (5) Hyperkalemia, diminished renal excretion Is this a current diagnosis for this admission?: Yes Plan: Likely heparin-induced. Continue on Veltassa and monitor.Would also add Kayexalate. (6) MRSA bacteremia Is this a current diagnosis for this admission?: Yes Plan: She has got a suspicious valve vegetation and therefore she needs 6-8 weeks of antibiotics. If she needs long-term antibiotics and she is not on dialysis she would need a tunneled IJ catheter or PICC line based on her renal recovery. If she is on dialysis then we can administer that while on dialysis and that should be no problem.On IV vancomycin postdialysis. (7) Polycystic liver disease Is this a current diagnosis for this admission?: Yes Plan: Status quo. (8) Urinary tract infection Qualifiers: Urinary tract infection type: site unspecified Hematuria presence: with hematuria Qualified Code(s): N39.0 - Urinary tract infection, site not specified; R31.9 - Hematuria, unspecified Is this a current diagnosis for this admission?: Yes Plan: With ESBL E. coli UTI. (9) Severe anemia Is this a current diagnosis for this admission?: Yes Plan: Monitor. Currently avoiding erythropoietin because of a thrombogenic status of the COVID infection. Once she is COVID free then we will start her on erythropoietin.
--- NOTE | 2020-06-04 16:23 | PDOC PROGRESS REPORT ---
Subjective Subjective:: 34 year old female with history of polycystic kidney disease, recent history of dialysis in [place], treated for severe anemia [place] moved to [place] again 3 weeks ago and came to the emergency room with complaints of severe bilateral flank pain. Work-up done in the ER shows hemoglobin of 4.6, CT scan shows bilateral enlarged kidneys with polycystic lesions and liver lesions, bicarb in the chemistry is 9 with a creatinine of 5.0. 3 units of blood transfusion initiated in the ER started on IV fluids. Briefly discussed the case with Dr. Bolanos she is going to see the patient tomorrow. Patient does not have a dialysis catheter at this time. As per the patient her mom at the age of 49 with renal failure. 05/17/2020-patient is in the dialysis unit at the time of examination. Received a temporary dialysis catheter. Hemoglobin came up to 8.6 with treatments of blood transfusion. Creatinine improved to 4.1. Consultation with nephrology, oncology was done. WBC count is still elevated receiving IV antibiotic therapy. 05/18/2020 Patient making over 500 cc of urine but still notably less than 1 L. Creatinine remains elevated. Nephrology following and planning to dialyze patient tomorrow. Patient may need to be evaluated for kidney transplant in the near future. I discussed this with her and she will discuss it with nephrology. WBC lower, hemoglobin down to 5.6 and I have ordered another unit of blood to be transfused. Calcium low we will need to replete this. Hepatitis panel is pe nding. Oncology following and has ordered EPO given iron/folate/B12 levels are normal. Patient has some abdominal distention with nausea and vomiting otherwise she has no new complaints today. Antiemetics have been ordered. Ordered Benadryl for itching likely due to bilirubin. 05/19/2020 Patient having increasing oxygen requirements and intermittent shortness of breath. Her abdomen does seem to be smaller today since getting dialysis. She was given 1 unit PRBC this morning during dialysis as well. Her labs also showed hypocalcemia and this was repleted during dialysis. Upon more detailed questioning with patient today, she revealed that she was positive for COVID 2 months ago in [place] prior to moving here. She was hospitalized and eventually discharged, later getting a negative test result from an ER in [place] prior to moving. I checked her d-dimer today and it is markedly elevated. It is unclear if her inflammatory markers are simply still elevated due to prior cytokine storm from COVID or if she could have been infected a second time which is possible given she is immune compromised may not be able to generate effective immunity to COVID. Rapid COVID testing is pending. Patient may need to be transferred to the COVID unit if this is positive. She does seem to already be improving since having fluid removed during dialysis though it is worth ruling out COVID infection given her travel history. Otherwise, her only complaints are shortness of breath and generalized fatigue and weakness. 05/20/2020 Patient now resides in the coronavirus unit. I spoke at great length with the process improvement analyst today and was informed that the patient very well may have passed this infection along to 3 or more dialysis nurses who are now symptomatic and being quarantined. Have consulted infectious disease given the patient is now positive and blood cultures for MRSA and ESBL E. coli. I have started IV vancomycin renally dosed. Per ID, we will switch Zosyn to ertapenem. I discussed all of this with the patient and she is in agreement with the plan. She states she is not short of breath today and her only complaint other than generalized fatigue and weakness is some mild abdominal distention. I have started the patient on treatment dose Lovenox, appropriate vitamins, Decadron. Will check d-dimer and ferritin every 2 days and obtain CRP. We will consider ordering from does appear and or convalescent plasma if the patient develops moderate to severe respiratory failure. Currently she is breathing comfortably on room air with saturation of 94%. Due to patient being COVID-19 Suspected/Positive, encounter was conducted using telephone and/or videochat and does not include a detailed in-person physical exam in order to preserve PPE and limit staff exposure to a dangerous pathogen. 05/21/2020 Patient respiratory status seems to be stabilized for now. She is breathing fine on room air. Unfortunately, her d-dimer and inflammatory markers are still quite high. I have her on prophylactic dose heparin but we may need to consider putting her on treatment dose heparin drip. She is not a good candidate for Lovenox due to her renal failure. Infectious disease is consulting as we do not have a clear source of the patient's MRSA and multiple E. coli organisms found in her blood and urine. CT chest/abdomen/pelvis today was unrevealing for source as well. She does have moderate volume ascites and it may be beneficial to get a paracentesis and culture this fluid. Although CT did not show this, we may need to consider possibility of colonic diverticula perforation or duodenal diverticular disease as a source for her E. coli infections. We may also need to consider tagged WBC scan to help find a clear source of infection. Hemoglobin is significantly higher that this is probably a lab error. Patient has no new complaints other than generalized fatigue and weakness. 05/22/2020 Patient seems to be unchanged today from yesterday. Spoke with the surgeon that placed her dialysis catheter and he was unaware that she was COVID positive. Does not seem that he was informed of this. He was very grateful that I informed him. 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 ERICH ordered but this will likely be delayed for some time until the patient is negative for COVID, likely in a few weeks but the o rder will stay in place at least as a reminder for now. Patient is now breathing on room air. Other than generalized fatigue and weakness she has no new complaints. Of note, nursing had a discussion with the patient's sister who states the patient has a recent history of drug abuse including heroin however the patient is adamant that she has never injected drugs only snorted heroin. 05/23/2020 Patient seems to be doing all right today but she is asking for narcotics as often as she can get them and sometimes more often. She does have a history of narcotics abuse will need to be judicious with her use of narcotics with her. We still do not have a clear source for the patient's bloodstream infection. Infectious diseases following I will need them to comment further on what I think the source is. I have ordered a paracentesis with appropriate fluid studies as I believe patient very well might have SBP. She is being treated with appropriate antibiotics and this is probably why she is clinically stable thus far. COVID-19 infection could progress in the near future as we have seen this infection rapidly worsen respiratory status particularly in patients with significant complicated comorbidities such as this patient. Patient's d-dimer is lower today and her ferritin is higher. CRP is trending down. Urine output seems to be a bit more today. CT chest abdomen pelvis primarily just showed moderate volume ascites and bilateral pneumonia. Patient has no specific complaints other than mild exertional dyspnea and abdominal distention. 06/01/2020 Since my previous encounter, patient diagnosed with MRSA bacteremia, started on vancomycin and began with dialysis with planned end of treatment 07/04 per ID. ERICH ordered but cannot be done until patient is negative for COVID. Severe SURESH with ESRD showing some very mild gradual improvement in creatinine and urine output but patient still requiring dialysis with plans to continue outpatient. Paracentesis was completed with bacterial cultures negative, fungal culture and AFB pending. COVID testing still pending and ERICH is postponed until this is back assuming it is negative. Patient has no new complaints today. 06/02/2020 Creatinine is rising again the patient does have decent urine output. Nephrology is doing a 24-hour urine collection. WBC is lower and potassium is still elevated. Patient is still undergoing dialysis per nephrology recommendations. We are still planning on patient to have long-term outpatient dialysis and this is being arranged through charitable means as the patient does not have insurance. Patient has no new complaints today other than generalized fatigue and weakness. 06/03/2020 No significant change from yesterday. Creatinine is lower again though this seems to be flip-flopping from 1 day to the next. I suspect she will maintain her current level of renal function for quite some time if not permanently. This would include continuing hemodialysis long-term and this is still being arranged by director of social media marketing as patient needs hetal dialysis set up. Might be useful for patient to register for Medicaid as well. Repeat COVID test is pending and this was sent on 05/31. Patient denies any new complaints and still has some mild abdominal discomfort intermittently. 06/04/2020 Patient states she has no new complaints today and everything seems to be going as well as can be expected. I had the nurse call the testing laboratory for her coronavirus test it was repeated in the testing facility seems to have misplaced her test due to the incorrect birthdate being labeled on it. They did state that the result was negative but that they could not officially release the re sults until the birthdate error was corrected. They stated this to be fixed today. Once we have this official result, the patient needs to be moved out of the COVID unit to [facility] bed. Patient still requires dialysis as her creatinine and potassium remain elevated. She will receive a ERICH on Sunday and I have discussed this with Dr. Pearson. Reason For Visit: SURESH,SEVERE ANEMIA Physical Exam Vital Signs: Temp Pulse Resp BP Pulse Ox 99.4 F 84 20 120/81 96 08/21/20 15:08 06/04/20 15:08 06/04/20 15:08 06/04/20 15:08 06/04/20 15:08 Intake & Output 06/03/20 06/04/20 06/05/20 06:59 06:59 06:59 Intake Total 440 1000 Output Total 1800 1875 1000 Balance -1360 -1875 0 Weight 52.9 kg 53.4 kg General appearance: PRESENT: no acute distress, well-developed, well-nourished Head exam: PRESENT: atraumatic, normocephalic Eye exam: PRESENT: conjunctiva pink. ABSENT: scleral icterus Mouth exam: PRESENT: moist Respiratory exam: PRESENT: clear to auscultation lan. ABSENT: rales, rhonchi, wheezes Cardiovascular exam: PRESENT: RRR. ABSENT: diastolic murmur, rubs, systolic murmur GI/Abdominal exam: PRESENT: distended - Minimal, normal bowel sounds, soft. ABSENT: guarding, mass, organolmegaly, rebound, tenderness Neurological exam: PRESENT: alert, awake, oriented to person, oriented to place, oriented to time, oriented to situation Psychiatric exam: PRESENT: appropriate affect, normal mood Skin exam: PRESENT: dry, intact, warm Results Laboratory Results: 06/04/20 04:17 06/04/20 04:17 06/02/20 06/04/20 06/04/20 19:00 04:17 04:17 WBC 15.0 H RBC 2.97 L Hgb 8.1 L Hct 25.9 L MCV 87 MCH 27.2 MCHC 31.2 L RDW 18.3 H Plt Count 487 H Sodium 135.5 L Potassium 6.0 H* Chloride 103 Carbon Dioxide 24 Anion Gap 9 BUN 43 H Creatinine 3.67 H Est GFR ( Amer) 17 L Glucose 76 Calcium 8.9 Ur 24 Hour Volume 1750 Impressions: Renal Ultrasound 05/16/20 00:00 IMPRESSION: 1. Bilateral polycystic kidney disease. 2. No hydronephrosis or urinary stones are seen. Chest X-Ray 05/19/20 00:00 IMPRESSION: NO ACUTE RADIOGRAPHIC FINDING IN THE CHEST. Abdomen/Pelvis CT 05/21/20 00:00 IMPRESSION: Please see combined report for performance of procedure and ra diologic supervision and interpretation. Chest CT 05/21/20 00:00 IMPRESSION: 1. Bilateral pleural effusions and basilar airspace disease either atelectasis or pneumonia right greater than left. 2. Polycystic kidneys and liver. 3. Moderate volume ascites. Paracentesis Ultrasound 05/25/20 00:00 IMPRESSION: Successful ultrasound-guided paracentesis Guidance Fluoroscopy 05/28/20 00:00 IMPRESSION: IMAGE(S) OBTAINED DURING PROCEDURE. Assessment and Plan - Diagnosis (1) SURESH (acute kidney injury) Is this a current diagnosis for this admission?: Yes Plan: 05/16/2020-patient is going to be admitted to [facility] as an inpatient. Patient baseline creatinine is 0.9 in 2015 today it is 5. Bicarb is 9. As per the patient she has a temporary dialysis in [place] in December. Started on IV fluids 100 cc/h. Nephrology consult was requested. Muhammad's catheter was requested renal ultrasound was requested. 05/17/2020-patient has end-stage renal disease on dialysis at this time. Nephrology consult was requested. 05/18/2020 ESRD on dialysis due to progression of PCKD, nephrology following Next dialysis to be 05/19 May need evaluation for renal transplant in the near future 05/19/2020 Dialysis continues per nephrology Getting Epogen with dialysis as ordered by nephrology Trending BMP, monitoring urine output 05/20/2020 Dialysis continues Sunday Nephrology following 05/21/2020 Persistent elevation of creatinine requiring HD Nephrology still following 05/22/[address] [facility] Nephrology managing dialysis 05/23/2020 Urine output a bit improved nephrology following 06/02/2020 Severe, unresolved, requiring continued dialysis Social work setting up long-term hetal dialysis outpatient Trend [facility] 24-hour urine collection per nephrology 06/03/2020 Still trending BMP Creatinine flip-flopping up and down from 1 day to the next. Likely her renal function is permanently diminished now to this level of CKD requiring dialysis Hetal dialysis has not been set up yet reportedly No significant change in renal function, will very likely need dialysis pe rmanently (2) ESBL (extended spectrum beta-lactamase) producing bacteria infection Is this a current diagnosis for this admission?: Yes (3) Sepsis Qualifiers: Sepsis type: methicillin resistant Staphylococcus aureus Sepsis acute organ dysfunction status: with acute organ dysfunction Severe sepsis acute organ dysfunction type: acute renal failure Acute renal failure type: unspecified Severe sepsis shock status: without septic shock Qualified Code(s): A41.02 - Sepsis due to Methicillin resistant Staphylococcus aureus; R65.20 - Severe sepsis without septic shock; N17.9 - Acute kidney failure, unspecified Is this a current diagnosis for this admission?: Yes (4) Lab test positive for detection of COVID-19 virus Is this a current diagnosis for this admission?: Yes Plan: Rapid COVID test positive on 05/19, moved to coronavirus isolation unit Ferritin high, CRP high, d-dimer extremely high Trend labs every 2 days ERICH scheduled for 06/07 Repeat COVID testing negative although lab misplaced patient's result due to inappropriate labeling of birthdate (5) Polycystic kidney Is this a current diagnosis for this admission?: Yes (6) E coli bacteremia Is this a current diagnosis for this admission?: Yes (7) Ascites Qualifiers: Ascites type: other type Qualified Code(s): R18.8 - Other ascites Is this a current diagnosis for this admission?: Yes (8) Generalized weakness Is this a current diagnosis for this admission?: Yes (9) Leukocytosis (leucocytosis) Qualifiers: Leukocytosis type: unspecified Qualified Code(s): D72.829 - Elevated white blood cell count, unspecified Is this a current diagnosis for this admission?: Yes (10) Metabolic acidosis Is this a current diagnosis for this admission?: Yes (11) Polycystic liver disease Is this a current diagnosis for this admission?: Yes (12) Protein-energy malnutrition Is this a current diagnosis for this admission?: Yes (13) Severe anemia Is this a current diagnosis for this admission?: Yes (14) Urinary tract infection Qualifiers: Urinary tract infection type: site unspecified Hematuria presence: with hematuria Qualified Code(s): N39.0 - Urinary tract infection, site not specified; R31.9 - Hematuria, unspecified Is this a current diagnosis for this admission?: Yes (15) Polysubstance abuse Is this a current diagnosis for this admission?: Yes (16) Acute kidney injury superimposed on CKD Is this a current diagnosis for this admission?: Yes (17) COVID-19 virus infection Is this a current diagnosis for this admission?: Yes (18) Hyperkalemia, diminished renal excretion Is this a current diagnosis for this admission?: Yes (19) MRSA bacteremia Is this a current diagnosis for this admission?: Yes - Plan Summary Summary: Major barrier to patient's discharge is the fact that she needs prolonged IV antibiotics, currently on dialysis and has no insurance. Medicaid application is already in the works but will take a while before you get an answer. Social work working on other potential possibilities. - Time Time Spent with patient: 35 or more minutes Medications reviewed and adjusted accordingly: Yes Anticipated Discharge Disposition: Home, Self Care Anticipated Discharge Timeframe: within 72 hours - Inpatient Certification Based on my medical assessment, after consideration of the patient's comorbidities, presenting symptoms, or acuity I expect that the services needed warrant INPATIENT care.: Yes I certify that my determination is in accordance with my understanding of Medicare's requirements for reasonable and necessary INPATIENT services [42 CFR 412.3e].: Yes Medical Necessity: Significant Comorbidiites Make Outpatient Treatment Too Risky, Need Close Monitoring Due to Risk of Patient Decompensation, Need for Surgery, Risk of Complication if Not Cared For in Hospital, Risk of Diagnosis Which Will Require Inpatient Eval/Care/Monitoring
[2020-06-04] MEDS: ERTAPENEM SODIUM 0.5 GM in NORMAL SALINE 50 ML IV SCH (18:14)
[2020-06-05] MEDS: PANTOPRAZOLE SODIUM 40 MG TABLET.DR PO SCH (05:42)
[2020-06-05] MEDS: CALCIUM ACETATE 667 MG CAPSULE PO SCH ×3 (08:26→16:52)
[2020-06-05] MEDS: TRAMADOL HCL 50 MG TABLET PO PRN (08:26)
[2020-06-05] MEDS: HEPARIN SOD (PORCINE) 5,000 UNIT/ML 1 ML VIAL SUBCUT SCH ×2 (09:49→21:29)
[2020-06-05] MEDS: MULTIVITAMIN TABLET PO SCH (09:49)
[2020-06-05] MEDS: SODIUM POLYSTYRENE SULFONATE 15 GM/60 ML PO SCH (09:49)
[2020-06-05 10:22] LABS: ABSOLUTE BASOPHILS # (AUTO) 0.2 10^3/uL (0.0-0.2); ABSOLUTE EOSINOPHILS # (AUTO) 0.1 10^3/uL (0.0-0.6); ABSOLUTE LYMPHOCYTES (AUTO) 2.6 10^3/uL (0.5-4.7); ABSOLUTE MONOCYTES (AUTO) 0.8 10^3/uL (0.1-1.4); ABSOLUTE NEUT (AUTO) 10.2 10^3/uL (1.7-8.2); BASOPHILS % (AUTO) 1.3 % (0-2); EOSINOPHILS % (AUTO) 0.9 % (0-6); HEMATOCRIT 29.9 % (36.0-47.0); HEMOGLOBIN 8.8 g/dL (12.0-15.5); LYMPHOCYTES % (AUTO) 18.5 % (13-45); MEAN CORPUSCULAR HEMOGLOBIN 27.2 pg (27.0-33.4); MEAN CORPUSCULAR HGB CONC 29.4 g/dL (32.0-36.0); MONOCYTES % (AUTO) 5.5 % (3-13); PLATELET COUNT 425 10^3/uL (150-450); RED BLOOD COUNT 3.24 10^6/uL (3.72-5.28); RED CELL DISTRIBUTION WIDTH 18.9 % (11.5-14.0); SEGMENTED NEUTROPHILS % (AUTO) 73.8 % (42-78); TOTAL CELLS COUNTED % (AUTO) 100 %; WHITE BLOOD COUNT 13.9 10^3/uL (4.0-10.5)
[2020-06-05 10:29] LABS: ANION GAP 10 (5-19); BLOOD UREA NITROGEN 36 mg/dL (7-20); CALCIUM 9.6 mg/dL (8.4-10.2); CARBON DIOXIDE 22 mmol/L (22-30); CHLORIDE 103 mmol/L (98-107); GLUCOSE 114 mg/dL (75-110)
[2020-06-05 10:37] LABS: MEAN CORPUSCULAR VOLUME 93 fl (80-97)
[2020-06-05] MEDS: PATIROMER 8.4 GM SUSP PACKET PO SCH (13:38)
--- NOTE | 2020-06-05 17:07 | PDOC PROGRESS REPORT ---
Subjective Subjective:: 34 year old female with history of polycystic kidney disease, recent history of dialysis in [place], treated for severe anemia [place] moved to [place] again 3 weeks ago and came to the emergency room with complaints of severe bilateral flank pain. Work-up done in the ER shows hemoglobin of 4.6, CT scan shows bilateral enlarged kidneys with polycystic lesions and liver lesions, bicarb in the chemistry is 9 with a creatinine of 5.0. 3 units of blood transfusion initiated in the ER started on IV fluids. Briefly discussed the case with Dr. Bolanos she is going to see the patient tomorrow. Patient does not have a dialysis catheter at this time. As per the patient her mom at the age of 49 with renal failure. 05/17/2020-patient is in the dialysis unit at the time of examination. Received a temporary dialysis catheter. Hemoglobin came up to 8.6 with treatments of blood transfusion. Creatinine improved to 4.1. Consultation with nephrology, oncology was done. WBC count is still elevated receiving IV antibiotic therapy. 05/18/2020 Patient making over 500 cc of urine but still notably less than 1 L. Creatinine remains elevated. Nephrology following and planning to dialyze patient tomorrow. Patient may need to be evaluated for kidney transplant in the near future. I discussed this with her and she will discuss it with nephrology. WBC lower, hemoglobin down to 5.6 and I have ordered another unit of blood to be transfused. Calcium low we will need to replete this. Hepatitis panel is pe nding. Oncology following and has ordered EPO given iron/folate/B12 levels are normal. Patient has some abdominal distention with nausea and vomiting otherwise she has no new complaints today. Antiemetics have been ordered. Ordered Benadryl for itching likely due to bilirubin. 05/19/2020 Patient having increasing oxygen requirements and intermittent shortness of breath. Her abdomen does seem to be smaller today since getting dialysis. She was given 1 unit PRBC this morning during dialysis as well. Her labs also showed hypocalcemia and this was repleted during dialysis. Upon more detailed questioning with patient today, she revealed that she was positive for COVID 2 months ago in [place] prior to moving here. She was hospitalized and eventually discharged, later getting a negative test result from an ER in [place] prior to moving. I checked her d-dimer today and it is markedly elevated. It is unclear if her inflammatory markers are simply still elevated due to prior cytokine storm from COVID or if she could have been infected a second time which is possible given she is immune compromised may not be able to generate effective immunity to COVID. Rapid COVID testing is pending. Patient may need to be transferred to the COVID unit if this is positive. She does seem to already be improving since having fluid removed during dialysis though it is worth ruling out COVID infection given her travel history. Otherwise, her only complaints are shortness of breath and generalized fatigue and weakness. 05/20/2020 Patient now resides in the coronavirus unit. I spoke at great length with the sample worker today and was informed that the patient very well may have passed this infection along to 3 or more dialysis nurses who are now symptomatic and being quarantined. Have consulted infectious disease given the patient is now positive and blood cultures for MRSA and ESBL E. coli. I have started IV vancomycin renally dosed. Per ID, we will switch Zosyn to ertapenem. I discussed all of this with the patient and she is in agreement with the plan. She states she is not short of breath today and her only complaint other than generalized fatigue and weakness is some mild abdominal distention. I have started the patient on treatment dose Lovenox, appropriate vitamins, Decadron. Will check d-dimer and ferritin every 2 days and obtain CRP. We will consider ordering from does appear and or convalescent plasma if the patient develops moderate to severe respiratory failure. Currently she is breathing comfortably on room air with saturation of 94%. Due to patient being COVID-19 Suspected/Positive, encounter was conducted using telephone and/or videochat and does not include a detailed in-person physical exam in order to preserve PPE and limit staff exposure to a dangerous pathogen. 05/21/2020 Patient respiratory status seems to be stabilized for now. She is breathing fine on room air. Unfortunately, her d-dimer and inflammatory markers are still quite high. I have her on prophylactic dose heparin but we may need to consider putting her on treatment dose heparin drip. She is not a good candidate for Lovenox due to her renal failure. Infectious disease is consulting as we do not have a clear source of the patient's MRSA and multiple E. coli organisms found in her blood and urine. CT chest/abdomen/pelvis today was unrevealing for source as well. She does have moderate volume ascites and it may be beneficial to get a paracentesis and culture this fluid. Although CT did not show this, we may need to consider possibility of colonic diverticula perforation or duodenal diverticular disease as a source for her E. coli infections. We may also need to consider tagged WBC scan to help find a clear source of infection. Hemoglobin is significantly higher that this is probably a lab error. Patient has no new complaints other than generalized fatigue and weakness. 05/22/2020 Patient seems to be unchanged today from yesterday. Spoke with the surgeon that placed her dialysis catheter and he was unaware that she was COVID positive. Does not seem that he was informed of this. He was very grateful that I informed him. 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 ERICH ordered but this will likely be delayed for some time until the patient is negative for COVID, likely in a few weeks but the o rder will stay in place at least as a reminder for now. Patient is now breathing on room air. Other than generalized fatigue and weakness she has no new complaints. Of note, nursing had a discussion with the patient's sister who states the patient has a recent history of drug abuse including heroin however the patient is adamant that she has never injected drugs only snorted heroin. 05/23/2020 Patient seems to be doing all right today but she is asking for narcotics as often as she can get them and sometimes more often. She does have a history of narcotics abuse will need to be judicious with her use of narcotics with her. We still do not have a clear source for the patient's bloodstream infection. Infectious diseases following I will need them to comment further on what I think the source is. I have ordered a paracentesis with appropriate fluid studies as I believe patient very well might have SBP. She is being treated with appropriate antibiotics and this is probably why she is clinically stable thus far. COVID-19 infection could progress in the near future as we have seen this infection rapidly worsen respiratory status particularly in patients with significant complicated comorbidities such as this patient. Patient's d-dimer is lower today and her ferritin is higher. CRP is trending down. Urine output seems to be a bit more today. CT chest abdomen pelvis primarily just showed moderate volume ascites and bilateral pneumonia. Patient has no specific complaints other than mild exertional dyspnea and abdominal distention. 06/01/2020 Since my previous encounter, patient diagnosed with MRSA bacteremia, started on vancomycin and began with dialysis with planned end of treatment 07/04 per ID. ERICH ordered but cannot be done until patient is negative for COVID. Severe SURESH with ESRD showing some very mild gradual improvement in creatinine and urine output but patient still requiring dialysis with plans to continue outpatient. Paracentesis was completed with bacterial cultures negative, fungal culture and AFB pending. COVID testing still pending and ERICH is postponed until this is back assuming it is negative. Patient has no new complaints today. 06/02/2020 Creatinine is rising again the patient does have decent urine output. Nephrology is doing a 24-hour urine collection. WBC is lower and potassium is still elevated. Patient is still undergoing dialysis per nephrology recommendations. We are still planning on patient to have long-term outpatient dialysis and this is being arranged through charitable means as the patient does not have insurance. Patient has no new complaints today other than generalized fatigue and weakness. 06/03/2020 No significant change from yesterday. Creatinine is lower again though this seems to be flip-flopping from 1 day to the next. I suspect she will maintain her current level of renal function for quite some time if not permanently. This would include continuing hemodialysis long-term and this is still being arranged by child protective services social worker as patient needs jacinto dialysis set up. Might be useful for patient to register for Medicaid as well. Repeat COVID test is pending and this was sent on 05/31. Patient denies any new complaints and still has some mild abdominal discomfort intermittently. 06/04/2020 Patient states she has no new complaints today and everything seems to be going as well as can be expected. I had the nurse call the testing laboratory for her coronavirus test it was repeated in the testing facility seems to have misplaced her test due to the incorrect birthdate being labeled on it. They did state that the result was negative but that they could not officially release the re sults until the birthdate error was corrected. They stated this to be fixed today. Once we have this official result, the patient needs to be moved out of the COVID unit to [facility]. Patient still requires dialysis as her creatinine and potassium remain elevated. She will receive a ERICH on Sunday and I have discussed this with Dr. Pearson. 06/05/2020 Patient is COVID negative officially and this is been put in her chart. I attempted to transfer the patient to the medical floor however nursing is notified me that administration "has no policy for the situation" and they do not know if the patient can safely be put on the medical floor or not despite a negative COVID test. There was no indication given as to when this policy would be determined and it seems the patient will have to remain in the COVID-19 unit until further notice. Patient is doing fine today and I discussed with Dr. Pearson the plans to have ERICH on Sunday. He states due to scheduling restrictions, he may only be able to do this on Sunday but he does state this will get done in the near future. Patient has no new complaints. Reason For Visit: SURESH,SEVERE ANEMIA Physical Exam Vital Signs: Temp Pulse Resp BP Pulse Ox 100.2 F 92 16 120/85 95 06/05/20 15:31 06/05/20 15:31 06/05/20 15:31 06/05/20 15:31 06/05/20 15:31 Intake & Output 06/04/20 06/05/20 06/06/20 06:59 06:59 06:59 Intake Total 1050 240 Output Total 1875 2300 700 Balance -1875 -1250 -460 Weight 53.4 kg 53.1 kg General appearance: PRESENT: no acute distress, well-developed, well-nourished Head exam: PRESENT: atraumatic, normocephalic Eye exam: PRESENT: conjunctiva pink Mouth exam: PRESENT: moist Respiratory exam: PRESENT: clear to auscultation lan. ABSENT: rales, rhonchi, wheezes Cardiovascular exam: PRESENT: RRR. ABSENT: diastolic murmur, rubs, systolic murmur GI/Abdominal exam: PRESENT: normal bowel sounds, soft. ABSENT: distended, guarding, mass, organolmegaly, rebound, tenderness Neurological exam: PRESENT: alert, awake, oriented to person, oriented to place, oriented to time, oriented to situation, CN II-XII grossly intact. ABSENT: motor sensory deficit Psychiatric exam: PRESENT: appropriate affect, normal mood Skin exam: PRESENT: dry, intact, warm Results Laboratory Results: 06/05/20 09:37 06/05/20 09:37 06/05/20 06/05/20 09:37 09:37 WBC 13.9 H RBC 3.24 L Hgb 8.8 L Hct 29.9 L MCV 93 D MCH 27.2 MCHC 29.4 L RDW 18.9 H Plt Count 425 Seg Neutrophils % 73.8 Sodium 135.1 L Potassium 5.0 Chloride 103 Carbon Dioxide 22 Anion Gap 10 BUN 36 H Creatinine 2.97 H Est GFR ( Amer) 22 L Glucose 114 H Calcium 9.6 Impressions: Renal Ultrasound 05/16/20 00:00 IMPRESSION: 1. Bilateral polycystic kidney disease. 2. No hydronephrosis or urinary stones are seen. Chest X-Ray 05/19/20 00:00 IMPRESSION: NO ACUTE RADIOGRAPHIC FINDING IN THE CHEST. Abdomen/Pelvis CT 05/21/20 00:00 IMPRESSION: Please see combined report for performance of procedure and radiologic supervision and interpretation. Chest CT 05/21/20 00:00 IMPRESSION: 1. Bilateral pleural effusions and basilar airspace disease either atelectasis or pneumonia right greater than left. 2. Polycystic kidneys and liver. 3. Moderate volume ascites. Paracentesis Ultrasound 05/25/20 00:00 IMPRESSION: Successful ultrasound-guided paracentesis Guidance Fluoroscopy 05/28/20 00:00 IMPRESSION: IMAGE(S) OBTAINED DURING PROCEDURE. Assessment and Plan - Diagnosis (1) SURESH (acute kidney injury) Is this a current diagnosis for this admission?: Yes (2) ESBL (extended spectrum beta-lactamase) producing bacteria infection Is this a current diagnosis for this admission?: Yes (3) Sepsis Qualifiers: Sepsis type: methicillin resistant Staphylococcus aureus Sepsis acute organ dysfunction status: with acute organ dysfunction Severe sepsis acute organ dysfunction type: acute renal failure Acute renal failure type: unspecified Severe sepsis shock status: without septic shock Qualified Code(s): A41.02 - Sepsis due to Methicillin resistant Staphylococcus aureus; R65.20 - Severe sepsis without septic shock; N17.9 - Acute kidney failure, unspecified Is this a current diagnosis for this admission?: Yes (4) Lab test positive for detection of COVID-19 virus Is this a current diagnosis for this admission?: Yes Plan: Rapid COVID test positive on 05/19, moved to coronavirus isolation unit Ferritin high, CRP high, d-dimer extremely high Trend labs every 2 days ERICH scheduled for 06/07 Repeat COVID testing negative although lab misplaced patient's result due to inappropriate labeling of birthdate; official negative result has been put in the patient's chart as of 06/05 however administration does not have a policy for patients to have a repeat COVID test that is negative. She will need to remain in the coronavirus unit until further notice (5) Polycystic kidney Is this a current diagnosis for this admission?: Yes (6) E coli bacteremia Is this a current diagnosis for this admission?: Yes (7) Ascites Qualifiers: Ascites type: other type Qualified Code(s): R18.8 - Other ascites Is this a current diagnosis for this admission?: Yes (8) Generalized weakness Is this a current diagnosis for this admission?: Yes (9) Leukocytosis (leucocytosis) Qualifiers: Leukocytosis type: unspecified Qualified Code(s): D72.829 - Elevated white blood cell count, unspecified Is this a current diagnosis for this admission?: Yes (10) Metabolic acidosis Is this a current diagnosis for this admission?: Yes (11) Polycystic liver disease Is this a current diagnosis for this admission?: Yes (12) Protein-energy malnutrition Is this a current diagnosis for this admission?: Yes (13) Severe anemia Is this a current diagnosis for this admission?: Yes (14) Urinary tract infection Qualifiers: Urinary tract infection type: site unspecified Hematuria presence: with hematuria Qualified Code(s): N39.0 - Urinary tract infection, site not specified; R31.9 - Hematuria, unspecified Is this a current diagnosis for this admission?: Yes (15) Polysubstance abuse Is this a current diagnosis for this admission?: Yes (16) Acute kidney injury superimposed on CKD Is this a current diagnosis for this admission?: Yes (17) COVID-19 virus infection Is this a current diagnosis for this admission?: Yes (18) Hyperkalemia, diminished renal excretion Is this a current diagnosis for this admission?: Yes (19) MRSA bacteremia Is this a current diagnosis for this admission?: Yes - Plan Summary Summary: Major barrier to patient's discharge is the fact that she needs prolonged IV antibiotics, currently on dialysis and has no insurance. Medicaid application is already in the works but will take a while before you get an answer. Social work working on other potential possibilities. - Time Time Spent with patient: 35 or more minutes Medications reviewed and adjusted accordingly: Yes Anticipated Discharge Disposition: Home, Self Care Anticipated Discharge Timeframe: within 72 hours - Inpatient Certification Based on my medical assessment, after consideration of the patient's comorbidities, presenting symptoms, or acuity I expect that the services needed warrant INPATIENT care.: Yes I certify that my determination is in accordance with my understanding of Medicare's requirements for reasonable and necessary INPATIENT services [42 CFR 412.3e].: Yes Medical Necessity: Significant Comorbidiites Make Outpatient Treatment Too Risky, Need Close Monitoring Due to Risk of Patient Decompensation, Risk of Complication if Not Cared For in Hospital, Risk of Diagnosis Which Will Require Inpatient Eval/Care/Monitoring
[2020-06-06] MEDS: PANTOPRAZOLE SODIUM 40 MG TABLET.DR PO SCH (05:52)
[2020-06-06] MEDS: CALCIUM ACETATE 667 MG CAPSULE PO SCH ×3 (08:13→16:22)
[2020-06-06] MEDS: TRAMADOL HCL 50 MG TABLET PO PRN ×2 (08:13→21:34)
[2020-06-06] MEDS: MULTIVITAMIN TABLET PO SCH (10:57)
[2020-06-06] MEDS: HEPARIN SOD (PORCINE) 5,000 UNIT/ML 1 ML VIAL SUBCUT SCH ×2 (10:57→21:34)
[2020-06-06] MEDS: SODIUM POLYSTYRENE SULFONATE 15 GM/60 ML PO SCH (10:59)
[2020-06-06] MEDS: PATIROMER 8.4 GM SUSP PACKET PO SCH (11:02)
--- NOTE | 2020-06-06 13:10 | PDOC PROGRESS REPORT ---
Subjective Subjective:: 34 year old female with history of polycystic kidney disease, recent history of dialysis in [place], treated for severe anemia [place] moved to [place] again 3 weeks ago and came to the emergency room with complaints of severe bilateral flank pain. Work-up done in the ER shows hemoglobin of 4.6, CT scan shows bilateral enlarged kidneys with polycystic lesions and liver lesions, bicarb in the chemistry is 9 with a creatinine of 5.0. 3 units of blood transfusion initiated in the ER started on IV fluids. Briefly discussed the case with Dr. Bolanos she is going to see the patient tomorrow. Patient does not have a dialysis catheter at this time. As per the patient her mom at the age of 49 with renal failure. 05/17/2020-patient is in the dialysis unit at the time of examination. Received a temporary dialysis catheter. Hemoglobin came up to 8.6 with treatments of blood transfusion. Creatinine improved to 4.1. Consultation with nephrology, oncology was done. WBC count is still elevated receiving IV antibiotic therapy. 05/18/2020 Patient making over 500 cc of urine but still notably less than 1 L. Creatinine remains elevated. Nephrology following and planning to dialyze patient tomorrow. Patient may need to be evaluated for kidney transplant in the near future. I discussed this with her and she will discuss it with nephrology. WBC lower, hemoglobin down to 5.6 and I have ordered another unit of blood to be transfused. Calcium low we will need to replete this. Hepatitis panel is pe nding. Oncology following and has ordered EPO given iron/folate/B12 levels are normal. Patient has some abdominal distention with nausea and vomiting otherwise she has no new complaints today. Antiemetics have been ordered. Ordered Benadryl for itching likely due to bilirubin. 05/19/2020 Patient having increasing oxygen requirements and intermittent shortness of breath. Her abdomen does seem to be smaller today since getting dialysis. She was given 1 unit PRBC this morning during dialysis as well. Her labs also showed hypocalcemia and this was repleted during dialysis. Upon more detailed questioning with patient today, she revealed that she was positive for COVID 2 months ago in [place] prior to moving here. She was hospitalized and eventually discharged, later getting a negative test result from an ER in [place] prior to moving. I checked her d-dimer today and it is markedly elevated. It is unclear if her inflammatory markers are simply still elevated due to prior cytokine storm from COVID or if she could have been infected a second time which is possible given she is immune compromised may not be able to generate effective immunity to COVID. Rapid COVID testing is pending. Patient may need to be transferred to the COVID unit if this is positive. She does seem to already be improving since having fluid removed during dialysis though it is worth ruling out COVID infection given her travel history. Otherwise, her only complaints are shortness of breath and generalized fatigue and weakness. 05/20/2020 Patient now resides in the coronavirus unit. I spoke at great length with the supervisor extrusion today and was informed that the patient very well may have passed this infection along to 3 or more dialysis nurses who are now symptomatic and being quarantined. Have consulted infectious disease given the patient is now positive and blood cultures for MRSA and ESBL E. coli. I have started IV vancomycin renally dosed. Per ID, we will switch Zosyn to ertapenem. I discussed all of this with the patient and she is in agreement with the plan. She states she is not short of breath today and her only complaint other than generalized fatigue and weakness is some mild abdominal distention. I have started the patient on treatment dose Lovenox, appropriate vitamins, Decadron. Will check d-dimer and ferritin every 2 days and obtain CRP. We will consider ordering from does appear and or convalescent plasma if the patient develops moderate to severe respiratory failure. Currently she is breathing comfortably on room air with saturation of 94%. Due to patient being COVID-19 Suspected/Positive, encounter was conducted using telephone and/or videochat and does not include a detailed in-person physical exam in order to preserve PPE and limit staff exposure to a dangerous pathogen. 05/21/2020 Patient respiratory status seems to be stabilized for now. She is breathing fine on room air. Unfortunately, her d-dimer and inflammatory markers are still quite high. I have her on prophylactic dose heparin but we may need to consider putting her on treatment dose heparin drip. She is not a good candidate for Lovenox due to her renal failure. Infectious disease is consulting as we do not have a clear source of the patient's MRSA and multiple E. coli organisms found in her blood and urine. CT chest/abdomen/pelvis today was unrevealing for source as well. She does have moderate volume ascites and it may be beneficial to get a paracentesis and culture this fluid. Although CT did not show this, we may need to consider possibility of colonic diverticula perforation or duodenal diverticular disease as a source for her E. coli infections. We may also need to consider tagged WBC scan to help find a clear source of infection. Hemoglobin is significantly higher that this is probably a lab error. Patient has no new complaints other than generalized fatigue and weakness. 05/22/2020 Patient seems to be unchanged today from yesterday. Spoke with the surgeon that placed her dialysis catheter and he was unaware that she was COVID positive. Does not seem that he was informed of this. He was very grateful that I informed him. 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 ERICH ordered but this will likely be delayed for some time until the patient is negative for COVID, likely in a few weeks but the o rder will stay in place at least as a reminder for now. Patient is now breathing on room air. Other than generalized fatigue and weakness she has no new complaints. Of note, nursing had a discussion with the patient's sister who states the patient has a recent history of drug abuse including heroin however the patient is adamant that she has never injected drugs only snorted heroin. 05/23/2020 Patient seems to be doing all right today but she is asking for narcotics as often as she can get them and sometimes more often. She does have a history of narcotics abuse will need to be judicious with her use of narcotics with her. We still do not have a clear source for the patient's bloodstream infection. Infectious diseases following I will need them to comment further on what I think the source is. I have ordered a paracentesis with appropriate fluid studies as I believe patient very well might have SBP. She is being treated with appropriate antibiotics and this is probably why she is clinically stable thus far. COVID-19 infection could progress in the near future as we have seen this infection rapidly worsen respiratory status particularly in patients with significant complicated comorbidities such as this patient. Patient's d-dimer is lower today and her ferritin is higher. CRP is trending down. Urine output seems to be a bit more today. CT chest abdomen pelvis primarily just showed moderate volume ascites and bilateral pneumonia. Patient has no specific complaints other than mild exertional dyspnea and abdominal distention. 06/01/2020 Since my previous encounter, patient diagnosed with MRSA bacteremia, started on vancomycin and began with dialysis with planned end of treatment 07/04 per ID. ERICH ordered but cannot be done until patient is negative for COVID. Severe SURESH with ESRD showing some very mild gradual improvement in creatinine and urine output but patient still requiring dialysis with plans to continue outpatient. Paracentesis was completed with bacterial cultures negative, fungal culture and AFB pending. COVID testing still pending and ERICH is postponed until this is back assuming it is negative. Patient has no new complaints today. 06/02/2020 Creatinine is rising again the patient does have decent urine output. Nephrology is doing a 24-hour urine collection. WBC is lower and potassium is still elevated. Patient is still undergoing dialysis per nephrology recommendations. We are still planning on patient to have long-term outpatient dialysis and this is being arranged through charitable means as the patient does not have insurance. Patient has no new complaints today other than generalized fatigue and weakness. 06/03/2020 No significant change from yesterday. Creatinine is lower again though this seems to be flip-flopping from 1 day to the next. I suspect she will maintain her current level of renal function for quite some time if not permanently. This would include continuing hemodialysis long-term and this is still being arranged by health and social care teacher as patient needs hetal dialysis set up. Might be useful for patient to register for Medicaid as well. Repeat COVID test is pending and this was sent on 05/31. Patient denies any new complaints and still has some mild abdominal discomfort intermittently. 06/04/2020 Patient states she has no new complaints today and everything seems to be going as well as can be expected. I had the nurse call the testing laboratory for her coronavirus test it was repeated in the testing facility seems to have misplaced her test due to the incorrect birthdate being labeled on it. They did state that the result was negative but that they could not officially release the re sults until the birthdate error was corrected. They stated this to be fixed today. Once we have this official result, the patient needs to be moved out of the COVID unit to [facility]. Patient still requires dialysis as her creatinine and potassium remain elevated. She will receive a ERICH on Sunday and I have discussed this with Dr. Pearson. 06/05/2020 Patient is COVID negative officially and this is been put in her chart. I attempted to transfer the patient to the medical floor however nursing is notified me that administration "has no policy for the situation" and they do not know if the patient can safely be put on the medical floor or not despite a negative COVID test. There was no indication given as to when this policy would be determined and it seems the patient will have to remain in the COVID-19 unit until further notice. Patient is doing fine today and I discussed with Dr. Pearson the plans to have EIRCH on Sunday. He states due to scheduling restrictions, he may only be able to do this on Sunday but he does state this will get done in the near future. Patient has no new complaints. 06/05/2020 Patient remains in the COVID unit per administration request. Her labs and vitals remained stable. She will need to get a ERICH either tomorrow or the next day per Dr. Pearson in cardiology. She continues getting dialysis and her potassium is better controlled now. Kayexalate stopped. Patient will need AV fistula planning in the future to be arranged by nephrology and vascular surgery outpatient. She has no new complaints. Reason For Visit: SURESH,SEVERE ANEMIA Physical Exam Vital Signs: Temp Pulse Resp BP Pulse Ox 98.8 F 82 17 120/87 H 97 06/06/20 11:59 06/06/20 11:59 06/06/20 11:59 06/06/20 11:59 06/06/20 11:59 Intake & Output 06/05/20 06/06/20 06/07/20 06:59 06:59 06:59 Intake Total 1050 780 Output Total 2300 2225 Balance -1250 -1445 Weight 53.1 kg 50.9 kg General appearance: PRESENT: no acute distress, well-developed, well-nourished Head exam: PRESENT: atraumatic, normocephalic Eye exam: PRESENT: conjunctiva pink Respiratory exam: PRESENT: clear to auscultation lan. ABSENT: rales, rhonchi, wheezes Cardiovascular exam: PRESENT: RRR. ABSENT: diastolic murmur, rubs, systolic murmur GI/Abdominal exam: PRESENT: normal bowel sounds, soft. ABSENT: distended, guarding, mass, organolmegaly, rebound, tenderness Neurological exam: PRESENT: alert, awake, oriented to person, oriented to place, oriented to time, oriented to situation Psychiatric exam: PRESENT: appropriate affect Skin exam: PRESENT: dry, intact, warm Results Laboratory Results: 06/05/20 09:37 06/05/20 09:37 Impressions: Renal Ultrasound 05/16/20 00:00 IMPRESSION: 1. Bilateral polycystic kidney disease. 2. No hydronephrosis or urinary stones are seen. Chest X-Ray 05/19/20 00:00 IMPRESSION: NO ACUTE RADIOGRAPHIC FINDING IN THE CHEST. Abdomen/Pelvis CT 05/21/20 00:00 IMPRESSION: Please see combined report for performance of procedure and radiologic supervision and interpretation. Chest CT 05/21/20 00:00 IMPRESSION: 1. Bilateral pleural effusions and basilar airspace disease either atelectasis or pneumonia right greater than left. 2. Polycystic kidneys and liver. 3. Moderate volume ascites. Paracentesis Ultrasound 05/25/20 00:00 IMPRESSION: Successful ultrasound-guided paracentesis Guidance Fluoroscopy 05/28/20 00:00 IMPRESSION: IMAGE(S) OBTAINED DURING PROCEDURE. Assessment and Plan - Diagnosis (1) SURESH (acute kidney injury) Is this a current diagnosis for this admission?: Yes Plan: 05/16/2020-patient is going to be [facility] to [facility] as an inpatient. Patient baseline creatinine is 0.9 in 2015 today it is 5. Bicarb is 9. As per the patient she has a temporary dialysis in [place] in December. Started on IV fluids 100 cc/h. Nephrology consult was requested. Muhammad's catheter was requested renal ultrasound was requested. 05/17/2020-patient has end-stage renal disease on dialysis at this time. Nephrology consult was requested. 05/18/2020 ESRD on dialysis due to progression of PCKD, nephrology following Next dialysis to be 05/19 May need evaluation for renal transplant in the near future 05/19/2020 Dialysis continues per nephrology Getting Epogen with dialysis as ordered by nephrology Trending BMP, monitoring urine output 05/20/2020 Dialysis continues Sunday Nephrology following 05/21/2020 Persistent elevation of creatinine requiring HD Nephrology still following 05/22/2020 Creatinine dropping Trend BMP Nephrology managing dialysis 05/23/2020 Urine output a bit improved nephrology following 06/02/2020 Severe, unresolved, requiring continued dialysis Social work setting up long-term hetal dialysis outpatient Trend BMP 24-hour urine collection per nephrology 06/03/2020 Still trending BMP Creatinine flip-flopping up and down from 1 day to the next. Likely her renal function is permanently diminished now to this level of CKD requiring dialysis Hetal dialysis has not been set up yet reportedly No significant change in renal function, will very likely need dialysis permanently 06/06/2020 Will need outpatient planning for AV fistula to be arranged by nephrology and vascular surgery (2) ESBL (extended spectrum beta-lactamase) producing bacteria infection Is this a current diagnosis for this admission?: Yes (3) Sepsis Qualifiers: Sepsis type: methicillin resistant Staphylococcus aureus Sepsis acute organ dysfunction status: with acute organ dysfunction Severe sepsis acute organ dysfunction type: acute renal failure Acute renal failure type: unspecified Severe sepsis shock status: without septic shock Qualified Code(s): A41.02 - Sepsis due to Methicillin resistant Staphylococcus aureus; R65.20 - Severe sepsis without septic shock; N17.9 - Acute kidney failure, unspecified Is this a current diagnosis for this admission?: Yes Plan: Resolved. (4) Lab test positive for detection of COVID-19 virus Is this a current diagnosis for this admission?: Yes (5) Polycystic kidney Is this a current diagnosis for this admission?: Yes (6) E coli bacteremia Is this a current diagnosis for this admission?: Yes (7) Ascites Qualifiers: Ascites type: other type Qualified Code(s): R18.8 - Other ascites Is this a current diagnosis for this admission?: Yes (8) Generalized weakness Is this a current diagnosis for this admission?: Yes (9) Leukocytosis (leucocytosis) Qualifiers: Leukocytosis type: unspecified Qualified Code(s): D72.829 - Elevated white blood cell count, unspecified Is this a current diagnosis for this admission?: Yes (10) Metabolic acidosis Is this a current diagnosis for this admission?: Yes (11) Polycystic liver disease Is this a current diagnosis for this admission?: Yes (12) Protein-energy malnutrition Is this a current diagnosis for this admission?: Yes (13) Severe anemia Is this a current diagnosis for this admission?: Yes (14) Urinary tract infection Qualifiers: Urinary tract infection type: site unspecified Hematuria presence: with hematuria Qualified Code(s): N39.0 - Urinary tract infection, site not specified; R31.9 - Hematuria, unspecified Is this a current diagnosis for this admission?: Yes (15) Polysubstance abuse Is this a current diagnosis for this admission?: Yes (16) Acute kidney injury superimposed on CKD Is this a current diagnosis for this admission?: Yes (17) COVID-19 virus infection Is this a current diagnosis for this admission?: Yes (18) Hyperkalemia, diminished renal excretion Is this a current diagnosis for this admission?: Yes (19) MRSA bacteremia Is this a current diagnosis for this admission?: Yes - Plan Summary Summary: Major barrier to patient's discharge is the fact that she needs prolonged IV antibiotics, currently on dialysis and has no insurance. Medicaid application is already in the works but will take a while before you get an answer. Social work working on other potential possibilities. - Time Time Spent with patient: 35 or more minutes Medications reviewed and adjusted accordingly: Yes Anticipated Discharge Disposition: Snf Facility Anticipated Discharge Timeframe: within 72 hours - Inpatient Certification Based on my medical assessment, after consideration of the patient's comorbid ities, presenting symptoms, or acuity I expect that the services needed warrant INPATIENT care.: Yes I certify that my determination is in accordance with my understanding of Medicare's requirements for reasonable and necessary INPATIENT services [42 CFR 412.3e].: Yes Medical Necessity: Significant Comorbidiites Make Outpatient Treatment Too Risky, Need Close Monitoring Due to Risk of Patient Decompensation, Risk of Complication if Not Cared For in Hospital, Risk of Diagnosis Which Will Require Inpatient Eval/Care/Monitoring
[2020-06-07] MEDS ORDERED: HEPARIN SOD (PORCINE) 1,000 UNIT/ML 10 ML VIAL IV PRN (05:00)
[2020-06-07] MEDS: PANTOPRAZOLE SODIUM 40 MG TABLET.DR PO SCH (05:14)
[2020-06-07 07:39] LABS: ABSOLUTE EOSINOPHILS # (AUTO) 0.1 10^3/uL (0.0-0.6); ABSOLUTE LYMPHOCYTES (AUTO) 2.5 10^3/uL (0.5-4.7); ABSOLUTE MONOCYTES (AUTO) 0.8 10^3/uL (0.1-1.4); ABSOLUTE NEUT (AUTO) 7.4 10^3/uL (1.7-8.2); BASOPHILS % (AUTO) 0.4 % (0-2); EOSINOPHILS % (AUTO) 1.2 % (0-6); HEMATOCRIT 23.8 % (36.0-47.0); LYMPHOCYTES % (AUTO) 22.8 % (13-45); MEAN CORPUSCULAR HEMOGLOBIN 27.9 pg (27.0-33.4); MEAN CORPUSCULAR HGB CONC 32.6 g/dL (32.0-36.0); MONOCYTES % (AUTO) 7.3 % (3-13); PLATELET COUNT 350 10^3/uL (150-450); RED BLOOD COUNT 2.78 10^6/uL (3.72-5.28); SEGMENTED NEUTROPHILS % (AUTO) 68.3 % (42-78); TOTAL CELLS COUNTED % (AUTO) 100 %; WHITE BLOOD COUNT 10.9 10^3/uL (4.0-10.5)
[2020-06-07 07:42] LABS: MEAN CORPUSCULAR VOLUME 86 fl (80-97)
[2020-06-07 07:45] LABS: HEMOGLOBIN 7.8 g/dL (12.0-15.5)
[2020-06-07 08:04] LABS: ANION GAP 10 (5-19); BLOOD UREA NITROGEN 34 mg/dL (7-20); CALCIUM 8.6 mg/dL (8.4-10.2); CARBON DIOXIDE 28 mmol/L (22-30); CHLORIDE 99 mmol/L (98-107); GLUCOSE 90 mg/dL (75-110); POTASSIUM 3.7 mmol/L (3.6-5.0)
[2020-06-07] MEDS: CALCIUM ACETATE 667 MG CAPSULE PO SCH ×3 (09:13→17:12)
[2020-06-07] MEDS: MULTIVITAMIN TABLET PO SCH (10:04)
[2020-06-07] MEDS: HEPARIN SOD (PORCINE) 5,000 UNIT/ML 1 ML VIAL SUBCUT SCH ×2 (10:04→21:23)
[2020-06-07] MEDS: TRAMADOL HCL 50 MG TABLET PO PRN ×2 (10:34→21:46)
--- NOTE | 2020-06-07 10:45 | PDOC PROGRESS REPORT ---
Subjective Progress Note for:: 06/07/20 Reason For Visit: Patient seen today on dialysis. Undergoing dialysis without any issues. Continues to get IV antibiotics for ESBL E. coli and MRSA bacteremia. Labs and medications were reviewed. Dialysis orders were reviewed with the treating dialysis nurse. Physical Exam Vital Signs: Temp Pulse Resp BP Pulse Ox 97.8 F 85 14 115/81 95 06/07/20 04:01 06/07/20 07:00 06/07/20 04:01 06/07/20 04:01 06/07/20 04:01 Intake & Output 06/06/20 06/07/20 06/08/20 06:59 06:59 06:59 Intake Total 780 836 Output Total 2225 2250 Balance -1445 -1414 Weight 50.9 kg 50.4 kg General appearance: PRESENT: no acute distress Respiratory exam: PRESENT: clear to auscultation lan, decreased breath sounds. ABSENT: crackles Cardiovascular exam: PRESENT: +S1, +S2 Results Laboratory Results: 06/07/20 07:15 06/07/20 07:15 06/07/20 06/07/20 07:15 07:15 WBC 10.9 H RBC 2.78 L Hgb 7.8 L Hct 23.8 L MCV 86 D MCH 27.9 MCHC 32.6 RDW 18.0 H Plt Count 350 Seg Neutrophils % 68.3 Sodium 136.5 L Potassium 3.7 Chloride 99 Carbon Dioxide 28 Anion Gap 10 BUN 34 H Creatinine 2.68 H Est GFR ( Amer) 24 L Glucose 90 Calcium 8.6 Impressions: Renal Ultrasound 05/16/20 00:00 IMPRESSION: 1. Bilateral polycystic kidney disease. 2. No hydronephrosis or urinary stones are seen. Chest X-Ray 05/19/20 00:00 IMPRESSION: NO ACUTE RADIOGRAPHIC FINDING IN THE CHEST. Abdomen/Pelvis CT 05/21/20 00:00 IMPRESSION: Please see combined report for performance of procedure and radi ologic supervision and interpretation. Chest CT 05/21/20 00:00 IMPRESSION: 1. Bilateral pleural effusions and basilar airspace disease either atelectasis or pneumonia right greater than left. 2. Polycystic kidneys and liver. 3. Moderate volume ascites. Paracentesis Ultrasound 05/25/20 00:00 IMPRESSION: Successful ultrasound-guided paracentesis Guidance Fluoroscopy 05/28/20 00:00 IMPRESSION: IMAGE(S) OBTAINED DURING PROCEDURE. Assessment & Plan - Diagnosis (1) ESRD (end stage renal disease) on dialysis Plan: Looks like this patient with underlying autosomal dominant polycystic kidney disease and liver disease has reached ESRD status with her recent acute insult of COVID infection on top of underlying CKD. She is now dialyzing through IJ PermCath and will carry that as an outpatient. Her most recent COVID test came back as negative . Unfortunately she does not have any insurance including Medicare and Medicaid which is going to take time before she can be entertained at [facility] but talks are still ongoing with that entity. Fortunately she is making good amounts of urine and will try to maintain that but her electrolytes are abnormal and will require ongoing dialysis. Prior to discharge please make sure that there is no other indwelling catheters anywhere.Current dialysis is going without any issues. Vital signs are stable. Dialysis orders reviewed with the treating dialysis nurse. (2) Acute kidney injury superimposed on CKD Is this a current diagnosis for this admission?: Yes Plan: Acute on chronic kidney disease in the background of ADPKD/polycystic liver disease. Presently admitted with COVID pneumonia which seems to have pushed her over to possibly ESRD status. Patient has had an IJ PermCath placed through which dialysis is being entertained. Plan to remove approximately 500- liter of fluid. Given her polycystic kidney disease she could very well have progressed/advanced CKD. (3) COVID-19 virus infection Is this a current diagnosis for this admission?: Yes Plan: Being managed by hospitalist.Most recent call with test was negative. (4) ESBL (extended spectrum beta-lactamase) producing bacteria infection Is this a current diagnosis for this admission?: Yes Plan: ESBL E. coli UTI with bacteremia as well on appropriate antibiotics. (5) Hyperkalemia, diminished renal excretion Is this a current diagnosis for this admission?: Yes Plan: Her hyperkalemia now seems to be a whole lot better. Scale back on anti- hyperkalemic measures. (6) MRSA bacteremia Is this a current diagnosis for this admission?: Yes Plan: She has got a suspicious valve vegetation and therefore she needs 6-8 weeks of antibiotics. If she is on dialysis then we can administer that while on dialysis and that should be no problem.On IV vancomycin postdialysis. (7) Polycystic liver disease Is this a current diagnosis for this admission?: Yes Plan: Status quo. (8) Urinary tract infection Qualifiers: Urinary tract infection type: site unspecified Hematuria presence: with hematuria Qualified Code(s): N39.0 - Urinary tract infection, site not specified; R31.9 - Hematuria, unspecified Is this a current diagnosis for this admission?: Yes Plan: With ESBL E. coli UTI. (9) Severe anemia Is this a current diagnosis for this admission?: Yes Plan: Monitor. Currently avoiding erythropoietin because of a thrombogenic status of the COVID infection.
[2020-06-07] MEDS: PATIROMER 8.4 GM SUSP PACKET PO SCH (12:41)
--- NOTE | 2020-06-07 16:41 | PDOC PROGRESS REPORT ---
Subjective Subjective:: 34 year old female with history of polycystic kidney disease, recent history of dialysis in [place], treated for severe anemia [place] moved to [place] again 3 weeks ago and came to the emergency room with complaints of severe bilateral flank pain. Work-up done in the ER shows hemoglobin of 4.6, CT scan shows bilateral enlarged kidneys with polycystic lesions and liver lesions, bicarb in the chemistry is 9 with a creatinine of 5.0. 3 units of blood transfusion initiated in the ER started on IV fluids. Briefly discussed the case with Dr. Bolanos she is going to see the patient tomorrow. Patient does not have a dialysis catheter at this time. As per the patient her mom at the age of 49 with renal failure. 05/17/2020-patient is in the dialysis unit at the time of examination. Received a temporary dialysis catheter. Hemoglobin came up to 8.6 with treatments of blood transfusion. Creatinine improved to 4.1. Consultation with nephrology, oncology was done. WBC count is still elevated receiving IV antibiotic therapy. 05/18/2020 Patient making over 500 cc of urine but still notably less than 1 L. Creatinine remains elevated. Nephrology following and planning to dialyze patient tomorrow. Patient may need to be evaluated for kidney transplant in the near future. I discussed this with her and she will discuss it with nephrology. WBC lower, hemoglobin down to 5.6 and I have ordered another unit of blood to be transfused. Calcium low we will need to replete this. Hepatitis panel is pe nding. Oncology following and has ordered EPO given iron/folate/B12 levels are normal. Patient has some abdominal distention with nausea and vomiting otherwise she has no new complaints today. Antiemetics have been ordered. Ordered Benadryl for itching likely due to bilirubin. 05/19/2020 Patient having increasing oxygen requirements and intermittent shortness of breath. Her abdomen does seem to be smaller today since getting dialysis. She was given 1 unit PRBC this morning during dialysis as well. Her labs also showed hypocalcemia and this was repleted during dialysis. Upon more detailed questioning with patient today, she revealed that she was positive for COVID 2 months ago in [place] prior to moving here. She was hospitalized and eventually discharged, later getting a negative test result from an ER in [place] prior to moving. I checked her d-dimer today and it is markedly elevated. It is unclear if her inflammatory markers are simply still elevated due to prior cytokine storm from COVID or if she could have been infected a second time which is possible given she is immune compromised may not be able to generate effective immunity to COVID. Rapid COVID testing is pending. Patient may need to be transferred to the COVID unit if this is positive. She does seem to already be improving since having fluid removed during dialysis though it is worth ruling out COVID infection given her travel history. Otherwise, her only complaints are shortness of breath and generalized fatigue and weakness. 05/20/2020 Patient now resides in the coronavirus unit. I spoke at great length with the die out worker today and was informed that the patient very well may have passed this infection along to 3 or more dialysis nurses who are now symptomatic and being quarantined. Have consulted infectious disease given the patient is now positive and blood cultures for MRSA and ESBL E. coli. I have started IV vancomycin renally dosed. Per ID, we will switch Zosyn to ertapenem. I discussed all of this with the patient and she is in agreement with the plan. She states she is not short of breath today and her only complaint other than generalized fatigue and weakness is some mild abdominal distention. I have started the patient on treatment dose Lovenox, appropriate vitamins, Decadron. Will check d-dimer and ferritin every 2 days and obtain CRP. We will consider ordering from does appear and or convalescent plasma if the patient develops moderate to severe respiratory failure. Currently she is breathing comfortably on room air with saturation of 94%. Due to patient being COVID-19 Suspected/Positive, encounter was conducted using telephone and/or videochat and does not include a detailed in-person physical exam in order to preserve PPE and limit staff exposure to a dangerous pathogen. 05/21/2020 Patient respiratory status seems to be stabilized for now. She is breathing fine on room air. Unfortunately, her d-dimer and inflammatory markers are still quite high. I have her on prophylactic dose heparin but we may need to consider putting her on treatment dose heparin drip. She is not a good candidate for Lovenox due to her renal failure. Infectious disease is consulting as we do not have a clear source of the patient's MRSA and multiple E. coli organisms found in her blood and urine. CT chest/abdomen/pelvis today was unrevealing for source as well. She does have moderate volume ascites and it may be beneficial to get a paracentesis and culture this fluid. Although CT did not show this, we may need to consider possibility of colonic diverticula perforation or duodenal diverticular disease as a source for her E. coli infections. We may also need to consider tagged WBC scan to help find a clear source of infection. Hemoglobin is significantly higher that this is probably a lab error. Patient has no new complaints other than generalized fatigue and weakness. 05/22/2020 Patient seems to be unchanged today from yesterday. Spoke with the surgeon that placed her dialysis catheter and he was unaware that she was COVID positive. Does not seem that he was informed of this. He was very grateful that I informed him. 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 ERICH ordered but this will likely be delayed for some time until the patient is negative for COVID, likely in a few weeks but the o rder will stay in place at least as a reminder for now. Patient is now breathing on room air. Other than generalized fatigue and weakness she has no new complaints. Of note, nursing had a discussion with the patient's sister who states the patient has a recent history of drug abuse including heroin however the patient is adamant that she has never injected drugs only snorted heroin. 05/23/2020 Patient seems to be doing all right today but she is asking for narcotics as often as she can get them and sometimes more often. She does have a history of narcotics abuse will need to be judicious with her use of narcotics with her. We still do not have a clear source for the patient's bloodstream infection. Infectious diseases following I will need them to comment further on what I think the source is. I have ordered a paracentesis with appropriate fluid studies as I believe patient very well might have SBP. She is being treated with appropriate antibiotics and this is probably why she is clinically stable thus far. COVID-19 infection could progress in the near future as we have seen this infection rapidly worsen respiratory status particularly in patients with significant complicated comorbidities such as this patient. Patient's d-dimer is lower today and her ferritin is higher. CRP is trending down. Urine output seems to be a bit more today. CT chest abdomen pelvis primarily just showed moderate volume ascites and bilateral pneumonia. Patient has no specific complaints other than mild exertional dyspnea and abdominal distention. 06/01/2020 Since my previous encounter, patient diagnosed with MRSA bacteremia, started on vancomycin and began with dialysis with planned end of treatment 07/04 per ID. ERICH ordered but cannot be done until patient is negative for COVID. Severe SURESH with ESRD showing some very mild gradual improvement in creatinine and urine output but patient still requiring dialysis with plans to continue outpatient. Paracentesis was completed with bacterial cultures negative, fungal culture and AFB pending. COVID testing still pending and ERICH is postponed until this is back assuming it is negative. Patient has no new complaints today. 06/02/2020 Creatinine is rising again the patient does have decent urine output. Nephrology is doing a 24-hour urine collection. WBC is lower and potassium is still elevated. Patient is still undergoing dialysis per nephrology recommendations. We are still planning on patient to have long-term outpatient dialysis and this is being arranged through charitable means as the patient does not have insurance. Patient has no new complaints today other than generalized fatigue and weakness. 06/03/2020 No significant change from yesterday. Creatinine is lower again though this seems to be flip-flopping from 1 day to the next. I suspect she will maintain her current level of renal function for quite some time if not permanently. This would include continuing hemodialysis long-term and this is still being arranged by criminal justice social worker as patient needs hetal dialysis set up. Might be useful for patient to register for Medicaid as well. Repeat COVID test is pending and this was sent on 05/31. Patient denies any new complaints and still has some mild abdominal discomfort intermittently. 06/04/2020 Patient states she has no new complaints today and everything seems to be going as well as can be expected. I had the nurse call the testing laboratory for her coronavirus test it was repeated in the testing facility seems to have misplaced her test due to the incorrect birthdate being labeled on it. They did state that the result was negative but that they could not officially release the re sults until the birthdate error was corrected. They stated this to be fixed today. Once we have this official result, the patient needs to be moved out of the COVID unit to [facility]. Patient still requires dialysis as her creatinine and potassium remain elevated. She will receive a ERICH on Sunday and I have discussed this with Dr. Pearson. 06/05/2020 Patient is COVID negative officially and this is been put in her chart. I attempted to transfer the patient to the medical floor however nursing is notified me that administration "has no policy for the situation" and they do not know if the patient can safely be put on the medical floor or not despite a negative COVID test. There was no indication given as to when this policy would be determined and it seems the patient will have to remain in the COVID-19 unit until further notice. Patient is doing fine today and I discussed with Dr. Pearson the plans to have ERICH on Sunday. He states due to scheduling restrictions, he may only be able to do this on Sunday but he does state this will get done in the near future. Patient has no new complaints. 06/06/2020 Patient remains in the COVID unit per administration request. Her labs and vitals remained stable. She will need to get a ERICH either tomorrow or the next day per Dr. Pearson in cardiology. She continues getting dialysis and her potassium is better controlled now. Kayexalate stopped. Patient will need AV fistula planning in the future to be arranged by nephrology and vascular surgery outpatient. She has no new complaints. 06/07/2020 Patient has no new complaints today. She is continuing dialysis without issue. She will have a ERICH most likely tomorrow according to my discussions with Dr. Pearson over the weekend. She can leave the COVID unit whenever administration has a policy for a negative COVID test after a positive test. She will also need her hetal dialysis set up if this is not already been done by case management. She could potentially be discharged this week if all goes well. Reason For Visit: SURESH,SEVERE ANEMIA Physical Exam Vital Signs: Temp Pulse Resp BP Pulse Ox 99.8 F 89 19 109/78 95 06/07/20 12:24 06/07/20 14:00 06/07/20 12:24 06/07/20 12:24 06/07/20 12:24 Intake & Output 06/06/20 06/07/20 06/08/20 06:59 06:59 06:59 Intake Total 260 293 2552 Output Total 2169 2580 1500 Balance -1445 -1414 -500 Weight 50.9 kg 50.4 kg Exam: General appearance: PRESENT: no acute distress, well-developed, well-nourished, states she feels well today Head exam: PRESENT: atraumatic, normocephalic Eye exam: PRESENT: conjunctiva pink Respiratory exam: PRESENT: clear to auscultation lan. ABSENT: rales, rhonchi, wheezes Cardiovascular exam: PRESENT: RRR. ABSENT: diastolic murmur, rubs, systolic murmur GI/Abdominal exam: PRESENT: normal bowel sounds, soft. ABSENT: distended, guarding, mass, organolmegaly, rebound, tenderness Neurological exam: PRESENT: alert, awake, oriented to person, oriented to place, oriented to time, oriented to situation Psychiatric exam: PRESENT: appropriate affect Skin exam: PRESENT: dry, intact, warm Results Laboratory Results: 06/07/20 07:15 06/07/20 07:15 06/07/20 06/07/20 07:15 07:15 WBC 10.9 H RBC 2.78 L Hgb 7.8 L Hct 23.8 L MCV 86 D MCH 27.9 MCHC 32.6 RDW 18.0 H Plt Count 350 Seg Neutrophils % 68.3 Sodium 136.5 L Potassium 3.7 Chloride 99 Carbon Dioxide 28 Anion Gap 10 BUN 34 H Creatinine 2.68 H Est GFR ( Amer) 24 L Glucose 90 Calcium 8.6 Impressions: Renal Ultrasound 05/16/20 00:00 IMPRESSION: 1. Bilateral polycystic kidney disease. 2. No hydronephrosis or urinary stones are seen. Chest X-Ray 05/19/20 00:00 IMPRESSION: NO ACUTE RADIOGRAPHIC FINDING IN THE CHEST. Abdomen/Pelvis CT 05/21/20 00:00 IMPRESSION: Please see combined report for performance of procedure and radiologic supervision and interpretation. Chest CT 05/21/20 00:00 IMPRESSION: 1. Bilateral pleural effusions and basilar airspace disease either atelectasis or pneumonia right greater than left. 2. Polycystic kidneys and liver. 3. Moderate volume ascites. Paracentesis Ultrasound 05/25/20 00:00 IMPRESSION: Successful ultrasound-guided paracentesis Guidance Fluoroscopy 05/28/20 00:00 IMPRESSION: IMAGE(S) OBTAINED DURING PROCEDURE. Assessment and Plan - Diagnosis (1) SURESH (acute kidney injury) Is this a current diagnosis for this admission?: Yes Plan: 05/16/2020-patient is going to be admitted to [facility] as an inpatient. Patient baseline creatinine is 0.9 in 2015 today it is 5. Bicarb is 9. As per the patient she has a temporary dialysis in [place] in December. Started on IV fluids 100 cc/h. Nephrology consult was requested. Muhammad's catheter was requested renal ultrasound was requested. 05/17/2020-patient has end-stage renal disease on dialysis at this time. Nephrology consult was requested. 05/18/2020 ESRD on dialysis due to progression of PCKD, nephrology following Next dialysis to be 05/19 May need evaluation for renal transplant in the near future 05/19/2020 Dialysis continues per nephrology Getting Epogen with dialysis as ordered by nephrology Trending BMP, monitoring urine output 05/20/2020 Dialysis continues Sunday Nephrology following 05/21/2020 Persistent elevation of creatinine requiring HD Nephrology still following 05/22/2020 Creatinine dropping Trend BMP Nephrology managing dialysis 05/23/2020 Urine output a bit improved nephrology following 06/02/2020 Severe, unresolved, requiring continued dialysis Social work setting up long-term hetal dialysis outpatient Trend BMP 24-hour urine collection per nephrology 06/03/2020 Still trending BMP Creatinine flip-flopping up and down from 1 day to the next. Likely her renal function is permanently diminished now to this level of CKD requiring dialysis Hetal dialysis has not been set up yet reportedly No significant change in renal function, will very likely need dialysis permanently 06/06/2020 Will need outpatient planning for AV fistula to be arranged by nephrology and vascular surgery. 06/07/2020 Hetal dialysis will need to be set up by case management if this is not already been done (2) ESBL (extended spectrum beta-lactamase) producing bacteria infection Is this a current diagnosis for this admission?: Yes Plan: -ESBL bacteremia and E. coli UTI. Patient will be treated with ertapenem 500mg after HD for 2 weeks as per ID recommendation starting from first negative blood culture which is on 05/24. End of treatment 06/06. Leukocytosis improving. 06/03/2020 ERICH is required however we are still waiting on repeat COVID test to come back negative ERICH planned for 06/08 (3) Sepsis Qualifiers: Sepsis type: methicillin resistant Staphylococcus aureus Sepsis acute organ dysfunction status: with acute organ dysfunction Severe sepsis acute organ dysfunction type: acute renal failure Acute renal failure type: unspecified Severe sepsis shock status: without septic shock Qualified Code(s): A41.02 - Sepsis due to Methicillin resistant Staphylococcus aureus; R65.20 - Severe sepsis without septic shock; N17.9 - Acute kidney failure, unspecified Is this a current diagnosis for this admission?: Yes (4) Lab test positive for detection of COVID-19 virus Is this a current diagnosis for this admission?: Yes (5) Polycystic kidney Is this a current diagnosis for this admission?: Yes (6) E coli bacteremia Is this a current diagnosis for this admission?: Yes (7) Ascites Qualifiers: Ascites type: other type Qualified Code(s): R18.8 - Other ascites Is this a current diagnosis for this admission?: Yes (8) Generalized weakness Is this a current diagnosis for this admission?: Yes (9) Leukocytosis (leucocytosis) Qualifiers: Leukocytosis type: unspecified Qualified Code(s): D72.829 - Elevated white blood cell count, unspecified Is this a current diagnosis for this admission?: Yes (10) Metabolic acidosis Is this a current diagnosis for this admission?: Yes (11) Polycystic liver disease Is this a current diagnosis for this admission?: Yes (12) Protein-energy malnutrition Is this a current diagnosis for this admission?: Yes (13) Severe anemia Is this a current diagnosis for this admission?: Yes (14) Urinary tract infection Qualifiers: Urinary tract infection type: site unspecified Hematuria presence: with hematuria Qualified Code(s): N39.0 - Urinary tract infection, site not specified; R31.9 - Hematuria, unspecified Is this a current diagnosis for this admission?: Yes (15) Polysubstance abuse Is this a current diagnosis for this admission?: Yes (16) Acute kidney injury superimposed on CKD Is this a current diagnosis for this admission?: Yes (17) COVID-19 virus infection Is this a current diagnosis for this admission?: Yes (18) Hyperkalemia, diminished renal excretion Is this a current diagnosis for this admission?: Yes (19) MRSA bacteremia Is this a current diagnosis for this admission?: Yes - Plan Summary Summary: Major barrier to patient's discharge is the fact that she needs prolonged IV antibiotics, currently on dialysis and has no insurance. Medicaid application is already in the works but will take a while before you get an answer. Social work working on other potential possibilities. - Time Time Spent with patient: 35 or more minutes Medications reviewed and adjusted accordingly: Yes Anticipated Discharge Disposition: Home, Self Care Anticipated Discharge Timeframe: within 72 hours - Inpatient Certification Based on my medical assessment, after consideration of the patient's comorbidities, presenting symptoms, or acuity I expect that the services needed warrant INPATIENT care.: Yes I certify that my determination is in accordance with my understanding of Medicare's requirements for reasonable and necessary INPATIENT services [42 CFR 412.3e].: Yes Medical Necessity: Significant Comorbidiites Make Outpatient Treatment Too Risky, Need Close Monitoring Due to Risk of Patient Decompensation, Risk of Complication if Not Cared For in Hospital, Risk of Diagnosis Which Will Require Inpatient Eval/Care/Monitoring
[2020-06-07] MEDS ORDERED: VANCOMYCIN HCL 750 MG in DEXTROSE 5%-WATER 250 ML IV SCH (18:00)
[2020-06-08] MEDS: PANTOPRAZOLE SODIUM 40 MG TABLET.DR PO SCH (06:11)
[2020-06-08] MEDS: HEPARIN SOD (PORCINE) 5,000 UNIT/ML 1 ML VIAL SUBCUT SCH ×2 (09:34→22:59)
[2020-06-08] MEDS: CALCIUM ACETATE 667 MG CAPSULE PO SCH ×3 (09:34→17:05)
[2020-06-08] MEDS: MULTIVITAMIN TABLET PO SCH (09:34)
[2020-06-08] MEDS: TRAMADOL HCL 50 MG TABLET PO PRN ×2 (10:51→23:00)
[2020-06-08] MEDS ORDERED: PROPOFOL INJ 200 MG/20 ML VIAL IV ONE (11:52)
[2020-06-08] MEDS ORDERED: MIDAZOLAM 2 MG/2 ML INJ ONE (11:53)
[2020-06-08] MEDS ORDERED: HYDROMORPHONE HCL INJ/PF 2 MG/ML AMPULE ONE (13:33)
[2020-06-08] MEDS: PATIROMER 8.4 GM SUSP PACKET PO SCH (13:50)
--- NOTE | 2020-06-08 14:06 | PDOC PROGRESS REPORT ---
Subjective Subjective:: 34 year old female with history of polycystic kidney disease, recent history of dialysis in [place], treated for severe anemia [place] moved to [place] again 3 weeks ago and came to the emergency room with complaints of severe bilateral flank pain. Work-up done in the ER shows hemoglobin of 4.6, CT scan shows bilateral enlarged kidneys with polycystic lesions and liver lesions, bicarb in the chemistry is 9 with a creatinine of 5.0. 3 units of blood transfusion initiated in the ER started on IV fluids. Briefly discussed the case with Dr. Bolanos she is going to see the patient tomorrow. Patient does not have a dialysis catheter at this time. As per the patient her mom at the age of 49 with renal failure. 05/17/2020-patient is in the dialysis unit at the time of examination. Received a temporary dialysis catheter. Hemoglobin came up to 8.6 with treatments of blood transfusion. Creatinine improved to 4.1. Consultation with nephrology, oncology was done. WBC count is still elevated receiving IV antibiotic therapy. 05/18/2020 Patient making over 500 cc of urine but still notably less than 1 L. Creatinine remains elevated. Nephrology following and planning to dialyze patient tomorrow. Patient may need to be evaluated for kidney transplant in the near future. I discussed this with her and she will discuss it with nephrology. WBC lower, hemoglobin down to 5.6 and I have ordered another unit of blood to be transfused. Calcium low we will need to replete this. Hepatitis panel is pe nding. Oncology following and has ordered EPO given iron/folate/B12 levels are normal. Patient has some abdominal distention with nausea and vomiting otherwise she has no new complaints today. Antiemetics have been ordered. Ordered Benadryl for itching likely due to bilirubin. 05/19/2020 Patient having increasing oxygen requirements and intermittent shortness of breath. Her abdomen does seem to be smaller today since getting dialysis. She was given 1 unit PRBC this morning during dialysis as well. Her labs also showed hypocalcemia and this was repleted during dialysis. Upon more detailed questioning with patient today, she revealed that she was positive for COVID 2 months ago in [place] prior to moving here. She was hospitalized and eventually discharged, later getting a negative test result from an ER in [place] prior to moving. I checked her d-dimer today and it is markedly elevated. It is unclear if her inflammatory markers are simply still elevated due to prior cytokine storm from COVID or if she could have been infected a second time which is possible given she is immune compromised may not be able to generate effective immunity to COVID. Rapid COVID testing is pending. Patient may need to be transferred to the COVID unit if this is positive. She does seem to already be improving since having fluid removed during dialysis though it is worth ruling out COVID infection given her travel history. Otherwise, her only complaints are shortness of breath and generalized fatigue and weakness. 05/20/2020 Patient now resides in the coronavirus unit. I spoke at great length with the housetrailer servicer today and was informed that the patient very well may have passed this infection along to 3 or more dialysis nurses who are now symptomatic and being quarantined. Have consulted infectious disease given the patient is now positive and blood cultures for MRSA and ESBL E. coli. I have started IV vancomycin renally dosed. Per ID, we will switch Zosyn to ertapenem. I discussed all of this with the patient and she is in agreement with the plan. She states she is not short of breath today and her only complaint other than generalized fatigue and weakness is some mild abdominal distention. I have started the patient on treatment dose Lovenox, appropriate vitamins, Decadron. Will check d-dimer and ferritin every 2 days and obtain CRP. We will consider ordering from does appear and or convalescent plasma if the patient develops moderate to severe respiratory failure. Currently she is breathing comfortably on room air with saturation of 94%. Due to patient being COVID-19 Suspected/Positive, encounter was conducted using telephone and/or videochat and does not include a detailed in-person physical exam in order to preserve PPE and limit staff exposure to a dangerous pathogen. 05/21/2020 Patient respiratory status seems to be stabilized for now. She is breathing fine on room air. Unfortunately, her d-dimer and inflammatory markers are still quite high. I have her on prophylactic dose heparin but we may need to consider putting her on treatment dose heparin drip. She is not a good candidate for Lovenox due to her renal failure. Infectious disease is consulting as we do not have a clear source of the patient's MRSA and multiple E. coli organisms found in her blood and urine. CT chest/abdomen/pelvis today was unrevealing for source as well. She does have moderate volume ascites and it may be beneficial to get a paracentesis and culture this fluid. Although CT did not show this, we may need to consider possibility of colonic diverticula perforation or duodenal diverticular disease as a source for her E. coli infections. We may also need to consider tagged WBC scan to help find a clear source of infection. Hemoglobin is significantly higher that this is probably a lab error. Patient has no new complaints other than generalized fatigue and weakness. 05/22/2020 Patient seems to be unchanged today from yesterday. Spoke with the surgeon that placed her dialysis catheter and he was unaware that she was COVID positive. Does not seem that he was informed of this. He was very grateful that I informed him. 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 ERICH ordered but this will likely be delayed for some time until the patient is negative for COVID, likely in a few weeks but the o rder will stay in place at least as a reminder for now. Patient is now breathing on room air. Other than generalized fatigue and weakness she has no new complaints. Of note, nursing had a discussion with the patient's sister who states the patient has a recent history of drug abuse including heroin however the patient is adamant that she has never injected drugs only snorted heroin. 05/23/2020 Patient seems to be doing all right today but she is asking for narcotics as often as she can get them and sometimes more often. She does have a history of narcotics abuse will need to be judicious with her use of narcotics with her. We still do not have a clear source for the patient's bloodstream infection. Infectious diseases following I will need them to comment further on what I think the source is. I have ordered a paracentesis with appropriate fluid studies as I believe patient very well might have SBP. She is being treated with appropriate antibiotics and this is probably why she is clinically stable thus far. COVID-19 infection could progress in the near future as we have seen this infection rapidly worsen respiratory status particularly in patients with significant complicated comorbidities such as this patient. Patient's d-dimer is lower today and her ferritin is higher. CRP is trending down. Urine output seems to be a bit more today. CT chest abdomen pelvis primarily just showed moderate volume ascites and bilateral pneumonia. Patient has no specific complaints other than mild exertional dyspnea and abdominal distention. 06/01/2020 Since my previous encounter, patient diagnosed with MRSA bacteremia, started on vancomycin and began with dialysis with planned end of treatment 07/04 per ID. ERICH ordered but cannot be done until patient is negative for COVID. Severe SURESH with ESRD showing some very mild gradual improvement in creatinine and urine output but patient still requiring dialysis with plans to continue outpatient. Paracentesis was completed with bacterial cultures negative, fungal culture and AFB pending. COVID testing still pending and ERICH is postponed until this is back assuming it is negative. Patient has no new complaints today. 06/02/2020 Creatinine is rising again the patient does have decent urine output. Nephrology is doing a 24-hour urine collection. WBC is lower and potassium is still elevated. Patient is still undergoing dialysis per nephrology recommendations. We are still planning on patient to have long-term outpatient dialysis and this is being arranged through charitable means as the patient does not have insurance. Patient has no new complaints today other than generalized fatigue and weakness. 06/03/2020 No significant change from yesterday. Creatinine is lower again though this seems to be flip-flopping from 1 day to the next. I suspect she will maintain her current level of renal function for quite some time if not permanently. This would include continuing hemodialysis long-term and this is still being arranged by social group worker as patient needs hetal dialysis set up. Might be useful for patient to register for Medicaid as well. Repeat COVID test is pending and this was sent on 05/31. Patient denies any new complaints and still has some mild abdominal discomfort intermittently. 06/04/2020 Patient states she has no new complaints today and everything seems to be going as well as can be expected. I had the nurse call the testing laboratory for her coronavirus test it was repeated in the testing facility seems to have misplaced her test due to the incorrect birthdate being labeled on it. They did state that the result was negative but that they could not officially release the re sults until the birthdate error was corrected. They stated this to be fixed today. Once we have this official result, the patient needs to be moved out of the COVID unit to [facility]. Patient still requires dialysis as her creatinine and potassium remain elevated. She will receive a ERICH on Sunday and I have discussed this with Dr. Pearson. 06/05/2020 Patient is COVID negative officially and this is been put in her chart. I attempted to transfer the patient to the medical floor however nursing is notified me that administration "has no policy for the situation" and they do not know if the patient can safely be put on the medical floor or not despite a negative COVID test. There was no indication given as to when this policy would be determined and it seems the patient will have to remain in the COVID-19 unit until further notice. Patient is doing fine today and I discussed with Dr. Pearson the plans to have ERICH on Sunday. He states due to scheduling restrictions, he may only be able to do this on Sunday but he does state this will get done in the near future. Patient has no new complaints. 06/06/2020 Patient remains in the COVID unit per administration request. Her labs and vitals remained stable. She will need to get a ERICH either tomorrow or the next day per Dr. Pearson in cardiology. She continues getting dialysis and her potassium is better controlled now. Kayexalate stopped. Patient will need AV fistula planning in the future to be arranged by nephrology and vascular surgery outpatient. She has no new complaints. 06/07/2020 Patient has no new complaints today. She is continuing dialysis without issue. She will have a ERICH most likely tomorrow according to my discussions with Dr. Pearson over the weekend. She can leave the COVID unit whenever administration has a policy for a negative COVID test after a positive test. She will also need her hetal dialysis set up if this is not already been done by case management. She could potentially be discharged this week if all goes well. 06/08/2020 Patient states she is doing fine today. She had her ERICH this a little while ago. I spoke with Dr. Pearson immediately after and he said that he did not see any vegetations but the official report would be put in her chart later today. Patient still needs her hetal dialysis set up and she states she is going to be living in [place] with her sister and this is where she would like the dialysis to be set up. She is moving back to [place] towards the end of June but will need dialysis until then. Labs and vitals are stable. Reason For Visit: SURESH,SEVERE ANEMIA Physical Exam Vital Signs: Temp Pulse Resp BP Pulse Ox 99.1 F 82 19 88/65 L 95 06/08/20 06:59 06/08/20 07:00 06/08/20 06:59 06/08/20 06:59 06/08/20 06:59 Intake & Output 06/07/20 06/08/20 06/09/20 06:59 06:59 06:59 Intake Total 836 1720 Output Total 2250 5160 Balance -1414 -780 Weight 50.4 kg 50.4 kg Exam: General appearance: PRESENT: no acute distress, well-developed, well-nourished, states she is doing fine today Head exam: PRESENT: atraumatic, normocephalic Eye exam: PRESENT: conjunctiva pink Respiratory exam: PRESENT: clear to auscultation lan. ABSENT: rales, rhonchi, wheezes Cardiovascular exam: PRESENT: RRR. ABSENT: diastolic murmur, rubs, systolic murmur GI/Abdominal exam: PRESENT: normal bowel sounds, soft. ABSENT: distended, guarding, mass, organolmegaly, rebound, tenderness Neurological exam: PRESENT: alert, awake, oriented to person, oriented to place, oriented to time, oriented to situation Psychiatric exam: PRESENT: appropriate affect Skin exam: PRESENT: dry, intact, warm Results Laboratory Results: 06/07/20 07:15 06/07/20 07:15 Impressions: Renal Ultrasound 05/16/20 00:00 IMPRESSION: 1. Bilateral polycystic kidney disease. 2. No hydronephrosis or urinary stones are seen. Chest X-Ray 05/19/20 00:00 IMPRESSION: NO ACUTE RADIOGRAPHIC FINDING IN THE CHEST. Abdomen/Pelvis CT 05/21/20 00:00 IMPRESSION: Please see combined report for performance of procedure and radiologic supervision and interpretation. Chest CT 05/21/20 00:00 IMPRESSION: 1. Bilateral pleural effusions and basilar airspace disease either atelectasis or pneumonia right greater than left. 2. Polycystic kidneys and liver. 3. Moderate volume ascites. Paracentesis Ultrasound 05/25/20 00:00 IMPRESSION: Successful ultrasound-guided paracentesis Guidance Fluoroscopy 05/28/20 00:00 IMPRESSION: IMAGE(S) OBTAINED DURING PROCEDURE. Assessment and Plan - Diagnosis (1) MRSA bacteremia Is this a current diagnosis for this admission?: Yes Plan: -Recovered from 1 blood culture set only. -ID recommended treating with vancomycin with assumption that is a true bacteremia. -unable to perform ERICH until patient tests negative for COVID-19. -very small mobile mass noted on TTE which is questionable for vegetation, patient has to be empirically treated for endocarditis with plan for 6 weeks of IV vancomycin EOT 07/04. -Repeat COVID pending. If negative, plan for ERICH. If ERICH is negative, can discontinue vancomycin as patient has already received > 2 weeks of IV vancomycin which should be more than adequate for simple MRSA bacteremia in absence of endocarditis. -Vancomycin administration with dialysis. 06/03/2020 Await COVID test which was sent on 05/31, if negative patient can have ERICH and leave the COVID unit 06/08/2020 ERICH done today and did not show any vegetations IV vancomycin will complete on 06/21 (2) ESRD (end stage renal disease) on dialysis Is this a current diagnosis for this admission?: Yes Plan: 05/16/2020-patient is going to be admitted to [facility] as an inpatient. Patient baseline creatinine is 0.9 in 2014 today it is 5. Bicarb is 9. As per the patient she has a temporary dialysis in [place] in December. Started on IV fluids 100 cc/h. Nephrology consult was requested. Muhammad's catheter was requested renal ultrasound was requested. 05/17/2020-patient has end-stage renal disease on dialysis at this time. Nephrology consult was requested. 05/18/2020 ESRD on dialysis due to progression of PCKD, nephrology following Next dialysis to be 05/19 May need evaluation for renal transplant in the near future 05/19/2020 Dialysis continues per nephrology Getting Epogen with dialysis as ordered by nephrology Trending [facility], monitoring urine output 05/20/2020 Dialysis continues Sunday Nephrology following 05/21/2020 Persistent elevation of creatinine requiring HD Nephrology still following 05/22/2020 Creatinine dropping Trend [facility] Nephrology managing dialysis 05/23/2020 Urine output a bit improved nephrology following 06/02/2020 Severe, unresolved, requiring continued dialysis Social work setting up long-term hetal dialysis outpatient Trend [facility] 24-hour urine collection per nephrology 06/03/2020 Still trending [facility] Creatinine flip-flopping up and down from 1 day to the next. Likely her renal function is permanently diminished now to this level of CKD requiring dialysis Hetal dialysis has not been set up yet reportedly No significant change in renal function, will very likely need dialysis permanently 06/06/2020 Will need outpatient planning for AV fistula to be arranged by nephrology and vascular surgery. 06/07/2020 [facility] dialysis will need to be set up by case management if this is not already been done 06/08/2020 [facility] and she will be living with her sister until she moves back to [place] in late June (3) SURESH (acute kidney injury) Is this a current diagnosis for this admission?: Yes Plan: As above (4) ESBL (extended spectrum beta-lactamase) producing bacteria infection Is this a current diagnosis for this admission?: Yes Plan: -ESBL bacteremia and E. coli UTI. Patient will be treated with ertapenem 500mg after HD for 2 weeks as per ID recommendation starting from first negative blood culture which is on 05/24. End of treatment 06/06. COMPLETED Leukocytosis improving. 06/03/2020 ERICH is required however we are still waiting on repeat COVID test to come back negative No vegetations on ERICH 06/08 (5) Sepsis Qualifiers: Sepsis type: methicillin resistant Staphylococcus aureus Sepsis acute organ dysfunction status: with acute organ dysfunction Severe sepsis acute organ dysfunction type: acute renal failure Acute renal failure type: unspecified Severe sepsis shock status: without septic shock Qualified Code(s): A41.02 - Sepsis due to Methicillin resistant Staphylococcus aureus; R65.20 - Severe sepsis without septic shock; N17.9 - Acute kidney failure, unspecified Is this a current diagnosis for this admission?: Yes (6) Lab test positive for detection of COVID-19 virus Is this a current diagnosis for this admission?: Yes (7) Polycystic kidney Is this a current diagnosis for this admission?: Yes (8) E coli bacteremia Is this a current diagnosis for this admission?: Yes (9) Ascites Qualifiers: Ascites type: other type Qualified Code(s): R18.8 - Other ascites Is this a current diagnosis for this admission?: Yes (10) Generalized weakness Is this a current diagnosis for this admission?: Yes (11) Leukocytosis (leucocytosis) Qualifiers: Leukocytosis type: unspecified Qualified Code(s): D72.829 - Elevated white blood cell count, unspecified Is this a current diagnosis for this admission?: Yes (12) Metabolic acidosis Is this a current diagnosis for this admission?: Yes (13) Polycystic liver disease Is this a current diagnosis for this admission?: Yes (14) Protein-energy malnutrition Is this a current diagnosis for this admission?: Yes (15) Severe anemia Is this a current diagnosis for this admission?: Yes (16) Urinary tract infection Qualifiers: Urinary tract infection type: site unspecified Hematuria presence: with hematuria Qualified Code(s): N39.0 - Urinary tract infection, site not specified; R31.9 - Hematuria, unspecified Is this a current diagnosis for this admission?: Yes (17) Polysubstance abuse Is this a current diagnosis for this admission?: Yes (18) Acute kidney injury superimposed on CKD Is this a current diagnosis for this admission?: Yes (19) COVID-19 virus infection Is this a current diagnosis for this admission?: Yes (20) Hyperkalemia, diminished renal excretion Is this a current diagnosis for this admission?: Yes - Plan Summary Summary: Major barrier to patient's discharge is the fact that she needs prolonged IV antibiotics, currently on dialysis and has no insurance. Medicaid application is already in the works but will take a while before you get an answer. Social work working on other potential possibilities. - Time Time Spent with patient: 25-34 minutes Medications reviewed and adjusted accordingly: Yes Anticipated Discharge Disposition: Home, Self Care Anticipated Discharge Timeframe: within 72 hours - Inpatient Certification Based on my medical assessment, after consideration of the patient's comorbidities, presenting symptoms, or acuity I expect that the services needed warrant INPATIENT care.: Yes I certify that my determination is in accordance with my understanding of Medicare's requirements for reasonable and necessary INPATIENT services [42 CFR 412.3e].: Yes Medical Necessity: Significant Comorbidiites Make Outpatient Treatment Too Ri mer, Need Close Monitoring Due to Risk of Patient Decompensation, Risk of Complication if Not Cared For in Hospital, Risk of Diagnosis Which Will Require Inpatient Eval/Care/Monitoring
[2020-06-09] MEDS: PANTOPRAZOLE SODIUM 40 MG TABLET.DR PO SCH (06:06)
[2020-06-09 07:12] LABS: ABSOLUTE BASOPHILS # (AUTO) 0.1 10^3/uL (0.0-0.2); ABSOLUTE EOSINOPHILS # (AUTO) 0.2 10^3/uL (0.0-0.6); ABSOLUTE LYMPHOCYTES (AUTO) 3.3 10^3/uL (0.5-4.7); ABSOLUTE MONOCYTES (AUTO) 0.8 10^3/uL (0.1-1.4); ABSOLUTE NEUT (AUTO) 6.6 10^3/uL (1.7-8.2); BASOPHILS % (AUTO) 1.3 % (0-2); EOSINOPHILS % (AUTO) 1.5 % (0-6); HEMATOCRIT 20.1 % (36.0-47.0); LYMPHOCYTES % (AUTO) 29.8 % (13-45); MEAN CORPUSCULAR HEMOGLOBIN 26.9 pg (27.0-33.4); MEAN CORPUSCULAR HGB CONC 31.7 g/dL (32.0-36.0); MEAN CORPUSCULAR VOLUME 85 fl (80-97); MONOCYTES % (AUTO) 7.4 % (3-13); PLATELET COUNT 377 10^3/uL (150-450); RED BLOOD COUNT 2.37 10^6/uL (3.72-5.28); RED CELL DISTRIBUTION WIDTH 17.7 % (11.5-14.0); TOTAL CELLS COUNTED % (AUTO) 100 %
[2020-06-09 07:17] LABS: HEMOGLOBIN 6.4 g/dL (12.0-15.5)
[2020-06-09] MEDS ORDERED: NORMAL SALINE 250 ML IV PRN ×2 (07:33)
[2020-06-09 07:35] LABS: ANION GAP 10 (5-19); BLOOD UREA NITROGEN 49 mg/dL (7-20); CALCIUM 9.2 mg/dL (8.4-10.2); CARBON DIOXIDE 23 mmol/L (22-30); CHLORIDE 103 mmol/L (98-107); GLUCOSE 81 mg/dL (75-110); POTASSIUM 5.1 mmol/L (3.6-5.0)
[2020-06-09 07:36] LABS: VANCOMYCIN,TROUGH 8.7 ug/mL (5.0-20.0)
[2020-06-09] MEDS ORDERED: HEPARIN SOD (PORCINE) 1,000 UNIT/ML 10 ML VIAL IV PRN (08:13)
[2020-06-09] MEDS: CALCIUM ACETATE 667 MG CAPSULE PO SCH ×3 (10:17→17:33)
[2020-06-09] MEDS: TRAMADOL HCL 50 MG TABLET PO PRN (10:18)
[2020-06-09] MEDS: MULTIVITAMIN TABLET PO SCH (10:18)
[2020-06-09] MEDS: HEPARIN SOD (PORCINE) 5,000 UNIT/ML 1 ML VIAL SUBCUT SCH ×2 (10:18→23:23)
--- NOTE | 2020-06-09 10:53 | XCELERA REPORT ---
Study ID: [id number] Transesophageal Echocardiogram Report Name: BILLIE HUTCHINS Age: 34 yrs Gender: Female : 1985 Patient Status: Inpatient Patient Location: [address] [place] [address] Study Date: 06/08/2020 10:56 AM History: ESRD Possible mitral anthony vegetation( on TTE) Reason For Study: Endocarditis suspected Ordering Physician: VIPUL COLES Performed By: Yanet Washburn Interpretation Summary Left ventricular systolic function is normal. Ejection Fraction = >55%. The right ventricle is normal in size and function. No hemodynamically significant valvular aortic stenosis. There is trace tricuspid regurgitation. There is no pericardial effusion. There is no vegetation seen on the mitral valve. Procedure A complete two-dimensional transesophageal echocardiogram was performed (2D, spectral and color flow Doppler). Informed consent for Transesophageal Echocardiogram, and use of a contrast agent as needed, was obtained prior to the procedure. The patient was brought to the OR in a fasting state. An intravenous line was placed. A topical anesthetic agent was used for oropharangeal anesthesia. A bite block was inserted. The patient's vital signs, including blood pressure, heart rate, pulse oximetry and cardiac rhythm were monitored thoughout the procedure. IV conscious sedation was administered using per anesthesia team. The transesophageal probe was passed without difficulty. The usual views were obtained; basal, mid-esophageal, transgastric and aortic views. The patient tolerated the procedure well without evidence of orophangeal or esophageal trauma. Subsequent to all the images being obtained the probe was removed with out trauma. Left Ventricle The left ventricle is normal in size. There is no thrombus. There is borderline concentric left ventricular hypertrophy. Left ventricular systolic function is normal. Ejection Fraction = >55%. No regional wall motion abnormalities noted. Right Ventricle The right ventricle is normal in size and function. Atria The interatrial septum is intact with no evidence for an atrial septal defect. The left atrial size is normal. No left atrial mass or thrombus visualized. Right atrial size is normal. Mitral Valve The mitral valve is grossly normal. There is no vegetation seen on the mitral valve. There is no mitral valve stenosis. There is no mitral regurgitation noted. Tricuspid Valve The tricuspid valve is normal in structure and function. There is no tricuspid valve vegetation. There is no tricuspid stenosis. There is trace tricuspid regurgitation. Aortic Valve The aortic valve is trileaflet. The aortic valve opens well. There is no aortic valvular vegetation. No hemodynamically significant valvular aortic stenosis. No aortic regurgitation is present. Pulmonic Valve The pulmonic valve is not well seen, but is grossly normal. Trace pulmonic valvular regurgitation. Arteries Borderline aortic root dilatation. Pericardium There is no pericardial effusion. : VIPUL COLES Anil
--- NOTE | 2020-06-09 12:16 | PDOC PROGRESS REPORT ---
Subjective Progress Note for:: 06/02/20 Reason For Visit: Patient seen today on dialysis. Background history of ADPKD/liver disease admitted with COVID pneumonia. Incidental findings included ESBL E. coli UTI/MRSA bacteremia and on appropriate antibiotics. ERICH could not be done because of a COVID STATUS but MRSA coverage for 6 weeks to cover possible bacterial endocarditis. Unsure of patient's baseline creatinine given polycystic kidney disease. However it looks like overall she is improving with near normalization of her white count and progressively declining d-dimer. Urine output is pretty stable and good. She seems to have stabilized a creatinine around 4. Physical Exam Vital Signs: Temp Pulse Resp BP Pulse Ox 98.7 F 87 18 121/86 H 97 06/02/20 04:48 06/02/20 07:00 06/02/20 04:48 06/02/20 04:48 06/02/20 04:48 Intake & Output 06/01/20 06/02/20 06/03/20 06:59 06:59 06:59 Intake Total 1920 1527 Output Total 3025 2100 Balance -1105 -573 Weight 52.9 kg 53 kg General appearance: PRESENT: no acute distress Results Laboratory Results: 06/02/20 05:34 06/02/20 05:34 06/02/20 06/02/20 05:34 05:34 WBC 13.8 H RBC 3.24 L Hgb 8.7 L Hct 28.1 L MCV 87 MCH 27.0 MCHC 31.1 L RDW 18.2 H Plt Count 464 H Sodium 136.0 L Potassium 5.4 H Chloride 102 Carbon Dioxide 24 Anion Gap 10 BUN 47 H Creatinine 3.90 H Est GFR ( Amer) 16 L Glucose 92 Calcium 8.7 Impressions: Renal Ultrasound 05/16/20 00:00 IMPRESSION: 1. Bilateral polycystic kidney disease. 2. No hydronephrosis or urinary stones are seen. Chest X-Ray 05/19/20 00:00 IMPRESSION: NO ACUTE RADIOGRAPHIC FINDING IN THE CHEST. Abdomen/Pelvis CT 05/21/20 00:00 IMPRESSION: Please see combined report for performance of procedure and radiologic supervision and interpretation. Chest CT 05/21/20 00:00 IMPRESSION: 1. Bilateral pleural effusions and basilar airspace disease either atelectasis or pneumonia right greater than left. 2. Polycystic kidneys and liver. 3. Moderate volume ascites. Paracentesis Ultrasound 05/25/20 00:00 IMPRESSION: Successful ultrasound-guided paracentesis Guidance Fluoroscopy 05/28/20 00:00 IMPRESSION: IMAGE(S) OBTAINED DURING PROCEDURE. Assessment & Plan - Diagnosis (1) Acute kidney injury superimposed on CKD Is this a current diagnosis for this admission?: Yes Plan: Acute on chronic kidney disease in the background of ADPKD/polycystic liver disease. Presently admitted with COVID pneumonia which seems to have pushed her over to possibly ESRD status. Patient has had an IJ PermCath placed through which dialysis is being entertained. Plan to remove approximately 500- liter of fluid. Given her polycystic kidney disease she could very well have progressed/advanced CKD. Will order 24-hour creatinine clearance to document her current renal functional status. Dialysis orders reviewed with the treating dialysis nurse. (2) COVID-19 virus infection Is this a current diagnosis for this admission?: Yes Plan: Being managed by hospitalist. (3) ESBL (extended spectrum beta-lactamase) producing bacteria infection Is this a current diagnosis for this admission?: Yes Plan: ESBL E. coli UTI with bacteremia as well on appropriate antibiotics. (4) Hyperkalemia, diminished renal excretion Is this a current diagnosis for this admission?: Yes Plan: Likely heparin-induced. Continue on Veltassa and monitor.Would also add Eliana exalate. (5) MRSA bacteremia Is this a current diagnosis for this admission?: Yes Plan: She has got a suspicious valve vegetation and therefore she needs 6-8 weeks of antibiotics. If she needs long-term antibiotics and she is not on dialysis she would need a tunneled IJ catheter or PICC line based on her renal recovery. If she is on dialysis then we can administer that while on dialysis and that should be no problem.On IV vancomycin postdialysis. (6) Polycystic liver disease Is this a current diagnosis for this admission?: Yes Plan: Status quo. (7) Urinary tract infection Qualifiers: Urinary tract infection type: site unspecified Hematuria presence: with hematuria Qualified Code(s): N39.0 - Urinary tract infection, site not specified; R31.9 - Hematuria, unspecified Is this a current diagnosis for this admission?: Yes Plan: With ESBL E. coli UTI. (8) Severe anemia Is this a current diagnosis for this admission?: Yes Plan: Monitor
[2020-06-09] MEDS: PATIROMER 8.4 GM SUSP PACKET PO SCH (14:14)
--- NOTE | 2020-06-09 14:32 | PDOC PROGRESS REPORT ---
Subjective Progress Note for:: 06/09/20 Subjective:: Hemoglobin is down once again today. We will give some blood units for transfusion. Patient feels well. She denies any shortness of breath. Abdominal pain is now mild to minimal. She also denies any evidence of GI or bleeding currently. Reason For Visit: SURESH,SEVERE ANEMIA Physical Exam Vital Signs: Temp Pulse Resp BP Pulse Ox 99.0 F 83 18 111/68 94 06/09/20 10:39 06/09/20 10:39 06/09/20 10:39 06/09/20 10:39 06/09/20 10:39 Intake & Output 06/08/20 06/09/20 06/10/20 06:59 06:59 06:59 Intake Total 1720 390 Output Total 2500 975 Balance -780 -585 Weight 50.4 kg 53.8 kg General appearance: PRESENT: no acute distress, cooperative Mouth exam: PRESENT: neck supple Neck exam: ABSENT: JVD Respiratory exam: PRESENT: symmetrical, unlabored. ABSENT: accessory muscle use, retraction, tachypnea Cardiovascular exam: PRESENT: RRR. ABSENT: tachycardia Neurological exam: PRESENT: alert, awake, oriented to person, oriented to place, oriented to time Psychiatric exam: ABSENT: agitated, anxious Focused psych exam: ABSENT: pressured speech Skin exam: ABSENT: jaundice Results Laboratory Results: 06/09/20 05:55 06/09/20 05:55 06/09/20 06/09/20 06/09/20 05:55 05:55 13:05 WBC 11.0 H RBC 2.37 L Hgb 6.4 L Hct 20.1 L MCV 85 MCH 26.9 L MCHC 31.7 L RDW 17.7 H Plt Count 377 Seg Neutrophils % 60.0 Sodium 136.0 L Potassium 5.1 H Chloride 103 Carbon Dioxide 23 Anion Gap 10 BUN 49 H Creatinine 3.64 H Est GFR ( Amer) 17 L Glucose 81 Calcium 9.2 Blood Type O POSITIVE Antibody Screen NEGATIVE Impressions: Renal Ultrasound 05/16/20 00:00 IMPRESSION: 1. Bilateral polycystic kidney disease. 2. No hydronephrosis or urinary stones are seen. Chest X-Ray 05/19/20 00:00 IMPRESSION: NO ACUTE RADIOGRAPHIC FINDING IN THE CHEST. Abdomen/Pelvis CT 05/21/20 00:00 IMPRESSION: Please see combined report for performance of procedure and radiologic supervision and interpretation. Chest CT 05/21/20 00:00 IMPRESSION: 1. Bilateral pleural effusions and basilar airspace disease either atelectasis or pneumonia right greater than left. 2. Polycystic kidneys and liver. 3. Moderate volume ascites. Paracentesis Ultrasound 05/25/20 00:00 IMPRESSION: Successful ultrasound-guided paracentesis Guidance Fluoroscopy 05/28/20 00:00 IMPRESSION: IMAGE(S) OBTAINED DURING PROCEDURE. Assessment and Plan - Diagnosis (1) MRSA bacteremia Is this a current diagnosis for this admission?: Yes Plan: Recovered from 1 blood culture set only. ID recommended treating with vancomycin with assumption that is a true bacteremia. Initial TTE showed a very small masslike substance on her mitral valve which was on setting to be a true vegetation. ERICH performed 06/08/2020 showed no evidence of any vegetation. Patient has already received IV vancomycin for 24 days now and I will plan on discontinuing IV antibiotics tomorrow given no current evidence of endocarditis. Check ESR and CRP levels in the morning (2) ESBL (extended spectrum beta-lactamase) producing bacteria infection Is this a current diagnosis for this admission?: Yes Plan: -ESBL bacteremia and E. coli UTI. Patient will be treated with ertapenem 500mg after HD for 2 weeks as per ID recommendation starting from first negative blood culture which is on 05/24. End of treatment 06/06. COMPLETED Leukocytosis improved. (3) Acute kidney injury superimposed on CKD Is this a current diagnosis for this admission?: Yes Plan: Patient presented to the hospital with renal failure primarily and was initiated on dialysis. Patient's baseline renal function is unknown but it is suspected that patient has progression of CKD from what seems to be Adult Polycystic Kidney Disease. dialyzed via permacath. Continue Bicitra and PhosLo. Discharge planning working on setting up [facility] dialysis [Patient has no insurance. Medicaid application in process but may take 45 to 90 days] in case patient is determined to still require long-term HD in the upcoming days. (4) Hyperkalemia, diminished renal excretion Is this a current diagnosis for this admission?: Yes Plan: Hyperkalemic this morning due to ESRD. On Veltassa. Off Kayexalate. Check BMP in the morning. Will get dialyzed today. Nephrology following. (5) Ascites Qualifiers: Ascites type: other type Qualified Code(s): R18.8 - Other ascites Is this a current diagnosis for this admission?: Yes Plan: -650 cc of ascitic fluid removed 05/25/2020. Cell count shows no evidence of SBP even though patient has been on antibiotics for several days already. SAAG 1.2, total protein 2.9-suggestive of chronic liver disease as etiology. (6) Polycystic liver disease Is this a current diagnosis for this admission?: Yes (7) COVID-19 virus infection Is this a current diagnosis for this admission?: Yes Plan: Repeat test is now negative. Seems to have cleared infection. (8) Severe anemia Is this a current diagnosis for this admission?: Yes Plan: Evaluated by hematology who recommended the patient has an anemia of ESRD and recommends continuation of EPO which patient has been receiving with dialysis. She will get 2 units of PRBCs as hemoglobin is quite low. She denies any evidence of GI bleed. She does have some chronic hematuria but seems to be microscopic at this point due to her polycystic kidney disease. Check CBC posttransfusion. - Time Time Spent with patient: Less than 15 minutes Anticipated Discharge Disposition: Home, Self Care Anticipated Discharge Timeframe: within 24 hours
[2020-06-09] MEDS ORDERED: VANCOMYCIN HCL 1,000 MG in DEXTROSE 5%-WATER 250 ML IV SCH (18:00)
[2020-06-09 21:36] LABS: ABSOLUTE BASOPHILS # (AUTO) 0.1 10^3/uL (0.0-0.2); ABSOLUTE EOSINOPHILS # (AUTO) 0.2 10^3/uL (0.0-0.6); ABSOLUTE LYMPHOCYTES (AUTO) 3.1 10^3/uL (0.5-4.7); ABSOLUTE MONOCYTES (AUTO) 0.8 10^3/uL (0.1-1.4); ABSOLUTE NEUT (AUTO) 7.4 10^3/uL (1.7-8.2); EOSINOPHILS % (AUTO) 1.5 % (0-6); HEMATOCRIT 27.6 % (36.0-47.0); LYMPHOCYTES % (AUTO) 26.6 % (13-45); MEAN CORPUSCULAR HEMOGLOBIN 27.3 pg (27.0-33.4); MEAN CORPUSCULAR HGB CONC 32.5 g/dL (32.0-36.0); MEAN CORPUSCULAR VOLUME 84 fl (80-97); MONOCYTES % (AUTO) 7.1 % (3-13); PLATELET COUNT 388 10^3/uL (150-450); RED BLOOD COUNT 3.28 10^6/uL (3.72-5.28); RED CELL DISTRIBUTION WIDTH 17.4 % (11.5-14.0); SEGMENTED NEUTROPHILS % (AUTO) 63.8 % (42-78); TOTAL CELLS COUNTED % (AUTO) 100 %; WHITE BLOOD COUNT 11.6 10^3/uL (4.0-10.5)
[2020-06-10 04:48] LABS: HEMATOCRIT 26.7 % (36.0-47.0); HEMOGLOBIN 8.7 g/dL (12.0-15.5); MEAN CORPUSCULAR HEMOGLOBIN 27.7 pg (27.0-33.4); MEAN CORPUSCULAR HGB CONC 32.6 g/dL (32.0-36.0); MEAN CORPUSCULAR VOLUME 85 fl (80-97); PLATELET COUNT 377 10^3/uL (150-450); RED BLOOD COUNT 3.14 10^6/uL (3.72-5.28); RED CELL DISTRIBUTION WIDTH 17.1 % (11.5-14.0); WHITE BLOOD COUNT 11.2 10^3/uL (4.0-10.5)
[2020-06-10 05:08] LABS: ANION GAP 10 (5-19); BLOOD UREA NITROGEN 34 mg/dL (7-20); C-REACTIVE PROTEIN 71.9 mg/L (<10.0); CARBON DIOXIDE 26 mmol/L (22-30); CHLORIDE 102 mmol/L (98-107); GLUCOSE 88 mg/dL (75-110); POTASSIUM 4.4 mmol/L (3.6-5.0)
[2020-06-10] MEDS: PANTOPRAZOLE SODIUM 40 MG TABLET.DR PO SCH (05:36)
[2020-06-10 05:46] LABS: ERYTHROCYTE SEDIMENTATION RATE 80 mm/hr (0-20)
--- NOTE | 2020-06-10 08:59 | PDOC PROGRESS REPORT ---
Subjective Progress Note for:: 06/09/20 Reason For Visit: Patient seen on dialysis today. She is feeling well enough that she is all ready to go back to [place] where she is going to be living. Undergoing dialysis without any issues. Patient status post ERICH which did not show any vegetation on the mitral valve. Therefore antibiotics have been modified to that diagnosis. Labs and medications reviewed. She has made decent amounts of urine. Unfortunately renal numbers are still steadily high that requires dialys is especially with potassium being high. Dialysis orders were reviewed with the treating dialysis nurse. Physical Exam Vital Signs: Temp Pulse Resp BP Pulse Ox 99.0 F 83 18 111/68 94 06/09/20 10:39 06/09/20 10:39 06/09/20 10:39 06/09/20 10:39 06/09/20 10:39 Intake & Output 06/08/20 06/09/20 06/10/20 06:59 06:59 06:59 Intake Total 1720 390 Output Total 2500 975 Balance -780 -585 Weight 50.4 kg 53.8 kg General appearance: PRESENT: no acute distress Respiratory exam: PRESENT: clear to auscultation lan, decreased breath sounds. ABSENT: crackles Cardiovascular exam: PRESENT: +S1, +S2 Extremities exam: ABSENT: pedal edema Results Laboratory Results: 06/09/20 05:55 06/09/20 05:55 06/09/20 06/09/20 05:55 05:55 WBC 11.0 H RBC 2.37 L Hgb 6.4 L Hct 20.1 L MCV 85 MCH 26.9 L MCHC 31.7 L RDW 17.7 H Plt Count 377 Seg Neutrophils % 60.0 Sodium 136.0 L Potassium 5.1 H Chloride 103 Carbon Dioxide 23 Anion Gap 10 BUN 49 H Creatinine 3.64 H Est GFR ( Amer) 17 L Glucose 81 Calcium 9.2 Impressions: Renal Ultrasound 05/16/20 00:00 IMPRESSION: 1. Bilateral polycystic kidney disease. 2. No hydronephrosis or urinary stones are seen. Chest X-Ray 05/19/20 00:00 IMPRESSION: NO ACUTE RADIOGRAPHIC FINDING IN THE CHEST. Abdomen/Pelvis CT 05/21/20 00:00 IMPRESSION: Please see combined report for performance of procedure and radiologic supervision and interpretation. Chest CT 05/21/20 00:00 IMPRESSION: 1. Bilateral pleural effusions and basilar airspace disease either atelectasis or pneumonia right greater than left. 2. Polycystic kidneys and liver. 3. Moderate volume ascites. Paracentesis Ultrasound 05/25/20 00:00 IMPRESSION: Successful ultrasound-guided paracentesis Guidance Fluoroscopy 05/28/20 00:00 IMPRESSION: IMAGE(S) OBTAINED DURING PROCEDURE. Assessment & Plan - Diagnosis (1) Acute kidney injury superimposed on CKD Is this a current diagnosis for this admission?: Yes Plan: Acute on chronic kidney disease in the background of ADPKD/polycystic liver disease. Presently admitted with COVID pneumonia which seems to have pushed her over to possibly ESRD status. Patient has had an IJ PermCath placed through which dialysis is being entertained. Plan to remove approximately 500- liter of fluid. Given her polycystic kidney disease she has progressed/advanced CKD to ESRD.Awaiting placement for outpatient dialysis given the fact she has no insurance. (2) ESRD (end stage renal disease) on dialysis Is this a current diagnosis for this admission?: Yes Plan: Looks like this patient with underlying autosomal dominant polycystic kidney disease and liver disease has reached ESRD status with her recent acute insult of COVID infection on top of underlying CKD. She is now dialyzing through IJ PermCath and will carry that as an outpatient. Her most recent COVID test came back as negative . Unfortunately she does not have any insurance including Medicare and Medicaid which is going to take time before she can be entertained at [facility] but now that she is going back to [place] she has had [place] medicaid denied. Fortunately she is making good amounts of urine and will try to maintain that but her electrolytes are abnormal and will require ongoing dialysis. Current dialysis is going without any issues. Vital signs are stable. Dialysis orders reviewed with the treating dialysis nurse. When she goes to [place] she will have to apply for state medicaid and in the meanwhile be dependent on local hospital to continue with her dialysis with special watch over her pottasium levels.Discussed with her why Pottasium is dangerous and needs to be watched and talked about low K diet. (3) COVID-19 virus infection Is this a current diagnosis for this admission?: Yes Plan: Being managed by hospitalist.Most recent call with test was negative. (4) ESBL (extended spectrum beta-lactamase) producing bacteria infection Is this a current diagnosis for this admission?: Yes Plan: ESBL E. coli UTI with bacteremia as well on appropriate antibiotics. (5) Hyperkalemia, diminished renal excretion Is this a current diagnosis for this admission?: Yes Plan: Her hyperkalemia now seems to be a whole lot better. Scale back on anti- hyperkalemic measures. (6) MRSA bacteremia Is this a current diagnosis for this admission?: Yes Plan: Now that she has been ruled out for valvular vegetations based on ERICH antibiotics have been scaled down. (7) Polycystic liver disease Is this a current diagnosis for this admission?: Yes Plan: Status quo. (8) Urinary tract infection Qualifiers: Urinary tract infection type: site unspecified Hematuria presence: with hematuria Qualified Code(s): N39.0 - Urinary tract infection, site not specified; R31.9 - Hematuria, unspecified Is this a current diagnosis for this admission?: Yes Plan: With ESBL E. coli UTI. (9) Severe anemia Is this a current diagnosis for this admission?: Yes Plan: Monitor. Currently avoiding erythropoietin because of a thrombogenic status of the COVID infection. Monitor for need for transfusion.
[2020-06-10] MEDS: TRAMADOL HCL 50 MG TABLET PO PRN (10:31)
[2020-06-10] MEDS: CALCIUM ACETATE 667 MG CAPSULE PO SCH ×3 (10:38→17:29)
[2020-06-10] MEDS: MULTIVITAMIN TABLET PO SCH (10:38)
[2020-06-10] MEDS: HEPARIN SOD (PORCINE) 5,000 UNIT/ML 1 ML VIAL SUBCUT SCH ×2 (10:38→22:23)
[2020-06-10] MEDS ORDERED: TRAMADOL HCL 50 MG TABLET PO PRN (10:43)
--- NOTE | 2020-06-10 10:43 | PDOC PROGRESS REPORT ---
Subjective Progress Note for:: 06/10/20 Subjective:: Patient has no complaints today. Still always has mild abdominal pain. States that she would like to be discharged so she can go to [place]. States that she has insurance in [place] and will be able to get set up with [facility] in [place] in [place]. States that she was planning to go to [place] on Sunday. I have informed patient that I cannot discharge her without our bilingual social worker verifying that she has insurance in [place] and without her dialysis in [place] been set up. Reason For Visit: SURESH,SEVERE ANEMIA Physical Exam Vital Signs: Temp Pulse Resp BP Pulse Ox 98.3 F 93 16 105/76 95 06/10/20 03:36 06/10/20 03:36 06/10/20 03:36 06/10/20 03:36 06/10/20 03:36 Intake & Output 06/09/20 06/10/20 06/11/20 06:59 06:59 06:59 Intake Total 390 600 Output Total 975 1100 Balance -585 -500 Weight 53.8 kg General appearance: PRESENT: no acute distress, cooperative Respiratory exam: PRESENT: unlabored. ABSENT: accessory muscle use Neurological exam: PRESENT: alert, awake, oriented to person, oriented to place, oriented to time Results Laboratory Results: 06/10/20 04:30 06/10/20 04:30 06/09/20 06/09/20 06/10/20 13:05 21:10 04:30 WBC 11.6 H 11.2 H RBC 3.28 L 3.14 L Hgb 9.0 L D 8.7 L Hct 27.6 L 26.7 L MCV 84 85 MCH 27.3 27.7 MCHC 32.5 32.6 RDW 17.4 H 17.1 H Plt Count 388 377 Seg Neutrophils % 63.8 Sodium Potassium Chloride Carbon Dioxide Anion Gap BUN Creatinine Est GFR ( Amer) Glucose Calcium C-Reactive Protein Blood Type O POSITIVE Antibody Screen NEGATIVE 06/10/20 04:30 WBC RBC Hgb Hct MCV MCH MCHC RDW Plt Count Seg Neutrophils % Sodium 137.5 Potassium 4.4 Chloride 102 Carbon Dioxide 26 Anion Gap 10 BUN 34 H Creatinine 3.03 H Est GFR ( Amer) 21 L Glucose 88 Calcium 9.0 C-Reactive Protein 71.9 H Blood Type Antibody Screen Impressions: Renal Ultrasound 05/16/20 00:00 IMPRESSION: 1. Bilateral polycystic kidney disease. 2. No hydronephrosis or urinary stones are seen. Chest X-Ray 05/19/20 00:00 IMPRESSION: NO ACUTE RADIOGRAPHIC FINDING IN THE CHEST. Abdomen/Pelvis CT 05/21/20 00:00 IMPRESSION: Please see combined report for performance of procedure and radiologic supervision and interpretation. Chest CT 05/21/20 00:00 IMPRESSION: 1. Bilateral pleural effusions and basilar airspace disease either atelectasis or pneumonia right greater than left. 2. Polycystic kidneys and liver. 3. Moderate volume ascites. Paracentesis Ultrasound 05/25/20 00:00 IMPRESSION: Successful ultrasound-guided paracentesis Guidance Fluoroscopy 05/28/20 00:00 IMPRESSION: IMAGE(S) OBTAINED DURING PROCEDURE. Assessment and Plan - Diagnosis (1) MRSA bacteremia Is this a current diagnosis for this admission?: Yes Plan: Recovered from 1 blood culture set only. ID recommended treating with vancomycin with assumption that is a true bacteremia. Initial TTE showed a very small masslike substance on her mitral valve which was on setting to be a true vegetation. ERICH performed 06/08/2020 showed no evidence of any vegetation. Patient has already received IV vancomycin for 25 days now. Could probably discontinue antibiotics at any point now as no evidence of endocarditis but I will leave vancomycin going until she can be safely discharged. (2) ESBL (extended spectrum beta-lactamase) producing bacteria infection Is this a current diagnosis for this admission?: Yes Plan: -ESBL bacteremia and E. coli UTI. Patient will be treated with ertapenem 500mg after HD for 2 weeks as per ID recommendation starting from first negative blood culture which is on 05/24. End of treatment 06/06. COMPLETED Leukocytosis improved. (3) Acute kidney injury superimposed on CKD Is this a current diagnosis for this admission?: Yes Plan: Patient presented to the hospital with renal failure primarily and was initiated on dialysis. Patient's baseline renal function is unknown but it is suspected that patient has progression of CKD from what seems to be Adult Polycystic Kidney Disease. dialyzed via permacath. Continue Bicitra and PhosLo. Patient's [facility] dialysis was denied. Patient states that she has insurance in [place] and would like to go home to [place] soon as possible and plans to go to [facility] to do dialysis. I have informed patient that she was certainly need to be dialyzed tomorrow and that I cannot discharge her until we have ensured that she has been set up with dialysis unit in [place] and that we have confirmed that she has insurance which would allow her to get set up with dialysis. I have discussed with bilingual social worker to look into this. (4) Hyperkalemia, diminished renal excretion Is this a current diagnosis for this admission?: Yes (5) Ascites Qualifiers: Ascites type: other type Qualified Code(s): R18.8 - Other ascites Is this a current diagnosis for this admission?: Yes (6) Polycystic liver disease Is this a current diagnosis for this admission?: Yes (7) COVID-19 virus infection Is this a current diagnosis for this admission?: Yes Plan: Repeat test is now negative. Seems to have cleared infection. (8) Severe anemia Is this a current diagnosis for this admission?: Yes - Time Time Spent with patient: 15-24 minutes Anticipated Discharge Disposition: Home, Self Care Anticipated Discharge Timeframe: once outpatient HD can be set up
[2020-06-10] MEDS ORDERED: VANCOMYCIN HCL 1,000 MG in DEXTROSE 5%-WATER 250 ML IV ONE (12:00)
[2020-06-10] MEDS: PATIROMER 8.4 GM SUSP PACKET PO SCH (12:14)
[2020-06-10] MEDS: BISACODYL 5 MG TABEC PO PRN (22:26)
[2020-06-11] MEDS ORDERED: HEPARIN SOD (PORCINE) 1,000 UNIT/ML 10 ML VIAL IV PRN (05:00)
[2020-06-11 05:11] LABS: HEMATOCRIT 26.5 % (36.0-47.0); MEAN CORPUSCULAR HEMOGLOBIN 28.5 pg (27.0-33.4); MEAN CORPUSCULAR HGB CONC 33.8 g/dL (32.0-36.0); MEAN CORPUSCULAR VOLUME 84 fl (80-97); PLATELET COUNT 404 10^3/uL (150-450); RED BLOOD COUNT 3.14 10^6/uL (3.72-5.28); RED CELL DISTRIBUTION WIDTH 17.2 % (11.5-14.0); WHITE BLOOD COUNT 10.1 10^3/uL (4.0-10.5)
[2020-06-11 05:39] LABS: ANION GAP 10 (5-19); BLOOD UREA NITROGEN 48 mg/dL (7-20); CALCIUM 9.1 mg/dL (8.4-10.2); CARBON DIOXIDE 25 mmol/L (22-30); CHLORIDE 103 mmol/L (98-107); GLUCOSE 89 mg/dL (75-110); POTASSIUM 4.6 mmol/L (3.6-5.0); VANCOMYCIN,TROUGH 14.2 ug/mL (5.0-20.0)
[2020-06-11] MEDS: PANTOPRAZOLE SODIUM 40 MG TABLET.DR PO SCH (06:18)
[2020-06-11] MEDS: CALCIUM ACETATE 667 MG CAPSULE PO SCH ×3 (08:18→18:16)
[2020-06-11] MEDS: MULTIVITAMIN TABLET PO SCH (10:24)
[2020-06-11] MEDS: HEPARIN SOD (PORCINE) 5,000 UNIT/ML 1 ML VIAL SUBCUT SCH (10:24)
[2020-06-11] MEDS: PATIROMER 8.4 GM SUSP PACKET PO SCH (12:20)
--- NOTE | 2020-06-11 12:47 | Left Against Medical Advice ---
Against Medical Advice Admission Date/Time: 05/16/20 17:55 Primary Care Provider: Date of Patient Emigration: 06/11/20 - Diagnosis: (1) MRSA bacteremia Is this a current diagnosis for this admission?: Yes (2) ESBL (extended spectrum beta-lactamase) producing bacteria infection Is this a current diagnosis for this admission?: Yes (3) Acute kidney injury superimposed on CKD Is this a current diagnosis for this admission?: Yes (4) Hyperkalemia, diminished renal excretion Is this a current diagnosis for this admission?: Yes (5) Ascites Is this a current diagnosis for this admission?: Yes (6) Polycystic liver disease Is this a current diagnosis for this admission?: Yes (7) COVID-19 virus infection Is this a current diagnosis for this admission?: Yes (8) Severe anemia Is this a current diagnosis for this admission?: Yes (9) Poor social situation Is this a current diagnosis for this admission?: Yes - Summary: Summary: Please see Admission and Progress Notes as well. BILLIE HUTCHINS is a 34 F, who LEFT AGAINST MEDICAL ADVICE. The Patient was admitted on 05/16/20 17:55. HPI according to admitting provider: BILLIE HUTCHINS is a 34 year old female with history of polycystic kidney disease, recent history of dialysis in [place], treated for severe anemia [place] moved to [place] again 3 weeks ago and came to the emergency room with complaints of severe bilateral flank pain. Work-up done in the ER shows hemoglobin of 4.6, CT scan shows bilateral enlarged kidneys with polycystic lesions and liver lesions, bicarb in the chemistry is 9 with a creatinine of 5.0. 3 units of blood transfusion initiated in the ER started on IV fluids. Briefly discussed the case with Dr. Bolanos she is going to see the patient tomorrow. Patient does not have a dialysis catheter at this time. As per the patient her mom at the age of 49 with renal failure. Physical exam General appearance: PRESENT: no acute distress, cooperative Mouth exam: PRESENT: neck supple Neck exam: ABSENT: JVD Respiratory exam: PRESENT: symmetrical, unlabored. ABSENT: accessory muscle use, retraction, tachypnea Cardiovascular exam: PRESENT: RRR. ABSENT: tachycardia Neurological exam: PRESENT: alert, awake, oriented to person, oriented to place, oriented to time Psychiatric exam: ABSENT: agitated, anxious Focused psych exam: ABSENT: pressured speech Skin exam: ABSENT: jaundice Hospital course Patient has had a very extensive hospital stay with multiple complex medical problems during her stay. Please refer below for a quick summary. (1) MRSA bacteremia Is this a current diagnosis for this admission?: Yes Plan: Recovered from 1 blood culture set only. ID was consulted who recommended treating with vancomycin with assumption that is a true bacteremia especially in light of significant leukocytosis. Initial TTE showed a very small masslike substance on her mitral valve which was very questionable to be a true vegetation. ERICH was initially planned but as patient tested positive for COVID-19, Dr. Landen Pearson postpone ERICH till she recovered. ERICH performed 06/08/2020 showed no evidence of any vegetation. Patient has already received IV vancomycin for 26 days now and does not need any further IV antibiotics at this point. Repeat blood cultures have been negative. (2) ESBL (extended spectrum beta-lactamase) producing bacteria infection Is this a current diagnosis for this admission?: Yes Plan: -ESBL bacteremia and E. coli UTI. Patient will be treated with ertapenem 500mg after HD for 2 weeks as per ID recommendation starting from first negative blood culture which is on 05/24. End of treatment 06/06. COMPLETED Leukocytosis improved. (3) Acute kidney injury superimposed on CKD Is this a current diagnosis for this admission?: Yes Plan: Patient presented to the hospital with renal failure primarily and was initiated on dialysis. Patient's baseline renal function is unknown but it is suspected that patient has progression of CKD from what seems to be Adult Polycystic Kidney Disease. dialyzed via permacath. Patient's poor social situation has been a major barrier to discharge. Given lack of insurance and need for dialysis, we have been working multiple angles in collaboration with our social workers to set patient up with outpatient dialysis. However nothing has seemed fruitful at this point. Patient's jacinto dialysis was denied. Patient states that she has insurance in [place] and would like to go home today to [place] as her sister is leaving for [place] today and she would otherwise be homeless after her sister drives to [place]. She states that she will try to get dialysis in [facility] in [facility] when she gets there otherwise we will go to the hospital in [place] when she gets there to get dialyzed. rock worker has been working endlessly to try to get patient set up with [facility] in [place] and to give patient approved for Medicaid in [place] but this is still pending and no finalization has resulted just yet. I have explained to patient that I cannot discharge her without setting her up probably with a dialysis center in [place] to follow-up with for continued dialysis and have explained to her the very significant risks including of going prolonged periods of time without getting dialyzed. For this reason I have explained to her that she is not appropriate for discharge at this point. She voices understanding of the risks she is taking and has decided to leave AGAINST MEDICAL ADVICE. I have discussed with nephrology who [facility] can get dialyzed when she gets to [place] and I have recommended to patient that she goes to the nearest hospital to get dialyzed on Sunday when she arrives in [place]. She will be dialyzed today before leaving. I have given her prescriptions as well for PhosLo and Kayexalate. (4) Hyperkalemia, diminished renal excretion Is this a current diagnosis for this admission?: Yes Plan: Hyperkalemic this morning due to ESRD. Required Kayexalate and Veltassa while in the hospital. Currently resolved. Will give her prescription for Kayexalate as she would likely not be able to afford Veltassa. (5) Ascites Qualifiers: Ascites type: other type Qualified Code(s): R18.8 - Other ascites Is this a current diagnosis for this admission?: Yes Plan: -650 cc of ascitic fluid removed 05/25/2020. Cell count shows no evidence of SBP even though patient has been on antibiotics for several days already. SAAG 1.2, total protein 2.9-suggestive of chronic liver disease as etiology. (6) Polycystic liver disease Is this a current diagnosis for this admission?: Yes (7) COVID-19 virus infection Is this a current diagnosis for this admission?: Yes Plan: Likely reinfection present on admission as she states that she was positive in December in [place] and later cleared the infection. Positive early in admission but repeat test is now negative. Seems to have cleared infection. (8) Severe anemia Is this a current diagnosis for this admission?: Yes Plan: Evaluated by hematology who recommended the patient has an anemia of ESRD and recommends continuation of EPO which patient has been receiving with dialysis. Also contributing factor is patient's chronic hematuria which seems to be microscopic from her polycystic kidney disease. She has received several units of blood during this hospitalization. No evidence of GI bleeding has been noted. Iron studies B12 and folic acid also consistent with anemia of chronic disease. Hemoglobin currently stable today. Recommended to patient to follow-up and get established with a PCP, nephrology/dialysis unit, arnp and production graphic designer when she arrives in [place] as she has very complex medical problems which require management.
--- NOTE | 2020-06-11 15:06 | PDOC PROGRESS REPORT ---
Subjective Progress Note for:: 06/11/20 Reason For Visit: Patient seen on dialysis today. She is feeling well. She denies history of chest pain or shortness of breath. Currently undergoing dialysis without any issues. She says she is going AMA back home to [place]. She says she will visit the nearest hospital as she tries to get her urgent Medicaid on to continue outpatient dialysis. Labs and medications were reviewed. Dialysis orders were reviewed with the treating dialysis nurse. Physical Exam Vital Signs: Temp Pulse Resp BP Pulse Ox 98.6 F 76 16 120/87 H 97 06/11/20 11:34 06/11/20 11:34 06/11/20 11:34 06/11/20 11:34 06/11/20 11:34 Intake & Output 06/10/20 06/11/20 06/12/20 06:59 06:59 06:59 Intake Total 600 976 240 Output Total 1100 1775 Balance -500 -799 240 Weight 48.9 kg General appearance: PRESENT: no acute distress Respiratory exam: PRESENT: clear to auscultation lan. ABSENT: crackles Cardiovascular exam: PRESENT: +S1, +S2 Extremities exam: ABSENT: pedal edema Neurological exam: PRESENT: alert, awake, oriented to person, oriented to place Psychiatric exam: PRESENT: appropriate affect Results Laboratory Results: 06/11/20 04:10 06/11/20 04:10 06/11/20 06/11/20 04:10 04:10 WBC 10.1 RBC 3.14 L Hgb 9.0 L Hct 26.5 L MCV 84 MCH 28.5 MCHC 33.8 RDW 17.2 H Plt Count 404 Sodium 138.0 Potassium 4.6 Chloride 103 Carbon Dioxide 25 Anion Gap 10 BUN 48 H Creatinine 3.72 H Est GFR ( Amer) 17 L Glucose 89 Calcium 9.1 Impressions: Renal Ultrasound 05/16/20 00:00 IMPRESSION: 1. Bilateral polycystic kidney disease. 2. No hydronephrosis or urinary stones are seen. Chest X-Ray 05/19/20 00:00 IMPRESSION: NO ACUTE RADIOGRAPHIC FINDING IN THE CHEST. Abdomen/Pelvis CT 05/21/20 00:00 IMPRESSION: Please see combined report for performance of procedure and radiologic supervision and interpretation. Chest CT 05/21/20 00:00 IMPRESSION: 1. Bilateral pleural effusions and basilar airspace disease either atelectasis or pneumonia right greater than left. 2. Polycystic kidneys and liver. 3. Moderate volume ascites. Paracentesis Ultrasound 05/25/20 00:00 IMPRESSION: Successful ultrasound-guided paracentesis Guidance Fluoroscopy 05/28/20 00:00 IMPRESSION: IMAGE(S) OBTAINED DURING PROCEDURE. Assessment & Plan - Diagnosis (1) Acute kidney injury superimposed on CKD Is this a current diagnosis for this admission?: Yes Plan: Acute on chronic kidney disease in the background of ADPKD/polycystic liver disease. Presently admitted with COVID pneumonia which seems to have pushed her over to possibly ESRD status. Patient has had an IJ PermCath placed through which dialysis is being entertained. Plan to remove approximately 500- liter of fluid. Given her polycystic kidney disease she has progressed/advanced CKD to ESRD.Awaiting placement for outpatient dialysis given the fact she has no insurance. (2) ESRD (end stage renal disease) on dialysis Is this a current diagnosis for this admission?: Yes Plan: Looks like this patient with underlying autosomal dominant polycystic kidney disease and liver disease has reached ESRD status with her recent acute insult of COVID infection on top of underlying CKD. She is now dialyzing through IJ PermCath and will carry that as an outpatient. Her most recent COVID test came back as negative . Unfortunately she does not have any insurance including Medicare and Medicaid which is going to take time before she can be entertained at [facility] but now that she is going back to [place] she has had [place] medicaid denied. Fortunately she is making good amounts of urine and will try to maintain that but her electrolytes are abnormal and will require ongoing dialysis. Current dialysis is going without any issues. Vital signs are stable. Dialysis orders reviewed with the treating dialysis nurse. When she goes to [place] she will have to apply for state medicaid and in the meanwhile be dependent on local hospital to continue with her dialysis with special watch ove r her potassium levels.Discussed with her why Potassium is dangerous and needs to be watched and talked about low K diet. (3) COVID-19 virus infection Is this a current diagnosis for this admission?: Yes Plan: Being managed by hospitalist.Most recent call with test was negative. (4) ESBL (extended spectrum beta-lactamase) producing bacteria infection Is this a current diagnosis for this admission?: Yes (5) Hyperkalemia, diminished renal excretion Is this a current diagnosis for this admission?: Yes (6) MRSA bacteremia Is this a current diagnosis for this admission?: Yes (7) Polycystic liver disease Is this a current diagnosis for this admission?: Yes (8) Urinary tract infection Qualifiers: Urinary tract infection type: site unspecified Hematuria presence: with hematuria Qualified Code(s): N39.0 - Urinary tract infection, site not specified; R31.9 - Hematuria, unspecified Is this a current diagnosis for this admission?: Yes (9) Severe anemia Is this a current diagnosis for this admission?: Yes
[2020-06-11 18:13] VITALS: BP 141/76
== END 2020-06-11 19:00 | disposition left against medical advice (07) | DRG 673 ==
LOC: ER 12:15 → EH 17:55 → 5 20:39 → 3N 05-19 17:15
PROVIDERS: ADMIT Internal Medicine; ATTEND Internal Medicine
PROC: 30233N1 Transfusion of Nonautologous Red Blood Cells into Peripheral Vein, Percutaneous Approach (ICD-10-PCS; 2020-05-16)
PROC: 06HM33Z Insertion of Infusion Device into Right Femoral Vein, Percutaneous Approach (ICD-10-PCS; 2020-05-17)
PROC: B54BZZA Ultrasonography of Right Lower Extremity Veins, Guidance (ICD-10-PCS; 2020-05-17)
PROC: 5A1D70Z Performance of Urinary Filtration, Intermittent, Less than 6 Hours Per Day (ICD-10-PCS; 2020-05-17)
PROC: 30233N1 Transfusion of Nonautologous Red Blood Cells into Peripheral Vein, Percutaneous Approach (ICD-10-PCS; 2020-05-18)
PROC: 30233N1 Transfusion of Nonautologous Red Blood Cells into Peripheral Vein, Percutaneous Approach (ICD-10-PCS; 2020-05-19)
PROC: 5A1D70Z Performance of Urinary Filtration, Intermittent, Less than 6 Hours Per Day (ICD-10-PCS; 2020-05-19)
PROC: B24BZZZ Ultrasonography of Heart with Aorta (ICD-10-PCS; 2020-05-21)
PROC: 5A1D70Z Performance of Urinary Filtration, Intermittent, Less than 6 Hours Per Day (ICD-10-PCS; 2020-05-24)
PROC: 0W9G3ZX Drainage of Peritoneal Cavity, Percutaneous Approach, Diagnostic (ICD-10-PCS; 2020-05-25)
PROC: 5A1D70Z Performance of Urinary Filtration, Intermittent, Less than 6 Hours Per Day (ICD-10-PCS; 2020-05-26)
PROC: 02HV33Z Insertion of Infusion Device into Superior Vena Cava, Percutaneous Approach (ICD-10-PCS; 2020-05-28)
PROC: B548ZZA Ultrasonography of Superior Vena Cava, Guidance (ICD-10-PCS; 2020-05-28)
PROC: 5A1D70Z Performance of Urinary Filtration, Intermittent, Less than 6 Hours Per Day (ICD-10-PCS; 2020-05-28)
PROC: 0JH63WZ Insertion of Totally Implantable Vascular Access Device into Chest Subcutaneous Tissue and Fascia, Percutaneous Approach (ICD-10-PCS; principal; 2020-05-28 07:30)
PROC: 5A1D70Z Performance of Urinary Filtration, Intermittent, Less than 6 Hours Per Day (ICD-10-PCS; 2020-05-31)
PROC: 5A1D70Z Performance of Urinary Filtration, Intermittent, Less than 6 Hours Per Day (ICD-10-PCS; 2020-06-02)
PROC: 5A1D70Z Performance of Urinary Filtration, Intermittent, Less than 6 Hours Per Day (ICD-10-PCS; 2020-06-04)
PROC: 5A1D70Z Performance of Urinary Filtration, Intermittent, Less than 6 Hours Per Day (ICD-10-PCS; 2020-06-07)
PROC: B24BZZ4 Ultrasonography of Heart with Aorta, Transesophageal (ICD-10-PCS; 2020-06-08)
PROC: 30233N1 Transfusion of Nonautologous Red Blood Cells into Peripheral Vein, Percutaneous Approach (ICD-10-PCS; 2020-06-09)
PROC: 5A1D70Z Performance of Urinary Filtration, Intermittent, Less than 6 Hours Per Day (ICD-10-PCS; 2020-06-09)
PROC: 5A1D70Z Performance of Urinary Filtration, Intermittent, Less than 6 Hours Per Day (ICD-10-PCS; 2020-06-11)
DX: N17.9 Acute kidney failure, unspecified (principal); U07.1 COVID-19; I12.0 Hypertensive chronic kidney disease with stage 5 chronic kidney disease or end stage renal disease; Q61.2 Polycystic kidney, adult type; N39.0 Urinary tract infection, site not specified; E87.2 Acidosis; E46 Unspecified protein-calorie malnutrition; Z68.1 Body mass index [BMI] 19.9 or less, adult; Q44.6 Cystic disease of liver; R18.8 Other ascites; Z16.12 Extended spectrum beta lactamase (ESBL) resistance; R78.81 Bacteremia; I38 Endocarditis, valve unspecified; N18.6 End stage renal disease; Z99.2 Dependence on renal dialysis; E87.5 Hyperkalemia; M79.7 Fibromyalgia; R79.1 Abnormal coagulation profile; D72.829 Elevated white blood cell count, unspecified; D63.1 Anemia in chronic kidney disease; R31.9 Hematuria, unspecified; B96.20 Unspecified Escherichia coli [E. coli] as the cause of diseases classified elsewhere; E83.51 Hypocalcemia; B95.62 Methicillin resistant Staphylococcus aureus infection as the cause of diseases classified elsewhere; Z84.1 Family history of disorders of kidney and ureter; Z59.7 Insufficient social insurance and welfare support; Z87.891 Personal history of nicotine dependence; Z60.9 Problem related to social environment, unspecified
CPT/HCPCS: 1922; 1930; 36415; 36430; 36600; 49083; 71045; 71260; 74176; 74177; 76770; 77001; 80048; 80053; 80074; 80202; 81001; 82040; 82042; 82140; 82150; 82272; 82575; 82607; 82728; 82746; 82803; 82945; 83036; 83540; 83550; 83605; 83615; 83690; 83735; 83970; 83986; 84100; 84155; 84157; 84443; 84703; 85025; 85027; 85045; 85379; 85610; 85652; 85730; 86140; 86317; 86704; 86850; 86900; 86901; 86920; 87015; 87040; 87070; 87075; 87077; 87086; 87088; 87101; 87116; 87150; 87186; 87205; 87206; 87340; 87522; 87635; 89050; 93005; 93010; 93306; 93312; 93325; 96365; 96375; 99291; C1713; C9113; C9803; J1170; J1335; J1642; J1644; J1650; J1756; J1885; J1940; J2250; J2270; J2405; J2543; J2704; J3010; J3370; J3475; J3490; J7030; J7050; J7060; J8540; P9016; Q5105